=== PATIENT | female | born 1935 | race Caucasian/White ===

== ENCOUNTER → 2016-06-18 | Day surgery (SDC) | payer MEDICARE, BC ==
[~2016-06-18] MED LIST: BUPIVACAINE/EPINEPHRINE 0.25% 50 ML VIAL ONE; CALTTAB5 PO; D32000CA PO; ISOSPOW PO; LACTATED RINGER'S 1000 ML INJ 1,000 ML ONE; LEVO.025 PO; LISI10TA PO; MAGN500T4 PO; METO50TA PO; MULTTAB24 PO; PROPOFOL 200 MG/20 ML AMP IV ONE; ceFAZolin 2 GM PREMIX 50 ML ONE
--- NOTE | 2016-06-18 12:33 | TN ---
cc: LOUIS GIBSON M.D. DATE OF SURGERY: 06/18/2016 PREOPERATIVE DIAGNOSIS Recurrent right breast cancer, right chest wall. POSTOPERATIVE DIAGNOSIS Recurrent right breast cancer, right chest wall. PROCEDURE PERFORMED Wide local excision recurrent right breast cancer, right chest wall 2 x 4 cm. SURGEON Louis Gibson MD REMOTE PILOT OPERATOR Adelina Maria, MS III ANESTHESIA TIVA with local. COMPLICATIONS None. INDICATION FOR PROCEDURE Ms. Sam is a very pleasant 80-year-old female who noted a nodule on her right chest. Her history is significant for having bilateral breast cancers in the past. Nodule was examined in the office and was felt to be concerning. This was biopsied in the office and found to be a recurrent right breast cancer. She is advised to undergo wide local excision of this area. Risks and benefits of wide local excision was discussed with her and she was agreeable. DETAILS OF PROCEDURE The patient was identified, brought to the operating room and placed supine on the operating table. After adequate IV sedation was achieved, right chest was prepped and draped in standard surgical fashion. 0.25% Marcaine was injected into the skin and subcutaneous tissue, around the previous biopsy site. A 2 x 4 cm elliptical incision was used to excise the overlying skin and subcutaneous fat, all the way down to the pectoralis major muscle. Dissection was accomplished using electrocautery Bovie. Fat was dissected up off the pectoralis fascia to include the fascia with the specimen. Specimen was sent to pathology for analysis. Short stitch was placed superior, long stitch placed lateral. The wound was irrigated with normal saline solution. The wound was then closed in two layers using a 3-0 and 4-0 Vicryl. Sterile dressings were applied and the patient was awakened, brought to recovery in stable condition. MD JAMIE Siddiqui/SANDRA /12:14 PM /12:27 PM
== END | disposition home or self-care (01) ==
LOC: ESDC 10:17
PROVIDERS: ATTEND Surgery Trauma Surgery
DX: C50.911 Malignant neoplasm of unspecified site of right female breast (principal)
CPT/HCPCS: 00400; 19120; 88305; J0690; J3010; J7120

== ENCOUNTER → 2017-01-31 | Outpatient (CLI) | payer MEDICARE, BC ==
[~2017-01-31] MED LIST changes: -BUPIVACAINE/EPINEPHRINE 0.25% 50 ML VIAL ONE; -LACTATED RINGER'S 1000 ML INJ 1,000 ML ONE; -PROPOFOL 200 MG/20 ML AMP IV ONE; -ceFAZolin 2 GM PREMIX 50 ML ONE
[2017-01-31 13:46] LABS: BICARBONATE 27.4 MEQ/L (21.0-32.0); CALCIUM 9.1 MG/DL (8.5-10.1); CREATININE 1.01 MG/DL (0.50-1.00)
== END ==
LOC: PLAB 08:27
PROVIDERS: ATTEND Family Medicine
DX: I12.9 Hypertensive chronic kidney disease with stage 1 through stage 4 chronic kidney disease, or unspecified chronic kidney disease (principal); N18.3 Chronic kidney disease, stage 3 (moderate); E03.9 Hypothyroidism, unspecified
CPT/HCPCS: 36415; 80048; 83970; 84443

== ENCOUNTER → 2017-02-20 | Outpatient (CLI) | payer MEDICARE, BC ==
[2017-02-20 14:27] LABS: MAGNESIUM 2.3 MG/DL (1.5-2.5)
== END ==
LOC: PLAB 10:38
PROVIDERS: ATTEND Family Medicine
DX: E61.1 Iron deficiency (principal); I12.9 Hypertensive chronic kidney disease with stage 1 through stage 4 chronic kidney disease, or unspecified chronic kidney disease; N18.3 Chronic kidney disease, stage 3 (moderate)
CPT/HCPCS: 36415; 82728; 83735

== ENCOUNTER → 2017-05-02 | Outpatient (CLI) | payer MEDICARE, BC | LOC: PLAB 07:45 | PROVIDERS: ATTEND Orthopaedic Surgery Sports Medicine | DX: M81.0 Age-related osteoporosis without current pathological fracture (principal) ==

== ENCOUNTER → 2017-05-07 | Outpatient (CLI) | payer MEDICARE, BC ==
[2017-05-07 14:04] LABS: CALCIUM 9.7 MG/DL (8.5-10.1)
[2017-05-07 14:09] LABS: PHOSPHORUS 2.6 MG/DL (2.5-4.9)
== END ==
LOC: PLAB 10:58
PROVIDERS: ATTEND Orthopaedic Surgery Sports Medicine
DX: M81.0 Age-related osteoporosis without current pathological fracture (principal)
CPT/HCPCS: 36415; 82306; 82310; 84100

== ENCOUNTER 2017-07-07 09:33 | Inpatient (IN) | payer MEDICARE, BC ==
[~2017-07-07] VITALS: Ht 162.6 cm; Wt 65.8 kg
[2017-07-07 09:45] VITALS: BP 161/71; PULSE 100; RESP 18; TEMP 98.5; O2SAT 96
[2017-07-07] MEDS ORDERED: LISI2.5T3 PO (10:02)
[2017-07-07] MEDS ORDERED: METO25TA3 PO (10:02)
[2017-07-07] MEDS ORDERED: LEVO25TA4 PO (10:02)
--- NOTE | 2017-07-07 10:11 | PD ---
HPI Chief Complaint: Musculoskeletal Complaint Time Seen by Provider: 09:51 Travel History International Travel<30 days: No Contact w/Intl Traveler<30days: No Traveled to known affect area: No History of Present Illness HPI 81-year-old female presents to the emergency room for evaluation of her right calf pain and swelling for the past week. Patient states pain is constant and severe, worse when she stands on it for long period of time. She has been taking [id number] Tylenol without significant relief in symptoms. Patient also reports feeling sick with a sinus infection for the past 2 weeks. She has associated nausea at onset but denies any fever, chills, or vomiting. Her son gave her Tylenol with sinus medication which temporarily reduced her symptoms. She denies any significant chest pain or shortness of breath. She reports history of breast cancer with double mastectomy and had a recent bone scan just 4 days ago. Denies history of blood clots. She is not on blood thinners. PFSH Past Medical History Cancer: Yes (BREAST) Cardiovascular Problems: Yes (HTN) Hypertension: Yes Thyroid Disease: Yes ?: Not Past Surgical History Mastectomy: Yes (LEFT) Tonsillectomy: Yes Other Surgery: Yes Social History Alcohol Use: Yes Tobacco Use: No Substance Use: No Allergies-Medications (Allergen,Severity, Reaction): Coded Allergies: No Known Allergies (Unverified Adverse Reaction, Unknown, 07/07/17) Reported Meds & Prescriptions Reported Meds & Active Scripts Active Reported Levothyroxine (Levothyroxine Sodium) 25 Mcg Tab Unknown Dose PO DAILY Metoprolol Tartrate 25 Mg Tab Unknown Dose PO BID Lisinopril 2.5 Mg Tab Unknown Dose PO DAILY Review of Systems Except as stated in HPI: all other systems reviewed are Neg Physical Exam Narrative GENERAL: Well-nourished, well-developed female no acute distress. Afebrile. Ambulatory. SKIN: Focused skin assessment warm/dry. No erythema or ecchymosis. HEAD: Normocephalic. EYES: No scleral icterus. No injection or drainage. NECK: Supple, trachea midline. No JVD or lymphadenopathy. CARDIOVASCULAR: Regular rate and rhythm without murmurs, gallops, or rubs. RESPIRATORY: Breath sounds equal bilaterally. No accessory muscle use. MUSCULOSKELETAL: No cyanosis. Moderate edema of the right lower extremity. There is tenderness to palpation over the calf. 2+ dorsalis pedis pulse. Positive Homans sign. Data Data Last Documented VS Vital Signs Date Time Temp Pulse Resp B/P (MAP) Pulse Ox O2 Delivery O2 Flow Rate FiO2 07/07/17 11:53 108 22 160/81 (107) 94 07/07/17 09:45 98.5 Orders Orders Complete Blood Count With Diff (07/07/17 10:06) Comprehensive Metabolic Panel (07/07/17 10:06) Act Partial Throm Time (Ptt) (07/07/17 10:06) Prothrombin Time / Inr (Pt) (07/07/17 10:06) Blood Culture (07/07/17 10:06) Iv Access Insert/Monitor (07/07/17 10:06) Electrocardiogram (07/07/17 10:06) Ecg Monitoring (07/07/17 10:06) Oximetry (07/07/17 10:06) Oxygen Administration (07/07/17 10:06) Ct Pulmonary Angiogram (07/07/17 10:06) Us Leg Venous Doppler (07/07/17 10:06) Iohexol 350 Inj (Omnipaque 350 Inj) (07/07/17 11:49) Heparin Inj (Heparin Inj) (07/07/17 12:00) Heparin-D5w 25,000 U/250 Ml (Heparin-D5w (07/07/17 12:00) Cbc No Diff, Includes Plts (07/10/17 06:00) Act Partial Throm Time (Ptt) (07/07/17 18:51) Occult Blood (Hemoccult) Stool (07/07/17 11:51) Admit Order (Ed Use Only) (07/07/17 12:49) Admit To Inpatient (07/07/17 ) Vital Signs (Adult) Q4H (07/07/17 12:47) Engineering Mgr / Telemetry .CONTINUOUS (07/07/17 12:47) Intake + Output CONRAD.QSHIFT (07/07/17 12:47) Diet Heart Healthy (07/07/17 Lunch) Sodium Chloride 0.9% Flush (Ns Flush) (07/07/17 13:00) Sodium Chloride 0.9% Flush (Ns Flush) (07/07/17 21:00) Ondansetron Inj (Zofran Inj) (07/07/17 13:00) Scd Bilateral/Knee High CONRAD.BID (07/07/17 12:47) Naloxone Inj (Narcan Inj) (07/07/17 13:00) Docusate Sodium-Senna (Denise-Colace) (07/07/17 21:00) Magnesium Hydroxide Liq (Milk Of Magnesi (07/07/17 13:00) Sennosides (Senokot) (07/07/17 13:00) Bisacodyl Supp (Dulcolax Supp) (07/07/17 13:00) Lactulose Liq (Lactulose Liq) (07/07/17 13:00) Labs Laboratory Tests Test 07/07/17 10:20 07/07/17 11:00 Prothrombin Time 12.7 SEC Prothromb Time International Ratio 1.3 RATIO Activated Partial Thromboplast Time 26.1 SEC Blood Urea Nitrogen 16 MG/DL Creatinine 1.00 MG/DL Random Glucose 98 MG/DL Total Protein 7.0 GM/DL Albumin 2.9 GM/DL Calcium Level 9.1 MG/DL Alkaline Phosphatase 806 U/L Aspartate Amino Transf (AST/SGOT) 176 U/L Alanine Aminotransferase (ALT/SGPT) 86 U/L Total Bilirubin 1.9 MG/DL Sodium Level 136 MEQ/L Potassium Level 4.1 MEQ/L Chloride Level 101 MEQ/L Carbon Dioxide Level 25.4 MEQ/L Anion Gap 10 MEQ/L Estimat Glomerular Filtration Rate 53 ML/MIN White Blood Count 9.6 TH/MM3 Red Blood Count 3.97 MIL/MM3 Hemoglobin 12.1 GM/DL Hematocrit 35.9 % Mean Corpuscular Volume 90.5 FL Mean Corpuscular Hemoglobin 30.6 PG Mean Corpuscular Hemoglobin Concent 33.8 % Red Cell Distribution Width 14.7 % Platelet Count 218 TH/MM3 Mean Platelet Volume 7.7 FL Neutrophils (%) (Auto) 75.0 % Lymphocytes (%) (Auto) 10.3 % Monocytes (%) (Auto) 9.8 % Eosinophils (%) (Auto) 1.5 % Basophils (%) (Auto) 3.4 % Neutrophils # (Auto) 7.3 TH/MM3 Lymphocytes # (Auto) 1.0 TH/MM3 Monocytes # (Auto) 0.9 TH/MM3 Eosinophils # (Auto) 0.1 TH/MM3 Basophils # (Auto) 0.3 TH/MM3 CBC Comment DIFF FINAL Differential Comment MDM Medical Decision Making Medical Screen Exam Complete: Yes Emergency Medical Condition: Yes Medical Record Reviewed: Yes Differential Diagnosis PE, DVT, muscle strain, spasm Narrative Course 81-year-old female presents to the emergency room for evaluation of right calf pain and swelling for the past week. Patient denies trauma or injury. She has history of breast cancer. She is not on blood thinners and denies history of blood clots. IV access established basic labs obtained. Physical exam reveals mild to moderate edema of the right lower extremity with 2+ dorsalis pedis pulse. Ultrasound is positive for DVT. Patient was tachycardic on arrival and given suspicion for DVT, CT was ordered as well. CT shows bilateral pulmonary embolisms. Patient denies any significant shortness of breath or chest pain. She was started on a heparin bolus and drip. She will be admitted to the hospital for further evaluation. She understands and agrees to plan. I spoke to Dr. Davies who agrees to accept this patient to her service. H[facility] Point of Care Internal Pos. & Neg. Controls: Passed Fecal Specimen Occult Blood: Negative Diagnosis Primary Impression: Bilateral pulmonary embolism Additional Impression: Right leg DVT Qualified Codes: I82.431 - Acute embolism and thrombosis of right popliteal vein Admitting Information Admitting Physician Requests: Admit Condition: Stable [place] Rob Jul 07, 2017 10:11
[2017-07-07] MEDS ORDERED: SODIUM CHLORIDE 0.9% FLUSH 10 ML FLUSH IVF PRN (10:15)
[2017-07-07 10:42] VITALS: O2SAT 96
[2017-07-07 10:56] LABS: CHLORIDE 101 MEQ/L (98-107); SODIUM (NA) 136 MEQ/L (136-145)
[2017-07-07 10:59] LABS: ALBUMIN 2.9 GM/DL (3.4-5.0); BICARBONATE 25.4 MEQ/L (21.0-32.0); CALCIUM 9.1 MG/DL (8.5-10.1); GLUCOSE,RANDOM 98 MG/DL (74-106)
[2017-07-07 11:00] LABS: BLOOD UREA NITROGEN 16 MG/DL (7-18)
[2017-07-07 11:01] LABS: INTERNATIONAL NORMALIZED RATIO 1.3 RATIO; PROTHROMBIN TIME - PATIENT 12.7 SEC (9.8-11.6)
[2017-07-07 11:03] LABS: ALT (GPT) 86 U/L (10-53); AST (GOT) 176 U/L (15-37); GLOMERULAR FILTRATION RATE 53 ML/MIN (>89)
[2017-07-07 11:04] LABS: TOTAL BILIRUBIN ADULT 1.9 MG/DL (0.2-1.0)
[2017-07-07 11:06] LABS: ALKALINE PHOSPHATASE 806 U/L (45-117)
[2017-07-07 11:08] LABS: AUTOMATED NEUTROPHIL # 7.3 TH/MM3 (1.8-7.7); BASOPHIL # 0.3 TH/MM3 (0-0.2); BASOPHIL % 3.4 % (0.0-2.0); EOSINOPHIL # 0.1 TH/MM3 (0-0.4); EOSINOPHIL % 1.5 % (0.0-4.0); HEMATOCRIT 35.9 % (35.0-46.0); HEMOGLOBIN 12.1 GM/DL (11.6-15.3); LYMPH % 10.3 % (9.0-44.0); MEAN CELL VOLUME 90.5 FL (80.0-100.0); MEAN CORPUSCULAR HEMOGLOBIN 30.6 PG (27.0-34.0); MEAN CORPUSCULAR HGB CONC 33.8 % (32.0-36.0); MEAN PLATELET VOLUME 7.7 FL (7.0-11.0); MONO % 9.8 % (0.0-8.0); MONOCYTE # 0.9 TH/MM3 (0-0.9); PLATELET COUNT 218 TH/MM3 (150-450); RED BLOOD COUNT 3.97 MIL/MM3 (4.00-5.30); RED CELL DISTRIBUTION WIDTH 14.7 % (11.6-17.2); WHITE BLOOD COUNT 9.6 TH/MM3 (4.0-11.0)
--- NOTE | 2017-07-07 11:43 | RADRPT ---
EXAM DATE/TIME: 07/07/2017 11:13 [facility] COMPARISON: No previous studies available for comparison. INDICATIONS : Right leg swelling and pain. MEDICAL HISTORY : Hypertension. Carcinoma, breast. Thyroid disease. SURGICAL HISTORY : Mastectomy, left. Tonsillectomy. Knee surgery. ENCOUNTER: Initial ACUITY: 1 week PAIN SCORE: 6/10 LOCATION: Right leg. TECHNIQUE: Venous ultrasound of the leg was performed from the inguinal ligament to the proximal calf. Real-time, color Doppler and spectral tracing, compression and augmentation techniques were us ed. FINDINGS: There is normal compressibility of the deep venous system from the inguinal region to the distal saph enous vein. There is occlusion of the mid popliteal vein, peroneal vein and posterior tibial veins. CONCLUSION: Occlusive thrombus identified within the popliteal vein, peroneal vein and posterior tibial vein. Kathie Wyatt MD on July 07, 2017 at 11:36 Board Certified Radiologist. This report was verified electronically.
[2017-07-07] MEDS ORDERED: IOHEXOL 350 MG/ML 10 ML VIAL (for RAD DIAG) IVCONTRAST ONE (11:49)
[2017-07-07 11:53] VITALS: BP 160/81; PULSE 108; RESP 22; O2SAT 94
[2017-07-07] MEDS ORDERED: HEPARIN SODIUM - IV 10,000 UNITS/10 ML VIAL IV ONE (12:00)
--- NOTE | 2017-07-07 12:12 | RADRPT ---
EXAM DATE/TIME: 07/07/2017 11:36 [facility] COMPARISON: CT SIMULATION, July 03, 2016, 9:14. INDICATIONS : Right leg pain. Evaluate for pulmonary embolism. IV CONTRAST: 65 cc Omnipaque 350 (iohexol) IV RADIATION DOSE: 8.81 CTDIvol (mGy) MEDICAL HISTORY : Hypertension. Carcinoma, breast. SURGICAL HISTORY : Mastectomy, bilateral. ENCOUNTER: Initial ACUITY: 1 week PAIN SCALE: 0/10 LOCATION: chest TECHNIQUE: Volumetric scanning of the chest was performed using a pulmonary embolism protocol MIP images were re constructed. Using automated exposure control and adjustment of the mA and/or kV according to patien t size, radiation dose was kept as low as reasonably achievable to obtain optimal diagnostic quality images. DICOM format image data is available electronically for review and comparison. Follow-up recommendations for detected pulmonary nodules are based at a minimum on nodule size and pa tient risk factors according to Fleischner Society Guidelines. FINDINGS: PULMONARY ARTERIES: There are filling defects identified within the pulmonary arteries of the right lower lobe and left l ower lobe. LUNGS: There is air space consolidation identified within the right upper lobe an irregular area of parenchy mal opacity abutting the peripheral aspect of the right upper lobe on image 48 of series 3 and image 45 of series 602. No evidence of pulmonary infarction within the lower lobes. These findings are new from the prior CT of July 03, 2016. PLEURAE: Focal pleural thickening identified in the anterior aspect of the right upper lobe adjacent to the ar ea of parenchymal architectural distortion. The remainder of the pleura is normal. MEDIASTINUM: There is good visualization of the great vessels of the middle mediastinum. No evidence of mediastin al or hilar adenopathy/mass. MUSCULOSKELETAL: Within normal limits for patient age. MISCELLANEOUS: The visualized upper abdominal organs demonstrate no acute abnormality. CONCLUSION: There is moderate embolic burden identified within the right and left lower lobes. No evidence of pul monary infarct within the lower lobes. There are areas of airspace consolidation involving the right upper lobe without evidence of adjacent PE. This may represent infection versus infarct and less like ly neoplasm. Recommend followup imaging in 4-6 weeks.. Kathie Wyatt MD on July 07, 2017 at 12:02 Board Certified Radiologist. This report was verified electronically.
[2017-07-07] MEDS ORDERED: BISACODYL 10 MG SUPP RECTAL PRN (13:00)
[2017-07-07] MEDS ORDERED: SODIUM CHLORIDE 0.9% FLUSH 10 ML FLUSH IV FLUSH PRN (13:00)
[2017-07-07] MEDS ORDERED: MAGNESIUM HYDROXIDE SUSP 30 ML CUP PO PRN (13:00)
[2017-07-07] MEDS ORDERED: SENNOSIDES 8.6 MG TAB PO PRN (13:00)
[2017-07-07] MEDS ORDERED: LACTULOSE SYRUP 20 GM/30 ML CUP PO PRN (13:00)
[2017-07-07] MEDS ORDERED: NALOXONE HCL 0.4 MG/ML AMP IV PUSH PRN (13:00)
[2017-07-07] MEDS ORDERED: ONDANSETRON HCL 4 MG/2 ML VIAL IVP PRN (13:00)
[2017-07-07] MEDS: HEPARIN-D5W 25,000 U/250 ML 250 ML IV PRN (13:16)
[2017-07-07 14:41] VITALS: BP 172/83; PULSE 97; RESP 18; TEMP 96.8; O2SAT 97
[2017-07-07 16:00] VITALS: BP 146/67; PULSE 106; RESP 16; TEMP 99.4; O2SAT 92
[2017-07-07] MEDS: CETIRIZINE HCL 10 MG TAB PO SCH (16:00)
--- NOTE | 2017-07-07 16:56 | HHI.HP ---
[facility] Service [facility] Primary Care Physician Nick Vogel MD Admission Diagnosis Pulmonary embolism, DVT Diagnoses: (1) Bilateral pulmonary embolism (2) Right leg DVT Chief Complaint: Shortness of breath and right calf pain/swelling Travel History International Travel<30 Days: No Contact w/Intl Traveler <30 Da: No Traveled to Known Affected Are: No History of Present Illness Written by Trish Barnes, acting as scribe for Dr. Davies on 07/07/17 at 16:41. 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 Patient presented to the ED with right calf pain and swelling as well as worsening cough and dyspnea. Patient states since Saturday she has had constant and severe pain in her right lower extremity that worsens when she stands or walks. Patient states she has been attempting to take Tylenol for pain without relief. She denies any erythema of the right lower extremity prior to presenting to the ED but does admit to warmth and increased swelling. On assessment today her right lower extremity is with erythema extending to mid calf. Patient states that on Saturday she did drive 1.5 hours to [place] in her car. Denies any recent airplane trips or any history of DVT. She denies any recent fever, chills, headache, chest pain, abdominal pain, nausea, vomiting , diarrhea or dysuria. Patient follows with Dr. Liu for her breast cancer. PCP is Dr. Francois. CBC on presentation unremarkable. Liver enzymes elevated upon presentation. Right lower extremity ultrasound showing occlusive thrombus within the popliteal vein, peroneal vein and posterior tibial vein. CT angiography reviewed showing moderate embolic burden identified within the right and left lower lobes. Review of Systems Constitutional: DENIES: Fever, Chills Eyes: DENIES: Diplopia Respiratory: COMPLAINS OF: Cough, Shortness of breath Cardiovascular: COMPLAINS OF: Lower Extremity Edema, DENIES: Chest pain, Palpitations Gastrointestinal: COMPLAINS OF: Nausea, DENIES: Abdominal pain, Black stools, Bloody stools, Constipation, Diarrhea, Vomiting Musculoskeletal: DENIES: Joint pain Psychiatric: COMPLAINS OF: Anxiety Except as stated in HPI: all other systems reviewed are Neg Past Family Social History Past Medical History History of breast cancer. Hypertension Thyroid disease Past Surgical History Left vasectomy Tonsillectomy Reported Medications Active Reported Levothyroxine (Levothyroxine Sodium) 25 Mcg Tab Unknown Dose PO DAILY Metoprolol Tartrate 25 Mg Tab Unknown Dose PO BID Lisinopril 2.5 Mg Tab Unknown Dose PO DAILY Allergies: Coded Allergies: No Known Allergies (Unverified Adverse Reaction, Unknown, 07/07/17) Active Ordered Medications Current Medications Medications (Trade) Dose Ordered Sig/Braydon Route Start Time Stop Time Status Last Admin Heparin Sodium/ Dextrose 250 ml @ 11 mls/hr TITRATE PRN IV 07/07/17 12:00 07/07/17 13:16 (NS Flush) 2 ml UNSCH PRN IV FLUSH 07/07/17 13:00 (NS Flush) 2 ml BID IV FLUSH 07/07/17 21:00 (Zofran Inj) 4 mg Q6H PRN IVP 07/07/17 13:00 (Narcan Inj) 0.4 mg UNSCH PRN IV PUSH 07/07/17 13:00 (Denise-Colace) 1 tab BID PO 07/07/17 21:00 (Milk Of Magnesia Liq) 30 ml Q12H PRN PO 07/07/17 13:00 (Senokot) 17.2 mg Q12H PRN PO 07/07/17 13:00 (Dulcolax Supp) 10 mg DAILY PRN RECTAL 07/07/17 13:00 (Lactulose Liq) 30 ml DAILY PRN PO 07/07/17 13:00 (ZyrTEC) 10 mg DAILY PO 07/07/17 16:00 Ceftriaxone Sodium 1000 mg/ Sodium Chloride 100 ml @ 200 mls/hr Q24H IV 07/07/17 16:00 Azithromycin 500 mg/Sodium Chloride 250 ml @ 250 mls/hr Q24H IV 07/07/17 17:00 Family History Denies any significant family medical history. Social History Denies any tobacco, alcohol or illicit drug use. Physical Exam Vital Signs Vital Signs Date Time Temp Pulse Resp B/P (MAP) Pulse Ox O2 Delivery O2 Flow Rate FiO2 07/07/17 14:41 96.8 97 18 172/83 (112) 97 07/07/17 13:41 07/07/17 11:53 108 22 160/81 (107) 94 07/07/17 10:42 96 07/07/17 09:45 98.5 100 18 161/71 (101) 96 Physical Exam GENERAL: Well-developed, well-nourished patient in NAD. Coughing. SKIN: Warm and dry. No rash. HEAD: Normocephalic. Atraumatic. EYES: Pupils equal and round. No scleral icterus. No injection or drainage. ENT: No nasal bleeding or discharge. Mucous membranes pink and moist. NECK: Supple. Trachea midline. CARDIOVASCULAR: Regular rate and rhythm. S1, S2 noted. No murmur appreciated. RESPIRATORY: No accessory muscle use. Clear to auscultation. Breath sounds equal bilaterally. GASTROINTESTINAL: Abdomen soft, non-tender, nondistended. Normoactive bowel sounds x4. MUSCULOSKELETAL: No obvious deformities. Extremities without clubbing, cyanosis. Right lower extremity erythema extending to mid calf, positive Homans sign, trace edema. Left lower extremity with trace edema. NEUROLOGICAL: Awake and alert. No obvious cranial nerve deficits. Motor grossly within normal limits. 5/5 muscle strength in bilateral upper and lower extremities. Normal speech. PSYCHIATRIC: Appropriate mood and affect; insight and judgment normal. Laboratory Laboratory Tests Test 07/07/17 10:20 07/07/17 11:00 Prothrombin Time 12.7 Prothromb Time International Ratio 1.3 Activated Partial Thromboplast Time 26.1 Blood Urea Nitrogen 16 Creatinine 1.00 Random Glucose 98 Total Protein 7.0 Albumin 2.9 Calcium Level 9.1 Alkaline Phosphatase 806 Aspartate Amino Transf (AST/SGOT) 176 Alanine Aminotransferase (ALT/SGPT) 86 Total Bilirubin 1.9 Sodium Level 136 Potassium Level 4.1 Chloride Level 101 Carbon Dioxide Level 25.4 Anion Gap 10 Estimat Glomerular Filtration Rate 53 White Blood Count 9.6 Red Blood Count 3.97 Hemoglobin 12.1 Hematocrit 35.9 Mean Corpuscular Volume 90.5 Mean Corpuscular Hemoglobin 30.6 Mean Corpuscular Hemoglobin Concent 33.8 Red Cell Distribution Width 14.7 Platelet Count 218 Mean Platelet Volume 7.7 Neutrophils (%) (Auto) 75.0 Lymphocytes (%) (Auto) 10.3 Monocytes (%) (Auto) 9.8 Eosinophils (%) (Auto) 1.5 Basophils (%) (Auto) 3.4 Neutrophils # (Auto) 7.3 Lymphocytes # (Auto) 1.0 Monocytes # (Auto) 0.9 Eosinophils # (Auto) 0.1 Basophils # (Auto) 0.3 CBC Comment DIFF FINAL Differential Comment Date/Time Source Procedure Growth Status 07/07/17 10:25 Blood Line Aerobic Blood Culture Pending Received 07/07/17 10:25 Blood Line Anaerobic Blood Culture Pending Received Result Diagram: 07/07/17 1100 07/07/17 1020 Imaging Last Impressions Lower Extremity Ultrasound 07/07/17 1006 Signed Impressions: Service Date/Time: Friday, July 07, 2017 11:13 - CONCLUSION: Occlusive thrombus identified within the popliteal vein, peroneal vein and posterior tibial vein. Kathie Wyatt MD CT Angiography 07/07/17 1006 Signed Impressions: Service Date/Time: Friday, July 07, 2017 11:36 - CONCLUSION: There is moderate embolic burden identified within the right and left lower lobes. No evidence of pulmonary infarct within the lower lobes. There are areas of airspace consolidation involving the right upper lobe without evidence of adjacent PE. This may represent infection versus infarct and less likely neoplasm. Recommend followup imaging in 4-6 weeks.. Kathie Wyatt MD Septic Shock Reassessment Septic shock perfusion: reassessment completed Caprini VTE Risk Assessment Caprini VTE Risk Assessment: Mod/High Risk (score >= 2) Caprini Risk Assessment Model Point Value = 1 Point Value = 2 Point Value = 3 Point Value = 5 Age 41-60 Minor surgery BMI > 25 kg/m2 Swollen legs Varicose veins or History of unexplained or recurrent spontaneous Oral contraceptives or hormone replacement Sepsis (< 1 month) Serious lung disease, including pneumonia (< 1 month) Abnormal pulmonary function Acute myocardial infarction Congestive heart failure (< 1 month) History of inflammatory bowel disease Medical patient at bed rest Age 61-74 Arthroscopic surgery Major open surgery (> 45 min) Laparoscopic surgery (> 45 min) Malignancy Confined to bed (> 72 hours) Immobilizing plaster cast Central venous access Age >= 75 History of VTE Family history of VTE Factor V Leiden Prothrombin [id number] Lupus anticoagulant Anticardiolipin antibodies Elevated serum homocysteine Heparin-induced thrombocytopenia Other congenital or acquired thrombophilia Stroke (< 1 month) Elective arthroplasty Hip, pelvis, or leg fracture Acute spinal cord injury (< 1 month) Prophylaxis Regimen Total Risk Factor Score Risk Level Prophylaxis Regimen 0-1 Low Early ambulation 2 Moderate Order ONE of the following: *Sequential Compression Device (SCD) *Heparin 5000 units SQ BID 3-4 Higher Order ONE of the following medications: *Heparin 5000 units SQ TID *Enoxaparin/Lovenox 40 mg SQ daily (WT < 150 kg, CrCl > 30 mL/min) *Enoxaparin/Lovenox 30 mg SQ daily (WT < 150 kg, CrCl > 10-29 mL/min) *Enoxaparin/Lovenox 30 mg SQ BID (WT < 150 kg, CrCl > 30 mL/min) AND/OR *Sequential Compression Device (SCD) 5 or more Highest Order ONE of the following medications: *Heparin 5000 units SQ TID (Preferred with Epidurals) *Enoxaparin/Lovenox 40 mg SQ daily (WT < 150 kg, CrCl > 30 mL/min) *Enoxaparin/Lovenox 30 mg SQ daily (WT < 150 kg, CrCl > 10-29 mL/min) *Enoxaparin/Lovenox 30 mg SQ BID (WT < 150 kg, CrCl > 30 mL/min) AND *Sequential Compression Device (SCD) Assessment and Plan Problem List: (1) Bilateral pulmonary embolism ICD Code: I26.99 - Other pulmonary embolism without acute cor pulmonale Status: Acute (2) Right leg DVT ICD Code: I82.401 - Acute embolism and thrombosis of unspecified deep veins of right lower extremity Status: Acute Assessment and Plan This is an 81-year-old female patient with a known medical history of HER-2 breast cancer with left mastectomy, thyroid disease and hypertension who presented to the ED with right calf pain and swelling as well as worsening cough and dyspnea. Bilateral pulmonary embolism presence of dyspnea and cough Right lower extremity DVT with presence of erythema, swelling and positive Homans sign - History of breast cancer and previous chemotherapy/radiation 2015. Patient follows with Dr. Liu, will consult for further input and recommendations. There are reports that patient just underwent a bone scan and awaiting results. - Right lower extremity ultrasound showing occlusive thrombus identified within the popliteal vein, peroneal vein and posterior tibial vein. - CT angiography reviewed showing moderate embolic burden identified within the right and left lower lobes. No pulmonary infarct. Some airspace consolidation in the right upper lobe. - Will be placed on heparin drip per protocol. - Continue cardiac telemetry, monitor for any arrhythmias. - Supplemental O2 as needed, keep saturations above 92%. - Supportive care. Possible community-acquired pneumonia with recent cough 2 weeks - Some airspace consolidation in the right upper lobe identified on CT angiography. - Started on ceftriaxone and azithromycin IV. Continue to monitor for fever. Has been afebrile since presentation. No leukocytosis. Continue to follow CBC. - Placed on Zyrtec as well as Robitussin for cough. - Supplemental O2. History of thyroid disease: Continue home Synthroid. DVT prophylaxis: Heparin. Problem Qualifiers (1) Right leg DVT: Qualified Codes: I82.431 - Acute embolism and thrombosis of right popliteal vein Trish Barnes [facility] Jul 07, 2017 16:56
--- NOTE | 2017-07-07 17:09 | EKG ---
Date Performed: 07/07/2017 Time Performed: 10:30:25 PTAGE: 81 years EKG: SINUS TACHYCARDIA LOW QRS VOLTAGE IN PRECORDIAL LEADS RIGHT BUNDLE BRANCH BLOCK Since the p revious tracing, no significant change noted ABNORMAL ECG PREVIOUS TRACING : 10/28/2011 17.12 DOCTOR: Socrates Benjamin Interpretating Date/Time 07/07/2017 17:08:17
[2017-07-07] MEDS ORDERED: cloNIDine HCL 0.1 MG TAB PO PRN (17:15)
[2017-07-07] MEDS: cefTRIAXone INJ 1,000 MG in SODIUM CHLORIDE 0.9% INJ 100 ML IV SCH (17:18)
[2017-07-07] MEDS: AZITHROMYCIN INJ 500 MG in SODIUM CHLOR 0.9% 250 ML INJ 250 ML IV SCH (18:11)
[2017-07-07] MEDS: guaiFENesin/CODEINE SYRUP 200 MG/20 MG/10 ML CUP PO PRN (19:55)
[2017-07-07] MEDS: SODIUM CHLORIDE 0.9% FLUSH 10 ML FLUSH IV FLUSH SCH (19:57)
[2017-07-07] MEDS: DOCUSATE SODIUM 50 MG/SENNA 8.6 MG TAB PO SCH (19:57)
[2017-07-07 20:00] VITALS: BP 159/81; PULSE 101; PULSE 105; RESP 20; TEMP 99.4; O2SAT 96
[2017-07-07] MEDS ORDERED: LISI10TA PO ×2 (21:56)
[2017-07-07] MEDS: METOPROLOL TARTRATE 25 MG TAB PO SCH (22:00)
[2017-07-08] VITALS (7 sets, daily range): BP systolic 118–186; BP diastolic 65–86; PULSE 77–100; RESP 16–18; TEMP 96–100.4; O2SAT 92–95
[2017-07-08] MEDS: LEVOTHYROXINE SODIUM 25 MCG TAB PO SCH (06:19)
[2017-07-08 07:01] LABS: AUTOMATED NEUTROPHIL # 6.1 TH/MM3 (1.8-7.7); BASOPHIL % 0.3 % (0.0-2.0); EOSINOPHIL # 0.1 TH/MM3 (0-0.4); EOSINOPHIL % 1.5 % (0.0-4.0); HEMATOCRIT 34.5 % (35.0-46.0); HEMOGLOBIN 11.4 GM/DL (11.6-15.3); LYMPH % 15.4 % (9.0-44.0); LYMPHOCYTE # 1.3 TH/MM3 (1.0-4.8); MEAN CELL VOLUME 91.9 FL (80.0-100.0); MEAN CORPUSCULAR HEMOGLOBIN 30.3 PG (27.0-34.0); MEAN CORPUSCULAR HGB CONC 32.9 % (32.0-36.0); MEAN PLATELET VOLUME 8.5 FL (7.0-11.0); MONO % 9.8 % (0.0-8.0); MONOCYTE # 0.8 TH/MM3 (0-0.9); PLATELET COUNT 205 TH/MM3 (150-450); RED BLOOD COUNT 3.76 MIL/MM3 (4.00-5.30); RED CELL DISTRIBUTION WIDTH 14.9 % (11.6-17.2); WHITE BLOOD COUNT 8.3 TH/MM3 (4.0-11.0)
[2017-07-08 07:11] LABS: CHLORIDE 105 MEQ/L (98-107); SODIUM (NA) 138 MEQ/L (136-145)
[2017-07-08 07:22] LABS: ALBUMIN 2.3 GM/DL (3.4-5.0); ALKALINE PHOSPHATASE 707 U/L (45-117); ALT (GPT) 74 U/L (10-53); AST (GOT) 150 U/L (15-37); BICARBONATE 24.9 MEQ/L (21.0-32.0); BLOOD UREA NITROGEN 14 MG/DL (7-18); CALCIUM 8.1 MG/DL (8.5-10.1); CREATININE 0.85 MG/DL (0.50-1.00); GLOMERULAR FILTRATION RATE 64 ML/MIN (>89); GLUCOSE,RANDOM 85 MG/DL (74-106); TOTAL BILIRUBIN ADULT 1.7 MG/DL (0.2-1.0); TOTAL PROTEIN 5.9 GM/DL (6.4-8.2)
[2017-07-08] MEDS: CETIRIZINE HCL 10 MG TAB PO SCH (09:00)
[2017-07-08] MEDS: METOPROLOL TARTRATE 25 MG TAB PO SCH (09:37)
[2017-07-08] MEDS: DOCUSATE SODIUM 50 MG/SENNA 8.6 MG TAB PO SCH ×2 (09:37→21:17)
[2017-07-08] MEDS: SODIUM CHLORIDE 0.9% FLUSH 10 ML FLUSH IV FLUSH SCH ×2 (09:38→21:17)
[2017-07-08] MEDS: HEPARIN-D5W 25,000 U/250 ML 250 ML IV PRN (14:30)
--- NOTE | 2017-07-08 14:32 | HHI.PR ---
Subjective Remarks Pt feeling much better. Did the walk test and doesn't require O2. No nausea or vomiting, no CP. Would rather not be on coumadin. hopeful to be discharged today Objective Vitals Vital Signs Date Time Temp Pulse Resp B/P (MAP) Pulse Ox O2 Delivery O2 Flow Rate FiO2 07/08/17 12:00 96.0 77 16 127/65 (85) 92 07/08/17 08:00 98.7 88 16 127/69 (88) 92 07/08/17 04:00 99.1 88 18 139/72 (94) 95 07/08/17 00:00 100.4 100 18 156/86 (109) 95 07/07/17 20:00 99.4 101 20 159/81 (107) 96 07/07/17 20:00 105 07/07/17 16:00 99.4 106 16 146/67 (93) 92 07/07/17 14:41 96.8 97 18 172/83 (112) 97 I/O 07/07/17 07/07/17 07/07/17 07/08/17 07/08/17 07/08/17 07:00 15:00 23:00 07:00 15:00 23:00 Intake Total 710 ml 640 ml 240 ml Balance 710 ml 640 ml 240 ml Intake Oral 360 ml 640 ml 240 ml IV Total 350 ml # Voids 8 2 Result Diagram: 07/08/17 0535 07/08/17 0535 Imaging Last Impressions Lower Extremity Ultrasound 07/07/17 1006 Signed Impressions: Service Date/Time: Friday, July 07, 2017 11:13 - CONCLUSION: Occlusive thrombus identified within the popliteal vein, peroneal vein and posterior tibial vein. Kathie Wyatt MD CT Angiography 07/07/17 1006 Signed Impressions: Service Date/Time: Friday, July 07, 2017 11:36 - CONCLUSION: There is moderate embolic burden identified within the right and left lower lobes. No evidence of pulmonary infarct within the lower lobes. There are areas of airspace consolidation involving the right upper lobe without evidence of adjacent PE. This may represent infection versus infarct and less likely neoplasm. Recommend followup imaging in 4-6 weeks.. Kathie Wyatt MD Objective Remarks GENERAL: Well-developed, well-nourished patient in NAD. no cough today CARDIOVASCULAR: Regular rate and rhythm. No murmur appreciated. RESPIRATORY: No accessory muscle use. Clear to auscultation. Breath sounds equal bilaterally. GASTROINTESTINAL: Abdomen soft, non-tender, nondistended. Normoactive bowel sounds x4. MUSCULOSKELETAL: No obvious deformities. Right lower extremity mild erythema extending to mid calf, positive Homans sign, trace edema. Left lower extremity with trace edema. NEUROLOGICAL: Awake and alert. Normal speech. 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 Bilateral pulmonary embolism presence of dyspnea and cough Right lower extremity DVT with presence of erythema, swelling and positive Homans sign - History of breast cancer and previous chemotherapy/radiation 2015. Patient follows with Dr. Liu, oncologist, and a consult has been placed for further input and recommendations. There are reports that patient just underwent a bone scan and awaiting results. Pt would rather note be on coumadin. - Right lower extremity ultrasound showing occlusive thrombus identified within the popliteal vein, peroneal vein and posterior tibial vein. - CT angiography reviewed showing moderate embolic burden identified within the right and left lower lobes. No pulmonary infarct. Some airspace consolidation in the right upper lobe. - On heparin drip per protocol. - Continue cardiac telemetry, monitor for any arrhythmias. - Pt passed the walk test. No need for home oxygen - ECHO ordered. Possible community-acquired pneumonia with recent cough 2 weeks - Some airspace consolidation in the right upper lobe identified on CT angiography. - On ceftriaxone and azithromycin IV. Continue to monitor for fever. Tmax 100.4 overnight. No leukocytosis. Continue to follow CBC. - Placed on Zyrtec as well as Robitussin for cough. - Supplemental O2. History of thyroid disease: Continue home Synthroid. Discharge Planning f/u on ECHO to r/o any cardiac strain. Heme/onc consult pending. Anticipate d/c later today or tomorrow pending recs from onc and ECHO result. Problem Qualifiers (1) Right leg DVT: Qualified Codes: I82.431 - Acute embolism and thrombosis of right popliteal vein Carina Davies MD Jul 08, 2017 14:32
[2017-07-08] MEDS: cefTRIAXone INJ 1,000 MG in SODIUM CHLORIDE 0.9% INJ 100 ML IV SCH (15:50)
[2017-07-08] MEDS ORDERED: ACETAMINOPHEN/HYDROcodone 325 MG/5 MG TAB PO PRN (16:15)
[2017-07-08] MEDS ORDERED: METO25TA3 PO (16:30)
[2017-07-08] MEDS ORDERED: LEVO25TA4 PO (16:30)
[2017-07-08] MEDS ORDERED: LISI10TA3 PO (16:30)
[2017-07-08] MEDS: ACETAMINOPHEN 325 MG TAB PO PRN (16:35)
[2017-07-08] MEDS: guaiFENesin/CODEINE SYRUP 200 MG/20 MG/10 ML CUP PO PRN (16:48)
--- NOTE | 2017-07-08 16:54 | ECHRPT ---
Indication: PULMONARY EMBOLI CONCLUSIONS Normal left ventricular size and function. Wall thickness is normal. The left atrial size is upper normal.. The right atrial size is mildly dilated. The interatrial septum not well visualized. The aortic root and proximal ascending aorta are not well visualized. Aortic valve sclerosis is present. Mild aortic valve regurgitation. There is moderate tricuspid valve regurgitation. The estimated pulmonary arterial pressure is 61.3 mmHg. There is estimated [id number] pulmonary hypertension present (range 60-70 mmHg). BP: 127 / 65 HR: 77 Rhythm: Sinus MEASUREMENTS (Male / Female) Normal Values Technical Quality:Fair 2D ECHO LV Diastolic Diameter PLAX 4.2 cm 4.2 - 5.9 / 3.9 - 5.3 cm LV Systolic Diameter PLAX 3.0 cm IVS Diastolic Thickness 0.9 cm 0.6 - 1.0 / 0.6 - 0.9 cm LVPW Diastolic Thickness 0.8 cm 0.6 - 1.0 / 0.6 - 0.9 cm LV Relative Wall Thickness 0.4 RV Internal Dim ED PLAX 3.3 cm LVOT Diameter 2.0 cm Aortic Root Diameter 3.1 cm LA Systolic Diameter LX 3.6 cm 3.0 - 4.0 / 2.7 - 3.8 cm M-MODE AV Cusp Separation MM 2.0 cm DOPPLER AV Peak Velocity 116.0 cm/s AV Peak Gradient 5.4 mmHg AV Mean Gradient 3.0 mmHg AV Velocity Time Integral 24.4 cm AI Peak Velocity 456.0 cm/s AI Peak Gradient 83.2 mmHg AI Pressure Half Time 346.0 ms LVOT Peak Velocity 68.4 cm/s LVOT Peak Gradient 1.9 mmHg LVOT Velocity Time Integral 14.1 cm AV Area Cont Eq vti 1.8 cm AV Area Cont Eq pk 1.9 cm Mitral E Point Velocity 68.6 cm/s Mitral A Point Velocity 86.4 cm/s Mitral E to A Ratio 0.8 LV E' Lateral Velocity 6.1 cm/s Mitral E to LV E' Lateral Ratio 11.2 LV E' Septal Velocity 4.1 cm/s Mitral E to LV E' Septal Ratio 16.8 TR Peak Velocity 358.0 cm/s TR Peak Gradient 51.3 mmHg Right Atrial Pressure 10.0 mmHg Pulmonary Artery Systolic Pressu 61.3 mmHg Right Ventricular Systolic Press 61.3 mmHg PV Peak Velocity 40.6 cm/s PV Peak Gradient 0.7 mmHg FINDINGS LEFT VENTRICLE Normal left ventricular size. Wall thickness is normal. The left ventricular systolic function is normal with an estimated ejection fraction in the range of 60-65%. RIGHT VENTRICLE Normal right ventricular size and systolic function. LEFT ATRIUM The left atrial size is upper normal.. RIGHT ATRIUM The right atrial size is mildly dilated. ATRIAL SEPTUM The interatrial septum not well visualized. AORTA The aortic root and proximal ascending aorta are not well visualized. MITRAL VALVE Structurally normal mitral valve. No mitral valve stenosis or regurgitation. AORTIC VALVE Trileaflet aortic valve. Aortic valve sclerosis is present. Mild aortic valve regurgitation. TRICUSPID VALVE There is moderate tricuspid valve regurgitation. The estimated pulmonary arterial pressure is 61.3 mmHg. There is estimated [id number]-[id number]-[id number] pulmonary hypertension present (range 60-70 mmHg). PULMONARY VALVE No pulmonary valve regurgitation or stenosis. VESSELS The inferior vena cava is normal in size. PERICARDIUM No pericardial effusion. Foster Pringle MD (Electronically Signed) Final Date:08 July 2017 16:53
[2017-07-08] MEDS: AZITHROMYCIN INJ 500 MG in SODIUM CHLOR 0.9% 250 ML INJ 250 ML IV SCH (17:16)
--- NOTE | 2017-07-08 20:34 | MB ---
cc: Jacob Liu MD DATE: 07/08/2017 REASON FOR CONSULTATION: 1. The patient with bilateral pulmonary emboli associated with a large right lower extremity deep venous thrombosis. 2. The patient with previous history of breast carcinoma. CHIEF COMPLAINT: Ms. Sam reports a 2-week history of cough associated with band-like chest pain across the center of her chest. She reports also having developed pain involving her right leg, mostly below the knee and posteriorly starting about a week and a half ago. HISTORY OF PRESENT ILLNESS: Ms. Sam is a very pleasant 81-year-old female who is well known to me from my outpatient practice. Ms. Sam has a history of breast carcinoma, dating back more than 20 years. She was initially diagnosed with an invasive ductal carcinoma of the left breast in 1998. In the late , she underwent mastectomy with left axillary lymphadenectomy. She was treated with adjuvant chemotherapy with CMF and then adjuvant radiation as well. 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 She underwent surgical resection with a right mastectomy in 03/2015. She declined adjuvant systemic therapy despite having HER2 amplified disease. Her disease was T1cN0; stage IA. She did have a local recurrence, which presented in 05/2016. This was resected surgically and she did receive adjuvant radiation to the chest wall on the right side. She had been on observation ever since. The patient was last seen by me in my clinic in late May. She reported symptoms of sudden onset severe pain involving the ribs on the right side and in her underarm. She reports taking Tylenol. She localized the pain to her ribs and was recommended a bone scan to rule out metastatic disease. The bone scan was performed last week and revealed no evidence of metastatic disease involving the bones. The patient reports that her symptoms relieved partially and subsequently recurred after Easter. She came into the [facility] in [place] [facility] yesterday with the above noted complaints. Imaging studies of the thorax; CT angiogram revealed bilateral pulmonary emboli associated with parenchymal opacity involving the right lung concerning for either inflammatory or possible infarction. She has been admitted to the hospital for further workup and management. She was found to have an occlusive thrombosis involving the right popliteal and peroneal veins. She is currently on therapeutic anticoagulation with heparin and her PTTs are within target range. The patient subjectively feels her symptoms of difficulty breathing and chest pain have improved. PAST MEDICAL HISTORY: 1. Invasive ductal carcinoma of the left breast, initially diagnosed in the . 2. 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 3. Local recurrence in the soft tissues of the right chest wall, diagnosed in 05/2016, treated with surgical resection. 4. History of multiple nonmelanomatous skin cancers. 5. Hypothyroidism. 6. Hypertension. PAST SURGICAL HISTORY: 1. Bilateral cataracts. 2. Knee surgery on the left side. 3. Removal of multiple skin carcinomas. 4. Left breast mastectomy in the . 5. Right breast mastectomy in 03/2015. 6. Excisional biopsy of cutaneous recurrence on the right medial chest wall in 05/2016. 7. Colonoscopy, 2012. 8. Hernia repair, 2002. 9. Tonsillectomy in 1953. ALLERGIES: SULFA DRUGS. FAMILY HISTORY: Mother at the age of 97 of advanced age, father at 65 of complications of alcohol abuse. Sister had breast cancer in 2014, she is living. SOCIAL HISTORY: The patient is . She lives at home alone. She reports being a lifelong nonsmoker. She denies alcohol abuse. She previously worked in [email or web address]. GYNECOLOGIC HISTORY: 6, para 5. CURRENT INPATIENT MEDICATIONS: 1. Heparin infusion per protocol. 2. Azithromycin 500 mg IV q. 24 hours. 3. Ceftriaxone 1 gram IV q. 24 hours postop. 4. Hydrocodone/acetaminophen 5/325mg 1 tablet every 4 hours as needed for pain. 5. Dulcolax 10 mg per rectal as needed for severe constipation. 6. Zyrtec 10 mg p.o. daily. 7. Clonidine 0.1 mg p.o. q. 6 hours. 8. Guaifenesin/codeine 10 mL p.o. q. 6 hours as needed for cough. 9. Hydrochlorothiazide 12.5 mg p.o. daily. 10. Levothyroxine 25 mcg p.o. daily. 11. Lisinopril 10 mg p.o. daily. 12. Metoprolol 12.5 mg p.o. at bedtime. REVIEW OF SYSTEMS: A 13-point review of systems was obtained. The following are the pertinent positives and negatives: CONSTITUTIONAL: The patient reports fatigue. She denies fevers, chills, night sweats. HEENT: Denies headache, blurry vision, difficulty swallowing, soreness of throat. RESPIRATORY: Reports difficulty breathing with exertion, dry cough. She reports pleuritic chest pain. CARDIOVASCULAR: Denies angina or chest pain, PND or orthopnea. GASTROINTESTINAL: Denies nausea, vomiting, diarrhea, hematochezia or melena. GENITOURINARY: Denies dysuria, hematuria or incontinence. CENTRAL NERVOUS SYSTEM: No focal sensory or motor deficit. LOWER EXTREMITIES: Right calf pain and tenderness. PHYSICAL EXAMINATION: VITAL SIGNS: Temperature 98.2 degrees Fahrenheit, heart rate 78 beats per minute, blood pressure 118/66, O2 saturations are 92 percent on room air. GENERAL PHYSICAL APPEARANCE: Ms. Sam is an elderly lady. She is lying in bed. She appears to be in no acute distress and has a pleasant disposition. HEENT: Head is atraumatic, normocephalic. Conjunctivae are not pale. Sclerae anicteric, EOMI. PERRLA. Oral exam, no pharyngeal erythema. NECK: No palpable cervical or supraclavicular lymphadenopathy. RESPIRATORY: Clear movement bilaterally. No added breath sounds. CARDIOVASCULAR: Regular rate and rhythm, S1, S2. No obvious murmurs, rubs or gallops. ABDOMEN: A thin belly, soft, tender over the right upper quadrant to deep inspiration. No palpable organ enlargement. LOWER EXTREMITIES: Tenderness of the right calf, some erythema of the right gray, slight edema of the right leg and increased diameter/girth as compared to the left. Left leg is unremarkable. CENTRAL NERVOUS SYSTEM: No focal sensory or motor deficits. LABORATORY DATA: Blood work dated 07/08/2017: WBC count 8.3, hemoglobin 11.4 g/dL, hematocrit 34.5%, MCV 92, platelet count 205, absolute neutrophil count is 6.1. Chemistries: Sodium 138, potassium 4, chloride 105, bicarbonate 25, BUN 14, creatinine 0.85, EGFR 64, random glucose 85, calcium 8.1, total bilirubin 1.7, AST 150, ALT 74, alkaline phosphatase 707, albumin 2.3. RADIOGRAPH STUDIES: CT angiography dated 07/07/2017: There is moderate embolic burden identified within the right and the left lower lobes. No evidence of pulmonary infarction in the lower lobes. There is an area of airspace consolidation involving the right upper lobe without evidence of adjacent pulmonary embolus. This may represent infection versus infarct and less likely neoplasm. Recommend followup studies in 4-6 weeks. Lower extremity ultrasound Doppler studies on the right side indicate evidence of occlusive thrombus identified within the popliteal vein, peroneal vein and posterior tibial veins. ASSESSMENT: Ms. Sam is an 81-year-old female with a history of breast carcinoma, initially diagnosed with left-sided breast cancer in the , which was treated with surgical resection, adjuvant chemotherapy and then adjuvant radiation therapy. In 2014, she was diagnosed with right-sided breast carcinoma, which was stage I. Her disease on the right side was weakly ER and MN positive and HER2 amplified. She underwent surgical resection. She declined adjuvant chemotherapy and approximately about a year and a half later was diagnosed with local recurrence in the soft tissues of the right chest wall. This was surgically resected and treated with radiation. She has not been on systemic therapy since her second episode of breast carcinoma (papillary carcinoma) in 2014. She is without evidence of metastatic disease at this point. The patient presented to this facility yesterday with complaints of pain in her right calf as well as difficulty breathing and chest pain. She was found to have bilateral pulmonary emboli and a right lower extremity deep venous thrombosis. She has been initiated on anticoagulation with heparin. Her symptoms are slightly improved. Echocardiogram revealed pulmonary hypertension with PA peak pressure of slightly over 60 mmHg. RECOMMENDATIONS: 1. Bilateral pulmonary emboli: Continue anticoagulation. I would advise transition to Xarelto 15 mg p.o. b.i.d. as a loading dose for 21 days and then transition to Xarelto 20 mg p.o. once daily and with her evening meals at the time of discharge. 2. It is not yet clear what the cause of her pulmonary embolus was/what the provoking factor was. I will obtain a prothrombotic workup at this time; circulating lupus anticoagulant and APL studies ordered. 3. Infiltrate involving the right lung: Cause not known. Followup CT scan will be performed in the upcoming 6-8 weeks. 4. The patient may be discharged home upon transition from heparin to oral Xarelto. 5. A followup visit with me will be scheduled in the upcoming 1 week. MD BISHNU Gross/ARIK , 07:44 PM , 08:32 PM DANIELA
[2017-07-08] MEDS ORDERED: METOPROLOL TARTRATE 25 MG TAB PO SCH (21:00)
[2017-07-09] VITALS: BP 118/68; PULSE 82; RESP 18; TEMP 97.9; O2SAT 93
[2017-07-09 04:00] VITALS: BP 143/77; PULSE 92; RESP 17; TEMP 97.8; O2SAT 90
[2017-07-09] MEDS: ACETAMINOPHEN 325 MG TAB PO PRN ×2 (04:08→10:31)
[2017-07-09] MEDS: guaiFENesin/CODEINE SYRUP 200 MG/20 MG/10 ML CUP PO PRN ×2 (04:08→10:31)
[2017-07-09] MEDS: LEVOTHYROXINE SODIUM 25 MCG TAB PO SCH (06:37)
[2017-07-09 08:00] VITALS: BP 140/67; PULSE 83; RESP 14; TEMP 96.7; O2SAT 96
[2017-07-09] MEDS: CETIRIZINE HCL 10 MG TAB PO SCH (09:00)
[2017-07-09] MEDS ORDERED: HYDROCHLOROTHIAZIDE 12.5 MG CAP PO SCH (09:00)
[2017-07-09] MEDS ORDERED: LISINOPRIL 10 MG TAB PO SCH ×2 (09:00)
[2017-07-09] MEDS: SODIUM CHLORIDE 0.9% FLUSH 10 ML FLUSH IV FLUSH SCH (09:00)
[2017-07-09] MEDS: DOCUSATE SODIUM 50 MG/SENNA 8.6 MG TAB PO SCH (09:39)
[2017-07-09] MEDS ORDERED: RIVAROXABAN 15 MG TAB PO SCH (09:45)
[2017-07-09] MEDS ORDERED: XARE15TA PO (09:48)
[2017-07-09] MEDS ORDERED: guaiFEN-COD 200-20 MG/10ML LIQ PO (09:48)
[2017-07-09] MEDS ORDERED: ZITH500T PO (09:48)
--- NOTE | 2017-07-09 09:48 | HHI.DCPOC ---
Discharge Care Plan Diagnosis: (1) Bilateral pulmonary embolism (2) Right leg DVT Goals to Promote Your Health * To prevent worsening of your condition and complications * To maintain your health at the optimal level Directions to Meet Your Goals Take your medications as prescribed Follow your dietary instruction Follow activity as directed Keep your appointments as scheduled Take your immunizations and boosters as scheduled If your symptoms worsen call your PCP, if no PCP go to Urgent Care Center or Emergency Room Smoking is Dangerous to Your Health. Avoid second hand smoke Call the 24-hour hour crisis hotline for domestic abuse at Lucio Helm Jul 09, 2017 09:48
--- NOTE | 2017-07-09 12:01 | HHI.DS ---
Discharge Summary Admission Date Jul 07, 2017 at 12:51 Discharge Date: Jul 09, 2017 Admitting Diagnosis Pulmonary embolism, DVT (1) Bilateral pulmonary embolism ICD Code: I26.99 - Other pulmonary embolism without acute cor pulmonale Status: Acute (2) Right leg DVT ICD Code: I82.401 - Acute embolism and thrombosis of unspecified deep veins of right lower extremity Status: Acute Procedures ECHOCARDIOGRAM CONCLUSIONS Normal left ventricular size and function. Wall thickness is normal. The left atrial size is upper normal.. The right atrial size is mildly dilated. The interatrial septum not well visualized. The aortic root and proximal ascending aorta are not well visualized. Aortic valve sclerosis is present. Mild aortic valve regurgitation. There is moderate tricuspid valve regurgitation. The estimated pulmonary arterial pressure is 61.3 mmHg. There is estimated [id number] pulmonary hypertension present (range 60- 70 mmHg). Brief History - From Admission Written by Trish Barnes, acting as scribe for Dr. Davies on 07/07/17 at 16:41. 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 Patient presented to the ED with right calf pain and swelling as well as worsening cough and dyspnea. Patient states since Saturday she has had constant and severe pain in her right lower extremity that worsens when she stands or walks. Patient states she has been attempting to take Tylenol for pain without relief. She denies any erythema of the right lower extremity prior to presenting to the ED but does admit to warmth and increased swelling. On assessment today her right lower extremity is with erythema extending to mid calf. Patient states that on Saturday she did drive 1.5 hours to [place] in her car. Denies any recent airplane trips or any history of DVT. She denies any recent fever, chills, headache, chest pain, abdominal pain, nausea, vomiting , diarrhea or dysuria. Patient follows with Dr. Liu for her breast cancer. PCP is Dr. Francois. CBC on presentation unremarkable. Liver enzymes elevated upon presentation. Right lower extremity ultrasound showing occlusive thrombus within the popliteal vein, peroneal vein and posterior tibial vein. CT angiography reviewed showing moderate embolic burden identified within the right and left lower lobes. CBC/BMP: 07/08/17 0535 07/08/17 0535 Significant Findings Laboratory Tests Test 07/07/17 10:20 07/07/17 11:00 07/07/17 18:50 07/07/17 22:25 Prothrombin Time 12.7 SEC (9.8-11.6) Albumin 2.9 GM/DL (3.4-5.0) Alkaline Phosphatase 806 U/L (45-117) Aspartate Amino Transf (AST/SGOT) 176 U/L (15-37) Alanine Aminotransferase (ALT/SGPT) 86 U/L (10-53) Total Bilirubin 1.9 MG/DL (0.2-1.0) Estimat Glomerular Filtration Rate 53 ML/MIN (>89) Red Blood Count 3.97 MIL/MM3 (4.00-5.30) Neutrophils (%) (Auto) 75.0 % (16.0-70.0) Monocytes (%) (Auto) 9.8 % (0.0-8.0) Basophils (%) (Auto) 3.4 % (0.0-2.0) Basophils # (Auto) 0.3 TH/MM3 (0-0.2) Activated Partial Thromboplast Time 99.1 SEC (24.3-30.1) 69.0 SEC (24.3-30.1) Test 07/08/17 05:35 07/08/17 11:05 07/08/17 22:30 07/09/17 05:20 Red Blood Count 3.76 MIL/MM3 (4.00-5.30) Hemoglobin 11.4 GM/DL (11.6-15.3) Hematocrit 34.5 % (35.0-46.0) Neutrophils (%) (Auto) 73.0 % (16.0-70.0) Monocytes (%) (Auto) 9.8 % (0.0-8.0) Activated Partial Thromboplast Time 75.5 SEC (24.3-30.1) 73.7 SEC (24.3-30.1) 68.6 SEC (24.3-30.1) Total Protein 5.9 GM/DL (6.4-8.2) Albumin 2.3 GM/DL (3.4-5.0) Calcium Level 8.1 MG/DL (8.5-10.1) Alkaline Phosphatase 707 U/L (45-117) Aspartate Amino Transf (AST/SGOT) 150 U/L (15-37) Alanine Aminotransferase (ALT/SGPT) 74 U/L (10-53) Total Bilirubin 1.7 MG/DL (0.2-1.0) Estimat Glomerular Filtration Rate 64 ML/MIN (>89) Imaging Last Impressions Lower Extremity Ultrasound 07/07/17 1006 Signed Impressions: Service Date/Time: Friday, July 07, 2017 11:13 - CONCLUSION: Occlusive thrombus identified within the popliteal vein, peroneal vein and posterior tibial vein. Kathie Wyatt MD CT Angiography 07/07/17 1006 Signed Impressions: Service Date/Time: Friday, July 07, 2017 11:36 - CONCLUSION: There is moderate embolic burden identified within the right and left lower lobes. No evidence of pulmonary infarct within the lower lobes. There are areas of airspace consolidation involving the right upper lobe without evidence of adjacent PE. This may represent infection versus infarct and less likely neoplasm. Recommend followup imaging in 4-6 weeks.. Kathie Wyatt MD PE at Discharge GENERAL: Well-developed, well-nourished patient in NAD. no cough today CARDIOVASCULAR: Regular rate and rhythm. No murmur appreciated. RESPIRATORY: No accessory muscle use. Clear to auscultation. Breath sounds equal bilaterally. GASTROINTESTINAL: Abdomen soft, non-tender, nondistended. Normoactive bowel sounds x4. MUSCULOSKELETAL: No obvious deformities. Right lower extremity mild erythema extending to mid calf, positive Homans sign, trace edema. Left lower extremity with trace edema. NEUROLOGICAL: Awake and alert. Normal speech. Hospital Course 81-year-old male with known history of invasive papillary carcinoma of the breast with local relapse who presented to the hospital because of right calf pain, cough and difficulty breathing. Patient had workup done emergency department and found to have right lower extremity DVT as well as pulmonary emboli. Patient was admitted to the hospital on heparin IV. Hematology was consulted for evaluation and recommending further workup with laboratory studies to evaluate the etiology of the emboli. Hematology is also recommend the use of Xarelto for anticoagulation. Patient has been converted to Xarelto from heparin at this time. Patient did not have any signs of hypoxia or any significant tachycardia. Patient did have a cough which was controlled with cough medication. Patient clinically stable this time. Educational Administrator recommended outpatient follow-up in 1 week. We will plan discharge accordingly. Pt Condition on Discharge: Stable Discharge Disposition: Discharge Home Discharge Time: > 30 minutes Discharge Instructions DIET: Follow Instructions for: Heart Healthy Diet Activities you can perform: Regular-No Restrictions Follow up Referrals: Oncology/Hematology - 1 Week with Jacob Liu MD PCP Follow-up - 1 Week New Medications: Azithromycin (Zithromax) 500 Mg Tab 500 MG PO DAILY for Infection for 7 Days, #7 TAB 0 Refills Rivaroxaban (Xarelto) 15 Mg Tab 15 MG PO BID for Pulmonary emboli for 21 Days, #42 TAB [guaiFEN-COD 200-20 MG/10ML LIQ] () 10 ML SYRP 10 ML PO Q6H PRN for cough, #1 BOTTLE Continued Medications: Levothyroxine (Levothyroxine) 25 Mcg Tab 75 MCG PO DAILY for Thyroid Lisinopril/Hctz 10 mg/12.5 mg (Lisinopril/Hctz 10 mg/12.5 mg) 10 mg/12.5 mg Tab 1 TAB PO DAILY, TAB Metoprolol Tartrate (Metoprolol Tartrate) 25 Mg Tab 25 MG PO DAILY, #30 TAB 0 Refills Lucio Helm Jul 09, 2017 12:01
[2017-07-11 03:50] LABS: BETA2 GLYCOPROTEIN I AB IGA LESS THAN 9.0 SAU (< OR = 20); BETA2 GLYCOPROTEIN I AB IGG LESS THAN 9.0 SGU (< OR = 20); BETA2 GLYCOPROTEIN I AB IGM LESS THAN 9.0 SMU (< OR = 20)
[2017-07-11 11:54] LABS: DRVVT 1:1 MIX ND (CORRECTED); DRVVT CONFIRM ND (NEGATIVE); HEXAGONAL PHASE CONFIRM NEGATIVE (NEGATIVE)
[2017-07-11 17:54] LABS: CARDIOLIPIN AB IGA LESS THAN 11.0 APL (0-11); PHOS SERINE AB IGA LESS THAN 20 U/mL (<20)
== END 2017-07-09 11:55 | disposition home or self-care (01) | DRG 175 ==
LOC: PHEFT 09:33 → PHEDA 12:51 → PH3A 13:34
PROVIDERS: ADMIT Hospitalist; ATTEND Hospitalist
DX: I26.99 Other pulmonary embolism without acute cor pulmonale (principal); J18.9 Pneumonia, unspecified organism; I27.20 Pulmonary hypertension, unspecified; I82.431 Acute embolism and thrombosis of right popliteal vein; I10 Essential (primary) hypertension; E03.9 Hypothyroidism, unspecified; Z85.3 Personal history of malignant neoplasm of breast; Z90.12 Acquired absence of left breast and nipple; Z92.21 Personal history of antineoplastic chemotherapy; Z92.3 Personal history of irradiation; Z80.3 Family history of malignant neoplasm of breast; Z19.1 Hormone sensitive malignancy status
CPT/HCPCS: 71275; 80053; 85025; 85598; 85610; 85613; 85730; 86146; 86147; 86148; 87040; 93005; 93306; 93971; 94618; 96374; J0456; J0696; J1644; J7050; Q9967

== ENCOUNTER 2017-07-28 09:25 | Inpatient (IN) | payer MEDICARE, BC ==
[~2017-07-28] VITALS: Ht 165.1 cm; Wt 65.0 kg
[~2017-07-28 09:25] MED LIST changes: -CALTTAB5 PO; -D32000CA PO; -ISOSPOW PO; -LEVO.025 PO; +LEVO25TA4 PO; -MAGN500T4 PO; +METO25TA3 PO; -METO50TA PO; -MULTTAB24 PO; +XARE15TA PO; +ZITH500T PO; +guaiFEN-COD 200-20 MG/10ML LIQ PO
[2017-07-28 09:37] VITALS: BP 113/57; PULSE 98; RESP 18; TEMP 97.9; O2SAT 99
[2017-07-28] MEDS ORDERED: SODIUM CHLOR 0.9% 1000 ML INJ 1,000 ML IV ONE (10:10)
[2017-07-28] MEDS ORDERED: SODIUM CHLORIDE 0.9% FLUSH 10 ML FLUSH IVF PRN (10:15)
[2017-07-28] MEDS ORDERED: ONDANSETRON HCL 4 MG/2 ML VIAL IV PUSH ONE (10:15)
--- NOTE | 2017-07-28 10:24 | PD ---
HPI . Nausea and poor appetite Chief Complaint: GI Complaint Time Seen by Provider: 10:07 Travel History International Travel<30 days: No Contact w/Intl Traveler<30days: No Traveled to known affect area: No History of Present Illness HPI Status post mastectomy in the remote past with a recent recurrence of the cancer in her chest wall which has been treated with radiation therapy. However , her most recent medical problem has been a pulmonary embolus which occurred on about 07/07. She states that she has had increasing weakness and fatigue over the course of the last month. She has been nauseous and has had a very poor appetite. She has been undergoing outpatient testing and they have determined that the issue is her gallbladder. She is scheduled to see Dr. Romano tomorrow for consideration of cholecystectomy. In the meantime, she is currently on Levaquin and Flagyl for cholecystitis. She has been taking this as directed but states that her symptoms are not improving. In fact, they are getting worse. There are no modifying factors. Symptoms are moderate. She has not been running a fever. She states she had recent elevated liver function studies on outpatient labs but that her white blood count was normal. PFSH Past Medical History Hx Anticoagulant Therapy: Yes (XARELTO) Cancer: Yes (BREAST x3) Cardiovascular Problems: Yes (HTN) Chemotherapy: Yes (1989) Diminished Hearing: No Endocrine: Yes Gastrointestinal Disorders: Yes (Right Inguinal Hernia) Genitourinary: No Hypertension: Yes Immune Disorder: No Musculoskeletal: Yes Neurologic: No Reproductive: No Respiratory: No Radiation Therapy: Yes (33 treatment in 2015) Thyroid Disease: Yes (Hypothyroid) Tetanus Vaccination: < 5 Years Influenza Vaccination: No : 5 Para: 5 Miscarriage: 0 : 0 Past Surgical History Abdominal Surgery: Yes (HERNIA REPAIR ) Cardiac Surgery: No Mastectomy: Yes (BILAT LEFT 1989 RIGHT 2015) Thoracic Surgery: No Tonsillectomy: Yes Other Surgery: Yes Social History Alcohol Use: Yes (very rare) Tobacco Use: No Substance Use: No Allergies-Medications (Allergen,Severity, Reaction): Coded Allergies: Sulfa (Sulfonamide Antibiotics) (Verified Allergy, Intermediate, Rash, ) Reported Meds & Prescriptions Reported Meds & Active Scripts Active Xarelto (Rivaroxaban) 15 Mg Tab 15 Mg PO BID 21 Days Reported Zofran Odt (Ondansetron Odt) 4 Mg Tab 4 Mg SL Q6HR PRN Levofloxacin 500 Mg Tablet 500 Mg PO DAILY Metronidazole 500 Mg Tab 500 Mg PO TID Lisinopril-Hctz 10-12.5 Mg Tab 1 Tab PO DAILY Metoprolol Tartrate 25 Mg Tab 25 Mg PO DAILY Levothyroxine (Levothyroxine Sodium) 25 Mcg Tab 75 Mcg PO DAILY Review of Systems Except as stated in HPI: all other systems reviewed are Neg General / Constitutional: Positive: Other (Fatigue), No: Fever, Chills Gastrointestinal: Positive: Nausea, Loss of Appetite, No: Vomiting, Diarrhea, Abdominal Pain Physical Exam Narrative GENERAL: This is a spry appearing 81-year-old woman who looks like she does not feel well. SKIN: warm/dry. HEAD: Normocephalic. Atraumatic. EYES: Pupils equal and round. No scleral icterus. No injection or drainage. ENT: No nasal bleeding or discharge. Mucous membranes are slightly dry. NECK: Trachea midline. Full range of motion without pain.. CARDIOVASCULAR: Regular rate and rhythm. RESPIRATORY: No accessory muscle use. Clear to auscultation. Breath sounds equal bilaterally. GASTROINTESTINAL: Abdomen soft. Nontender. Bowel sounds present. Nondistended. MUSCULOSKELETAL: No obvious deformities. NEUROLOGICAL: Awake and alert. No obvious cranial nerve deficits. Motor grossly within normal limits. Normal speech. PSYCHIATRIC: Appropriate mood and affect; insight and judgment normal. Data Data Last Documented VS Vital Signs Date Time Temp Pulse Resp B/P (MAP) Pulse Ox O2 Delivery O2 Flow Rate FiO2 07/28/17 09:37 97.9 98 18 113/57 (75) 99 Orders Orders Complete Blood Count With Diff (07/28/17 10:10) Comprehensive Metabolic Panel (07/28/17 10:10) Urinalysis - C+S If Indicated (07/28/17 10:10) Lipase (07/28/17 10:10) Iv Access Insert/Monitor (07/28/17 10:10) Ondansetron Inj (Zofran Inj) (07/28/17 10:15) Sodium Chlor 0.9% 1000 Ml Inj (Ns 1000 M (07/28/17 10:10) Sodium Chloride 0.9% Flush (Ns Flush) (07/28/17 10:15) Consult General Surgery (07/28/17 ) C-Reactive Protein (Crp) (07/28/17 11:43) Labs Laboratory Tests Test 07/28/17 10:30 White Blood Count 6.4 TH/MM3 Red Blood Count 4.07 MIL/MM3 Hemoglobin 13.1 GM/DL Hematocrit 38.2 % Mean Corpuscular Volume 93.8 FL Mean Corpuscular Hemoglobin 32.1 PG Mean Corpuscular Hemoglobin Concent 34.2 % Red Cell Distribution Width 18.2 % Platelet Count 161 TH/MM3 Mean Platelet Volume 8.6 FL Neutrophils (%) (Auto) 77.2 % Lymphocytes (%) (Auto) 10.4 % Monocytes (%) (Auto) 11.6 % Eosinophils (%) (Auto) 0.2 % Basophils (%) (Auto) 0.6 % Neutrophils # (Auto) 4.9 TH/MM3 Lymphocytes # (Auto) 0.7 TH/MM3 Monocytes # (Auto) 0.7 TH/MM3 Eosinophils # (Auto) 0.0 TH/MM3 Basophils # (Auto) 0.0 TH/MM3 CBC Comment DIFF FINAL Differential Comment Blood Urea Nitrogen 20 MG/DL Creatinine 1.23 MG/DL Random Glucose 92 MG/DL Total Protein 6.0 GM/DL Albumin 2.4 GM/DL Calcium Level 9.2 MG/DL Alkaline Phosphatase 932 U/L Aspartate Amino Transf (AST/SGOT) 150 U/L Alanine Aminotransferase (ALT/SGPT) 56 U/L Total Bilirubin 4.2 MG/DL Sodium Level 136 MEQ/L Potassium Level 4.4 MEQ/L Chloride Level 99 MEQ/L Carbon Dioxide Level 25.4 MEQ/L Anion Gap 12 MEQ/L Estimat Glomerular Filtration Rate 42 ML/MIN Lipase 127 U/L [facility] Medical Decision Making Medical Screen Exam Complete: Yes Emergency Medical Condition: Yes Medical Record Reviewed: Yes (please see HPI for pertinent record review) Differential Diagnosis Differential diagnosis includes but is not limited to viral gastroenteritis, food poisoning, bowel obstruction, UTI Narrative Course This patient presents with the chief complaint of nausea and poor appetite over the course of last month. She states that she was recently diagnosed with cholecystitis. She is scheduled to see a surgeon for this tomorrow. Her nausea and poor appetite have been getting progressively worse to the point where she feels like she cannot wait any longer. She subsequently presents to us today. I will treat her acutely with IV fluids and IV Zofran. Routine abdominal pain labs are in process. I anticipate that she will be admitted with a surgical consultation. Ultrasound was done 07/25/17. The findings were abnormal thickening of the gallbladder wall with pericholecystic fluid without definitive gallstones. It was concerning for acute cholecystitis. CT scan was done on 07/24/17. It also showed thickening of the gallbladder wall and pericholecystic fluid but no stones, concerning for acute cholecystitis. CBC & BMP Diagram 07/28/17 10:30 Total Protein 6.0 #L, Albumin 2.4 L, Calcium Level 9.2, Alkaline Phosphatase 932 H, Aspartate Amino Transf (AST/SGOT) 150 H, Alanine Aminotransferase (ALT/ SGPT) 56 H, Total Bilirubin 4.2 H Her liver function studies are getting progressively worse. Physician Communication Physician Communication Dr. Parada Diagnosis Primary Impression: Nausea Additional Impressions: Transaminitis Hyperbilirubinemia Admitting Information Admitting Physician Requests: Admit Condition: Stable Carey Clark MD Jul 28, 2017 10:24
[2017-07-28] MEDS ORDERED: METR1TAB76 PO (10:35)
[2017-07-28] MEDS ORDERED: LISI10TA PO (10:35)
[2017-07-28] MEDS ORDERED: LEVO500T8 PO (10:35)
[2017-07-28] MEDS ORDERED: ZOFR4TAB3 SL (10:35)
[2017-07-28 10:49] LABS: AUTOMATED NEUTROPHIL # 4.9 TH/MM3 (1.8-7.7); BASOPHIL % 0.6 % (0.0-2.0); EOSINOPHIL % 0.2 % (0.0-4.0); HEMATOCRIT 38.2 % (35.0-46.0); HEMOGLOBIN 13.1 GM/DL (11.6-15.3); LYMPH % 10.4 % (9.0-44.0); LYMPHOCYTE # 0.7 TH/MM3 (1.0-4.8); MEAN CELL VOLUME 93.8 FL (80.0-100.0); MEAN CORPUSCULAR HEMOGLOBIN 32.1 PG (27.0-34.0); MEAN CORPUSCULAR HGB CONC 34.2 % (32.0-36.0); MEAN PLATELET VOLUME 8.6 FL (7.0-11.0); MONO % 11.6 % (0.0-8.0); MONOCYTE # 0.7 TH/MM3 (0-0.9); NEUT % 77.2 % (16.0-70.0); PLATELET COUNT 161 TH/MM3 (150-450); RED BLOOD COUNT 4.07 MIL/MM3 (4.00-5.30); RED CELL DISTRIBUTION WIDTH 18.2 % (11.6-17.2); WHITE BLOOD COUNT 6.4 TH/MM3 (4.0-11.0)
[2017-07-28 11:06] LABS: ALKALINE PHOSPHATASE 932 U/L (45-117); TOTAL BILIRUBIN ADULT 4.2 MG/DL (0.2-1.0)
[2017-07-28 11:15] LABS: ALBUMIN 2.4 GM/DL (3.4-5.0); ALT (GPT) 56 U/L (10-53); BICARBONATE 25.4 MEQ/L (21.0-32.0); BLOOD UREA NITROGEN 20 MG/DL (7-18); CALCIUM 9.2 MG/DL (8.5-10.1); CHLORIDE 99 MEQ/L (98-107); CREATININE 1.23 MG/DL (0.50-1.00); GLOMERULAR FILTRATION RATE 42 ML/MIN (>89); GLUCOSE,RANDOM 92 MG/DL (74-106); SODIUM (NA) 136 MEQ/L (136-145)
[2017-07-28 11:16] LABS: AST (GOT) 150 U/L (15-37)
--- NOTE | 2017-07-28 11:40 | HHI.HP ---
[facility] Service Family Medicine Primary Care Physician Nick Vogel MD Admission Diagnosis Diagnoses: International Travel<30 Days: No Contact w/Intl Traveler<30days: No Known Affected Area: No History of Present Illness Patient is an 81 y/o F w/hx of breast cancer and bilateral PE presenting w/ severe nausea. Patient has been experiencing nausea and poor appetite for the past month. Has worsened to the point where she couldn't sleep last night and "feels miserable. " Nothing has made it better. Has not vomited but feels like she could. Has had poor appetite, not sure of weight loss but says it is likely (Weight has been stable since 07/07 per hospital records). While following up with Dr. Liu ( oncology) on , imaging for gallbladder was ordered. Showed cholecystitis , so she was placed on Levaquin and Flagyl by oncology on Saturday. Has taken 2 days of antibiotics except for today. She states she had recent elevated liver function studies on outpatient labs but that her white blood count was normal. Was due to see Dr. Romano to discuss elective cholecystectomy tomorrow. No vomiting, only constant nausea. No abdominal pain but pain in the back between the shoulder blades that comes and goes. No fevers, diarrhea, chest pain , SOB. + lethargic. Yesterday, at cereal in the morning and crackers and cheese in the afternoon. Able to have tea. No problems with gall bladder in the past. Nausea has improved since being in the ED and being give Zofran IV x1. 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 However, her most recent medical problem has been a bilateral pulmonary embolus which occurred on about 07/07. Has been on Xarelto since then. Echo done during that time: the left ventricular systolic function was normal with an estimated ejection fraction in the range of 60-65%. Dr. Fischer is PCP. Sees Dr. Liu for oncology. Per [facility] imaging for her gallbladder: - Ultrasound was done 07/25/17. The findings were abnormal thickening of the gallbladder wall with pericholecystic fluid without definitive gallstones. It was concerning for acute cholecystitis. - CT scan was done on 07/24/17. It also showed thickening of the gallbladder wall and pericholecystic fluid but no stones, concerning for acute cholecystitis. (Fartun Parada MD R1) Review of Systems Constitutional: COMPLAINS OF: Fatigue, Weight loss, DENIES: Night Sweats Endocrine: DENIES: Polydipsia, Polyuria Eyes: DENIES: Eye pain, Vision loss Respiratory: COMPLAINS OF: Cough (coughing white phlegm for the past month) Cardiovascular: DENIES: Chest pain, Lower Extremity Edema Gastrointestinal: DENIES: Black stools, Constipation, Diarrhea Genitourinary: DENIES: Urinary frequency, Urinary incontinence Musculoskeletal: DENIES: Joint pain, Muscle aches Integumentary: DENIES: Abnormal pigmentation Hematologic/lymphatic: DENIES: Bruising Immunologic/allergic: DENIES: Eczema Neurologic: DENIES: Headache, Paresthesias, Poor Balance (Fartun Parada MD R1) Past Family Social History Past Medical History Left Breast Cancer diagnosed in 1989. Chemo and mastectomy done. Right breast in 2015. Mastectomy done. 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 Hypothyroidism HTN Hx of PE and r. leg DVT on 07/07 Past Surgical History R. knee arthroscopic surgery Tonsil removal Hernia repair (Fartun Parada MD R1) Allergies: Coded Allergies: Sulfa (Sulfonamide Antibiotics) (Verified Allergy, Intermediate, Rash, ) Family History Mom: Atrial Fib and Thyroid disease Dad: not known Social History Lives w/son at a house No smoking, drinking, or drug use (Fartun Parada MD R1) Physical Exam Vital Signs Vital Signs Date Time Temp Pulse Resp B/P (MAP) Pulse Ox O2 Delivery O2 Flow Rate FiO2 07/28/17 09:37 97.9 98 18 113/57 (75) 99 Physical Exam GENERAL: This is a thin, elderly lady laying quietly in bed. SKIN: No rashes, ecchymoses or lesions. Cool and dry. HEAD: Atraumatic. Normocephalic. No temporal or scalp tenderness. EYES: Pupils equal round and reactive. Extraocular motions intact. No scleral icterus. No injection or drainage. ENT: Nose without bleeding, purulent drainage or septal hematoma. Throat without erythema, tonsillar hypertrophy or exudate. Uvula midline. Airway patent. NECK: Trachea midline. No JVD or lymphadenopathy. Supple. CARDIOVASCULAR: Regular rate and rhythm without murmurs, gallops, or rubs. RESPIRATORY: Clear to auscultation. Breath sounds equal bilaterally. No wheezes , rales, or rhonchi. GASTROINTESTINAL: Abdomen soft, non-distended. Mild tenderness in the RUQ w/ some guarding. MUSCULOSKELETAL: Extremities without clubbing, cyanosis, or edema. No joint tenderness, effusion, or edema noted. Negative catherine's sign, possible calf tenderness on right. When asked about back pain, patient points to back of neck and to the right shoulder. Pain worsens with assessment for arm motor strength. NEUROLOGICAL: Awake and alert. Cranial nerves II through XII intact. Motor and sensory grossly within normal limits. Five out of 5 muscle strength in all muscle groups. Normal speech. Laboratory Laboratory Tests Test 07/28/17 10:30 White Blood Count 6.4 Red Blood Count 4.07 Hemoglobin 13.1 Hematocrit 38.2 Mean Corpuscular Volume 93.8 Mean Corpuscular Hemoglobin 32.1 Mean Corpuscular Hemoglobin Concent 34.2 Red Cell Distribution Width 18.2 Platelet Count 161 Mean Platelet Volume 8.6 Neutrophils (%) (Auto) 77.2 Lymphocytes (%) (Auto) 10.4 Monocytes (%) (Auto) 11.6 Eosinophils (%) (Auto) 0.2 Basophils (%) (Auto) 0.6 Neutrophils # (Auto) 4.9 Lymphocytes # (Auto) 0.7 Monocytes # (Auto) 0.7 Eosinophils # (Auto) 0.0 Basophils # (Auto) 0.0 CBC Comment DIFF FINAL Differential Comment Blood Urea Nitrogen 20 Creatinine 1.23 Random Glucose 92 Total Protein 6.0 Albumin 2.4 Calcium Level 9.2 Alkaline Phosphatase 932 Aspartate Amino Transf (AST/SGOT) 150 Alanine Aminotransferase (ALT/SGPT) 56 Total Bilirubin 4.2 Sodium Level 136 Potassium Level 4.4 Chloride Level 99 Carbon Dioxide Level 25.4 Anion Gap 12 Estimat Glomerular Filtration Rate 42 Lipase 127 (AbidFartun MD R1) Result Diagram: 07/28/17 1030 07/28/17 1030 Caprini VTE Risk Assessment Caprini VTE Risk Assessment: Mod/High Risk (score >= 2) Caprini Risk Assessment Model Point Value = 1 Point Value = 2 Point Value = 3 Point Value = 5 Age 41-60 Minor surgery BMI > 25 kg/m2 Swollen legs Varicose veins or History of unexplained or recurrent spontaneous Oral contraceptives or hormone replacement Sepsis (< 1 month) Serious lung disease, including pneumonia (< 1 month) Abnormal pulmonary function Acute myocardial infarction Congestive heart failure (< 1 month) History of inflammatory bowel disease Medical patient at bed rest Age 61-74 Arthroscopic surgery Major open surgery (> 45 min) Laparoscopic surgery (> 45 min) Malignancy Confined to bed (> 72 hours) Immobilizing plaster cast Central venous access Age >= 75 History of VTE Family history of VTE Factor V Leiden Prothrombin [id number] Lupus anticoagulant Anticardiolipin antibodies Elevated serum homocysteine Heparin-induced thrombocytopenia Other congenital or acquired thrombophilia Stroke (< 1 month) Elective arthroplasty Hip, pelvis, or leg fracture Acute spinal cord injury (< 1 month) Prophylaxis Regimen Total Risk Factor Score Risk Level Prophylaxis Regimen 0-1 Low Early ambulation 2 Moderate Order ONE of the following: *Sequential Compression Device (SCD) *Heparin 5000 units SQ BID 3-4 Higher Order ONE of the following medications: *Heparin 5000 units SQ TID *Enoxaparin/Lovenox 40 mg SQ daily (WT < 150 kg, CrCl > 30 mL/min) *Enoxaparin/Lovenox 30 mg SQ daily (WT < 150 kg, CrCl > 10-29 mL/min) *Enoxaparin/Lovenox 30 mg SQ BID (WT < 150 kg, CrCl > 30 mL/min) AND/OR *Sequential Compression Device (SCD) 5 or more Highest Order ONE of the following medications: *Heparin 5000 units SQ TID (Preferred with Epidurals) *Enoxaparin/Lovenox 40 mg SQ daily (WT < 150 kg, CrCl > 30 mL/min) *Enoxaparin/Lovenox 30 mg SQ daily (WT < 150 kg, CrCl > 10-29 mL/min) *Enoxaparin/Lovenox 30 mg SQ BID (WT < 150 kg, CrCl > 30 mL/min) AND *Sequential Compression Device (SCD) (Fartun Parada MD R1) Assessment and Plan Assessment and Plan Patient is an 81 y/o F w/hx of breast cancer admitted for severe nausea, poor PO intake, acute cholecystitis, and transaminitis. Will hold PO meds due to nausea. Supportive care, IV Abx, and NPO for now. General Surgery and GI consulted. Plan for MRCP. Code Status FULL Discussed Condition With Dr. Chapa (Fartun Parada MD R1) Attending Attestation THIS PATIENT WAS SEEN AND EXAMINED AND THE CASE WAS DISCUSSED WITH DR. PARADA. I HAVE REVIEWED THE RECORD AND AGREE WITH THE ABOVE NOTE AND PLAN OF CARE WAS DISCUSSED. I HAVE AUTHORIZED THE ORDER FOR ADMISSION TO AN IN-PATIENT STATUS. (Andrea Chapa MD) Problem List: (1) Acute cholecystitis ICD Codes: K81.0 - Acute cholecystitis Status: Acute Plan: Seen on recent ultrasound and CT No white count, vitals stable Concern for elevated bilirubin, transaminitis, and alkaline phosphatase; may indicate developing cholangitis CRP elevated 5.5 General surgery consulted, spoke with Dr. Prakash who recommends MRCP GI consulted Start IV Levaquin and Flagyl IV fluids @100 mls/hr. Watch for fluid overload NPO Pain control with Tylenol for now Order abdominal ultrasound to assess for acute changes since last US Heparin drip for recent history of DVT and PE (2) Nausea ICD Codes: R11.0 - Nausea Status: Acute Plan: Without vomiting May be secondary to worsening acute cholecystitis IV Zofran NPO IV fluids (3) Pulmonary embolism ICD Codes: I26.99 - Other pulmonary embolism without acute cor pulmonale Status: Chronic Plan: Diagnosed via CTA on 07/07 On Xarelto 15 mg PO BID since then We will resume Xarelto after procedure. Heparin drip for now in anticipation for procedures/surgery (4) History of DVT of lower extremity ICD Codes: Z86.718 - Personal history of other venous thrombosis and embolism Status: Chronic Plan: Hx of breast cancer bilaterally w/ recent recurrence Takes Xarelto 50 mg twice daily Hold this anticoagulation for now, on hep drip SCDs only (5) Hypothyroidism ICD Codes: E03.9 - Hypothyroidism, unspecified Status: Chronic Plan: home levothyroxine 75 mcg daily Hold for now due to nausea (6) HTN (hypertension) ICD Codes: I10 - Essential (primary) hypertension Status: Chronic Plan: Takes lisinopril-HCTZ 10-12.5 mg daily, metoprolol 25 mg daily at home Holding home meds due to nausea (7) Neck pain ICD Codes: M54.2 - Cervicalgia Status: Chronic Plan: Likely MSK related (suspect degenerative changes), incited by upper extremity exertion No tenderness to palpation Tylenol for pain PRN. Avoid NSAIDs due to transaminitis, opioids due to advanced age Will monitor, may require further outpatient follow up (8) FEN Plan: Fluids: 100 MLS per hour Electrolytes: Replace as needed Nutrition: N.p.o. DVT prophylaxis: Heparin drip, SCDs. Resume Xarelto after procedure (s) (Fartun Parada MD R1) Physician Certification 2 Midnight Certification Type: Admission for Inpatient Services Order for Inpatient Services The services are ordered in accordance with Medicare regulations or non- Medicare payer requirements, as applicable. In the case of services not specified as inpatient-only, they are appropriately provided as inpatient services in accordance with the 2-midnight benchmark. Estimated LOS (days): 2 2 days is the estimated time the patient will need to remain in the hospital, assuming treatment plan goals are met and no additional complications. Post-Hospital Plan: Not yet determined (Fartun Parada MD R1) Problem Qualifiers (1) Pulmonary embolism: Qualified Codes: I27.82 - Chronic pulmonary embolism (2) Hypothyroidism: Qualified Codes: E03.9 - Hypothyroidism, unspecified Fartun Parada MD R1 Jul 28, 2017 11:40 Andrea Chapa MD Jul 29, 2017 13:00
[2017-07-28 12:09] LABS: BILIRUBIN, URINE NEG (NEG); BLOOD, URINE NEG (NEG); GLUCOSE,URINE NEG (NEG); HYALINE CAST, URINE 30 /lpf (RARE); KETONE, URINE NEG (NEG); MUCUS URINE FEW /lpf (OCC); NITRITE,URINE NEG (NEG); PH, URINE 5.5 (5.0-8.5); URINE COLOR YELLOW (YELLW/STRAW); URINE LEUKOCYTE ESTERASE TRACE (NEG)
[2017-07-28] MEDS ORDERED: NON-FORMULARY DRUG (Lisinopril-Hctz 1 TAB) PO SCH (12:45)
[2017-07-28] MEDS ORDERED: LISINOPRIL 10 MG TAB PO SCH (13:00)
[2017-07-28] MEDS: LEVOTHYROXINE SODIUM 25 MCG TAB PO SCH (13:00)
[2017-07-28] MEDS ORDERED: HYDROCHLOROTHIAZIDE 12.5 MG CAP PO SCH (13:00)
[2017-07-28 13:26] VITALS: BP 114/55; PULSE 83; RESP 17; TEMP 98; O2SAT 94
[2017-07-28] MEDS ORDERED: HEPARIN SODIUM - IV 10,000 UNITS/10 ML VIAL IV ONE (13:30)
[2017-07-28] MEDS: ACETAMINOPHEN 325 MG TAB PO PRN ×2 (13:50→21:56)
[2017-07-28] MEDS ORDERED: LEVOFLOXACIN 750 MG PREMIX INJ 150 ML IV SCH (15:00)
[2017-07-28] MEDS: metroNIDAZOLE 500 MG INJ 100 ML IV SCH ×2 (15:17→19:48)
[2017-07-28] MEDS: SODIUM CHLOR 0.9% 1000 ML INJ 1,000 ML IV SCH (15:20)
[2017-07-28 16:00] VITALS: BP 112/52; PULSE 80; RESP 17; TEMP 97.8; O2SAT 94
--- NOTE | 2017-07-28 16:24 | MB ---
cc: Bernardo Prakash MD DATE: 07/28/2017 REQUESTING PHYSICIAN: Andrea Chapa MD REASON FOR CONSULTATION: Acute cholecystitis. HISTORY OF PRESENT ILLNESS: The patient is an 81-year-old female who presented to [facility] with nausea, loss of appetite, some right shoulder pain and "feeling miserable." The patient was found to have some discomfort, right upper quadrant. Underwent workup including laboratory values, which did show significantly elevated LFTs. Of note, the patient is being followed by Dr. Liu for history of breast cancer and did undergo workup of her symptoms earlier this week and diagnosis of cholecystitis was given to the patient. She is on home medications of antibiotics for this at this time. Currently, the patient states she has no new symptoms and her symptoms have improved since admission. She has no chest pain, shortness of breath or any other complaints. REVIEW OF SYSTEMS: A 12-point review of systems the patient is negative except the pertinent positives mentioned above in history of present illness. PAST MEDICAL HISTORY: Breast cancer as above, status post chemotherapy and mastectomy by Dr. Romano, which was done in 2015, hypothyroidism, hypertension, history of pulmonary embolism on 07/07, on anticoagulation. PAST SURGICAL HISTORY: Mastectomy, knee arthroscopy, tonsillectomy, hernia repair. ALLERGIES: SULFA. MEDICATIONS: Levofloxacin, metronidazole, heparin, Zofran. SOCIAL HISTORY: The patient lives independently, currently does not use tobacco products. No alcohol use. FAMILY HISTORY: Noncontributory. PHYSICAL EXAMINATION: VITAL SIGNS: Temperature 97.9 degrees, pulse 98, respiratory rate 18, blood pressure 113/57, O2 saturation 99%. The patient is a thin, female in no acute distress. HEENT: Head is normocephalic, atraumatic. Pupils are round, reactive and accommodate to light. Sclerae are anicteric. Oral cavity is clear. GENERAL: The patient is in no acute distress. She does not appear acute or chronically ill. LUNGS: Breath sounds present bilaterally. Nonlabored breathing pattern. HEART: Regular rate and rhythm. ABDOMEN: Soft. Some subjective discomfort in the right upper quadrant without Guaman sign, without peritonitis. No organomegaly. No ascites. Normal bowel sounds. BACK: No CVA tenderness. EXTREMITIES: No clubbing, cyanosis or edema. NEUROLOGIC: The patient is alert and oriented x 3. Mood, judgment and insight are intact. Cranial nerves 2-12 are grossly intact. Nonfocal peripheral exam. LABORATORY VALUES: White blood cell count 6.4. Total bilirubin is 4.2. AST 150, ALT 56, alkaline phosphatase was 932. Lipase is 127,000. ASSESSMENT AND PLAN: The patient is an 81-year-old female with elevated liver function tests, obstructive-type pattern, with a previous diagnosis of recent pulmonary embolism and now with likely obstructive jaundice from choledocholithiasis. Will recommend a GI consultation. Will follow along with the patient. Thank you very much for this consultation. MD MAKEDA Skinner/ARIK , 03:12 PM , 04:23 PM
--- NOTE | 2017-07-28 16:56 | RADRPT ---
EXAM DATE/TIME: 07/28/2017 14:08 [facility] COMPARISON: No previous studies available for comparison. INDICATIONS : Nausea. Pain between shoulder blades. MEDICAL HISTORY : Carcinoma, breast. Hypertension. Hypothyroidism. SURGICAL HISTORY : Mastectomy, bilateral. Inguinal hernia repair. Tonsillectomy. ENCOUNTER: Initial ACUITY: 1 day PAIN SCORE: 3/10 LOCATION: Right upper quadrant TECHNIQUE: Multiplanar, multisequence magnetic resonance imaging of the abdomen was performed. High-resolution 3D dataset was utilized to reconstruct maximum-intensity projection (MIP) images. FINDINGS: INTRAHEPATIC BILE DUCTS: Within normal limits. No significant anatomical variant is present. EXTRAHEPATIC BILE DUCTS: The common bile duct measures 8 mm. This is upper limits of normal for the patient's age. No stone or filling defect is identified. GALLBLADDER: The gallbladder is distended. There does appear to be edema around the gallbladder. No gallstones are seen. LIVER: Normal size and signal intensity. No concerning liver lesion is identified on this non-contrast exam. There is increased signal seen around the portal triads likely related to periportal edema. PANCREAS: The main pancreatic duct is normal in size. There is no significant anatomical variant. Signal inte nsity is within normal limits. No mass is visualized on this non-contrast exam. OTHER: The remaining visualized structures demonstrate no acute abnormality on this non-contrast exam. There is a 2.3 cm right renal cyst in the inferior right kidney. There is minimal distention of the centra l left collecting system versus parapelvic cysts. CONCLUSION: 1. Distended gallbladder with surrounding edema but no gallstones. This can be seen with hepatic dise ase. Acalculus cholecystitis cannot be excluded. 2. Periportal edema. 3. Biliary dilatation is not clearly seen. Tyrone Briggs MD on July 28, 2017 at 16:42 Board Certified Radiologist. This report was verified electronically.
[2017-07-28 17:04] LABS: HEMATOCRIT 35.7 % (35.0-46.0); HEMOGLOBIN 12.2 GM/DL (11.6-15.3); MEAN CELL VOLUME 94.7 FL (80.0-100.0); MEAN CORPUSCULAR HEMOGLOBIN 32.5 PG (27.0-34.0); MEAN CORPUSCULAR HGB CONC 34.3 % (32.0-36.0); MEAN PLATELET VOLUME 9.4 FL (7.0-11.0); PLATELET COUNT 147 TH/MM3 (150-450); RED BLOOD COUNT 3.77 MIL/MM3 (4.00-5.30); RED CELL DISTRIBUTION WIDTH 18.2 % (11.6-17.2)
--- NOTE | 2017-07-28 17:06 | RADRPT ---
EXAM DATE/TIME: 07/28/2017 15:12 [facility] COMPARISON: No previous studies available for comparison. EXTERNAL COMPARISON : [facility], US ABDOMEN GALLBLADDER, July 25, 2017 INDICATIONS : Cholecystitis. MEDICAL HISTORY : Hypothyroidism. Hypertension. Breast cancer. Chemotherapy. Radiation therapy. SURGICAL HISTORY : Tonsillectomy. Hernia repair. Bilateral mastectomy. Right knee surgery. ENCOUNTER: Initial ACUITY: 1 day PAIN SCORE: 3/10 LOCATION: Right upper quadrant MEASUREMENTS: LIVER: 21.1 cm length COMMON DUCT: 4 mm RIGHT KIDNEY: 9.2 x 5.2 x 4.4 cm FINDINGS: LIVER: Normal echotexture without focal lesion or ductal dilatation. COMMON DUCT: No intraluminal mass or stone visualized. GALLBLADDER: The gallbladder is distended. No gallstones are seen. The gallbladder wall is thickened at 4 mm. PANCREAS: The visualized portions are within normal limits. RIGHT KIDNEY: No evidence of hydronephrosis, stone, or solid mass. There is a 2.2 cm cyst at the inferior right kid elva. CONCLUSION: 1. Distended gallbladder without stones. Gallbladder wall is mildly thickened at 4 mm. This is nonspe cific. This could be from generalized hepatic disease versus other causes of edema. Acalculus cholecy stitis cannot absolutely be excluded. 2. Right renal cyst. Tyrone Briggs MD on July 28, 2017 at 17:01 Board Certified Radiologist. This report was verified electronically.
[2017-07-28 17:16] LABS: INTERNATIONAL NORMALIZED RATIO 1.4 RATIO; PROTHROMBIN TIME - PATIENT 14.5 SEC (9.8-11.6)
[2017-07-28] MEDS: HEPARIN-D5W 25,000 U/250 ML 250 ML IV PRN (17:55)
[2017-07-28] MEDS: SODIUM CHLORIDE 0.9% FLUSH 10 ML FLUSH IV FLUSH SCH (19:48)
[2017-07-28] MEDS: ONDANSETRON HCL 4 MG/2 ML VIAL IV PUSH PRN (19:48)
[2017-07-28 20:00] VITALS: BP 111/53; PULSE 95; RESP 16; TEMP 97.9; O2SAT 94
[2017-07-29] VITALS: BP 120/59; PULSE 98; RESP 16; TEMP 98; O2SAT 97
[2017-07-29] MEDS: SODIUM CHLOR 0.9% 1000 ML INJ 1,000 ML IV SCH ×3 (04:38→22:43)
[2017-07-29] MEDS: metroNIDAZOLE 500 MG INJ 100 ML IV SCH ×3 (04:39→22:43)
[2017-07-29 05:31] LABS: AUTOMATED NEUTROPHIL # 5.7 TH/MM3 (1.8-7.7); BASOPHIL # 0.1 TH/MM3 (0-0.2); BASOPHIL % 0.8 % (0.0-2.0); EOSINOPHIL % 0.3 % (0.0-4.0); HEMOGLOBIN 12.9 GM/DL (11.6-15.3); LYMPH % 18.6 % (9.0-44.0); LYMPHOCYTE # 1.5 TH/MM3 (1.0-4.8); MEAN CELL VOLUME 95.8 FL (80.0-100.0); MEAN CORPUSCULAR HEMOGLOBIN 32.6 PG (27.0-34.0); MEAN CORPUSCULAR HGB CONC 34.1 % (32.0-36.0); MEAN PLATELET VOLUME 8.9 FL (7.0-11.0); MONO % 10.9 % (0.0-8.0); MONOCYTE # 0.9 TH/MM3 (0-0.9); NEUT % 69.4 % (16.0-70.0); PLATELET COUNT 179 TH/MM3 (150-450); RED BLOOD COUNT 3.97 MIL/MM3 (4.00-5.30); RED CELL DISTRIBUTION WIDTH 18.7 % (11.6-17.2); WHITE BLOOD COUNT 8.2 TH/MM3 (4.0-11.0)
[2017-07-29 05:51] LABS: ALT (GPT) 55 U/L (10-53)
[2017-07-29 05:54] LABS: ALKALINE PHOSPHATASE 994 U/L (45-117); TOTAL BILIRUBIN ADULT 4.7 MG/DL (0.2-1.0); TOTAL PROTEIN 6.1 GM/DL (6.4-8.2)
[2017-07-29 06:01] LABS: ALBUMIN 2.4 GM/DL (3.4-5.0); AST (GOT) 157 U/L (15-37); BICARBONATE 23.1 MEQ/L (21.0-32.0); CALCIUM 8.9 MG/DL (8.5-10.1); CHLORIDE 105 MEQ/L (98-107); CREATININE 1.11 MG/DL (0.50-1.00); GLOMERULAR FILTRATION RATE 47 ML/MIN (>89); GLUCOSE,RANDOM 88 MG/DL (74-106); SODIUM (NA) 138 MEQ/L (136-145)
[2017-07-29 06:02] LABS: BLOOD UREA NITROGEN 17 MG/DL (7-18)
[2017-07-29 08:00] VITALS: BP 134/62; PULSE 98; RESP 20; TEMP 98.4; O2SAT 91
[2017-07-29] MEDS ORDERED: SCOPOLAMINE 1.5 MG PATCH T-DERMAL SCH (09:00)
[2017-07-29] MEDS: SODIUM CHLORIDE 0.9% FLUSH 10 ML FLUSH IV FLUSH SCH ×2 (09:00→21:00)
[2017-07-29] MEDS ORDERED: HYDROmorphone HCL PF 0.5 MG/0.5 ML SYRINGE IV PUSH PRN (10:00)
--- NOTE | 2017-07-29 10:11 | MB ---
cc: Jose Miller MD,Nick Romano,Keagan Rangel MD DATE: 07/29/2017 REFERRING PHYSICIAN: Dr. Chapa. REASON FOR CONSULTATION: Elevated LFTs in the setting of acute cholecystitis. HISTORY: This is a pleasant 81-year-old female known to the [facility] who was admitted stating that she has not felt well since around Easter time. She was diagnosed 07/07/2017 with a right popliteal DVT and a pulmonary embolus by CTA. She was started on Xarelto. She states ever since then she has had problems with nausea and poor appetite. She is somewhat of a poor historian. She states she has had no abdominal pain, but her right shoulder pain seems to coincide with her nausea. Symptoms are not clearly related to eating. Her abdominal ultrasound and MRCP show a thickened gallbladder without stones. The common bile duct is 4 mm on ultrasound and 8 mm on MRCP, but there are no filling defects or sludge identified. She last took her Xarelto Saturday evening, 2 days ago. She is currently on a heparin drip. Her medical history is significant for breast cancer originally diagnosed in 1989 and then she had reoccurrence in the other breast in early 2017. She underwent surgery and then radiation therapy. She states she did not have any chemotherapy. She denies being on any new medications. She also has a history of hypertension and hypothyroidism. PAST SURGICAL HISTORY: In addition to her breast cancer surgery, she has had right knee arthroscopic surgery, hernia repair, and tonsillectomy. ALLERGIES: SHE IS ALLERGIC TO SULFA. FAMILY HISTORY: She had a sister that recently from what sounds like mesenteric ischemia related to atrial fibrillation. Her son may have had premalignant colon polyps. SOCIAL HISTORY: The patient is . She lives with her son. No smoking or alcohol use. No illicit drug use. No recent travel history or blood transfusions. CURRENT MEDICATIONS: Her current medications include: Flagyl and Levaquin IV. She is on a scopolamine patch. She is on a heparin drip. She is getting Zofran p.r.n. for her nausea. REVIEW OF SYSTEMS: Remarkable for approximately 1 month of nausea and right shoulder pain. No chest pain or shortness of breath. No difficulty swallowing. No bowel complaints. No fever or chills. Remainder of 12-point review of systems is negative. PHYSICAL EXAMINATION: GENERAL: This is a well-developed female in no acute distress. VITAL SIGNS: Her blood pressure is 134/62, pulse 98, respirations are 20 and nonlabored, temperature is 98.4, and she has remained afebrile. HEENT: Sclera is mildly icteric. NECK: Without obvious masses. LUNGS: Clear to auscultation. HEART: Sounds reveal a borderline tachycardia without murmur, gallop or rub. ABDOMEN: Soft and nondistended with mild right upper quadrant tenderness. The liver edge is slightly palpable about a centimeter under the right costal margin and is slightly tender. No detectable ascites. EXTREMITIES: No peripheral edema. No significant calf tenderness or swelling. SKIN: Warm and dry. NEUROLOGIC: She was alert and oriented. LABORATORY DATA: Reveals a white count of 8.2, hemoglobin 12.9. Her total bilirubin yesterday was 4.2 and has gone up to 4.7. AST was 150 and has increased to 157, ALT is about the same at 55. Alkaline phosphatase is 994, albumin 2.4. Lipase is normal at 127. Gallbladder ultrasound shows a distended gallbladder without stones and the gallbladder wall is mildly thickened. MRCP shows the same gallbladder findings with an 8 mm common bile duct, but no obvious filling defects. No intrahepatic ductal dilatation. IMPRESSION: Nausea for about 1 month in a patient with some gallbladder disease and elevated LFTs, but no obvious bile duct obstruction. MRCP can miss things in the bile duct, so some degree of biliary obstruction has not been completely excluded. There is also a question that she may have some type of acute hepatocellular process, although there are no risk factors for any new exposure to viruses or medications, etc. PLAN: I discussed with Miriam and her granddaughter at the bedside the situation and the option of endoscopic ultrasound with possible ERCP to clear the bile duct. Would prefer she be off Xarelto for at least 2 days, so any procedures could be done tomorrow after temporarily stopping her heparin. We will also consider evaluation for an acute hepatocellular process, although this is probably unlikely. I will discuss the case with Dr. Romano, her surgeon. If cholecystectomy is performed, intraoperative cholangiogram is another option. I will follow closely with you. Thank you for this consult. MD MIGNON Aguayo/AMEE , 09:47 AM , 10:10 AM [email or web address]
--- NOTE | 2017-07-29 10:39 | HHI.FPPN ---
Subjective Remarks Vitals are stable overnight No acute events, no vomiting Patient denies any pain this morning, however neck feels sore. Continues to endorse severe nausea. I/O's 2.1/0.8 No other complaints (Fartun Parada MD R1) Objective Vitals Vital Signs Date Time Temp Pulse Resp B/P (MAP) Pulse Ox O2 Delivery O2 Flow Rate FiO2 07/29/17 08:00 98.4 98 20 134/62 (86) 91 07/29/17 00:00 98.0 98 16 120/59 (79) 97 07/28/17 20:00 97.9 95 16 111/53 (72) 94 07/28/17 16:00 97.8 80 17 112/52 (72) 94 07/28/17 13:26 98.0 83 17 114/55 (74) 94 I/O 07/28/17 07/28/17 07/28/17 07/29/17 07/29/17 07/29/17 07:00 15:00 23:00 07:00 15:00 23:00 Intake Total 1000 ml 1100 ml Output Total 820 ml Balance 1000 ml 280 ml Intake IV Total 1000 ml 1100 ml Output Urine Total 820 ml # Voids 2 1 # Bowel Movements 1 0 (Fartun Parada MD R1) Result Diagram: 07/29/17 0515 07/29/17 0515 Objective Remarks O. CONSTITUTIONAL/GEN: This is a thinm, elderly, lady resting quietly in bed. Appears uncomfortable. EYES: conjunctiva normal, PERRLA, EOMI. ENT: Mouth and pharynx normal. LUNGS: clear A-P, respiratory effort is normal. CARDIOVASCULAR: RR without murmur or gallop. No significant edema. GI/ABD: soft without masses, without organomegaly. Moderate tenderness to palpation the right upper quadrant. NEURO: No focal deficits. SKIN: color normal, no rashes noted. HEME/LYMPH: no new bruising, petechia MUSC: Extremities are normal in appearance. PSYCH/MENTAL STATUS: Alert and oriented. (Fartun Parada MD R1) A/P Assessment and Plan Patient is an 81 y/o F w/hx of breast cancer admitted for severe nausea, poor PO intake, acute cholecystitis, and transaminitis. Will hold PO meds due to nausea. Supportive care, IV Abx, and NPO for now. General Surgery and GI consulted. Discharge Planning Pending clinical improvement and GI/GS workup (Fartun Parada MD R1) Attending Attestation Patient seen and examined. Case reviewed and discussed with Dr. Parada. Agree with plan of care as discussed with me and documented in the resident note. (Andrea Chapa MD) Problem List: (1) Acute cholecystitis ICD Codes: K81.0 - Acute cholecystitis Status: Acute Plan: Nausea for 1 month with acute cholecystitis seen on recent ultrasound and CT, elevated LFTs Concern for bile duct obstruction v acute hepatocellular process Underwent MRCP on 07/28, which indicated periportal edema, distended gallbladder with edema, and possible hepatic disease General surgery consulted, appreciate recommendations GI consulted: Appreciate recommendations. Possible ERCP versus cholecystectomy with intraoperative cholangiogram tomorrow Patient is currently on heparin drip, has been off Xarelto for at least 2 days On day 2 of IV Levaquin and Flagyl N.p.o., IV fluids @100 mls/hr Pain control with Tylenol for now (2) Transaminitis ICD Codes: R74.0 - Nonspecific elevation of levels of transaminase and lactic acid dehydrogenase [LDH] Status: Acute Plan: LFTs of worsened slightly today since yesterday Concern for acute hepatocellular process, such as drug-induced versus autoimmune versus biliary duct obstructions. However, patient has not started any new hepatotoxic drugs, no alcohol, and autoimmunity at this stage is unlikely. We will continue to trend LFTs Avoid NSAIDs, statins, tetracyclines/sulfa medications, and all other hepatotoxic medications See above plan, will follow up GI and/General Surgery recommendations and procedure findings (3) Nausea ICD Codes: R11.0 - Nausea Status: Acute Plan: Without vomiting May be secondary to worsening acute cholecystitis IV Zofran NPO IV fluids (4) Pulmonary embolism ICD Codes: I26.99 - Other pulmonary embolism without acute cor pulmonale Status: Chronic Plan: Diagnosed via CTA on 07/07 On Xarelto 15 mg PO BID since then We will resume Xarelto after procedure. 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 ICD Codes: Z86.718 - Personal history of other venous thrombosis and embolism Status: Chronic Plan: Hx of breast cancer bilaterally w/ recent recurrence Takes Xarelto 50 mg twice daily Hold this anticoagulation for now, on hep drip SCDs only (6) Hypothyroidism ICD Codes: E03.9 - Hypothyroidism, unspecified Status: Chronic Plan: home levothyroxine 75 mcg daily Hold for now due to nausea (7) HTN (hypertension) ICD Codes: I10 - Essential (primary) hypertension Status: Chronic Plan: Takes lisinopril-HCTZ 10-12.5 mg daily, metoprolol 25 mg daily at home Blood pressures have been stable without home meds since admission Holding home meds (8) Neck pain ICD Codes: M54.2 - Cervicalgia Status: Chronic Plan: Likely MSK related (suspect degenerative changes), incited by upper extremity exertion May also be due to referred pain from gallbladder No tenderness to palpation Tylenol for pain PRN. Avoid NSAIDs due to transaminitis, opioids due to advanced age Will monitor, may require further outpatient follow up (9) FEN Plan: Fluids: 100 MLS per hour Electrolytes: Replace as needed Nutrition: N.p.o. DVT prophylaxis: Heparin drip, SCDs. Resume Xarelto after procedure (s) (Fartun Parada MD R1) Problem Qualifiers (1) Pulmonary embolism: Qualified Codes: I27.82 - Chronic pulmonary embolism (2) Hypothyroidism: Qualified Codes: E03.9 - Hypothyroidism, unspecified Fartun Parada MD R1 Jul 29, 2017 10:39 Andrea Chapa MD Jul 29, 2017 13:05
[2017-07-29 11:51] LABS: INTERNATIONAL NORMALIZED RATIO 1.3 RATIO; PROTHROMBIN TIME - PATIENT 13.3 SEC (9.8-11.6)
[2017-07-29 12:00] VITALS: BP 117/55; PULSE 99; RESP 20; TEMP 98; O2SAT 91
--- NOTE | 2017-07-29 12:08 | HHI.PR ---
cc: Lousi Gibson MD Subjective Subjective Notes Resting in bed Complains of just mild RUQ tenderness Complains of neck soreness from bed Objective Vitals/I&O Vital Signs Date Time Temp Pulse Resp B/P (MAP) Pulse Ox O2 Delivery O2 Flow Rate FiO2 07/29/17 08:00 98.4 98 20 134/62 (86) 91 Labs Laboratory Tests Test 07/28/17 15:53 07/29/17 00:04 07/29/17 03:15 07/29/17 05:15 White Blood Count 7.0 8.2 Red Blood Count 3.77 3.97 Hemoglobin 12.2 12.9 Hematocrit 35.7 38.0 Mean Corpuscular Volume 94.7 95.8 Mean Corpuscular Hemoglobin 32.5 32.6 Mean Corpuscular Hemoglobin Concent 34.3 34.1 Red Cell Distribution Width 18.2 18.7 Platelet Count 147 179 Mean Platelet Volume 9.4 8.9 Prothrombin Time 14.5 Prothromb Time International Ratio 1.4 Activated Partial Thromboplast Time 50.6 GREATER THAN 277.5 103.8 54.1 Neutrophils (%) (Auto) 69.4 Lymphocytes (%) (Auto) 18.6 Monocytes (%) (Auto) 10.9 Eosinophils (%) (Auto) 0.3 Basophils (%) (Auto) 0.8 Neutrophils # (Auto) 5.7 Lymphocytes # (Auto) 1.5 Monocytes # (Auto) 0.9 Eosinophils # (Auto) 0.0 Basophils # (Auto) 0.1 CBC Comment DIFF FINAL Differential Comment Blood Urea Nitrogen 17 Creatinine 1.11 Random Glucose 88 Total Protein 6.1 Albumin 2.4 Calcium Level 8.9 Alkaline Phosphatase 994 Aspartate Amino Transf (AST/SGOT) 157 Alanine Aminotransferase (ALT/SGPT) 55 Total Bilirubin 4.7 Sodium Level 138 Potassium Level 4.4 Chloride Level 105 Carbon Dioxide Level 23.1 Anion Gap 10 Estimat Glomerular Filtration Rate 47 Test 07/29/17 11:12 Prothrombin Time 13.3 Prothromb Time International Ratio 1.3 Activated Partial Thromboplast Time 91.0 Cardiovascular: Regular Lungs: Clear Abdomen: Other (Mild RUQ tenderness ) Extremities: No edema A/P Assessment and Plan 81 year old female with recent diagnosis of PE on anti-coagulation; elevated liver enzymes; RUQ tenderness -Elevated LFTs but no imaging shows obstruction -Heparin gtt -Normal WBC -Continue antibiotics -Scopolamine patch -GI also consulted PT SEEN AND EXAMINED, CHART REVIEWED. CHIEF FINANCIAL OFFICER DOCUMENTED OUR VISIT. ROBERT WILLIS THIS AM. UNCLEAR PICTURE OF PT SYMPTOMS AND IMAGING/LAB FINDINGS. ROBERT GRAY, HE RECOMMENDS HIDA TO EVALUATE FOR CBD OR CYSTIC DUCT OBSTRUCTION. PT HAS NO ABDOMINAL PAIN ON MY EXAM WHICH WOULD BE UNUSUAL IN CHOLECYSTITIS. DR WILLIS CONSIDERING EUS/ERCP. FU LFTS IN AM. HIDA ORDERED. WILL FOLLOW UP. LOUIS GIBSON MD FACS Adia Pendleton. CHIEF FINANCIAL OFFICER/Automation Engineering Manager CHIEF FINANCIAL OFFICER Jul 29, 2017 12:08 Louis Gibson MD Jul 29, 2017 16:26
[2017-07-29 16:00] VITALS: BP 115/55; PULSE 90; RESP 22; TEMP 98.3; O2SAT 91
[2017-07-29 20:00] VITALS: BP 131/63; PULSE 94; RESP 18; TEMP 98.4; O2SAT 93
[2017-07-29] MEDS: ACETAMINOPHEN 325 MG TAB PO PRN (22:51)
[2017-07-30] VITALS: BP 137/63; PULSE 101; RESP 19; TEMP 98; O2SAT 94
[2017-07-30 04:34] LABS: ALBUMIN 1.9 GM/DL (3.4-5.0); ALKALINE PHOSPHATASE 766 U/L (45-117); ALT (GPT) 44 U/L (10-53); AST (GOT) 146 U/L (15-37); BICARBONATE 21.8 MEQ/L (21.0-32.0); BLOOD UREA NITROGEN 15 MG/DL (7-18); CALCIUM 8.1 MG/DL (8.5-10.1); CHLORIDE 111 MEQ/L (98-107); DIRECT BILIRUBIN ADULT 2.9 MG/DL (0.0-0.2); GLOMERULAR FILTRATION RATE 60 ML/MIN (>89); GLUCOSE,RANDOM 90 MG/DL (74-106); SODIUM (NA) 142 MEQ/L (136-145); TOTAL BILIRUBIN ADULT 3.6 MG/DL (0.2-1.0); TOTAL PROTEIN 4.9 GM/DL (6.4-8.2)
[2017-07-30] MEDS: metroNIDAZOLE 500 MG INJ 100 ML IV SCH ×3 (05:56→22:04)
[2017-07-30] MEDS: ACETAMINOPHEN 325 MG TAB PO PRN ×2 (07:53→17:11)
[2017-07-30] MEDS: SODIUM CHLORIDE 0.9% FLUSH 10 ML FLUSH IV FLUSH SCH ×2 (07:53→21:00)
[2017-07-30 08:00] VITALS: BP 144/80; PULSE 90; RESP 19; TEMP 97.8; O2SAT 94
--- NOTE | 2017-07-30 09:15 | HHI.FPPN ---
Subjective Remarks Patient states she continues to be nauseous, has not changed since yesterday. Used dilaudid 1x this morning for shoulder/scapula pain. States it radiates from her neck to shoulder. No episodes of vomiting, no constipation. Adequate output of 0.3 L. No other problems, blood pressure wnl. (Fartun Parada MD R1) Objective Vitals Vital Signs Date Time Temp Pulse Resp B/P (MAP) Pulse Ox O2 Delivery O2 Flow Rate FiO2 07/30/17 08:00 97.8 90 19 144/80 (101) 94 07/30/17 00:00 98.0 101 19 137/63 (87) 94 07/29/17 20:00 98.4 94 18 131/63 (85) 93 07/29/17 16:00 98.3 90 22 115/55 (75) 91 07/29/17 12:00 98.0 99 20 117/55 (75) 91 I/O 07/29/17 07/29/17 07/29/17 07/30/17 07/30/17 07/30/17 06:59 14:59 22:59 06:59 14:59 22:59 Intake Total 1100 ml 1800 ml 340 ml Output Total 820 ml 300 ml Balance 280 ml 1500 ml 340 ml Intake Oral 800 ml 240 ml IV Total 1100 ml 1000 ml 100 ml Output Urine Total 820 ml 300 ml # Voids 3 # Bowel Movements 0 0 (Fartun Parada MD R1) Result Diagram: 07/29/17 0515 07/30/17 0338 Objective Remarks O. CONSTITUTIONAL/GEN: This is a thin, elderly, lady resting quietly in bed. Appears uncomfortable. EYES: conjunctiva normal, PERRLA, EOMI. ENT: Mouth and pharynx normal. LUNGS: clear A-P, respiratory effort is normal. CARDIOVASCULAR: RR without murmur or gallop. No significant edema. GI/ABD: soft without masses, without organomegaly. No tenderness to palpation the right upper quadrant. NEURO: No focal deficits. SKIN: color normal, no rashes noted. HEME/LYMPH: no new bruising, petechia MUSC: Extremities are normal in appearance. PSYCH/MENTAL STATUS: Alert and oriented. (Fartun Parada MD R1) A/P Assessment and Plan Patient is an 81 y/o F w/hx of breast cancer admitted for severe nausea, poor PO intake, acute cholecystitis, and transaminitis. Will hold PO meds due to nausea. Supportive care, IV Abx. General Surgery and GI consulted. Discharge Planning Pending clinical improvement and GI/GS workup (Fartun Parada MD R1) Attending Attestation Patient examined during morning rounds by myself and case discussed with resident physician I have read the above note and agree with the assessment/plan as discussed with me I was involved in all medical decision making for this patient Appreciate GI evaluation and recommendations Appreciate surgery evaluation and recommendations -HIDA scan pending results today -Continue IV antibiotics with Levaquin and metronidazole Doug Rodas MD (Doug Rodas MD) Problem List: (1) Acute cholecystitis ICD Codes: K81.0 - Acute cholecystitis Status: Acute Plan: Concern for bile duct obstruction v acute hepatocellular process Underwent MRCP on 07/28, which indicated periportal edema, distended gallbladder with edema, and possible hepatic disease General surgery consulted, appreciate recommendations GI consulted: Appreciate recommendations. Possible ERCP versus cholecystectomy with intraoperative cholangiogram today On day 3 of IV Flagyl. Had 1 dose of Levaquin so far. Wait for 48 hrs per creatinine clearance IV fluids @100 mls/hr Pain control with Tylenol for now Dilaudid PRN for pain CLD HIDA Scan today (2) Transaminitis ICD Codes: R74.0 - Nonspecific elevation of levels of transaminase and lactic acid dehydrogenase [LDH] Status: Acute Plan: Concern for acute hepatocellular process, such as drug-induced versus autoimmune versus biliary duct obstructions. However, patient has not started any new hepatotoxic drugs, no alcohol, and autoimmunity at this stage is unlikely. LFTs have improved today We will continue to trend LFTs Avoid NSAIDs, statins, tetracyclines/sulfa medications, and all other hepatotoxic medications See above plan, will follow up GI and/General Surgery recommendations and procedure findings (3) Nausea ICD Codes: R11.0 - Nausea Status: Acute Plan: Without vomiting IV Zofran IV fluids CLD (4) Pulmonary embolism ICD Codes: I26.99 - Other pulmonary embolism without acute cor pulmonale Status: Chronic Plan: Diagnosed via CTA on 07/07 On Xarelto 15 mg PO BID since then We will resume Xarelto after procedure. 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 ICD Codes: Z86.718 - Personal history of other venous thrombosis and embolism Status: Chronic Plan: Hx of breast cancer bilaterally w/ recent recurrence Takes Xarelto 50 mg twice daily Hold this anticoagulation for now, on hep drip SCDs only (6) Hypothyroidism ICD Codes: E03.9 - Hypothyroidism, unspecified Status: Chronic Plan: home levothyroxine 75 mcg daily (7) HTN (hypertension) ICD Codes: I10 - Essential (primary) hypertension Status: Chronic Plan: Takes lisinopril-HCTZ 10-12.5 mg daily, metoprolol 25 mg daily at home Blood pressures have been stable without home meds since admission Holding home meds (8) Neck pain ICD Codes: M54.2 - Cervicalgia Status: Chronic Plan: Likely MSK related (suspect degenerative changes), incited by upper extremity exertion May also be due to referred pain from gallbladder No tenderness to palpation Tylenol for pain PRN. Avoid NSAIDs due to transaminitis, opioids due to advanced age Will monitor, may require further outpatient follow up (9) FEN Plan: Fluids: 100 MLS per hour Electrolytes: Replace as needed Nutrition: CLD DVT prophylaxis: Heparin drip, SCDs. Resume Xarelto after procedure (s) (Fartun Parada MD R1) Problem Qualifiers (1) Pulmonary embolism: Qualified Codes: I27.82 - Chronic pulmonary embolism (2) Hypothyroidism: Qualified Codes: E03.9 - Hypothyroidism, unspecified Fartun Parada MD R1 July 30, 2017 09:15 Doug Rodas MD July 30, 2017 11:11
[2017-07-30] MEDS ORDERED: SINCALIDE 5 MCG/5 ML VIAL IV ONE (11:15)
--- NOTE | 2017-07-30 11:57 | HHI.PR ---
cc: Louis Gibson MD Subjective Subjective Notes Just back from HIDA scan Nausea was better but now worse again Objective Vitals/I&O Vital Signs Date Time Temp Pulse Resp B/P (MAP) Pulse Ox O2 Delivery O2 Flow Rate FiO2 07/30/17 08:00 97.8 90 19 144/80 (101) 94 Labs Laboratory Tests Test 07/29/17 14:45 07/29/17 23:20 07/30/17 03:38 Activated Partial Thromboplast Time 64.4 50.7 59.5 Blood Urea Nitrogen 15 Creatinine 0.90 Random Glucose 90 Total Protein 4.9 Albumin 1.9 Calcium Level 8.1 Alkaline Phosphatase 766 Aspartate Amino Transf (AST/SGOT) 146 Alanine Aminotransferase (ALT/SGPT) 44 Total Bilirubin 3.6 Direct Bilirubin 2.9 Sodium Level 142 Potassium Level 4.2 Chloride Level 111 Carbon Dioxide Level 21.8 Anion Gap 9 Estimat Glomerular Filtration Rate 60 C-Reactive Protein 6.00 Date/Time Source Procedure Growth Status 07/29/17 15:00 Stool Stool Stool Occult Blood (ISA) - Final HEMOCCULT POSITIVE Complete Cardiovascular: Regular Lungs: Clear Abdomen: Other (only slight RUQ tenderness with palpation ) Extremities: No edema A/P Assessment and Plan 81 year old female with recent diagnosis of PE on anti-coagulation; elevated liver enzymes; RUQ tenderness -Await results of HIDA scan -Elevated LFTs but no imaging shows obstruction -Heparin gtt -Normal WBC -Continue antibiotics -Scopolamine patch -GI also following -Clear liquids I CERTIFY AND ATTEST THAT I PERSONALLY EXAMINED THE PATIENT. SENIOR PRINCIPAL ARCHITECT DOCUMENTED OUR VISIT. HIDA D/W DR GRAY. COMPLETELY NORMAL - NO DEFECTS, GOOD EF. ALSO D/W DR WILLIS AND PATIENTS SON AT BEDSIDE. I DO NOT HAVE AN EXPLANATION FOR HER CHRONIC NAUSEA AND ELEVATED LFTS. WOULD CONSIDER DIAGNOSTIC LAPAROSCOPY AND LIVER BIOPSY, POSSIBLE CHOLECYSTECTOMY BUT I'M NOT SURE GALLBLADDER IS THE SOURCE. LOUIS GIBSON MD FACS Adia Pendleton SENIOR PRINCIPAL ARCHITECT/[employer]ble Furnace Tender SENIOR PRINCIPAL ARCHITECT July 30, 2017 11:57 Louis Gibson MD July 31, 2017 09:47
[2017-07-30 12:00] VITALS: BP 166/70; PULSE 86; RESP 18; TEMP 98.1; O2SAT 92
--- NOTE | 2017-07-30 12:05 | RADRPT ---
EXAM DATE/TIME: 07/30/2017 09:56 [facility] COMPARISON: CT PULMONARY ANGIOGRAM, July 07, 2017, 11:36. US ABDOMEN - GALLBLADDER, July 28, 2017, 15:12. MRC P W/O CONTRAST, July 28, 2017, 14:08. INDICATIONS : right upper quadrant pain and nausea. DOSE: 4.1 mCi Tc99m Mebrofenin IV MEDICATION: 1.3 mcg Cholecystokinin IV; No symptomatic response. Cholecystokinin was administered by slow infusion over 8 minutes beginning at 60 minutes. MEDICAL HISTORY : Carcinoma, breast. Hypertension. Hypothyroidism. SURGICAL HISTORY : Mastectomy, bilateral. ENCOUNTER: Initial ACUITY: 1 day PAIN SCALE: 2/10 LOCATION: Right upper quadrant TECHNIQUE: Following the intravenous administration of radiotracer, dynamic sequential image were performed with continuous acquisition. Time-activity curves were generated. FINDINGS: HEPATIC KINETICS: There is prompt uptake of radiotracer in the liver. No focal defects are seen. There is normal rate of washout from the hepatic parenchyma. BILIARY CLEARANCE: Activity is first seen in the extrahepatic biliary system at 15 minutes. There is normal excretion i nto the small bowel. GALLBLADDER: Activity is first seen in the gallbladder at 20 minutes. POST CHOLECYSTOKININ: After Cholecystokinin administration, there is prompt emptying of the gallbladder with a greater than 60 % ejection fraction. Common bile duct kinetics are normal and there is no evidence of biliary ob struction. BILIARY ENTERIC REFLUX: None observed. CLINICAL: The patient was asymptomatic after Cholecystokinin administration. CONCLUSION: 1. Normal biliary examination. 2. There is normal filling of the gallbladder which excludes cystic duct obstruction and there is nor mal uptake of the radiopharmaceutical by the liver suggesting against hepatocellular dysfunction. 3. Additionally, there is normal gallbladder response to CCK administration. Tyrone Solo MD on July 30, 2017 at 11:58 Board Certified Radiologist. This report was verified electronically.
[2017-07-30] MEDS: SCOPOLAMINE 1.5 MG PATCH T-DERMAL SCH (13:53)
[2017-07-30] MEDS: SODIUM CHLOR 0.9% 1000 ML INJ 1,000 ML IV SCH (13:55)
[2017-07-30] MEDS: LEVOFLOXACIN 750 MG PREMIX INJ 150 ML IV SCH (13:55)
[2017-07-30] MEDS: HEPARIN-D5W 25,000 U/250 ML 250 ML IV PRN (14:06)
[2017-07-30 16:00] VITALS: BP 140/74; PULSE 94; RESP 18; TEMP 97.9; O2SAT 94
--- NOTE | 2017-07-30 16:47 | HHI.GIFU ---
GI Follow-up Note Consult Follow-up Subjective: Patient laying in bed comfortably, no new complaints and still c/o nausea and right shoulder pain. Objective: PHYSICAL EXAMINATION: Vitals signs stable No fever CHEST: non-labored breathing ABDOMEN: Soft, nondistended, mild RUQ tenderness SKIN: warm and dry [place] T[employer] AUDITOR: alert and oriented times three. Available Data (labs, X- Rays, Procedues) : Laboratory Tests Test 07/28/17 10:30 07/28/17 11:35 07/28/17 15:53 07/29/17 00:04 Red Cell Distribution Width 18.2 % (11.6-17.2) 18.2 % (11.6-17.2) Neutrophils (%) (Auto) 77.2 % (16.0-70.0) Monocytes (%) (Auto) 11.6 % (0.0-8.0) Lymphocytes # (Auto) 0.7 TH/MM3 (1.0-4.8) Blood Urea Nitrogen 20 MG/DL (7-18) Creatinine 1.23 MG/DL (0.50-1.00) Total Protein 6.0 GM/DL (6.4-8.2) Albumin 2.4 GM/DL (3.4-5.0) Alkaline Phosphatase 932 U/L (45-117) Aspartate Amino Transf (AST/SGOT) 150 U/L (15-37) Alanine Aminotransferase (ALT/SGPT) 56 U/L (10-53) Total Bilirubin 4.2 MG/DL (0.2-1.0) Estimat Glomerular Filtration Rate 42 ML/MIN (>89) C-Reactive Protein 5.50 MG/DL (0.00-0.30) Urine Leukocyte Esterase TRACE (NEG) Urine Mucus FEW /lpf (OCC) Red Blood Count 3.77 MIL/MM3 (4.00-5.30) Platelet Count 147 TH/MM3 (150-450) Prothrombin Time 14.5 SEC (9.8-11.6) Activated Partial Thromboplast Time 50.6 SEC (24.3-30.1) GREATER THAN 277.5 SEC Test 07/29/17 03:15 07/29/17 05:15 07/29/17 11:12 07/29/17 14:45 Activated Partial Thromboplast Time 103.8 SEC (24.3-30.1) 54.1 SEC (24.3-30.1) 91.0 SEC (24.3-30.1) 64.4 SEC (24.3-30.1) Red Blood Count 3.97 MIL/MM3 (4.00-5.30) Red Cell Distribution Width 18.7 % (11.6-17.2) Monocytes (%) (Auto) 10.9 % (0.0-8.0) Creatinine 1.11 MG/DL (0.50-1.00) Total Protein 6.1 GM/DL (6.4-8.2) Albumin 2.4 GM/DL (3.4-5.0) Alkaline Phosphatase 994 U/L (45-117) Aspartate Amino Transf (AST/SGOT) 157 U/L (15-37) Alanine Aminotransferase (ALT/SGPT) 55 U/L (10-53) Total Bilirubin 4.7 MG/DL (0.2-1.0) Estimat Glomerular Filtration Rate 47 ML/MIN (>89) Prothrombin Time 13.3 SEC (9.8-11.6) Test 07/29/17 23:20 07/30/17 03:38 Activated Partial Thromboplast Time 50.7 SEC (24.3-30.1) 59.5 SEC (24.3-30.1) Total Protein 4.9 GM/DL (6.4-8.2) Albumin 1.9 GM/DL (3.4-5.0) Calcium Level 8.1 MG/DL (8.5-10.1) Alkaline Phosphatase 766 U/L (45-117) Aspartate Amino Transf (AST/SGOT) 146 U/L (15-37) Total Bilirubin 3.6 MG/DL (0.2-1.0) Direct Bilirubin 2.9 MG/DL (0.0-0.2) Chloride Level 111 MEQ/L (98-107) Estimat Glomerular Filtration Rate 60 ML/MIN (>89) C-Reactive Protein 6.00 MG/DL (0.00-0.30) ASSESSMENT/PLAN: 1. Abnormal LFTs-pattern obstructive but MRCP and HIDA show no signs of biliary obstruction. HIDA normal- no sign hepatocellular disease either. Case discussed with Dr Romano. Agree cholecystectomy not indicated at this time. I discussed liver bx with pt but LFTs seem to be improving. Will check AMA (r/o PBC) and check for viral hepatitis(doubt). 2.Heme pos stool-H&H stable. Last colonoscopy done by me in 2011(diverticulosis ) and last EGD 07/2014. She is going to need this heme pos stool evaluated. Dr Keita takes over hospital service tomorrow and will discuss with him option of EUS w/ liver bx. Will need to hold heparin for GI procedures and pt understands the risk regarding her blood clots. The recent DVT/PE raises the possibility of a paraneoplastic syndrome. It was a pleasure seeing Miriam Sam. Thank you for this consult. Entered by: Jose Mosquera MD July 30, 2017 16:47
[2017-07-30 20:00] VITALS: BP 129/64; PULSE 91; RESP 17; TEMP 97.9; O2SAT 91
[2017-07-30] MEDS: ONDANSETRON HCL 4 MG/2 ML VIAL IV PUSH PRN (22:03)
[2017-07-31] VITALS: BP 132/75; PULSE 96; RESP 17; TEMP 98.1; O2SAT 94
[2017-07-31] MEDS: SODIUM CHLOR 0.9% 1000 ML INJ 1,000 ML IV SCH ×2 (00:59→09:51)
[2017-07-31 04:00] VITALS: BP 148/67; PULSE 100; RESP 17; TEMP 98.2; O2SAT 92
[2017-07-31] MEDS: LEVOTHYROXINE SODIUM 25 MCG TAB PO SCH (05:47)
[2017-07-31] MEDS: metroNIDAZOLE 500 MG INJ 100 ML IV SCH ×3 (05:50→22:05)
[2017-07-31 08:00] VITALS: BP 131/79; PULSE 95; RESP 18; TEMP 98.2; O2SAT 93
--- NOTE | 2017-07-31 08:06 | HHI.GIFU ---
GI Follow-up Note Consult Follow-up Subjective: Patient laying in bed comfortably, c/o mild nausea, non toxic, no abdo pain, no fever or chills. Objective: PHYSICAL EXAMINATION: Vitals signs stable No fever HEENT: Pupils round and reactive to light; normocephalic; atraumatic; no jaundice. Throat is clear. NECK: Neck is supple, no JVD, no lymphadenopathy. CHEST: Chest is clear to auscultation and percussion. CARDIAC: Regular rate and rhythm with no murmur gallop or rubs. ABDOMEN: Soft, nondistended, nontender; no hepatosplenomegaly; bowel sounds are present in all four quadrants. EXTREMITIES: No clubbing, cyanosis, or edema. SKIN: Normal; no rash; no jaundice. COLOR WORKER: No focal deficits; alert and oriented times three. Available Data (labs, X- Rays, Procedures) : reviewed Laboratory Tests Test 07/29/17 11:12 07/29/17 14:45 07/29/17 23:20 07/30/17 03:38 Prothrombin Time 13.3 SEC Prothromb Time International Ratio 1.3 RATIO Activated Partial Thromboplast Time 91.0 SEC 64.4 SEC 50.7 SEC 59.5 SEC Blood Urea Nitrogen 15 MG/DL Creatinine 0.90 MG/DL Random Glucose 90 MG/DL Total Protein 4.9 GM/DL Albumin 1.9 GM/DL Calcium Level 8.1 MG/DL Alkaline Phosphatase 766 U/L Aspartate Amino Transf (AST/SGOT) 146 U/L Alanine Aminotransferase (ALT/SGPT) 44 U/L Total Bilirubin 3.6 MG/DL Direct Bilirubin 2.9 MG/DL Sodium Level 142 MEQ/L Potassium Level 4.2 MEQ/L Chloride Level 111 MEQ/L Carbon Dioxide Level 21.8 MEQ/L Anion Gap 9 MEQ/L Estimat Glomerular Filtration Rate 60 ML/MIN C-Reactive Protein 6.00 MG/DL Test 07/30/17 17:52 Hepatitis A IgM Antibody NONREACTIVE Hepatitis B Surface Antigen NONREACTIVE Hepatitis B Core IgM Antibody NONREACTIVE Hepatitis C IgG Antibody NONREACTIVE ASSESSMENT/PLAN: IMP: 1. Elevated LFts down trending 2. Persistent nausea 3. Symptomatic hemorrhoids 4. Acute B/L PE with DVT 5. Heparin drip PLAN: 1. Advance diet as tolerated 2. Would recommend hold on invasive tests such as liver bx.. labs down trending 3. EGD could be helpful to rule out PUD/erosive esophagitis/gastritis. - But would pose significant pulmonary risk therefor will hold off. 4. PPI daily. 5. Start Anusol HC suppisitory one BID x 2 wks. It was a pleasure seeing Miriam Sam. Thank you for this consult. Entered by: Jose Angel Schaefer MD July 31, 2017 08:06
[2017-07-31 08:50] LABS: HEMATOCRIT 36.1 % (35.0-46.0); HEMOGLOBIN 12.5 GM/DL (11.6-15.3); MEAN CORPUSCULAR HGB CONC 34.7 % (32.0-36.0); MEAN PLATELET VOLUME 8.5 FL (7.0-11.0); PLATELET COUNT 153 TH/MM3 (150-450); WHITE BLOOD COUNT 8.9 TH/MM3 (4.0-11.0)
[2017-07-31] MEDS: ONDANSETRON HCL 4 MG/2 ML VIAL IV PUSH SCH ×3 (09:50→16:48)
[2017-07-31] MEDS: PANTOPRAZOLE SODIUM 40 MG VIAL IV PUSH SCH ×2 (09:50→22:08)
[2017-07-31] MEDS: SODIUM CHLORIDE 0.9% FLUSH 10 ML FLUSH IV FLUSH SCH ×2 (09:50→22:08)
[2017-07-31] MEDS: HYDROCORTISONE ACETATE 25 MG SUPP RECTAL SCH ×2 (09:50→21:00)
--- NOTE | 2017-07-31 10:46 | HHI.PR ---
cc: Louis Gibson MD Subjective Subjective Notes Resting in bed Still feeling "miserable" Objective Vitals/I&O Vital Signs Date Time Temp Pulse Resp B/P (MAP) Pulse Ox O2 Delivery O2 Flow Rate FiO2 07/31/17 08:00 98.2 95 18 131/79 (96) 93 Labs Laboratory Tests Test 07/30/17 17:52 07/31/17 07:55 Hepatitis A IgM Antibody NONREACTIVE Hepatitis B Surface Antigen NONREACTIVE Hepatitis B Core IgM Antibody NONREACTIVE Hepatitis C IgG Antibody NONREACTIVE White Blood Count 8.9 Red Blood Count 3.80 Hemoglobin 12.5 Hematocrit 36.1 Mean Corpuscular Volume 95.0 Mean Corpuscular Hemoglobin 33.0 Mean Corpuscular Hemoglobin Concent 34.7 Red Cell Distribution Width 20.0 Platelet Count 153 Mean Platelet Volume 8.5 Activated Partial Thromboplast Time 46.5 Date/Time Source Procedure Growth Status 07/29/17 15:00 Stool Stool Stool Occult Blood (ISA) - Final HEMOCCULT POSITIVE Complete Cardiovascular: Regular Lungs: Clear Abdomen: Other (mild RUQ tenderness ) Extremities: No edema A/P Assessment and Plan 81 year old female with recent diagnosis of PE on anti-coagulation; elevated liver enzymes; RUQ tenderness -HIDA with normal Ejection fraction -Elevated LFTs but no imaging shows obstruction -Heparin gtt -Normal WBC -Continue antibiotics -Scopolamine patch -GI also following ---possible procedure tomorrow? -Full liquids I CERTIFY AND ATTEST THAT I PERSONALLY EXAMINED THE PATIENT. FORENSIC PSYCHOLOGIST DOCUMENTED OUR VISIT. FORENSIC PSYCHOLOGIST ENTERED ORDERS UNDER MY SUPERVISION. LOUIS GIBSON MD FACS Adia Pendleton FORENSIC PSYCHOLOGIST/[employer] Director FORENSIC PSYCHOLOGIST July 31, 2017 10:46 Louis Gibson MD August 05, 2017 10:23
--- NOTE | 2017-07-31 10:54 | HHI.FPPN ---
Subjective Remarks Patient still endorses nausea. No vomiting. Patient has been eating lunch and dinner on a full liquid diet. Vitals within normal limits and stable overnight. Fluid balance is positive, last I/O 2.1/0.3. (Fartun Parada MD R1) Objective Vitals Vital Signs Date Time Temp Pulse Resp B/P (MAP) Pulse Ox O2 Delivery O2 Flow Rate FiO2 07/31/17 08:00 98.2 95 18 131/79 (96) 93 07/31/17 04:00 98.2 100 17 148/67 (94) 92 07/31/17 00:00 98.1 96 17 132/75 (94) 94 07/30/17 20:00 97.9 91 17 129/64 (85) 91 07/30/17 16:00 97.9 94 18 140/74 (96) 94 07/30/17 12:00 98.1 86 18 166/70 (102) 92 I/O 07/30/17 07/30/17 07/30/17 07/31/17 07/31/17 07/31/17 07:00 15:00 23:00 07:00 15:00 23:00 Intake Total 340 ml 1341.6 ml 465 ml Balance 340 ml 1341.6 ml 465 ml Intake Oral 240 ml 420 ml IV Total 100 ml 921.6 ml 465 ml # Voids 3 4 # Bowel Movements 1 (Fartun Parada MD R1) Result Diagram: 07/31/17 0755 07/30/17 0338 Objective Remarks O. CONSTITUTIONAL/GEN: This is a thin, elderly, lady resting quietly in bed. Complexion has improved since initial physical exam (candice). EYES: conjunctiva normal, PERRLA, EOMI. ENT: Mouth and pharynx normal. LUNGS: respiratory effort is normal. Slight crackles heard in the lower lobes. CARDIOVASCULAR: RR without murmur or gallop. No significant edema. GI/ABD: soft without masses, without organomegaly. No tenderness. NEURO: No focal deficits. SKIN: color normal, no rashes noted. MUSC: Extremities are normal in appearance. PSYCH/MENTAL STATUS: Alert and oriented. (Fartun Parada MD R1) A/P Assessment and Plan Patient is an 81 y/o F w/hx of breast cancer admitted for severe nausea, poor PO intake, acute cholecystitis, and transaminitis. Supportive care, IV Abx, and Heparin drip was initiated in case of possible surgery/procedure. MRCP showed distended gallbladder with surrounding edema but no gallstones.. Portal edema was seen as well. General Surgery and GI consulted. HIDA scan was ordered and showed normal biliary examination with normal filling of the gallbladder. Spoke with gastroenterology today. The consensus is to avoid surgery and/or EGD due to patient being at significant pulmonary risk. Transaminitis and gallbladder studies are downtrending. It is possible that the patient may have had a transient gallstone partially occluding the common bile duct that has now passed. Due to patient's breast cancer history, there may be some malignant process going on as well. Because patient is improving, will proceed with advancing diet, initiating physical therapy, and continuing supportive care. Patient may be further managed outpatient, plans to follow-up with general surgery and GI. Discharge Planning Pending clinical improvement, possible tomorrow (Fartun Parada MD R1) Attending Attestation Patient examined independently and case discussed with resident physician I have read the above note and agree with the assessment/plan as discussed with me I was involved in all medical decision making for this patient Family endorses recent neurologic changes including change in smell and taste -This is associated with a rapid physical decline -Given her history of breast cancer 3 with recent recurrence, DVT with multiple PEs, we will obtain an MRI of the brain to rule out metastasis and neurologic findings Doug Rodas MD (Doug Rodas MD) Problem List: (1) Acute cholecystitis ICD Codes: K81.0 - Acute cholecystitis Status: Acute Plan: Underwent MRCP on 07/28, which indicated periportal edema, distended gallbladder with edema, and possible hepatic disease HIDA scan 07/30: Normal biliary examination, normal filling of the bladder and normal uptake of the radiopharmaceutical by the liver suggesting against hepatocellular dysfunction. Normal gallbladder response to CCK administration. Improving General surgery and GI consulted, appreciate recommendations On day 4 of IV Flagyl. Has had 2 doses of Levaquin so far. Appreciate pharmacology assistance in adjusting for creatinine clearance Discontinue IV fluids Pain control with Tylenol for now Advance soft diet (2) Nausea ICD Codes: R11.0 - Nausea Status: Acute Plan: Without vomiting Scheduled IV Zofran 20 minutes before every meal Discontinue IV fluids Advanced soft diet Start Protonix 40 mg twice daily IV We will assess tomorrow for improvement (3) Transaminitis ICD Codes: R74.0 - Nonspecific elevation of levels of transaminase and lactic acid dehydrogenase [LDH] Status: Acute Plan: HIDA scan results suggest against hepatocellular process LFTs have been improving We will continue to trend LFTs Avoid NSAIDs, statins, tetracyclines/sulfa medications, and all other hepatotoxic medications See above plan (4) Lung crackles ICD Codes: R09.89 - Other specified symptoms and signs involving the circulatory and respiratory systems Plan: O2 91-94% overnight crackles on lung exam today Possible 2/2 to atelectasis from confinement to bed IS Duonebs TID scheduled (5) Blood in stool ICD Codes: K92.1 - Melena Plan: Hemoccult-positive from 07/29/17 Patient has complained of hemorrhoids, which is likely the source No history of GERD Hemoglobin has been stable at around 12-13 since admission No plans for EGD at this time due to patient being at high pulmonary risk Protonix 40 mg IV twice daily, appreciate GI recommendations Patient will follow up with GI outpatient (6) Pulmonary embolism ICD Codes: I26.99 - Other pulmonary embolism without acute cor pulmonale Status: Chronic Plan: Diagnosed via CTA on 07/07 On Xarelto 15 mg PO BID since then Heparin drip stopped Resume Xarelto Appreciate Pharmacology's assistance in managing to avoid treatment gap (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 ICD Codes: Z86.718 - Personal history of other venous thrombosis and embolism Status: Chronic Plan: Hx of breast cancer bilaterally w/ recent recurrence Takes Xarelto 50 mg twice daily Resume Xarelto SCDs (8) Hypothyroidism ICD Codes: E03.9 - Hypothyroidism, unspecified Status: Chronic Plan: home levothyroxine 75 mcg daily (9) HTN (hypertension) ICD Codes: I10 - Essential (primary) hypertension Status: Chronic Plan: Takes lisinopril-HCTZ 10-12.5 mg daily, metoprolol 25 mg daily at home Blood pressures have been stable without home meds since admission Patient has had a positive fluid balance in the last 2 days We will resume HCTZ portion of home blood pressure medication ( hydrochlorothiazide 12.5 mg daily) (10) Neck pain ICD Codes: M54.2 - Cervicalgia Status: Chronic Plan: Likely MSK related (suspect degenerative changes) but cannot rule out multifactorial cause (gallbladder inflammation), incited by upper extremity exertion May also be due to referred pain from gallbladder No tenderness to palpation Continue Tylenol for pain PRN (11) FEN Plan: Fluids: PO Electrolytes: Replace as needed Nutrition: Soft diet DVT prophylaxis: Xarelto, SCDs (Fartun Parada MD R1) Problem Qualifiers (1) Pulmonary embolism: Qualified Codes: I27.82 - Chronic pulmonary embolism (2) Hypothyroidism: Qualified Codes: E03.9 - Hypothyroidism, unspecified Fartun Parada MD R1 July 31, 2017 10:54 Doug Rodas MD July 31, 2017 16:55
[2017-07-31] MEDS: RIVAROXABAN 15 MG TAB PO SCH ×2 (11:20→22:05)
[2017-07-31 11:34] LABS: ALBUMIN 1.8 GM/DL (3.4-5.0); AST (GOT) 146 U/L (15-37); BICARBONATE 20.7 MEQ/L (21.0-32.0); BLOOD UREA NITROGEN 14 MG/DL (7-18); CHLORIDE 113 MEQ/L (98-107); SODIUM (NA) 142 MEQ/L (136-145)
[2017-07-31 11:43] LABS: ALKALINE PHOSPHATASE 779 U/L (45-117); ALT (GPT) 46 U/L (10-53); CREATININE 0.91 MG/DL (0.50-1.00); GLOMERULAR FILTRATION RATE 59 ML/MIN (>89); GLUCOSE,RANDOM 113 MG/DL (74-106); TOTAL BILIRUBIN ADULT 3.6 MG/DL (0.2-1.0); TOTAL PROTEIN 4.9 GM/DL (6.4-8.2)
[2017-07-31 12:00] VITALS: BP 130/58; PULSE 90; RESP 17; TEMP 97.2; O2SAT 91
[2017-07-31] MEDS: HYDROCHLOROTHIAZIDE 12.5 MG CAP PO SCH (12:20)
[2017-07-31 16:00] VITALS: BP 121/58; PULSE 86; RESP 17; TEMP 98.7; O2SAT 98
[2017-07-31] MEDS: RESP: ALBUTEROL 2.5 MG/IPRATROPIUM 0.5 MG NEB (SCH) NEB (17:17)
--- NOTE | 2017-07-31 19:24 | RADRPT ---
EXAM DATE/TIME: 07/31/2017 17:39 [facility] COMPARISON: No previous studies available for comparison. INDICATIONS : Mass. CONTRAST: 12 cc Omniscan (gadodiamide) IV MEDICAL HISTORY : PE, DVT, Breast Ca, HTN SURGICAL HISTORY : R Breast Mastectomy, Tonsils, Hernia, R Knee Arthroscopic ENCOUNTER: Subsequent ACUITY: 2 day PAIN SCORE: 0/10 LOCATION: Brain TECHNIQUE: Multiplanar, multisequence MRI of the brain was performed both prior to and following the administrat ion of paramagnetic contrast. FINDINGS: CEREBRUM: The ventricles are normal for age. No evidence of midline shift, mass lesion, hemorrhage or acute in farction. No extraaxial fluid collections are seen. The pituitary gland and suprasellar cistern are normal in configuration. WHITE MATTER: Scattered foci of bright T2 signal abnormalities are seen in the white matter. POSTERIOR FOSSA: Scattered foci of bright T2 signal abnormalities are seen within the cerebellar hemispheres, some of which enhance with contrast. The brainstem is. The 4th ventricle is midline. The cerebellopontine an gle is unremarkable. The cerebellar tonsils are normal in position. DIFFUSION IMAGING: Scattered focal areas of punctate restricted diffusion are seen in bilateral cerebral hemispheres gre ater in the left EXTRACRANIAL: The visualized portions of the orbits and paranasal sinuses are unremarkable. POST-CONTRAST: Minimal enhancing foci in the cerebellar hemispheres, the largest on the left measuring 4 mm.. CONCLUSION: 1. A few scattered foci of bright T2 signal abnormality/restricted diffusion in both cerebral hemisph eres greater in the left parietal lobe which can be seen with showering emboli/infarcts. 2. A few enhancing lesions in the cerebellar hemispheres, nonspecific but could represent metastatic disease. Rc Engel MD on July 31, 2017 at 19:14 Board Certified Radiologist. This report was verified electronically.
[2017-07-31] MEDS ORDERED: GADODIAMIDE PF 287 MG/ML 5 ML VIAL (for RAD MRI) IVCONTRAST ONE (19:55)
[2017-07-31 20:00] VITALS: BP 147/78; PULSE 88; RESP 18; TEMP 97.9; O2SAT 99
[2017-08-01] VITALS: BP 137/80; PULSE 84; RESP 18; TEMP 97.5; O2SAT 95
[2017-08-01] MEDS: RESP: ALBUTEROL 2.5 MG/IPRATROPIUM 0.5 MG NEB (SCH) NEB ×4 (00:08→20:36)
[2017-08-01] MEDS: LEVOTHYROXINE SODIUM 25 MCG TAB PO SCH (05:59)
[2017-08-01] MEDS: metroNIDAZOLE 500 MG INJ 100 ML IV SCH ×3 (06:01→20:33)
[2017-08-01 06:11] LABS: ALBUMIN 2.1 GM/DL (3.4-5.0); AST (GOT) 167 U/L (15-37); BICARBONATE 22.5 MEQ/L (21.0-32.0); BLOOD UREA NITROGEN 15 MG/DL (7-18); CALCIUM 8.2 MG/DL (8.5-10.1); CHLORIDE 107 MEQ/L (98-107); CREATININE 0.99 MG/DL (0.50-1.00); GLOMERULAR FILTRATION RATE 54 ML/MIN (>89); GLUCOSE,RANDOM 93 MG/DL (74-106); SODIUM (NA) 139 MEQ/L (136-145)
[2017-08-01 06:12] LABS: ALT (GPT) 51 U/L (10-53)
[2017-08-01 06:14] LABS: ALKALINE PHOSPHATASE 893 U/L (45-117); TOTAL BILIRUBIN ADULT 3.6 MG/DL (0.2-1.0); TOTAL PROTEIN 5.6 GM/DL (6.4-8.2)
[2017-08-01 08:00] VITALS: BP 140/65; PULSE 104; RESP 17; TEMP 97.5; O2SAT 96
[2017-08-01] MEDS: ONDANSETRON HCL 4 MG/2 ML VIAL IV PUSH SCH ×3 (08:48→17:00)
[2017-08-01] MEDS: SODIUM CHLORIDE 0.9% FLUSH 10 ML FLUSH IV FLUSH SCH ×2 (08:49→20:34)
[2017-08-01] MEDS: HYDROCHLOROTHIAZIDE 12.5 MG CAP PO SCH (08:50)
[2017-08-01] MEDS: PANTOPRAZOLE SODIUM 40 MG VIAL IV PUSH SCH ×2 (08:50→20:34)
[2017-08-01] MEDS: HYDROCORTISONE ACETATE 25 MG SUPP RECTAL SCH ×2 (08:51→21:00)
[2017-08-01] MEDS ORDERED: HEPARIN-D5W 25,000 U/250 ML 250 ML IV PRN (09:00)
--- NOTE | 2017-08-01 09:38 | HHI.FPPN ---
Subjective Remarks Patient states that she has continued to feel nausea, has been feeling weak Endorses improvement in her shoulder pain Vitals within normal limits States that she has a worsening cough today. Has been having a cough for a while but is coughing more frequently now. Cough is productive of small amounts of clear sputum No diarrhea or vomiting, no fevers (Fartun Parada MD R1) Objective Vitals Vital Signs Date Time Temp Pulse Resp B/P (MAP) Pulse Ox O2 Delivery O2 Flow Rate FiO2 08/01/17 00:00 97.5 84 18 137/80 (99) 95 07/31/17 20:00 97.9 88 18 147/78 (101) 99 07/31/17 16:00 98.7 86 17 121/58 (79) 98 07/31/17 12:00 97.2 90 17 130/58 (82) 91 I/O 07/31/17 07/31/17 07/31/17 08/01/17 08/01/17 08/01/17 06:59 14:59 22:59 06:59 14:59 22:59 Intake Total 465 ml 360 ml 240 ml Balance 465 ml 360 ml 240 ml Intake Oral 360 ml 240 ml IV Total 465 ml # Voids 3 5 # Bowel Movements 2 (Fartun Parada MD R1) Result Diagram: 07/31/17 0755 08/01/17 0447 Objective Remarks O. CONSTITUTIONAL/GEN: This is a thin, elderly, lady resting quietly in bed. EYES: conjunctiva normal, PERRLA, EOMI. ENT: Mouth and pharynx normal. LUNGS: respiratory effort is normal. Crackles heard in the lower lobes, R>L CARDIOVASCULAR: RR without murmur or gallop. No significant edema. GI/ABD: soft without masses, without organomegaly. No tenderness. NEURO: No focal deficits. SKIN: color normal, no rashes noted. MUSC: Extremities are normal in appearance. PSYCH/MENTAL STATUS: Alert and oriented. (Fartun Parada MD R1) A/P Assessment and Plan Patient is an 81 y/o F w/hx of breast cancer admitted for severe nausea, poor PO intake, acute cholecystitis, and transaminitis. Supportive care, IV Abx, and Heparin drip was initiated in case of possible surgery/procedure. MRCP showed distended gallbladder with surrounding edema but no gallstones.. Portal edema was seen as well. General Surgery and GI consulted. HIDA scan was ordered and showed normal biliary examination with normal filling of the gallbladder. Spoke with gastroenterology today. The consensus is to avoid surgery and/or EGD due to patient being at significant pulmonary risk. Transaminitis and gallbladder studies are downtrending. It is possible that the patient may have had a transient gallstone partially occluding the common bile duct that has now passed v malignant process versus drug induced liver toxicity from Xarelto. Will discuss further with GI. MRI has shown a few enhancing lesions in the cerebellar hemispheres as well as scattered foci in the left parietal lobe; these could represent metastatic disease versus showering emboli/infarcts. CT of the chest/abdomen/pelvis were ordered to examine for possible source. Discharge Planning Pending clinical improvement or further assessment (Fartun Parada MD R1) Attending Attestation Patient examined independently and case discussed with resident physician I have read the above note and agree with the assessment/plan as discussed with me I was involved in all medical decision making for this patient Doug Rodas MD (Doug Rodas MD) Problem List: (1) Abnormal brain MRI ICD Codes: R90.89 - Other abnormal findings on diagnostic imaging of central nervous system Plan: History of breast cancer with one recent recurrence in 2017 MRI brain 08/01/17 shows a few scattered foci of bright T2 signal abnormality/ restricted diffusion in both cerebral hemispheres, greater in the left parietal lobe which can be seen with showering emboli/infarcts. A few enhancing lesions in the cerebral hemispheres appear nonspecific but could represent metastatic disease Plan for full-body CT to assess for possible malignant source We will consult oncology after results (2) Transaminitis ICD Codes: R74.0 - Nonspecific elevation of levels of transaminase and lactic acid dehydrogenase [LDH] Status: Acute Plan: LFTs have been worsening since Xarelto resumed (07/31) Significant alk phos elevation Patient has been on Xarelto since 07/07. Since then, she has been symptomatic and transaminitis has been observed outpatient It is possible she has a drug induced reaction versus cancer Xarelto discontinued. Heparin drip resumed Hematology consulted for anticoagulation recommendations We will continue to trend LFTs Avoid NSAIDs, statins, tetracyclines/sulfa medications, and all other hepatotoxic medications Appreciate GI recommendations. Will order alk phos isoenzymes to differentiate from liver source v other (3) Nausea ICD Codes: R11.0 - Nausea Status: Acute Plan: Without vomiting Possible due to malignancy/infiltrative Scheduled IV Zofran 20 minutes before every meal Advanced soft diet Protonix 40 mg twice daily IV (4) Acute cholecystitis ICD Codes: K81.0 - Acute cholecystitis Status: Acute Plan: Underwent MRCP on 07/28, which indicated periportal edema, distended gallbladder with edema, and possible hepatic disease HIDA scan 07/30: Normal biliary examination, normal filling of the bladder and normal uptake of the radiopharmaceutical by the liver suggesting against hepatocellular dysfunction. Normal gallbladder response to CCK administration. General surgery and GI consulted, appreciate recommendations On day 5 of IV Flagyl (total dose of 7-10 days). Has had 3 doses of Levaquin so far. Appreciate pharmacology assistance in adjusting for creatinine clearance Pain control with Tylenol for now Advanced soft diet (5) Lung crackles ICD Codes: R09.89 - Other specified symptoms and signs involving the circulatory and respiratory systems Plan: Oxygenation improved overnight Obvious crackles on lung exam today, patient endorses worsening cough Possible 2/2 to atelectasis from confinement to bed IS Duonebs scheduled every 6 while awake We will continue to monitor vitals and follow-up imaging results for today (6) Blood in stool ICD Codes: K92.1 - Melena Plan: Hemoccult-positive from 07/29/17 Patient has complained of hemorrhoids, which is likely the source No history of GERD Hemoglobin has been stable at around 12-13 since admission No plans for EGD at this time due to patient being at high pulmonary risk Protonix 40 mg IV twice daily, appreciate GI recommendations Patient will follow up with GI outpatient (7) Pulmonary embolism ICD Codes: I26.99 - Other pulmonary embolism without acute cor pulmonale Status: Chronic Plan: Diagnosed via CTA on 07/07 On Xarelto 15 mg PO BID since then, has been experiencing worsening nausea Heparin drip reinitiated, see above (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 ICD Codes: Z86.718 - Personal history of other venous thrombosis and embolism Status: Chronic Plan: Hx of breast cancer bilaterally w/ recent recurrence Takes Xarelto 50 mg twice daily See above (9) Hypothyroidism ICD Codes: E03.9 - Hypothyroidism, unspecified Status: Chronic Plan: home levothyroxine 75 mcg daily (10) HTN (hypertension) ICD Codes: I10 - Essential (primary) hypertension Status: Chronic Plan: Takes lisinopril-HCTZ 10-12.5 mg daily, metoprolol 25 mg daily at home Blood pressures have been stable without home meds since admission Hydrochlorothiazide 12.5 mg daily due to being fluid positive on 07/29-07/30 (11) Neck pain ICD Codes: M54.2 - Cervicalgia Status: Chronic Plan: Likely MSK related (suspect degenerative changes) but cannot rule out multifactorial cause (gallbladder inflammation), incited by upper extremity exertion May also be due to referred pain from gallbladder No tenderness to palpation Improving Continue Tylenol for pain PRN (12) FEN Plan: Fluids: PO Electrolytes: Replace as needed Nutrition: Soft diet DVT prophylaxis: Heparin drip, SCDs (Fartun Parada MD R1) Problem Qualifiers (1) Pulmonary embolism: Qualified Codes: I27.82 - Chronic pulmonary embolism (2) Hypothyroidism: Qualified Codes: E03.9 - Hypothyroidism, unspecified Fartun Parada MD R1 August 01, 2017 09:38 Doug Rodas MD August 01, 2017 15:01
[2017-08-01] MEDS ORDERED: HEPARIN SODIUM - IV 10,000 UNITS/10 ML VIAL IV PUSH PRN ×2 (10:45)
[2017-08-01 11:15] LABS: INTERNATIONAL NORMALIZED RATIO 1.5 RATIO; PROTHROMBIN TIME - PATIENT 15.3 SEC (9.8-11.6)
[2017-08-01 12:00] VITALS: BP 169/75; PULSE 109; RESP 18; TEMP 97.7; O2SAT 94
[2017-08-01] MEDS ORDERED: IOHEXOL 350 MG/ML 10 ML VIAL (for RAD DIAG) IVCONTRAST ONE (12:11)
[2017-08-01] MEDS: HEPARIN 25,000 UNITS-D5W 250 ML - PREMIX IV PRN (12:25)
--- NOTE | 2017-08-01 12:41 | RADRPT ---
EXAM DATE/TIME: 08/01/2017 11:39 [facility] COMPARISON: CT PULMONARY ANGIOGRAM, July 07, 2017, 11:36. INDICATIONS : Recurrent breast cancer; evalaute for metastases. IV CONTRAST: 95 cc Omnipaque 350 (iohexol) IV ; Cumulative dose for multiple exams. ORAL CONTRAST: No oral contrast ingested. RADIATION DOSE: 5.44 CTDIvol (mGy) ; Combined studies - Thorax/Abdomen/Pelvis MEDICAL HISTORY : Hernia, inguinal. Carcinoma, breast. Hypertension. SURGICAL HISTORY : Inguinal hernia repair. Mastectomy, bilateral. ENCOUNTER: Initial ACUITY: 4 - 6 days PAIN SCALE: 0/10 LOCATION: Bilateral abdomen. TECHNIQUE: Volumetric scanning of the abdomen and pelvis was performed. Using automated exposure control and ad justment of the mA and/or kV according to patient size, radiation dose was kept as low as reasonably achievable to obtain optimal diagnostic quality images. DICOM format image data is available electro nically for review and comparison. FINDINGS: LOWER LUNGS: There are small bilateral pleural effusions right greater than left. There is scarring in the left rainer ng base. LIVER: The liver is mildly diffusely inhomogeneous and slightly lobular in contour characteristic of cirrhos is. There is surrounding ascitic fluid. There is a small low density lesion in the dome of the right lobe on image #10. There is no ductal dilatation. The gallbladder is abnormal in appearance with wall thickening and or surrounding fluid. There are no calcified gallstones. SPLEEN: Normal size without lesion. PANCREAS: Within normal limits. KIDNEYS: Normal in size and shape. There is no solid mass, stone or hydronephrosis. There is a cyst in the lo wer pole the right kidney. ADRENAL GLANDS: Within normal limits. VASCULAR: There is no aortic aneurysm. BOWEL/MESENTERY: Ascites is noted in the abdomen and pelvis. The stomach, small bowel, and colon demonstrate no acute abnormality. There is no free intraperitoneal air or fluid. ABDOMINAL WALL: Within normal limits. RETROPERITONEUM: There is no lymphadenopathy. BLADDER: No wall thickening or mass. REPRODUCTIVE: Within normal limits. INGUINAL: There is no lymphadenopathy or hernia. MUSCULOSKELETAL: Within normal limits for patient age. CONCLUSION: 1. Cirrhotic appearing liver with small benign appearing low density lesion in the dome of the right lobe. 2. Moderate amount of ascitic fluid in the abdomen and pelvis. 3. Abnormal gallbladder wall thickening versus pericholecystic fluid. No calcified gallstones. 4. Small bilateral pleural effusions. Kofi Alvarez MD on August 01, 2017 at 12:36 Board Certified Radiologist. This report was verified electronically.
--- NOTE | 2017-08-01 12:58 | RADRPT ---
EXAM DATE/TIME: 08/01/2017 11:39 [facility] COMPARISON: CT PULMONARY ANGIOGRAM, July 07, 2017, 11:36. INDICATIONS : Recurrent breast cancer; evaluate for metastases. IV CONTRAST: 95 cc Omnipaque 350 (iohexol) IV ; Cumulative dose for multiple exams. RADIATION DOSE: 5.44 CTDIvol (mGy) ; Combined studies - Thorax/Abdomen/Pelvis MEDICAL HISTORY : Carcinoma, breast. Hypertension. SURGICAL HISTORY : Mastectomy, bilateral. ENCOUNTER: Initial ACUITY: 4 - 6 days PAIN SCALE: 0/10 LOCATION: Bilateral chest TECHNIQUE: Volumetric scanning of the chest was performed. Using automated exposure control and adjustment of t he mA and/or kV according to patient size, radiation dose was kept as low as reasonably achievable to obtain optimal diagnostic quality images. DICOM format image data is available electronically for review and comparison. Follow-up recommendations for detected pulmonary nodules are based at a minimum on nodule size and pa tient risk factors according to Fleischner Society Guidelines. FINDINGS: Imaging through the lung apices demonstrates an area of consolidation in the right lung apex. There i s a small associated nodular area measuring 1.0 x 0.7 cm. Compared to the patient's previous examinat ion of 07/07/17 there has been mild interval improvement with a reduction in size and density of the ar ea of consolidation. Again noted are atelectatic changes within the right middle lobe these appear mi ldly worse than seen on previous examination. There are small bilateral pleural effusions. These are new when compared to the previous examination. There mild atelectatic changes within both lung bases. The heart is mildly enlarged. There is atherosclerotic plaquing of the coronary arteries. The examina tion also demonstrates some scattered nodes in the middle mediastinum. The largest measures 1.9 x 1.2 cm in maximum dimension. This has decreased in size compared to previous. This measured 1.8 x 1.9 cm on the previous. The limited portion of upper abdomen visualized and showed a small amount of ascites. The visualized osseous structures are intact.. CONCLUSION: 1. Today's examination again demonstrates areas of consolidation involving the right upper and right middle lobes. There is a small associated nodule in the right upper lobe measuring 0.7 x 1.0 cm. The overall appearance of these would suggest they are probably inflammatory however, continued followup to exclude malignancy will be needed. 2. Interval decrease in size of the patient's middle mediastinal lymph node. 3. Cardiomegaly. 4. Small bilateral effusions new when compared to the prior exam. Charly Garcia MD on August 01, 2017 at 12:48 Board Certified Radiologist. This report was verified electronically.
[2017-08-01] MEDS: LEVOFLOXACIN 750 MG PREMIX INJ 150 ML IV SCH (14:10)
[2017-08-01] MEDS ORDERED: hydrALAZINE HCL 20 MG/ML VIAL IV PUSH PRN (14:45)
[2017-08-01] MEDS ORDERED: HEPARIN SODIUM - IV 10,000 UNITS/10 ML VIAL IV PRN ×2 (15:00)
[2017-08-01 16:00] VITALS: BP 128/60; PULSE 117; RESP 19; TEMP 97.8; O2SAT 95
[2017-08-01] MEDS ORDERED: RESP: ALBUTEROL 2.5 MG/IPRATROPIUM 0.5 MG NEB (SCH) NEB (16:00)
--- NOTE | 2017-08-01 17:32 | PD.CONS ---
History of Present Illness Service Hematology/oncology. Consult Requested By Family medicine inpatient service. Reason for Consult Patient with recent diagnosis of pulmonary emboli. Currently on therapeutic anticoagulation with a heparin infusion. 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 Abnormal liver enzymes of yet unknown etiology. Primary Care Physician Nick Vogel MD Diagnoses: History of Present Illness Chief Complaint: Patient denies complaints at this time other than occasional epigastric pain which she thinks may be related to "gas". History of presenting illness: Ms. Sam is an 81-year-old female who is well-known to me from my outpatient practice. I see her primarily for her history of breast carcinoma, more recently she was diagnosed with pulmonary emboli and has been on therapeutic anticoagulation. The patient's history of breast carcinoma dates back to 1988 when she was diagnosed with a locally advanced left-sided breast carcinoma which was treated with a modified radical mastectomy and left axillary lymph node dissection. She subsequently received adjuvant systemic chemotherapy with methotrexate, 5- FU and Cytoxan. 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 The tumor was weakly positive for estrogen receptor expression, weakly positive for progesterone receptor expression and was HER-2 amplified. She underwent a modified radical mastectomy on the right side with sentinel lymph node biopsy. She is found to have T1cN0 M0 disease (stage Ia), she was offered adjuvant systemic therapy with anti-HER-2 therapy but she declined. In May 2016 she presented with a subcutaneous nodule involving her right chest wall, this was biopsied and found to be consistent with a local recurrence of a poorly differentiated invasive papillary carcinoma, this was surgically resected and the patient subsequently received postop radiation to the right chest wall. She had that time was recommended systemic chemotherapeutic intervention along with anti-HER-2 therapy which she again declined. The patient did well up until June 2017. She developed sudden onset difficulty breathing and chest pain, she presented to the [facility] was diagnosed with pulmonary emboli. She was initiated on her pubic anticoagulation and was discharged home. At the time of presentation to the hospital she was noted to have elevated liver enzymes, liver enzymes were initially thought to be related to her pulmonary embolus. I trended her LFTs in the outpatient setting, these remain persistently elevated therefore a CT scan of the abdomen was recommended. Outpatient CT scan pointed towards gallbladder inflammation. She was referred to Dr. Keagan Romano her general surgeon for evaluation for cholecystitis. Unfortunately, over the weekend Her condition worsened, she developed worsening abdominal pain which she tells me it was difficult for her to bear. She also had nausea and loss of appetite. She came into the emergency department here at [facility] in [facility] and has been hospitalized ever since. I was not aware of her hospitalization, I had been trying to actively manage her in the outpatient setting earlier today I was asked to come see her to manage her anticoagulation. Since hospitalization she has had multiple imaging studies done including a HIDA scan, ultrasound of the gallbladder and liver, CT scan of the abdomen and pelvis as well as an MRI of the brain. She has been seen by a poultry farmer meat, general surgery and is being followed by the family medicine inpatient team. Her liver enzymes remain abnormal with elevated bilirubin levels, elevated alkaline phosphatase levels as well as elevation in AST and ALT. CT scan done earlier today of the abdomen with IV contrast was read by the interpreting radiologist as a "cirrhotic appearing liver without definite masses ". Review of Systems Constitutional: COMPLAINS OF: Fatigue, Weight loss, Change in appetite ( Decreased appetite), DENIES: Diaphoretic episodes, Fever, Weight gain, Chills, Dizziness, Night Sweats Endocrine: DENIES: Abnorml menstrual pattern, Heat/cold intolerance, Polydipsia , Polyuria, Polyphagia Eyes: DENIES: Blurred vision, Diplopia, Eye inflammation, Eye pain, Vision loss , Photosensitivity, Double Vision Ears, nose, mouth, throat: COMPLAINS OF: Hoarseness, Epistaxis (Dried blood from nose), DENIES: Tinnitus, Hearing loss, Vertigo, Nasal discharge, Oral lesions, Throat pain, Ear Pain, Running Nose, Sinus Pain, Toothache, Odynophagia Respiratory: COMPLAINS OF: Cough, Sputum production, Shortness of breath, DENIES: Apneas, Snoring, Wheezing, Hemoptysis Cardiovascular: COMPLAINS OF: Dyspnea on Exertion, Lower Extremity Edema, DENIES: Chest pain, Palpitations, Syncope, PND, Orthopnea, Claudication Gastrointestinal: COMPLAINS OF: Abdominal pain, Nausea, Anorexia, DENIES: Black stools, Bloody stools, Constipation, Diarrhea, Vomiting, Difficulty Swallowing Genitourinary: DENIES: Abnormal vaginal bleeding, Dysmenorrhea, Dyspareunia, Sexual dysfunction, Urinary frequency, Urinary incontinence, Urgency, Hematuria , Dysuria, Nocturia, Vaginal discharge Musculoskeletal: DENIES: Joint pain, Muscle aches, Stiffness, Joint Swelling, Back pain, Neck pain Integumentary: DENIES: Abnormal pigmentation, Pruritus, Rash, Nail changes, Breast masses, Breast skin changes, Nipple discharge Hematologic/lymphatic: DENIES: Bruising, Lymphadenopathy Immunologic/allergic: DENIES: Eczema, Urticaria Neurologic: DENIES: Abnormal gait, Headache, Localized weakness, Paresthesias, Seizures, Speech Problems, Tremor, Poor Balance Psychiatric: COMPLAINS OF: Anxiety, DENIES: Confusion, Mood changes, Depression , Hallucinations, Agitation, Suicidal Ideation, Homicidal Ideation, Delusions Except as stated in HPI: all other systems reviewed are Neg Past Family Social History Allergies: Coded Allergies: Sulfa (Sulfonamide Antibiotics) (Verified Allergy, Intermediate, Rash, ) Past Medical History Left-sided breast carcinoma: 1988 Right-sided invasive lobular carcinoma of the breast: 2014 Cutaneous recurrence of breast carcinoma involving the right chest wall: 2016 Bilateral pulmonary emboli June 2017 Right lower extremity deep venous thrombosis: June 2017 Hemorrhoids Multiple nonmelanoma skin cancers Past Surgical History Tonsillectomy Colonoscopy Left knee surgery Hernia repair surgery Left breast modified radical mastectomy Right breast modified radical mastectomy Resection of cutaneous recurrence of breast carcinoma (right chest wall) Resection of multiple nonmelanoma skin cancers Image guided breast biopsies (multiple) Active Ordered Medications Heparin infusion per protocol. Levofloxacin 750 mg IV every 48 hours. Metronidazole 500 mg IV every 8 hours Duo nebs 1 amp every 6 hours needed while awake Hydrochlorothiazide 12.5 mg p.o. daily Levothyroxine 75 mcg p.o. daily Zofran 4 mg IV 3 times daily scopolamine patch1.5 mg every 72 hours Family History Family history: Mother at the age of 97. Father at the age of 65 of complications of liver failure Sister diagnosed with breast cancer in 2014. Social History Patient lives at home alone, she is . She is independent in her daily livings. She is a lifelong non-smoker. She previously worked in sales. Physical Exam Vital Signs Vital Signs Date Time Temp Pulse Resp B/P (MAP) Pulse Ox O2 Delivery O2 Flow Rate FiO2 08/01/17 12:00 97.7 109 18 169/75 (106) 94 08/01/17 08:00 97.5 104 17 140/65 (90) 96 08/01/17 00:00 97.5 84 18 137/80 (99) 95 07/31/17 20:00 97.9 88 18 147/78 (101) 99 Physical Exam GENERAL: Elderly lady, sitting up on a bedside chair, appears to be no acute distress, has a pleasant disposition. Coughs multiple times during this interview. Her son and son-in-law are at bedside. SKIN: No rashes, ecchymoses or lesions. Cool and dry. HEAD: Atraumatic. Normocephalic. No temporal or scalp tenderness. EYES: Pupils equal round and reactive. Extraocular motions intact. No scleral icterus. No injection or drainage. ENT: Nose without bleeding, purulent drainage or septal hematoma. Throat without erythema, tonsillar hypertrophy or exudate. Uvula midline. Airway patent. NECK: Trachea midline. No JVD or lymphadenopathy. Supple, nontender, no meningeal signs. CARDIOVASCULAR: Irregular rhythm, S1-S2 no obvious murmurs rubs gallops. RESPIRATORY: Good air movement bilaterally no wheezes, no rhonchi. GASTROINTESTINAL: Abdomen soft, non-tender, nondistended. No hepato-splenomegaly , or palpable masses. No guarding. MUSCULOSKELETAL: Extremities without clubbing, cyanosis, or edema. No joint tenderness, effusion, or edema noted. No calf tenderness. Negative Homans sign bilaterally. NEUROLOGICAL: Awake and alert. Cranial nerves II through XII intact. Motor and sensory grossly within normal limits. Five out of 5 muscle strength in all muscle groups. Normal speech. Skin: No obvious masses noted. Breast examination: Status post bilateral mastectomy. No masses or nodules noted on the chest wall. No axial lymphadenopathy. Laboratory Laboratory Tests Test 08/01/17 04:47 08/01/17 10:55 08/01/17 14:05 Blood Urea Nitrogen 15 Creatinine 0.99 Random Glucose 93 Total Protein 5.6 Albumin 2.1 Calcium Level 8.2 Alkaline Phosphatase 893 Aspartate Amino Transf (AST/SGOT) 167 Alanine Aminotransferase (ALT/SGPT) 51 Total Bilirubin 3.6 Sodium Level 139 Potassium Level 3.8 Chloride Level 107 Carbon Dioxide Level 22.5 Anion Gap 10 Estimat Glomerular Filtration Rate 54 C-Reactive Protein 7.00 Prothrombin Time 15.3 Prothromb Time International Ratio 1.5 Activated Partial Thromboplast Time 47.3 Date/Time Source Procedure Growth Status 07/29/17 15:00 Stool Stool Stool Occult Blood (ISA) - Final HEMOCCULT POSITIVE Complete Result Diagram: 07/31/17 0755 08/01/[address] scan of the abdomen pelvis with IV contrast dated 08/01/2017: 1. Cirrhotic appearing liver with small benign-appearing low-density lesion in the dome of the right lobe. 2. Moderate amount of ascitic fluid in the abdomen pelvis. 3. Abnormal gallbladder wall thickening versus pericholecystic fluid. No calcified gallstones. 4. Small bilateral pleural effusions. CT scan of the chest dated 08/01/2017: Consolidation involving the right upper lobe and right middle lobe. Small associated nodule in the right upper lobe measuring 0.7 x 1 cm. Overall appearance would suggest an phlegm maturity changes, continued follow-up is warranted. 2. Interval decrease in size of patient's middle mediastinal lymph node. Cardiomegaly. Small bilateral pleural effusions new when compared to prior exam. MRI of the brain dated with IV contrast: Conclusion: 1. Few scattered foci of bright T2 signal abnormality/restricted diffusion in both cerebellar hemispheres greater in the left parietal lobe which can be seen with showering emboli/infarcts. 2. A few enhancing lesions in the cerebellar hemisphere nonspecific but could represent metastatic disease. Assessment and Plan Assessment and Plan Ms. Sam is a very pleasant 81-year-old female with a history of bilateral breast carcinoma; initial diagnosis established in 1988 when she presented with a locally advanced left breast carcinoma. Treated with surgical resection followed by adjuvant chemotherapy as outlined above. In 2014 she presented with a stage I HER-2 amplified right breast carcinoma which was surgically resected with a modified radical mastectomy. She elected for observation alone , in the spring 2016 she presented with a local recurrence on the right chest wall which was surgically resected. Following surgical resection she underwent postop radiation for local control. She again declined systemic interventions with anti-HER-2 therapy. In June 2017 she developed bilateral pulmonary emboli associate with the right lower extreme deep venous thrombosis. No obvious provoking factor was identified. She at the time of presentation with the pulmonary emboli had abnormal liver function testing (before any anticoagulation was initiated). Over the course of the past 3 weeks her liver enzymes have remained elevated, in fact they have worsened and she now has hyperbilirubinemia in addition to elevated AST, ALT and alkaline phosphatase levels. She has been evaluated for possible gallbladder dysfunction or extrahepatic obstruction of the biliary tree. Upon review of her most recent CT scans I am concerned of a diffuse infiltrating pattern of metastatic disease to the liver; primarily the inferior portions of the right hepatic lobe where on independent review there appears to be an abnormal signal. Recommendations: 1. Abnormal liver function testing in a patient with a high risk poorly differentiated breast carcinoma: MRI of the abdomen with IV contrast has been ordered to assess for possible metastatic disease. She may eventually require biopsy of the liver if no definite radiographic abnormalities are identified. 2. Pulmonary emboli: Associated with lower extremity deep venous thrombosis: Continue therapeutic anticoagulation with heparin infusion. The aim would be to maintain an APTT level of close to twice the upper limit of normal. 3. History of breast carcinoma: I will obtain serum tumor markers including CEA and CA 15-3 levels, this may help us stratify the risk of possible occult metastases. 4. Abnormal findings on MRI of the brain: Subcentimeter enhancing lesions identified in the cerebellum, metastatic disease is not ruled out. Close interval/short interval MRI of the brain will be required. Discussed Condition With Patient Her son and son-in-law. General surgery team. Jacob Liu MD August 01, 2017 17:32
[2017-08-01] MEDS ORDERED: GADODIAMIDE PF 287 MG/ML 5 ML VIAL (for RAD MRI) IVCONTRAST ONE (19:56)
[2017-08-01 20:00] VITALS: BP 123/79; PULSE 106; RESP 22; TEMP 98.3; O2SAT 96
[2017-08-01 20:36] VITALS: O2SAT 96
--- NOTE | 2017-08-01 22:06 | RADRPT ---
EXAM DATE/TIME: 08/01/2017 19:22 This report includes an Addendum and supersedes previous reports for this exam. [facility] COMPARISON: No previous studies available for comparison. INDICATIONS : Liver mass. CONTRAST: 13 cc Omniscan (gadodiamide) IV MEDICAL HISTORY : Hypertension. Deep venous thrombosis. Carcinoma, breast. SURGICAL HISTORY : Mastectomy, right. Tonsillectomy. Right knee sx, Hernia sx ENCOUNTER: Initial ACUITY: 1 day PAIN SCORE: 3/10 LOCATION: Bilateral upper quadrant TECHNIQUE: Multiplanar, multisequence magnetic resonance imaging of the abdomen was performed without and with i ntravenous contrast. FINDINGS: The liver has a heterogeneous enhancement pattern with a slight lobular appearance which can be seen with cirrhosis. Low-attenuation lesion seen on CT probably represents a tiny cyst. There is mild ascites. There is edematous thickening of the gallbladder wall which is often seen with ascites. No definite evidence for metastatic disease. Spleen, adrenals, kidneys and pancreas demonst rate no acute findings. Exophytic right renal cyst and small left parapelvic cysts. There is also mil d to moderate anasarca. CONCLUSION: 1. 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 No definite evidence for metastatic disease. Mild ascite s. Moderate anasarca. Edematous gallbladder wall. Noah Gates MD on August 01, 2017 at 22:00 Board Certified Radiologist. This report was verified electronically. ADDENDUM: The study was reevaluated on request of Dr. Liu. There is diffusely heterogeneous decreased enhance ment throughout the posterior right lobes of the liver, predominantly segments 6 and 7. No definitive decreased T1 signal abnormality although there is subtle restricted diffusion. Although somewhat aty pical, the findings are concerning for infiltrative mass. Patient would benefit from you just MRI or PET/CT examination given history of breast CA. Matthias Arnett MD on August 05, 2017 at 15:19 Board Certified Radiologist. This report was verified electronically.
[2017-08-02] VITALS (10 sets, daily range): BP systolic 122–138; BP diastolic 58–78; PULSE 67–122; RESP 18–22; TEMP 97.8–98.5; O2SAT 92–97
[2017-08-02] MEDS: LEVOTHYROXINE SODIUM 25 MCG TAB PO SCH (06:05)
[2017-08-02] MEDS: metroNIDAZOLE 500 MG INJ 100 ML IV SCH ×3 (06:05→21:17)
[2017-08-02] MEDS: ONDANSETRON HCL 4 MG/2 ML VIAL IV PUSH SCH ×3 (07:54→15:35)
[2017-08-02] MEDS: PANTOPRAZOLE SODIUM 40 MG VIAL IV PUSH SCH ×2 (07:55→21:17)
[2017-08-02] MEDS: SODIUM CHLORIDE 0.9% FLUSH 10 ML FLUSH IV FLUSH SCH ×2 (07:55→23:17)
[2017-08-02] MEDS: HYDROCORTISONE ACETATE 25 MG SUPP RECTAL SCH ×2 (07:55→23:17)
[2017-08-02] MEDS: HYDROCHLOROTHIAZIDE 12.5 MG CAP PO SCH (07:58)
[2017-08-02] MEDS: RESP: ALBUTEROL 2.5 MG/IPRATROPIUM 0.5 MG NEB (SCH) NEB ×3 (08:02→20:37)
[2017-08-02 08:18] LABS: HEMOGLOBIN 12.2 GM/DL (11.6-15.3); MEAN CELL VOLUME 96.1 FL (80.0-100.0); MEAN CORPUSCULAR HEMOGLOBIN 32.4 PG (27.0-34.0); MEAN CORPUSCULAR HGB CONC 33.8 % (32.0-36.0); MEAN PLATELET VOLUME 8.8 FL (7.0-11.0); PLATELET COUNT 120 TH/MM3 (150-450); RED BLOOD COUNT 3.75 MIL/MM3 (4.00-5.30); RED CELL DISTRIBUTION WIDTH 20.2 % (11.6-17.2); WHITE BLOOD COUNT 7.7 TH/MM3 (4.0-11.0)
[2017-08-02 08:34] LABS: BICARBONATE 22.4 MEQ/L (21.0-32.0); CALCIUM 8.5 MG/DL (8.5-10.1); CREATININE 0.97 MG/DL (0.50-1.00)
--- NOTE | 2017-08-02 09:27 | HHI.FPPN ---
Subjective Remarks No acute events overnight. Patient's nausea has improved and she was tolerating breakfast this morning. She states she has not had a bowel movement since admission. Otherwise denies chest pain, shortness of breath. (Ran Anton MD R1) Objective Vitals Vital Signs Date Time Temp Pulse Resp B/P (MAP) Pulse Ox O2 Delivery O2 Flow Rate FiO2 08/02/17 08:05 93 Nasal Cannula 2.00 08/02/17 08:00 98.2 114 18 122/59 (80) 94 08/02/17 00:00 97.9 96 22 125/58 (80) 95 08/01/17 20:36 96 Nasal Cannula 2.00 08/01/17 20:00 98.3 106 22 123/79 (94) 96 08/01/17 16:00 97.8 117 19 128/60 (82) 95 08/01/17 12:00 97.7 109 18 169/75 (106) 94 I/O 08/01/17 08/01/17 08/01/17 08/02/17 08/02/17 08/02/17 07:00 15:00 23:00 07:00 15:00 23:00 Intake Total 240 ml 1025 ml 360 ml Output Total 4 ml 300 ml Balance 240 ml 1021 ml 60 ml Intake Oral 240 ml 775 ml 360 ml IV Total 250 ml Output Urine Total 4 ml 300 ml # Voids 5 5 # Bowel Movements 2 0 (Ran Anton MD R1) Result Diagram: 08/02/17 0642 08/02/17 0642 Imaging Last [address] 08/01/17 0000 Signed Impressions: Service Date/Time: July 11:39 - CONCLUSION: 1. Today's examination again demonstrates areas of consolidation involving the right upper and right middle lobes. There is a small associated nodule in the right upper lobe measuring 0.7 x 1.0 cm. The overall appearance of these would suggest they are probably inflammatory however, continued followup to exclude malignancy will be needed. 2. Interval decrease in size of the patient's middle mediastinal lymph node. 3. Cardiomegaly. 4. Small bilateral effusions new when compared to the prior exam. Charly Garcia MD Abdomen/Pelvis CT 08/01/17 0000 Signed Impressions: Service Date/Time: July 11:39 - CONCLUSION: 1. Cirrhotic appearing liver with small benign appearing low density lesion in the dome of the right lobe. 2. Moderate amount of ascitic fluid in the abdomen and pelvis. 3. Abnormal gallbladder wall thickening versus pericholecystic fluid. No calcified gallstones. 4. Small bilateral pleural effusions. Kofi Alvarez MD Abdomen MRI 08/01/17 0000 Signed Impressions: Service Date/Time: July 19:22 - CONCLUSION: 1. 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 No definite evidence for metastatic disease. Mild ascites. Moderate anasarca. Edematous gallbladder wall. Noah Gates MD Objective Remarks CONSTITUTIONAL/GEN: This is a thin, elderly, lady resting comfortably in bed EYES: conjunctiva normal, EOMI. LUNGS: respiratory effort is normal. CTAB with no wheezes appreciated CARDIOVASCULAR: RR without murmur or gallop. No significant edema. GI/ABD: soft without masses, without organomegaly. No tenderness. NEURO: No focal deficits. SKIN: color normal, no rashes noted. MUSC: Extremities are normal in appearance. PSYCH/MENTAL STATUS: Alert and oriented. (Ran Anton MD R1) A/P Assessment and Plan Patient is an 81 y/o F w/hx of breast cancer admitted for severe nausea, poor PO intake, acute cholecystitis, and transaminitis. Supportive care, IV Abx, and Heparin drip was initiated in case of possible surgery/procedure. MRCP showed distended gallbladder with surrounding edema but no gallstones.. Portal edema was seen as well. General Surgery and GI consulted. HIDA scan was ordered and showed normal biliary examination with normal filling of the gallbladder. Spoke with gastroenterology today. The consensus is to avoid surgery and/or EGD due to patient being at significant pulmonary risk. Transaminitis and gallbladder studies are downtrending. It is possible that the patient may have had a transient gallstone partially occluding the common bile duct that has now passed v malignant process versus drug induced liver toxicity from Xarelto. Will discuss further with GI. MRI has shown a few enhancing lesions in the cerebellar hemispheres as well as scattered foci in the left parietal lobe; these could represent metastatic disease versus showering emboli/infarcts. CT of the chest/abdomen/pelvis were ordered to examine for possible source. CT chest with small nodule in the right upper lobe that has more inflammatory appearance and malignancy, CT abdomen/pelvis showed a cirrhotic appearing liver with small benign-appearing lesion in the dome of the right lobe, moderate ascitic fluid. Hematology was consulted and Dr. Lui, who a history with this patient for her breast carcinoma and anticoagulation, ordered an MRI of the abdomen to evaluate further. MRI showed probable liver cirrhosis with tiny cyst and no evidence of metastatic disease. Dr. Liu stated the goal PTT is twice the level of normal for this patient. Discharge Planning Pending clinical improvement or further assessment (Ran Anton MD R1) Attending Attestation Pt. seen, examined and discussed with the medicine team, Drs. Anton and Ruyb Donaldson. She reports some improvement in her nausea today, states she is "better , but not good". Would like to try to eat breakfast today. Exam findings as documented; I agree. I agree with the plan; appreciate Dr. Liu's assistance. (Deborah Donaldson MD) Problem List: (1) Abnormal brain MRI ICD Codes: R90.89 - Other abnormal findings on diagnostic imaging of central nervous system Plan: History of breast cancer with one recent recurrence in 2017 MRI brain 08/01/17 shows a few scattered foci of bright T2 signal abnormality/ restricted diffusion in both cerebral hemispheres, greater in the left parietal lobe which can be seen with showering emboli/infarcts. A few enhancing lesions in the cerebral hemispheres appear nonspecific but could represent metastatic disease CT scan of the chest, abdomen and pelvis as well as MRI of the abdomen does not show any definite source of metastatic disease. Hematology consulted on 08/01. Appreciate recommendations (2) Transaminitis ICD Codes: R74.0 - Nonspecific elevation of levels of transaminase and lactic acid dehydrogenase [LDH] Status: Acute Plan: LFTs have been worsening since Xarelto resumed (07/31) Significant alk phos elevation Patient has been on Xarelto since 07/07. Since then, she has been symptomatic and transaminitis has been observed outpatient It is possible she has a drug induced reaction versus cancer Xarelto discontinued. Heparin drip resumed Hematology consulted for anticoagulation recommendations We will continue to trend LFTs Avoid NSAIDs, statins, tetracyclines/sulfa medications, and all other hepatotoxic medications Appreciate GI recommendations. Will order alk phos isoenzymes to differentiate from liver source v other (3) Nausea ICD Codes: R11.0 - Nausea Status: Acute Plan: Improving Possible due to malignancy/infiltrative Scheduled IV Zofran 20 minutes before every meal Advanced soft diet Protonix 40 mg twice daily IV (4) Acute cholecystitis ICD Codes: K81.0 - Acute cholecystitis Status: Acute Plan: Underwent MRCP on 07/28, which indicated periportal edema, distended gallbladder with edema, and possible hepatic disease HIDA scan 07/30: Normal biliary examination, normal filling of the bladder and normal uptake of the radiopharmaceutical by the liver suggesting against hepatocellular dysfunction. Normal gallbladder response to CCK administration. General surgery and GI consulted, appreciate recommendations On day 6 of IV Flagyl (total dose of 7-10 days). Has had 3 doses of Levaquin so far (q48hr dosing). Appreciate pharmacology assistance in adjusting for creatinine clearance Pain control with Tylenol for now Advanced to regular diet (5) Lung crackles ICD Codes: R09.89 - Other specified symptoms and signs involving the circulatory and respiratory systems Plan: Currently on 2 L nasal cannula Possible 2/2 to atelectasis from confinement to bed CT chest on 08/02 showed small bilateral pleural effusions IS Duonebs scheduled every 6 while awake We will continue to monitor vitals (6) Blood in stool ICD Codes: K92.1 - Melena Plan: Hemoccult-positive from 07/29/17 Patient has complained of hemorrhoids No history of GERD Hemoglobin has been stable at around 12-13 since admission No plans for EGD at this time due to patient being at high pulmonary risk Protonix 40 mg IV twice daily, appreciate GI recommendations Patient will follow up with GI outpatient (7) Pulmonary embolism ICD Codes: I26.99 - Other pulmonary embolism without acute cor pulmonale Status: Chronic Plan: Diagnosed via CTA on 07/07 On Xarelto 15 mg PO BID since then, has been experiencing worsening nausea Heparin drip reinitiated, Dr. Liu with hematology assisting. 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 ICD Codes: Z86.718 - Personal history of other venous thrombosis and embolism Status: Chronic Plan: Hx of breast cancer bilaterally w/ recent recurrence Takes Xarelto 50 mg twice daily See above (9) Hypothyroidism ICD Codes: E03.9 - Hypothyroidism, unspecified Status: Chronic Plan: home levothyroxine 75 mcg daily (10) HTN (hypertension) ICD Codes: I10 - Essential (primary) hypertension Status: Chronic Plan: Takes lisinopril-HCTZ 10-12.5 mg daily, metoprolol 25 mg daily at home Blood pressures have been stable without home meds since admission Hydrochlorothiazide 12.5 mg daily due to being fluid positive (11) Neck pain ICD Codes: M54.2 - Cervicalgia Status: Chronic Plan: Likely MSK related (suspect degenerative changes) but cannot rule out multifactorial cause (gallbladder inflammation), incited by upper extremity exertion May also be due to referred pain from gallbladder No tenderness to palpation Improving (12) FEN Plan: Fluids: PO Electrolytes: Replace as needed Nutrition: Regular diet DVT prophylaxis: Heparin drip, SCDs (Ran Anton MD R1) Problem Qualifiers (1) Pulmonary embolism: Qualified Codes: I27.82 - Chronic pulmonary embolism (2) Hypothyroidism: Qualified Codes: E03.9 - Hypothyroidism, unspecified Ran Anton MD R1 August 02, 2017 09:27 Deborah Donaldson MD August 02, 2017 14:37
[2017-08-02] MEDS: DOCUSATE SODIUM 50 MG/SENNA 8.6 MG TAB PO SCH ×2 (10:16→21:16)
--- NOTE | 2017-08-02 10:38 | HHI.PR ---
cc: Louis Romano MD Subjective Subjective Notes Reports nausea if better today Tolerating regular diet Drinks the Ensure Objective Vitals/I&O Vital Signs Date Time Temp Pulse Resp B/P (MAP) Pulse Ox O2 Delivery O2 Flow Rate FiO2 08/02/17 10:19 92 08/02/17 10:19 Room Air 08/02/17 08:05 2.00 08/02/17 08:00 98.2 114 18 122/59 (80) Labs Laboratory Tests Test 08/01/17 10:55 08/01/17 14:05 08/01/17 22:41 08/02/17 06:42 Prothrombin Time 15.3 Prothromb Time International Ratio 1.5 Activated Partial Thromboplast Time 47.3 85.7 White Blood Count 7.7 Red Blood Count 3.75 Hemoglobin 12.2 Hematocrit 36.0 Mean Corpuscular Volume 96.1 Mean Corpuscular Hemoglobin 32.4 Mean Corpuscular Hemoglobin Concent 33.8 Red Cell Distribution Width 20.2 Platelet Count 120 Mean Platelet Volume 8.8 Blood Urea Nitrogen 13 Creatinine 0.97 Random Glucose 112 Calcium Level 8.5 Sodium Level 138 Potassium Level 4.0 Chloride Level 104 Carbon Dioxide Level 22.4 Anion Gap 12 Estimat Glomerular Filtration Rate 55 Test 08/02/17 10:04 Date/Time Source Procedure Growth Status 07/29/17 15:00 Stool Stool Stool Occult Blood (ISA) - Final HEMOCCULT POSITIVE Complete Cardiovascular: Regular Lungs: Clear Abdomen: Non-distended, Non-tender Extremities: No edema A/P Assessment and Plan 81 year old female with recent diagnosis of PE on anti-coagulation; elevated liver enzymes; RUQ tenderness -Dr. Liu following patient--- working up for liver metastasis -HIDA with normal Ejection fraction -Elevated LFTs but no imaging shows obstruction -Heparin gtt -Normal WBC -Continue antibiotics -Scopolamine patch -Regular diet + Ensure I CERTIFY AND ATTEST THAT I PERSONALLY EXAMINED THE PATIENT IN THEIR ROOM. THE EQUIPMENT MECHANIC SPECIALIST DOCUMENTED OUR VISIT AND ENTERED ORDERS UNDER MY SUPERVISION. I DO NOT THINK THIS IS CHOLECYSTITIS. ?METASTATIC DISEASE? LOUIS Adia Holliday MD, FACS EQUIPMENT MECHANIC SPECIALIST/Vending Service Technician EQUIPMENT MECHANIC SPECIALIST August 02, 2017 10:38 Louis Romano MD August 05, 2017 10:31
[2017-08-02 10:58] LABS: CARCINOEMBRYONIC ANTIGEN 781.9 NG/ML (0.2-5.0)
[2017-08-02 12:45] LABS: CA 15-3 639.5 U/ML (0.0-32.4)
[2017-08-02] MEDS: SCOPOLAMINE 1.5 MG PATCH T-DERMAL SCH (13:50)
[2017-08-02] MEDS: REMOVE OLD SCOPOLAMINE PATCH T-DERMAL SCH (13:50)
[2017-08-02] MEDS ORDERED: SIMETHICONE 80 MG CHEWABLE TAB CHEW ONE (14:00)
--- NOTE | 2017-08-02 16:22 | HHI.GIFU ---
GI Follow-up Note Consult Follow-up Subjective: Patient laying in bed comfortably, hasn't had bm. chart reviewed. Onc consult noted. Objective: PHYSICAL EXAMINATION: Vitals signs stable No fever HEENT: Pupils round and reactive to light; normocephalic; atraumatic; no jaundice. Throat is clear. NECK: Neck is supple, no JVD, no lymphadenopathy. CHEST: Chest is clear to auscultation and percussion. CARDIAC: Regular rate and rhythm with no murmur gallop or rubs. ABDOMEN: Soft, nondistended, nontender; no hepatosplenomegaly; bowel sounds are present in all four quadrants. EXTREMITIES: No clubbing, cyanosis, or edema. SKIN: Normal; no rash; no jaundice. WORKERS' COMPENSATION MAGISTRATE: No focal deficits; alert and oriented times three. Available Data (labs, X- Rays, Procedures) : reviewed. ASSESSMENT/PLAN: 1. Elevated lfts may be due to infiltrative disease 2. Nausea improving 3. workup for metastatic disease in progress. PLAN 1. Dulcolax sup 2. diet as tolerated. 3. no gi procedures planned. It was a pleasure seeing Miriam Sam. Thank you for this consult. Entered by: Jose Angel Schaefer MD August 02, 2017 16:22
[2017-08-02] MEDS ORDERED: BISACODYL 10 MG SUPP RECTAL ONE (16:30)
[2017-08-02] MEDS ORDERED: traMADol HCL 50 MG TAB PO ONE (18:00)
--- NOTE | 2017-08-02 18:26 | HHI.PR ---
Addendum to Inpatient Note Addendum Reason: Additional Documentation Additional Information Resident team paged at [phone] by nurse. Patient states that she is having acute abdominal pain. I went to go evaluate patient. Patient states that her pain is aching, left-sided. She earlier this afternoon associated her abdominal pain to bloating and gas. She received simethicone chew 80 mg without relief. GI had evaluated her earlier today as well and a bisacodyl suppository 10mg was administered. She has not yet had a bowel movement from the suppository. Per chart review, patient has 2 recorded bowel movements today. She states that the bowel movements have been very small and soft. She does not remember the last time she had a regular bowel movement. She states that she has a history of hemorrhoids. She denies fevers, chest pain, shortness of breath, and nausea and vomiting. General: Lying in bed, comfortable, family at bedside Cardio: Regular rate and rhythm, no murmurs rubs or gallops Pulmonary: Clear to auscultation bilaterally no wheezes or crackles Abdomen: Soft, moderate tenderness to palpation in the left lower quadrant, nondistended, positive bowel sounds, no masses appreciated Extremities: no cyanosis or edema Psych: Alert and oriented Assessment and plan: 81-year-old female with a history of breast cancer, recent bilateral PEs and DVTs(07/07) admitted for severe nausea, poor p.o. intake, acute cholecystitis, and transaminitis. -Acute Abdominal pain -DDx: constipation vs GI bleed vs diverticulitis vs mesenteric ischemia vs MO -STAT CBC with differential -STAT EKG and Troponin I -Tramadol 25 mg PO once -s/p bisacodyl suppository -Patient recently had abdominal MRI 07/02: Demonstrated probable liver cirrhosis with tiny cysts. Mild ascites. No definite evidence of metastasis disease. Moderate anasarca. Edematous gallbladder wall. -We will reevaluate patient and consider abdominal x-ray if symptoms persists dw Hayley Huang MD R1 August 02, 2017 18:25
[2017-08-02] MEDS: HEPARIN 25,000 UNITS-D5W 250 ML - PREMIX IV PRN (18:40)
--- NOTE | 2017-08-02 18:40 | PD.ONC.PN ---
Subjective Subjective Remarks Patient seen and examined, vital signs, labs, medications and MRI of the liver reviewed. Scan reviewed also with radiology over the phone. Subjectively; patient reports left-sided abdominal pain. She reports feeling weak and tired, legs remain swollen. She reports her breathing stable. Earlier today her PTT levels were noted to be 230 seconds and 275 seconds. Heparin was held, most recent PTT drawn about an hour ago was 48.5 seconds. Heparin will be resumed with a 30% rate reduction. Objective Data Date Time Temp Pulse Resp B/P (MAP) Pulse Ox O2 Delivery O2 Flow Rate FiO2 08/02/17 16:00 98.5 122 18 135/64 (87) 95 08/02/17 15:47 Nasal Cannula 2.00 08/02/17 15:46 88 Room Air 08/02/17 12:00 97.8 67 19 131/78 (95) 92 08/02/17 10:19 92 08/02/17 10:19 94 Room Air 08/02/17 08:05 93 Nasal Cannula 2.00 08/02/17 08:00 98.2 114 18 122/59 (80) 94 08/02/17 00:00 97.9 96 22 125/58 (80) 95 08/01/17 20:36 96 Nasal Cannula 2.00 08/01/17 20:00 98.3 106 22 123/79 (94) 96 08/02/17 08/02/17 08/02/17 07:00 15:00 23:00 Intake Total 360 ml 200 ml 820 ml Output Total 300 ml 550 ml Balance 60 ml -350 ml 820 ml Result Diagram: 08/02/17 0642 08/02/17 0642 Laboratory Results Laboratory Tests Test 08/01/17 22:41 08/02/17 06:42 08/02/17 09:20 08/02/17 10:04 Activated Partial Thromboplast Time 85.7 SEC 230.6 SEC White Blood Count 7.7 TH/MM3 Red Blood Count 3.75 MIL/MM3 Hemoglobin 12.2 GM/DL Hematocrit 36.0 % Mean Corpuscular Volume 96.1 FL Mean Corpuscular Hemoglobin 32.4 PG Mean Corpuscular Hemoglobin Concent 33.8 % Red Cell Distribution Width 20.2 % Platelet Count 120 TH/MM3 Mean Platelet Volume 8.8 FL Blood Urea Nitrogen 13 MG/DL Creatinine 0.97 MG/DL Random Glucose 112 MG/DL Calcium Level 8.5 MG/DL Sodium Level 138 MEQ/L Potassium Level 4.0 MEQ/L Chloride Level 104 MEQ/L Carbon Dioxide Level 22.4 MEQ/L Anion Gap 12 MEQ/L Estimat Glomerular Filtration Rate 55 ML/MIN Carcinoembryonic Antigen 781.9 NG/ML CA 15-3 Antigen 639.5 U/ML Test 08/02/17 12:44 08/02/17 16:24 Activated Partial Thromboplast Time 175.3 SEC 48.4 SEC Administered Medications Medications (Trade) Dose Ordered Sig/Braydon Route PRN Reason Start Time Stop Time Status Last Admin Dose Admin Levothyroxine Sodium (Synthroid) 75 mcg DAILY@0600 PO 07/28/17 13:00 Future hold 08/02/17 06:05 Sodium Chloride (NS Flush) 2 ml BID IV FLUSH 07/28/17 21:00 08/02/17 07:55 Metronidazole 100 ml @ 100 mls/hr Q8HR IV 07/28/17 14:00 08/02/17 13:49 Levofloxacin/ Dextrose 150 ml @ 100 mls/hr Q48H IV 07/30/17 15:00 08/01/17 14:10 Scopolamine (Transderm-Scop 1.5 Mg Patch.72 Hr) 1 patch Q3D T-DERMAL 07/30/17 15:00 08/02/17 13:50 Hydrocortisone Acetate (Hemorrhoidal Hc Supp) 25 mg BID RECTAL 07/31/17 09:00 08/01/17 08:51 Ondansetron HCl (Zofran Inj) 4 mg TIDAC IV PUSH 07/31/17 09:15 08/01/17 08:48 Pantoprazole Sodium (Protonix Inj) 40 mg Q12HR IV PUSH 07/31/17 09:15 08/02/17 07:55 Hydrochlorothiazide (Microzide) 12.5 mg DAILY PO 07/31/17 11:45 08/02/17 07:58 Heparin Sodium/ Dextrose 250 ml @ 7 mls/hr TITRATE PRN IV Coagulation Management 08/01/17 10:30 Future hold 08/01/17 12:25 Albuterol/ Ipratropium (Duoneb Neb) 1 ampule Q6HR WHILE AWAKE NEB NEB 08/01/17 14:00 08/02/17 13:50 Senna/Docusate Sodium (Denise-Colace) 2 tab BID PO 08/02/17 09:30 08/02/17 10:16 Objective Remarks GENERAL: Elderly lady, sitting up on a bedside chair, appears to be no acute distress, has a pleasant disposition. Coughs multiple times during this interview. Her son and son-in-law are at bedside. SKIN: No rashes, ecchymoses or lesions. Cool and dry. HEAD: Atraumatic. Normocephalic. No temporal or scalp tenderness. EYES: Pupils equal round and reactive. Extraocular motions intact. No scleral icterus. No injection or drainage. ENT: Nose without bleeding, purulent drainage or septal hematoma. Throat without erythema, tonsillar hypertrophy or exudate. Uvula midline. Airway patent. NECK: Trachea midline. No JVD or lymphadenopathy. Supple, nontender, no meningeal signs. CARDIOVASCULAR: Irregular rhythm, S1-S2 no obvious murmurs rubs gallops. RESPIRATORY: Good air movement bilaterally no wheezes, no rhonchi. GASTROINTESTINAL: Abdomen soft, non-tender, nondistended. No hepato-splenomegaly , or palpable masses. No guarding. MUSCULOSKELETAL: Extremities without clubbing, cyanosis, or edema. No joint tenderness, effusion, or edema noted. No calf tenderness. Negative Homans sign bilaterally. NEUROLOGICAL: Awake and alert. Cranial nerves II through XII intact. Motor and sensory grossly within normal limits. Five out of 5 muscle strength in all muscle groups. Normal speech. Skin: No obvious masses noted. Breast examination: Status post bilateral mastectomy. No masses or nodules noted on the chest wall. No axial lymphadenopathy. Assessment/Plan Assessment Ms. Sam is a very pleasant 81-year-old female with a history of bilateral breast carcinoma; initial diagnosis established in 1988 when she presented with a locally advanced left breast carcinoma. Treated with surgical resection followed by adjuvant chemotherapy as outlined above. In 2014 she presented with a stage I HER-2 amplified right breast carcinoma which was surgically resected with a modified radical mastectomy. She elected for observation alone , in the spring 2016 she presented with a local recurrence on the right chest wall which was surgically resected. Following surgical resection she underwent postop radiation for local control. She again declined systemic interventions with anti-HER-2 therapy. In June 2017 she developed bilateral pulmonary emboli associate with the right lower extreme deep venous thrombosis. No obvious provoking factor was identified. She at the time of presentation with the pulmonary emboli had abnormal liver function testing (before any anticoagulation was initiated). Over the course of the past 3 weeks her liver enzymes have remained elevated, in fact they have worsened and she now has hyperbilirubinemia in addition to elevated AST, ALT and alkaline phosphatase levels. She has been evaluated for possible gallbladder dysfunction or extrahepatic obstruction of the biliary tree. Upon review of her most recent CT scans I am concerned of a diffuse infiltrating pattern of metastatic disease to the liver; primarily the inferior portions of the right hepatic lobe where on independent review there appears to be an abnormal signal. Plan 1. 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 Now with unexplained elevation in liver functions, abnormal appearance of liver on MRI of the liver suggesting diffuse infiltrating process, elevated serum tumor marker CEA and CA 15-3. Constellation of findings most consistent with breast cancer with metastatic disease to the liver with resultant impending visceral crisis. Unfortunately, because of the diffuse pattern of infiltration there is no discrete mass to target or biopsy under CT guidance. Radiology is suggested patient undergo a PET CT scan followed by targeted biopsy. I cannot have this PET CT scan done as an inpatient. Therefore a biopsy will not be possible in the near future. Because Ms. Sam is in an impending visceral crisis which is associate with a high rate of mortality initiation of disease directed therapy is imperative. The early initiation of disease directed therapy can be lifesaving. I therefore will recommend she proceed with systemic chemotherapy without obtaining a biopsy at this point. I will start her on Taxol with a dose modification and Herceptin if possible. I will request her to be transferred to the oncology unit. Taxol be dosed at 90 mg per metered squared. Herceptin will be dosed at 6 mg/kg 1. Most recent echocardiogram was done on 07/08/2017, she had a normal left ventricular ejection fraction and wall motion (LVEF of 60-65%) these. 2. Pulmonary emboli lower extremity deep venous thrombosis: Resume heparin infusion at a lower rate. She does have quite a bit of sensitivity to heparin and her PTT was noted to be over 200 seconds today which is dangerously high. She has now been resumed at 700 U/h with repeat PTT level in 6 hours. I discussed this case with the patient, her sons, daughters and [id number]. Patient's nurse was also informed. Case discussed with radiology will add an addendum to the MRI of the liver. Case discussed with the on-call oncologist as well. Jacob Liu MD August 02, 2017 18:40
[2017-08-03] VITALS (12 sets, daily range): BP systolic 116–154; BP diastolic 65–76; PULSE 74–97; RESP 16–18; TEMP 97.8–98.7; O2SAT 92–98
[2017-08-03 01:00] LABS: AUTOMATED NEUTROPHIL # 6.1 TH/MM3 (1.8-7.7); BASOPHIL % 0.4 % (0.0-2.0); EOSINOPHIL % 0.5 % (0.0-4.0); HEMATOCRIT 33.6 % (35.0-46.0); HEMOGLOBIN 11.4 GM/DL (11.6-15.3); LYMPH % 12.5 % (9.0-44.0); MEAN CELL VOLUME 95.3 FL (80.0-100.0); MEAN CORPUSCULAR HEMOGLOBIN 32.2 PG (27.0-34.0); MEAN CORPUSCULAR HGB CONC 33.8 % (32.0-36.0); MEAN PLATELET VOLUME 8.7 FL (7.0-11.0); MONO % 11.6 % (0.0-8.0); MONOCYTE # 0.9 TH/MM3 (0-0.9); PLATELET COUNT 122 TH/MM3 (150-450); RED BLOOD COUNT 3.53 MIL/MM3 (4.00-5.30); RED CELL DISTRIBUTION WIDTH 19.7 % (11.6-17.2); WHITE BLOOD COUNT 8.2 TH/MM3 (4.0-11.0)
[2017-08-03] MEDS ORDERED: METOPROLOL TARTRATE 25 MG TAB PO ONE (01:00)
[2017-08-03 06:01] LABS: HEMATOCRIT 34.3 % (35.0-46.0); HEMOGLOBIN 11.7 GM/DL (11.6-15.3); MEAN CELL VOLUME 95.3 FL (80.0-100.0); MEAN CORPUSCULAR HEMOGLOBIN 32.5 PG (27.0-34.0); MEAN CORPUSCULAR HGB CONC 34.1 % (32.0-36.0); MEAN PLATELET VOLUME 8.9 FL (7.0-11.0); PLATELET COUNT 133 TH/MM3 (150-450); RED BLOOD COUNT 3.59 MIL/MM3 (4.00-5.30); RED CELL DISTRIBUTION WIDTH 20.1 % (11.6-17.2); WHITE BLOOD COUNT 9.1 TH/MM3 (4.0-11.0)
[2017-08-03] MEDS ORDERED: traMADol HCL 50 MG TAB PO ONE (06:15)
[2017-08-03] MEDS: LEVOTHYROXINE SODIUM 25 MCG TAB PO SCH (06:23)
[2017-08-03] MEDS: metroNIDAZOLE 500 MG INJ 100 ML IV SCH (06:24)
[2017-08-03] MEDS: RESP: ALBUTEROL 2.5 MG/IPRATROPIUM 0.5 MG NEB (SCH) NEB ×3 (07:18→19:39)
[2017-08-03 08:40] LABS: ALBUMIN 1.7 GM/DL (3.4-5.0); AST (GOT) 158 U/L (15-37); BICARBONATE 25.5 MEQ/L (21.0-32.0); BLOOD UREA NITROGEN 13 MG/DL (7-18); CALCIUM 8.3 MG/DL (8.5-10.1); CHLORIDE 103 MEQ/L (98-107); CREATININE 0.82 MG/DL (0.50-1.00); GLOMERULAR FILTRATION RATE 67 ML/MIN (>89); GLUCOSE,RANDOM 91 MG/DL (74-106); SODIUM (NA) 138 MEQ/L (136-145)
[2017-08-03 08:44] LABS: ALKALINE PHOSPHATASE 729 U/L (45-117); ALT (GPT) 42 U/L (10-53); TOTAL BILIRUBIN ADULT 3.8 MG/DL (0.2-1.0); TOTAL PROTEIN 4.8 GM/DL (6.4-8.2)
[2017-08-03] MEDS: HYDROCORTISONE ACETATE 25 MG SUPP RECTAL SCH ×2 (09:00→20:49)
[2017-08-03] MEDS: PANTOPRAZOLE SODIUM 40 MG VIAL IV PUSH SCH ×2 (09:26→20:49)
[2017-08-03] MEDS: ONDANSETRON HCL 4 MG/2 ML VIAL IV PUSH SCH ×3 (09:26→17:45)
[2017-08-03] MEDS: HYDROCHLOROTHIAZIDE 12.5 MG CAP PO SCH (09:27)
[2017-08-03] MEDS: METOPROLOL TARTRATE 25 MG TAB PO SCH (09:27)
[2017-08-03] MEDS: SODIUM CHLORIDE 0.9% FLUSH 10 ML FLUSH IV FLUSH SCH ×2 (09:27→20:49)
[2017-08-03] MEDS: DOCUSATE SODIUM 50 MG/SENNA 8.6 MG TAB PO SCH ×2 (09:27→20:49)
--- NOTE | 2017-08-03 10:04 | PD.ONC.PN ---
Subjective Subjective Remarks Afebrile Patient reports her nausea is well controlled and she has no abdominal pain Feels ready to start chemo today Son at bedside Objective Data Date Time Temp Pulse Resp B/P (MAP) Pulse Ox O2 Delivery O2 Flow Rate FiO2 08/03/17 07:22 96 Nasal Cannula 3.00 08/03/17 04:36 98.6 91 17 118/71 (87) 96 08/03/17 04:00 86 08/02/17 23:00 110 08/02/17 22:45 97 Nasal Cannula 3.00 08/02/17 22:43 98.3 112 18 123/68 (86) 97 08/02/17 20:49 95 Nasal Cannula 3.00 08/02/17 20:00 95 Nasal Cannula 3.00 08/02/17 20:00 98.1 101 22 138/74 (95) 95 08/02/17 16:00 98.5 122 18 135/64 (87) 95 08/02/17 15:47 Nasal Cannula 2.00 08/02/17 15:46 88 Room Air 08/02/17 12:00 97.8 67 19 131/78 (95) 92 08/02/17 10:19 92 08/02/17 10:19 94 Room Air 08/03/17 08/03/17 08/03/17 07:00 15:00 23:00 Intake Total 340 ml Balance 340 ml Result Diagram: 08/03/17 0449 08/03/17 0702 Laboratory Results Laboratory Tests Test 08/02/17 10:04 08/02/17 12:44 08/02/17 16:24 08/03/17 00:10 Carcinoembryonic Antigen 781.9 NG/ML CA 15-3 Antigen 639.5 U/ML Activated Partial Thromboplast Time 175.3 SEC 48.4 SEC 103.5 SEC White Blood Count 8.2 TH/MM3 Red Blood Count 3.53 MIL/MM3 Hemoglobin 11.4 GM/DL Hematocrit 33.6 % Mean Corpuscular Volume 95.3 FL Mean Corpuscular Hemoglobin 32.2 PG Mean Corpuscular Hemoglobin Concent 33.8 % Red Cell Distribution Width 19.7 % Platelet Count 122 TH/MM3 Mean Platelet Volume 8.7 FL Neutrophils (%) (Auto) 75.0 % Lymphocytes (%) (Auto) 12.5 % Monocytes (%) (Auto) 11.6 % Eosinophils (%) (Auto) 0.5 % Basophils (%) (Auto) 0.4 % Neutrophils # (Auto) 6.1 TH/MM3 Lymphocytes # (Auto) 1.0 TH/MM3 Monocytes # (Auto) 0.9 TH/MM3 Eosinophils # (Auto) 0.0 TH/MM3 Basophils # (Auto) 0.0 TH/MM3 CBC Comment DIFF FINAL Differential Comment Troponin I 0.04 NG/ML Test 08/03/17 04:49 08/03/17 05:30 08/03/17 07:02 White Blood Count 9.1 TH/MM3 Red Blood Count 3.59 MIL/MM3 Hemoglobin 11.7 GM/DL Hematocrit 34.3 % Mean Corpuscular Volume 95.3 FL Mean Corpuscular Hemoglobin 32.5 PG Mean Corpuscular Hemoglobin Concent 34.1 % Red Cell Distribution Width 20.1 % Platelet Count 133 TH/MM3 Mean Platelet Volume 8.9 FL Activated Partial Thromboplast Time 64.7 SEC Blood Urea Nitrogen 13 MG/DL Creatinine 0.82 MG/DL Random Glucose 91 MG/DL Total Protein 4.8 GM/DL Albumin 1.7 GM/DL Calcium Level 8.3 MG/DL Alkaline Phosphatase 729 U/L Aspartate Amino Transf (AST/SGOT) 158 U/L Alanine Aminotransferase (ALT/SGPT) 42 U/L Total Bilirubin 3.8 MG/DL Sodium Level 138 MEQ/L Potassium Level 4.1 MEQ/L Chloride Level 103 MEQ/L Carbon Dioxide Level 25.5 MEQ/L Anion Gap 10 MEQ/L Estimat Glomerular Filtration Rate 67 ML/MIN Administered Medications Medications (Trade) Dose Ordered Sig/Braydon Route PRN Reason Start Time Stop Time Status Last Admin Dose Admin Levothyroxine Sodium (Synthroid) 75 mcg DAILY@0600 PO 07/28/17 13:00 Future hold 08/03/17 06:23 Metoprolol Tartrate (Lopressor) 25 mg DAILY PO 07/28/17 12:45 Future hold 08/03/17 09:27 Sodium Chloride (NS Flush) 2 ml BID IV FLUSH 07/28/17 21:00 08/03/17 09:27 Metronidazole 100 ml @ 100 mls/hr Q8HR IV 07/28/17 14:00 08/03/17 06:24 Levofloxacin/ Dextrose 150 ml @ 100 mls/hr Q48H IV 07/30/17 15:00 08/01/17 14:10 Scopolamine (Transderm-Scop 1.5 Mg Patch.72 Hr) 1 patch Q3D T-DERMAL 07/30/17 15:00 08/02/17 13:50 Hydrocortisone Acetate (Hemorrhoidal Hc Supp) 25 mg BID RECTAL 07/31/17 09:00 08/01/17 08:51 Ondansetron HCl (Zofran Inj) 4 mg TIDAC IV PUSH 07/31/17 09:15 08/03/17 09:26 Pantoprazole Sodium (Protonix Inj) 40 mg Q12HR IV PUSH 07/31/17 09:15 08/03/17 09:26 Hydrochlorothiazide (Microzide) 12.5 mg DAILY PO 07/31/17 11:45 08/03/17 09:27 Heparin Sodium/ Dextrose 250 ml @ 7 mls/hr TITRATE PRN IV Coagulation Management 08/01/17 10:30 Future hold 08/02/17 18:40 Albuterol/ Ipratropium (Duoneb Neb) 1 ampule Q6HR WHILE AWAKE NEB NEB 08/01/17 14:00 08/03/17 07:18 Senna/Docusate Sodium (Denise-Colace) 2 tab BID PO 08/02/17 09:30 08/03/17 09:27 Objective Remarks GENERAL: Elderly female resting in bed in no obvious distress SKIN: Warm and dry. HEAD: Normocephalic. EYES: No injection or drainage. NECK: Supple, trachea midline. CARDIOVASCULAR: Regular rate and rhythm without murmurs. RESPIRATORY: Clear anteriorly. Breathing unlabored at rest. GASTROINTESTINAL: Abdomen soft. Mildly protuberant but nontender. EXTREMITIES: Generalized edema MUSCULOSKELETAL: Adequate muscle tone. NEUROLOGICAL: No obvious focal deficit. Awake, alert, and oriented x3. 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 Once discharged she will continue on these chemotherapies likely every 3 weeks however we will initiate these inpatient as she will need a PET scan once discharged. We will continue to monitor her CBC and CMP. Depending on her course she will likely be able to be discharged early next week with close follow-up in the clinic. Attending Statement The exam, history, and the medical decision-making described in the above note were completed with the assistance of the mid-level provider. I reviewed and agree with the findings presented. I attest that I had a [id number] encounter with the patient on the same day, and personally performed and documented my assessment and findings in the medical record. Have reviewed chart and the elevated marker which were normal in May are virtually diagnostic of recurrent disease. 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 Liu that we have enough information to treat which will be done. I have stopped levaquin and flagyl as there is no evidence of infection. Will also switch to Lovenox as it will be easier too manage then iv heparin. discussed with patient and brother and she is to receive Taxol and Herceptin today. Tamra Vieira August 03, 2017 10:04 Socrates Bustillos MD August 03, 2017 12:46
[2017-08-03] MEDS ORDERED: SODIUM CHLOR 0.9% 250 ML INJ 250 ML IV ONE (11:00)
--- NOTE | 2017-08-03 11:16 | HHI.FPPN ---
Subjective Remarks Patient seen and examined this morning. Patient with some abdominal pain overnight, likely due to gas distention, per patient. Denies any new complaints this morning. Continuing occasional abdominal achiness. Denies any fever/chills, chest pain, as of breath, leg pain. Objective Vitals Vital Signs Date Time Temp Pulse Resp B/P (MAP) Pulse Ox O2 Delivery O2 Flow Rate FiO2 08/03/17 08:00 98.7 97 18 116/65 (82) 94 08/03/17 08:00 94 Nasal Cannula Humidified 08/03/17 07:22 96 Nasal Cannula 3.00 08/03/17 04:36 98.6 91 17 118/71 (87) 96 08/03/17 04:00 86 08/02/17 23:00 110 08/02/17 22:45 97 Nasal Cannula 3.00 08/02/17 22:43 98.3 112 18 123/68 (86) 97 08/02/17 20:49 95 Nasal Cannula 3.00 08/02/17 20:00 95 Nasal Cannula 3.00 08/02/17 20:00 98.1 101 22 138/74 (95) 95 08/02/17 16:00 98.5 122 18 135/64 (87) 95 08/02/17 15:47 Nasal Cannula 2.00 08/02/17 15:46 88 Room Air 08/02/17 12:00 97.8 67 19 131/78 (95) 92 I/O 08/02/17 08/02/17 08/02/17 08/03/17 08/03/17 08/03/17 06:59 14:59 22:59 06:59 14:59 22:59 Intake Total 360 ml 200 ml 820 ml 240 ml 100 ml Output Total 300 ml 550 ml 200 ml Balance 60 ml -350 ml 620 ml 240 ml 100 ml Intake Oral 360 ml 820 ml 240 ml IV Total 200 ml 100 ml Output Urine Total 300 ml 550 ml 200 ml # Voids 5 4 1 # Bowel Movements 0 1 Result Diagram: 08/03/17 0449 08/03/17 0702 Objective Remarks CONSTITUTIONAL/GEN: This is a thin, elderly, lady resting comfortably in bed LUNGS: respiratory effort is normal. CTAB with no wheezes appreciated CARDIOVASCULAR: RR without murmur or gallop. No significant edema. GI/ABD: soft without masses, without organomegaly. Mild tenderness to palpation in LLQ SKIN: color normal, no rashes noted. MUSC: 1+ edema bilaterally PSYCH/MENTAL STATUS: Alert and oriented. A/P Assessment and Plan Patient is an 81 y/o F w/hx of breast cancer admitted for severe nausea, poor PO intake, acute cholecystitis, and transaminitis. Supportive care, IV Abx, and Heparin drip was initiated in case of possible surgery/procedure. MRCP showed distended gallbladder with surrounding edema but no gallstones.. Portal edema was seen as well. General Surgery and GI consulted. HIDA scan was ordered and showed normal biliary examination with normal filling of the gallbladder. Spoke with gastroenterology today. The consensus is to avoid surgery and/or EGD due to patient being at significant pulmonary risk. Transaminitis and gallbladder studies are downtrending. It is possible that the patient may have had a transient gallstone partially occluding the common bile duct that has now passed v malignant process versus drug induced liver toxicity from Xarelto. Will discuss further with GI. MRI has shown a few enhancing lesions in the cerebellar hemispheres as well as scattered foci in the left parietal lobe; these could represent metastatic disease versus showering emboli/infarcts. CT of the chest/abdomen/pelvis were ordered to examine for possible source. CT chest with small nodule in the right upper lobe that has more inflammatory appearance and malignancy, CT abdomen/pelvis showed a cirrhotic appearing liver with small benign-appearing lesion in the dome of the right lobe, moderate ascitic fluid. Hematology was consulted and Dr. Liu, who a history with this patient for her breast carcinoma and anticoagulation, ordered an MRI of the abdomen to evaluate further. MRI showed probable liver cirrhosis with tiny cyst and no evidence of metastatic disease. Dr. Liu stated the goal PTT is twice the level of normal for this patient. Discharge Planning Pending clinical improvement D/c with home health Problem List: (1) Breast cancer ICD Codes: C50.919 - Malignant neoplasm of unspecified site of unspecified female breast Status: Chronic Plan: History of breast cancer with one recent recurrence in 2017 MRI brain 08/01/17 shows a few scattered foci of bright T2 signal abnormality/ restricted diffusion in both cerebral hemispheres, greater in the left parietal lobe which can be seen with showering emboli/infarcts. A few enhancing lesions in the cerebral hemispheres appear nonspecific but could represent metastatic disease CT scan of the chest, abdomen and pelvis as well as MRI of the abdomen does not show any definite source of metastatic disease. Elevated CEA and CA 15-3 Likely breast cancer with metastatic disease Hematology consulted on 08/01 -Will start Herceptin and Taxol today and continue as outpatient -PET CT as outpatient (2) Transaminitis ICD Codes: R74.0 - Nonspecific elevation of levels of transaminase and lactic acid dehydrogenase [LDH] Status: Acute Plan: LFTs have been worsening since Xarelto resumed (07/31) Significant alk phos elevation Patient has been on Xarelto since 07/07. Since then, she has been symptomatic and transaminitis has been observed outpatient It is possible she has a drug induced reaction versus cancer Xarelto discontinued. Heparin drip Hematology consulted for anticoagulation recommendations We will continue to trend LFTs Avoid NSAIDs, statins, tetracyclines/sulfa medications, and all other hepatotoxic medications Appreciate GI recommendations. (3) Acute cholecystitis ICD Codes: K81.0 - Acute cholecystitis Status: Acute Plan: Underwent MRCP on 07/28, which indicated periportal edema, distended gallbladder with edema, and possible hepatic disease HIDA scan 07/30: Normal biliary examination, normal filling of the bladder and normal uptake of the radiopharmaceutical by the liver suggesting against hepatocellular dysfunction. Normal gallbladder response to CCK administration. General surgery and GI consulted, appreciate recommendations On day 7 of IV Flagyl (total dose of 7-10 days). Levaquin started 07/30. Appreciate pharmacology assistance in adjusting for creatinine clearance Pain control with Tylenol for now Advanced to regular diet (4) Nausea ICD Codes: R11.0 - Nausea Status: Acute Plan: Improving Possible due to malignancy/infiltrative Scheduled IV Zofran 20 minutes before every meal Advanced soft diet Protonix 40 mg twice daily IV (5) Lung crackles ICD Codes: R09.89 - Other specified symptoms and signs involving the circulatory and respiratory systems Plan: Currently on 2 L nasal cannula Possible 2/2 to atelectasis from confinement to bed CT chest on 08/02 showed small bilateral pleural effusions IS Duonebs scheduled every 6 while awake We will continue to monitor vitals (6) Blood in stool ICD Codes: K92.1 - Melena Plan: Hemoccult-positive from 07/29/17 Patient has complained of hemorrhoids No history of GERD Hemoglobin has been stable at around 11-12 since admission No plans for EGD at this time due to patient being at high pulmonary risk Protonix 40 mg IV twice daily, appreciate GI recommendations Patient will follow up with GI outpatient (7) Pulmonary embolism ICD Codes: I26.99 - Other pulmonary embolism without acute cor pulmonale Status: Chronic Plan: Diagnosed via CTA on 07/07 On Xarelto 15 mg PO BID since then, has been experiencing worsening nausea Heparin drip reinitiated, Dr. Liu with hematology assisting. 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 ICD Codes: Z86.718 - Personal history of other venous thrombosis and embolism Status: Chronic Plan: Hx of breast cancer bilaterally w/ recent recurrence Takes Xarelto 50 mg twice daily On Heparin gtt (9) Hypothyroidism ICD Codes: E03.9 - Hypothyroidism, unspecified Status: Chronic Plan: home levothyroxine 75 mcg daily (10) HTN (hypertension) ICD Codes: I10 - Essential (primary) hypertension Status: Chronic Plan: Takes lisinopril-HCTZ 10-12.5 mg daily, metoprolol 25 mg daily at home Continue HCTZ 12.5mg BID, metoprolol 25mg daily (11) FEN Plan: Fluids: PO Electrolytes: Replace as needed Nutrition: Regular diet DVT prophylaxis: Heparin drip, SCDs Problem Qualifiers (1) Pulmonary embolism: Qualified Codes: I27.82 - Chronic pulmonary embolism (2) Hypothyroidism: Qualified Codes: E03.9 - Hypothyroidism, unspecified Jong Dominique MD R2 August 03, 2017 11:16
[2017-08-03] MEDS ORDERED: diphenhydrAMINE HCL 50 MG CAP PO ONE (13:30)
[2017-08-03] MEDS ORDERED: ACETAMINOPHEN 325 MG TAB PO ONE (13:30)
--- NOTE | 2017-08-03 13:48 | EKG ---
Date Performed: 08/02/2017 Time Performed: 19:17:01 PTAGE: 81 years EKG: SINUS TACHYCARDIA WITH OCCASIONAL SUPRAVENTRICULAR PREMATURE COMPLEXES RIGHT BUNDLE BRANCH BLOCK ABNORMAL ECG PREVIOUS TRACING : 07/07/2017 10.30 Since the previous tracing, no significant change noted DOCTOR: Valerio Vences Interpretating Date/Time 08/03/2017 13:48:31
[2017-08-03] MEDS ORDERED: TRASTUZUMAB IV ONE (14:00)
[2017-08-03] MEDS ORDERED: SODIUM CHLOR 0.9% IV ONE ×2 (14:00→17:00)
[2017-08-03] MEDS: ENOXAPARIN SODIUM 60 MG/0.6 ML SYRINGE SQ SCH (14:11)
[2017-08-03] MEDS ORDERED: diphenhydrAMINE HCL 25 MG CAP PO ONE (16:00)
[2017-08-03] MEDS ORDERED: DEXAMETHASONE IV ONE (16:00)
[2017-08-03] MEDS ORDERED: FAMOTIDINE 20 MG TAB PO ONE (16:00)
[2017-08-03] MEDS ORDERED: SODIUM CHLORIDE 0.9% IV ONE (16:00)
[2017-08-03] MEDS ORDERED: PACLITAXEL IV ONE (17:00)
[2017-08-04] VITALS (13 sets, daily range): BP systolic 110–124; BP diastolic 63–71; PULSE 72–105; RESP 12–18; TEMP 97.2–98.7; O2SAT 95–99
[2017-08-04] MEDS: ENOXAPARIN SODIUM 60 MG/0.6 ML SYRINGE SQ SCH ×2 (01:22→14:51)
[2017-08-04] MEDS: LEVOTHYROXINE SODIUM 25 MCG TAB PO SCH (05:31)
[2017-08-04 06:23] LABS: AUTOMATED NEUTROPHIL # 10.8 TH/MM3 (1.8-7.7); BASOPHIL % 0.1 % (0.0-2.0); HEMATOCRIT 33.9 % (35.0-46.0); HEMOGLOBIN 11.5 GM/DL (11.6-15.3); LYMPH % 3.7 % (9.0-44.0); LYMPHOCYTE # 0.4 TH/MM3 (1.0-4.8); MEAN CELL VOLUME 96.6 FL (80.0-100.0); MEAN CORPUSCULAR HEMOGLOBIN 32.7 PG (27.0-34.0); MEAN CORPUSCULAR HGB CONC 33.8 % (32.0-36.0); MONO % 2.1 % (0.0-8.0); MONOCYTE # 0.2 TH/MM3 (0-0.9); NEUT % 94.1 % (16.0-70.0); PLATELET COUNT 108 TH/MM3 (150-450); RED BLOOD COUNT 3.51 MIL/MM3 (4.00-5.30); WHITE BLOOD COUNT 11.5 TH/MM3 (4.0-11.0)
[2017-08-04 06:43] LABS: ALBUMIN 1.7 GM/DL (3.4-5.0); ALT (GPT) 41 U/L (10-53); AST (GOT) 174 U/L (15-37); BICARBONATE 22.8 MEQ/L (21.0-32.0); BLOOD UREA NITROGEN 20 MG/DL (7-18); CALCIUM 8.2 MG/DL (8.5-10.1); CHLORIDE 101 MEQ/L (98-107); CREATININE 0.92 MG/DL (0.50-1.00); GLOMERULAR FILTRATION RATE 58 ML/MIN (>89); GLUCOSE,RANDOM 122 MG/DL (74-106); SODIUM (NA) 135 MEQ/L (136-145)
[2017-08-04 06:46] LABS: ALKALINE PHOSPHATASE 715 U/L (45-117); TOTAL BILIRUBIN ADULT 4.6 MG/DL (0.2-1.0)
[2017-08-04] MEDS: RESP: ALBUTEROL 2.5 MG/IPRATROPIUM 0.5 MG NEB (SCH) NEB ×3 (07:08→19:41)
[2017-08-04] MEDS: HYDROCORTISONE ACETATE 25 MG SUPP RECTAL SCH ×2 (09:00→21:00)
--- NOTE | 2017-08-04 09:58 | PD.ONC.PN ---
Subjective Subjective Remarks Afebrile Patient tolerating chemotherapy well yesterday Complaining of some gas type pains States the pain in her abdomen tends to move around different locations Nausea well controlled Feels weak Objective Data Date Time Temp Pulse Resp B/P (MAP) Pulse Ox O2 Delivery O2 Flow Rate FiO2 08/04/17 07:08 95 Nasal Cannula 3.00 08/04/17 05:05 97.3 82 12 122/67 (85) 96 08/04/17 04:05 75 08/04/17 00:33 98.7 18 114/67 (83) 95 08/04/17 00:01 84 08/03/17 20:52 98.0 93 16 121/70 (87) 92 08/03/17 20:49 92 Nasal Cannula 3.00 Humidified 08/03/17 20:04 90 08/03/17 19:40 92 Nasal Cannula 2.00 08/03/17 16:40 97.8 78 16 154/76 (102) 98 08/03/17 16:20 87 08/03/17 12:20 74 08/03/17 12:00 98.0 84 18 122/68 (86) 96 08/04/17 08/04/17 08/04/17 07:00 15:00 23:00 Intake Total 240 ml Output Total 550 ml Balance -310 ml Result Diagram: 08/04/17 0540 08/04/17 0540 Laboratory Results Laboratory Tests Test 08/03/17 11:59 08/04/17 05:40 Activated Partial Thromboplast Time 69.6 SEC White Blood Count 11.5 TH/MM3 Red Blood Count 3.51 MIL/MM3 Hemoglobin 11.5 GM/DL Hematocrit 33.9 % Mean Corpuscular Volume 96.6 FL Mean Corpuscular Hemoglobin 32.7 PG Mean Corpuscular Hemoglobin Concent 33.8 % Red Cell Distribution Width 21.0 % Platelet Count 108 TH/MM3 Mean Platelet Volume 10.0 FL Neutrophils (%) (Auto) 94.1 % Lymphocytes (%) (Auto) 3.7 % Monocytes (%) (Auto) 2.1 % Eosinophils (%) (Auto) 0.0 % Basophils (%) (Auto) 0.1 % Neutrophils # (Auto) 10.8 TH/MM3 Lymphocytes # (Auto) 0.4 TH/MM3 Monocytes # (Auto) 0.2 TH/MM3 Eosinophils # (Auto) 0.0 TH/MM3 Basophils # (Auto) 0.0 TH/MM3 CBC Comment DIFF FINAL Differential Comment Blood Urea Nitrogen 20 MG/DL Creatinine 0.92 MG/DL Random Glucose 122 MG/DL Total Protein 5.0 GM/DL Albumin 1.7 GM/DL Calcium Level 8.2 MG/DL Alkaline Phosphatase 715 U/L Aspartate Amino Transf (AST/SGOT) 174 U/L Alanine Aminotransferase (ALT/SGPT) 41 U/L Total Bilirubin 4.6 MG/DL Sodium Level 135 MEQ/L Potassium Level 4.3 MEQ/L Chloride Level 101 MEQ/L Carbon Dioxide Level 22.8 MEQ/L Anion Gap 11 MEQ/L Estimat Glomerular Filtration Rate 58 ML/MIN Administered Medications Medications (Trade) Dose Ordered Sig/Braydon Route PRN Reason Start Time Stop Time Status Last Admin Dose Admin Levothyroxine Sodium (Synthroid) 75 mcg DAILY@0600 PO 07/28/17 13:00 Future hold 08/04/17 05:31 Metoprolol Tartrate (Lopressor) 25 mg DAILY PO 07/28/17 12:45 Future hold 08/03/17 09:27 Sodium Chloride (NS Flush) 2 ml BID IV FLUSH 07/28/17 21:00 08/03/17 20:49 Scopolamine (Transderm-Scop 1.5 Mg Patch.72 Hr) 1 patch Q3D T-DERMAL 07/30/17 15:00 08/02/17 13:50 Hydrocortisone Acetate (Hemorrhoidal Hc Supp) 25 mg BID RECTAL 07/31/17 09:00 08/03/17 20:49 Ondansetron HCl (Zofran Inj) 4 mg TIDAC IV PUSH 07/31/17 09:15 08/03/17 17:45 Pantoprazole Sodium (Protonix Inj) 40 mg Q12HR IV PUSH 07/31/17 09:15 08/03/17 20:49 Hydrochlorothiazide (Microzide) 12.5 mg DAILY PO 07/31/17 11:45 08/03/17 09:27 Albuterol/ Ipratropium (Duoneb Neb) 1 ampule Q6HR WHILE AWAKE NEB NEB 08/01/17 14:00 08/04/17 07:08 Senna/Docusate Sodium (Denise-Colace) 2 tab BID PO 08/02/17 09:30 08/03/17 20:49 Enoxaparin Sodium (Lovenox Inj) 60 mg Q12H SQ 08/03/17 13:00 08/04/17 01:22 Objective Remarks GENERAL: Elderly female resting in bed in no obvious distress SKIN: Warm and dry. HEAD: Normocephalic. EYES: No injection or drainage. NECK: Supple, trachea midline. CARDIOVASCULAR: Regular rate and rhythm without murmurs. RESPIRATORY: Breathing unlabored at rest. Few scattered rales in the bases GASTROINTESTINAL: Abdomen soft. Protuberant. Mildly tender to palpation EXTREMITIES: Generalized edema MUSCULOSKELETAL: Adequate muscle tone. NEUROLOGICAL: No obvious focal deficit. Awake, alert, and oriented x3. Assessment/Plan Assessment 81-year-old female with history of HER-2 positive breast cancer that has not been treated with chemotherapy admitted with abdominal pain, nausea, elevated liver enzymes and found to have an elevated CA 15-3 suspicious for metastatic disease Plan The patient did well with chemotherapy yesterday. We will consult physical therapy today to eval and treat as she is quite weak from her acute illness. We will plan to check labs in the morning. From an oncology standpoint she will not need chemotherapy for another week so she will be cleared from our standpoint once she is stronger. She should continue on the Lovenox injections for now. Attending Statement The exam, history, and the medical decision-making described in the above note were completed with the assistance of the mid-level provider. I reviewed and agree with the findings presented. I attest that I had a [id number] encounter with the patient on the same day, and personally performed and documented my assessment and findings in the medical record. tolerated therapy well and no change in exam. bilirubin increased. little else to do except continue tx and will ask physical therapy to see. Tamra Vieira August 04, 2017 09:58 Socrates Bustillos MD August 04, 2017 17:12
[2017-08-04] MEDS ORDERED: SIMETHICONE 80 MG CHEWABLE TAB CHEW PRN (10:00)
--- NOTE | 2017-08-04 10:38 | HHI.FPPN ---
Subjective Remarks No acute events overnight. Patient's nausea continues to be improved and she was tolerating breakfast this morning. She underwent chemotherapy yesterday and tolerated it well. Denies chest pain, shortness of breath, abdominal pain. She states she was able to walk around the room with assistance yesterday Objective Vitals Vital Signs Date Time Temp Pulse Resp B/P (MAP) Pulse Ox O2 Delivery O2 Flow Rate FiO2 08/04/17 07:08 95 Nasal Cannula 3.00 08/04/17 05:05 97.3 82 12 122/67 (85) 96 08/04/17 04:05 75 08/04/17 00:33 98.7 18 114/67 (83) 95 08/04/17 00:01 84 08/03/17 20:52 98.0 93 16 121/70 (87) 92 08/03/17 20:49 92 Nasal Cannula 3.00 Humidified 08/03/17 20:04 90 08/03/17 19:40 92 Nasal Cannula 2.00 08/03/17 16:40 97.8 78 16 154/76 (102) 98 08/03/17 16:20 87 08/03/17 12:20 74 08/03/17 12:00 98.0 84 18 122/68 (86) 96 I/O 08/03/17 08/03/17 08/03/17 08/04/17 08/04/17 08/04/17 07:00 15:00 23:00 07:00 15:00 23:00 Intake Total 340 ml 1452.3 ml 240 ml Output Total 350 ml 550 ml Balance 340 ml 1102.3 ml -310 ml Intake Oral 240 ml 850 ml 240 ml IV Total 100 ml 602.3 ml Output Urine Total 350 ml 550 ml # Voids 1 2 Result Diagram: 08/04/17 0540 08/04/17 0540 Objective Remarks CONSTITUTIONAL/GEN: This is a thin, elderly, lady resting comfortably in bed LUNGS: respiratory effort is normal. CTAB with no wheezes appreciated CARDIOVASCULAR: RR without murmur or gallop. No significant edema. GI/ABD: soft without masses, without organomegaly. No tenderness to palpation SKIN: color normal, no rashes noted. MUSC: 1+ edema bilaterally unchanged from prior exams PSYCH/MENTAL STATUS: Alert and oriented. A/P Assessment and Plan Patient is an 81 y/o F w/hx of breast cancer admitted for severe nausea, poor PO intake, acute cholecystitis, and transaminitis. Supportive care, IV Abx, and Heparin drip was initiated in case of possible surgery/procedure. MRCP showed distended gallbladder with surrounding edema but no gallstones.. Portal edema was seen as well. General Surgery and GI consulted. HIDA scan was ordered and showed normal biliary examination with normal filling of the gallbladder. Spoke with gastroenterology today. The consensus is to avoid surgery and/or EGD due to patient being at significant pulmonary risk. Transaminitis and gallbladder studies are downtrending. It is possible that the patient may have had a transient gallstone partially occluding the common bile duct that has now passed v malignant process versus drug induced liver toxicity from Xarelto. Will discuss further with GI. MRI has shown a few enhancing lesions in the cerebellar hemispheres as well as scattered foci in the left parietal lobe; these could represent metastatic disease versus showering emboli/infarcts. CT of the chest/abdomen/pelvis were ordered to examine for possible source. CT chest with small nodule in the right upper lobe that has more inflammatory appearance and malignancy, CT abdomen/pelvis showed a cirrhotic appearing liver with small benign-appearing lesion in the dome of the right lobe, moderate ascitic fluid. Hematology was consulted and Dr. Liu, who a history with this patient for her breast carcinoma and anticoagulation, ordered an MRI of the abdomen to evaluate further. MRI showed probable liver cirrhosis with tiny cyst and no evidence of metastatic disease. Patient resumed chemotherapy with Taxol and Herceptin on 08/03. Tolerated well and will receive another treatment in 3 weeks. Patient has been cleared from oncology standpoint, but is currently weak and may require rehab. PT consulted Discharge Planning Pending clinical improvement D/c with home health Problem List: (1) Breast cancer ICD Codes: C50.919 - Malignant neoplasm of unspecified site of unspecified female breast Status: Chronic Plan: History of breast cancer with one recent recurrence in 2017 MRI brain 08/01/17 shows a few scattered foci of bright T2 signal abnormality/ restricted diffusion in both cerebral hemispheres, greater in the left parietal lobe which can be seen with showering emboli/infarcts. A few enhancing lesions in the cerebral hemispheres appear nonspecific but could represent metastatic disease CT scan of the chest, abdomen and pelvis as well as MRI of the abdomen does not show any definite source of metastatic disease. Elevated CEA and CA 15-3 Likely breast cancer with metastatic disease Hematology consulted on 08/01 -Started Herceptin and Taxol on 08/03, will not need chemotherapy again for another 3 weeks -PET CT as outpatient (2) Transaminitis ICD Codes: R74.0 - Nonspecific elevation of levels of transaminase and lactic acid dehydrogenase [LDH] Status: Acute Plan: LFTs have been worsening since Xarelto resumed (07/31) Significant alk phos elevation Patient has been on Xarelto since 07/07. Since then, she has been symptomatic and transaminitis has been observed outpatient It is possible she has a drug induced reaction versus cancer Xarelto discontinued. Currently on Lovenox Hematology consulted for anticoagulation recommendations We will continue to trend LFTs Avoid NSAIDs, statins, tetracyclines/sulfa medications, and all other hepatotoxic medications Appreciate GI recommendations. (3) Acute cholecystitis ICD Codes: K81.0 - Acute cholecystitis Status: Acute Plan: Underwent MRCP on 07/28, which indicated periportal edema, distended gallbladder with edema, and possible hepatic disease HIDA scan 07/30: Normal biliary examination, normal filling of the bladder and normal uptake of the radiopharmaceutical by the liver suggesting against hepatocellular dysfunction. Normal gallbladder response to CCK administration. General surgery and GI consulted, appreciate recommendations On day 8 of IV Flagyl (total dose of 7-10 days). Levaquin started 07/30. Appreciate pharmacology assistance in adjusting for creatinine clearance Advanced to regular diet (4) Nausea ICD Codes: R11.0 - Nausea Status: Acute Plan: Resolved Possible due to malignancy/infiltrative Scheduled IV Zofran 20 minutes before every meal Regular diet Protonix 40 mg twice daily IV (5) Lung crackles ICD Codes: R09.89 - Other specified symptoms and signs involving the circulatory and respiratory systems Plan: Currently on 2 L nasal cannula Possible 2/2 to atelectasis from confinement to bed CT chest on 08/02 showed small bilateral pleural effusions IS Duonebs scheduled every 6 while awake Lungs clear to auscultation on 08/04 (6) Blood in stool ICD Codes: K92.1 - Melena Plan: Hemoccult-positive from 07/29/17 Patient has complained of hemorrhoids No history of GERD Hemoglobin has been stable at around 11-12 since admission No plans for EGD at this time due to patient being at high pulmonary risk Protonix 40 mg IV twice daily, appreciate GI recommendations Patient will follow up with GI outpatient (7) Pulmonary embolism ICD Codes: I26.99 - Other pulmonary embolism without acute cor pulmonale Status: Chronic Plan: Diagnosed via CTA on 07/07 On Xarelto 15 mg PO BID since then, has been experiencing worsening nausea Heparin drip reinitiated, Dr. Liu with hematology assisting. 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 ICD Codes: Z86.718 - Personal history of other venous thrombosis and embolism Status: Chronic Plan: Hx of breast cancer bilaterally w/ recent recurrence Takes Xarelto 50 mg twice daily On Heparin gtt (9) Hypothyroidism ICD Codes: E03.9 - Hypothyroidism, unspecified Status: Chronic Plan: home levothyroxine 75 mcg daily (10) HTN (hypertension) ICD Codes: I10 - Essential (primary) hypertension Status: Chronic Plan: Takes lisinopril-HCTZ 10-12.5 mg daily, metoprolol 25 mg daily at home Continue HCTZ 12.5mg BID, metoprolol 25mg daily (11) FEN Plan: Fluids: PO Electrolytes: Replace as needed Nutrition: Regular diet DVT prophylaxis: Lovenox, Problem Qualifiers (1) Pulmonary embolism: Qualified Codes: I27.82 - Chronic pulmonary embolism (2) Hypothyroidism: Qualified Codes: E03.9 - Hypothyroidism, unspecified Ran Anton MD R1 August 04, 2017 10:38
[2017-08-04] MEDS: SODIUM CHLORIDE 0.9% FLUSH 10 ML FLUSH IV FLUSH SCH ×2 (10:43→21:09)
[2017-08-04] MEDS: METOPROLOL TARTRATE 25 MG TAB PO SCH (10:44)
[2017-08-04] MEDS: PANTOPRAZOLE SODIUM 40 MG VIAL IV PUSH SCH ×2 (10:44→21:09)
[2017-08-04] MEDS: HYDROCHLOROTHIAZIDE 12.5 MG CAP PO SCH (10:44)
[2017-08-04] MEDS: ONDANSETRON HCL 4 MG/2 ML VIAL IV PUSH SCH ×3 (10:44→17:29)
[2017-08-04] MEDS: DOCUSATE SODIUM 50 MG/SENNA 8.6 MG TAB PO SCH ×2 (10:45→21:09)
[2017-08-04] MEDS: SODIUM CHLORIDE 0.9% FLUSH 10 ML FLUSH IV FLUSH PRN (21:09)
[2017-08-05] VITALS (10 sets, daily range): BP systolic 104–125; BP diastolic 54–68; PULSE 81–113; RESP 16–18; TEMP 97.7–98.6; O2SAT 96–99
[2017-08-05] MEDS: ENOXAPARIN SODIUM 60 MG/0.6 ML SYRINGE SQ SCH ×2 (00:28→13:06)
[2017-08-05] MEDS: LEVOTHYROXINE SODIUM 25 MCG TAB PO SCH (06:13)
[2017-08-05 07:43] LABS: AUTOMATED NEUTROPHIL # 9.5 TH/MM3 (1.8-7.7); BASOPHIL % 0.1 % (0.0-2.0); HEMATOCRIT 32.5 % (35.0-46.0); HEMOGLOBIN 11.1 GM/DL (11.6-15.3); LYMPH % 3.5 % (9.0-44.0); LYMPHOCYTE # 0.4 TH/MM3 (1.0-4.8); MEAN CORPUSCULAR HEMOGLOBIN 32.7 PG (27.0-34.0); MEAN CORPUSCULAR HGB CONC 34.1 % (32.0-36.0); MEAN PLATELET VOLUME 10.6 FL (7.0-11.0); MONO % 2.6 % (0.0-8.0); MONOCYTE # 0.3 TH/MM3 (0-0.9); NEUT % 93.8 % (16.0-70.0); PLATELET COUNT 103 TH/MM3 (150-450); RED BLOOD COUNT 3.38 MIL/MM3 (4.00-5.30); RED CELL DISTRIBUTION WIDTH 20.4 % (11.6-17.2); WHITE BLOOD COUNT 10.1 TH/MM3 (4.0-11.0)
[2017-08-05] MEDS: RESP: ALBUTEROL 2.5 MG/IPRATROPIUM 0.5 MG NEB (SCH) NEB ×2 (07:55→13:03)
[2017-08-05 08:04] LABS: ALBUMIN 1.7 GM/DL (3.4-5.0); AST (GOT) 190 U/L (15-37); BLOOD UREA NITROGEN 27 MG/DL (7-18); CALCIUM 8.5 MG/DL (8.5-10.1); CHLORIDE 101 MEQ/L (98-107); CREATININE 0.83 MG/DL (0.50-1.00); GLOMERULAR FILTRATION RATE 66 ML/MIN (>89); GLUCOSE,RANDOM 103 MG/DL (74-106); SODIUM (NA) 135 MEQ/L (136-145)
[2017-08-05 08:08] LABS: ALKALINE PHOSPHATASE 627 U/L (45-117); ALT (GPT) 42 U/L (10-53); TOTAL BILIRUBIN ADULT 4.5 MG/DL (0.2-1.0); TOTAL PROTEIN 4.7 GM/DL (6.4-8.2)
--- NOTE | 2017-08-05 08:45 | PD.ONC.PN ---
Subjective Subjective Remarks Patient seen and examined, vital signs, labs and medications reviewed. Chemotherapy administration records also reviewed. Patient did receive paclitaxel and Herceptin over the weekend. She denies feeling any significant difference. She tells me she feels weak on her feet and unsteady. Her legs are swollen and she is generally fatigued. She has some improvement in her appetite. She continues to have pain along the left side of her flank. No fevers were noted over the weekend. Objective Data Date Time Temp Pulse Resp B/P (MAP) Pulse Ox O2 Delivery O2 Flow Rate FiO2 08/05/17 04:03 87 08/05/17 03:56 98.4 89 18 114/62 (79) 96 08/05/17 00:13 113 08/05/17 00:09 97.7 105 16 121/65 (83) 98 08/04/17 20:46 Nasal Cannula 2.00 Humidified 08/04/17 20:42 97.8 77 16 124/71 (88) 99 08/04/17 20:03 105 08/04/17 18:13 98.0 72 18 110/66 (81) 98 08/04/17 16:39 97 08/04/17 12:20 91 08/04/17 12:00 97.2 94 18 118/63 (81) 97 08/05/17 08/05/17 08/05/17 07:00 15:00 23:00 Intake Total 120 ml Output Total 450 ml Balance -330 ml Result Diagram: 08/05/17 0706 08/05/17 0706 Laboratory Results Laboratory Tests Test 08/05/17 07:06 White Blood Count 10.1 TH/MM3 Red Blood Count 3.38 MIL/MM3 Hemoglobin 11.1 GM/DL Hematocrit 32.5 % Mean Corpuscular Volume 96.0 FL Mean Corpuscular Hemoglobin 32.7 PG Mean Corpuscular Hemoglobin Concent 34.1 % Red Cell Distribution Width 20.4 % Platelet Count 103 TH/MM3 Mean Platelet Volume 10.6 FL Neutrophils (%) (Auto) 93.8 % Lymphocytes (%) (Auto) 3.5 % Monocytes (%) (Auto) 2.6 % Eosinophils (%) (Auto) 0.0 % Basophils (%) (Auto) 0.1 % Neutrophils # (Auto) 9.5 TH/MM3 Lymphocytes # (Auto) 0.4 TH/MM3 Monocytes # (Auto) 0.3 TH/MM3 Eosinophils # (Auto) 0.0 TH/MM3 Basophils # (Auto) 0.0 TH/MM3 CBC Comment DIFF FINAL Differential Comment Blood Urea Nitrogen 27 MG/DL Creatinine 0.83 MG/DL Random Glucose 103 MG/DL Total Protein 4.7 GM/DL Albumin 1.7 GM/DL Calcium Level 8.5 MG/DL Alkaline Phosphatase 627 U/L Aspartate Amino Transf (AST/SGOT) 190 U/L Alanine Aminotransferase (ALT/SGPT) 42 U/L Total Bilirubin 4.5 MG/DL Sodium Level 135 MEQ/L Potassium Level 4.0 MEQ/L Chloride Level 101 MEQ/L Carbon Dioxide Level 26.0 MEQ/L Anion Gap 8 MEQ/L Estimat Glomerular Filtration Rate 66 ML/MIN Administered Medications Medications (Trade) Dose Ordered Sig/Braydon Route PRN Reason Start Time Stop Time Status Last Admin Dose Admin Levothyroxine Sodium (Synthroid) 75 mcg DAILY@0600 PO 07/28/17 13:00 Future hold 08/05/17 06:13 Metoprolol Tartrate (Lopressor) 25 mg DAILY PO 07/28/17 12:45 Future hold 08/04/17 10:44 Sodium Chloride (NS Flush) 2 ml UNSCH PRN IV FLUSH FLUSH AFTER USING IV ACCESS 07/28/17 13:00 08/04/17 21:09 Sodium Chloride (NS Flush) 2 ml BID IV FLUSH 07/28/17 21:00 08/04/17 21:09 Scopolamine (Transderm-Scop 1.5 Mg Patch.72 Hr) 1 patch Q3D T-DERMAL 07/30/17 15:00 08/02/17 13:50 Hydrocortisone Acetate (Hemorrhoidal Hc Supp) 25 mg BID RECTAL 07/31/17 09:00 08/03/17 20:49 Ondansetron HCl (Zofran Inj) 4 mg TIDAC IV PUSH 07/31/17 09:15 08/04/17 17:29 Pantoprazole Sodium (Protonix Inj) 40 mg Q12HR IV PUSH 07/31/17 09:15 08/04/17 21:09 Hydrochlorothiazide (Microzide) 12.5 mg DAILY PO 07/31/17 11:45 08/04/17 10:44 Albuterol/ Ipratropium (Duoneb Neb) 1 ampule Q6HR WHILE AWAKE NEB NEB 08/01/17 14:00 08/04/17 19:41 Senna/Docusate Sodium (Denise-Colace) 2 tab BID PO 08/02/17 09:30 08/04/17 21:09 Enoxaparin Sodium (Lovenox Inj) 60 mg Q12H SQ 08/03/17 13:00 08/05/17 00:28 Objective Remarks GENERAL: Elderly lady, sitting up on a bedside chair, appears to be no acute distress, has a pleasant disposition. Coughs multiple times during this interview. Her son and son-in-law are at bedside. SKIN: No rashes, ecchymoses or lesions. Cool and dry. HEAD: Atraumatic. Normocephalic. No temporal or scalp tenderness. EYES: Pupils equal round and reactive. Extraocular motions intact. No scleral icterus. No injection or drainage. ENT: Nose without bleeding, purulent drainage or septal hematoma. Throat without erythema, tonsillar hypertrophy or exudate. Uvula midline. Airway patent. NECK: Trachea midline. No JVD or lymphadenopathy. Supple, nontender, no meningeal signs. CARDIOVASCULAR: Irregular rhythm, S1-S2 no obvious murmurs rubs gallops. RESPIRATORY: Good air movement bilaterally no wheezes, no rhonchi. GASTROINTESTINAL: Abdomen soft, non-tender, nondistended. No hepato-splenomegaly , or palpable masses. No guarding. MUSCULOSKELETAL: Extremities without clubbing, cyanosis, or edema. No joint tenderness, effusion, or edema noted. No calf tenderness. Negative Homans sign bilaterally. NEUROLOGICAL: Awake and alert. Cranial nerves II through XII intact. Motor and sensory grossly within normal limits. Five out of 5 muscle strength in all muscle groups. Normal speech. Skin: No obvious masses noted. Breast examination: Status post bilateral mastectomy. No masses or nodules noted on the chest wall. No axial lymphadenopathy. Extremities: Pitting edema over the lower extremities. Assessment/Plan Assessment Ms. Sam is a very pleasant 81-year-old female with a history of bilateral breast carcinoma; initial diagnosis established in 1988 when she presented with a locally advanced left breast carcinoma. Treated with surgical resection followed by adjuvant chemotherapy as outlined above. In 2014 she presented with a stage I HER-2 amplified right breast carcinoma which was surgically resected with a modified radical mastectomy. She elected for observation alone , in the spring 2016 she presented with a local recurrence on the right chest wall which was surgically resected. Following surgical resection she underwent postop radiation for local control. She again declined systemic interventions with anti-HER-2 therapy. In June 2017 she developed bilateral pulmonary emboli associate with the right lower extreme deep venous thrombosis. No obvious provoking factor was identified. She at the time of presentation with the pulmonary emboli had abnormal liver function testing (before any anticoagulation was initiated). Over the course of the past 3 weeks her liver enzymes have remained elevated, in fact they have worsened and she now has hyperbilirubinemia in addition to elevated AST, ALT and alkaline phosphatase levels. She has been evaluated for possible gallbladder dysfunction or extrahepatic obstruction of the biliary tree. Upon review of her most recent CT scans I am concerned of a diffuse infiltrating pattern of metastatic disease to the liver; primarily the inferior portions of the right hepatic lobe where on independent review there appears to be an abnormal signal. Plan 1. Metastatic breast carcinoma: Status post first dose of palliative paclitaxel and Herceptin on 08/03/2017. She tolerated this well. LFTs remained arranged. 2. Pulmonary emboli: On therapeutic anticoagulation with Lovenox 60 mg subcu every 12 hours. Dose modification for Lovenox is not required in the setting of hepatic dysfunction. Oral factor X inhibitors are typically not recommended with hepatic dysfunction to the degree to which this patient has. Because of this reason I would recommend she remain on therapeutic dose Lovenox until her hepatic function normalizes/improves. 3. Peripheral edema: I would advise as needed dosing of Lasix, she has pitting edema over the lower extremities as well as some evidence of fine crackles on inspiration indicating possible early pulmonary edema. 4. Continue monitoring and supportive care including physical therapy, improved oral nutritional intake. Jacob Liu MD August 05, 2017 08:45
[2017-08-05] MEDS: PANTOPRAZOLE SODIUM 40 MG VIAL IV PUSH SCH ×2 (09:00→22:31)
[2017-08-05] MEDS: HYDROCORTISONE ACETATE 25 MG SUPP RECTAL SCH ×2 (09:00→22:31)
[2017-08-05] MEDS: HYDROCHLOROTHIAZIDE 12.5 MG CAP PO SCH (10:02)
[2017-08-05] MEDS: METOPROLOL TARTRATE 25 MG TAB PO SCH (10:02)
[2017-08-05] MEDS: DOCUSATE SODIUM 50 MG/SENNA 8.6 MG TAB PO SCH ×2 (10:02→22:30)
[2017-08-05] MEDS: FUROSEMIDE 20 MG TAB PO SCH ×2 (10:02→18:34)
[2017-08-05] MEDS: POTASSIUM CHLORIDE 10 MEQ CONTROLLED RELEASE TAB PO SCH ×2 (10:02→22:30)
[2017-08-05] MEDS: ONDANSETRON HCL 4 MG/2 ML VIAL IV PUSH SCH ×3 (10:03→17:00)
[2017-08-05] MEDS: SODIUM CHLORIDE 0.9% FLUSH 10 ML FLUSH IV FLUSH SCH ×2 (10:03→22:31)
--- NOTE | 2017-08-05 10:39 | HHI.FPPN ---
Subjective Remarks Patient seen and examined this morning. No acute events overnight. Patient denies any new complaints or concerns. Occasional abdominal pain in the same spot. Denies any fever/chills, chest pain, shortness of breath, leg pain. (Jong Dominique MD R2) Objective Vitals Vital Signs Date Time Temp Pulse Resp B/P (MAP) Pulse Ox O2 Delivery O2 Flow Rate FiO2 08/05/17 04:03 87 08/05/17 03:56 98.4 89 18 114/62 (79) 96 08/05/17 00:13 113 08/05/17 00:09 97.7 105 16 121/65 (83) 98 08/04/17 20:46 Nasal Cannula 2.00 Humidified 08/04/17 20:42 97.8 77 16 124/71 (88) 99 08/04/17 20:03 105 08/04/17 18:13 98.0 72 18 110/66 (81) 98 08/04/17 16:39 97 08/04/17 12:20 91 08/04/17 12:00 97.2 94 18 118/63 (81) 97 I/O 08/04/17 08/04/17 08/04/17 08/05/17 08/05/17 08/05/17 07:00 15:00 23:00 07:00 15:00 23:00 Intake Total 240 ml 1320 ml 120 ml Output Total 550 ml 1100 ml 450 ml Balance -310 ml 220 ml -330 ml Intake Oral 240 ml 1320 ml 120 ml Output Urine Total 550 ml 1100 ml 450 ml # Voids 1 # Bowel Movements 1 (Jong Dominique MD R2) Result Diagram: 08/05/17 0706 08/05/17 0706 Objective Remarks CONSTITUTIONAL/GEN: This is a elderly, lady resting comfortably in bed LUNGS: respiratory effort is normal. Some crackles in the lower lung tello. CARDIOVASCULAR: RR without murmur or gallop. GI/ABD: soft without masses, without organomegaly. No tenderness to palpation SKIN: color normal, no rashes noted. MUSC: 1+ edema bilaterally unchanged from prior exams PSYCH/MENTAL STATUS: Alert and oriented. (Jong Dominique MD R2) A/P Assessment and Plan Patient is an 81 y/o F w/hx of breast cancer admitted for severe nausea, poor PO intake, acute cholecystitis, and transaminitis. Supportive care, IV Abx, and Heparin drip was initiated in case of possible surgery/procedure. MRCP showed distended gallbladder with surrounding edema but no gallstones.. Portal edema was seen as well. General Surgery and GI consulted. HIDA scan was ordered and showed normal biliary examination with normal filling of the gallbladder. Spoke with gastroenterology today. The consensus is to avoid surgery and/or EGD due to patient being at significant pulmonary risk. Transaminitis and gallbladder studies are downtrending. It is possible that the patient may have had a transient gallstone partially occluding the common bile duct that has now passed v malignant process versus drug induced liver toxicity from Xarelto. Will discuss further with GI. MRI has shown a few enhancing lesions in the cerebellar hemispheres as well as scattered foci in the left parietal lobe; these could represent metastatic disease versus showering emboli/infarcts. CT of the chest/abdomen/pelvis were ordered to examine for possible source. CT chest with small nodule in the right upper lobe that has more inflammatory appearance and malignancy, CT abdomen/pelvis showed a cirrhotic appearing liver with small benign-appearing lesion in the dome of the right lobe, moderate ascitic fluid. Hematology was consulted and Dr. Liu, who a history with this patient for her breast carcinoma and anticoagulation, ordered an MRI of the abdomen to evaluate further. MRI showed probable liver cirrhosis with tiny cyst and no evidence of metastatic disease. Patient resumed chemotherapy with Taxol and Herceptin on 08/03. Tolerated well and will receive another treatment in 3 weeks. Patient has been cleared from oncology standpoint, but is currently weak and may require rehab. PT consulted Discharge Planning Pending clinical improvement Discussed at length with the patient risks and benefits of SNF versus home health. She declines SNF placement at this time although recommendation would be to go there. We will proceed with home health when discharged (Jong Dominique MD R2) Problem List: (1) Breast cancer ICD Codes: C50.919 - Malignant neoplasm of unspecified site of unspecified female breast Status: Chronic Plan: History of breast cancer with one recent recurrence in 2017 MRI brain 08/01/17 shows a few scattered foci of bright T2 signal abnormality/ restricted diffusion in both cerebral hemispheres, greater in the left parietal lobe which can be seen with showering emboli/infarcts. A few enhancing lesions in the cerebral hemispheres appear nonspecific but could represent metastatic disease CT scan of the chest, abdomen and pelvis as well as MRI of the abdomen does not show any definite source of metastatic disease. Elevated CEA and CA 15-3 Likely breast cancer with metastatic disease Hematology consulted on 08/01 -Started Herceptin and Taxol on 08/03, will not need chemotherapy again for another 3 weeks -PET CT as outpatient (2) Transaminitis ICD Codes: R74.0 - Nonspecific elevation of levels of transaminase and lactic acid dehydrogenase [LDH] Status: Acute Plan: LFTs have been worsening since Xarelto resumed (07/31) Significant alk phos elevation Patient has been on Xarelto since 07/07. Since then, she has been symptomatic and transaminitis has been observed outpatient It is possible she has a drug induced reaction versus cancer Xarelto discontinued. Currently on Lovenox Hematology consulted for anticoagulation recommendations We will continue to trend LFTs Avoid NSAIDs, statins, tetracyclines/sulfa medications, and all other hepatotoxic medications Appreciate GI recommendations. (3) Acute cholecystitis ICD Codes: K81.0 - Acute cholecystitis Status: Resolved Plan: Underwent MRCP on 07/28, which indicated periportal edema, distended gallbladder with edema, and possible hepatic disease HIDA scan 07/30: Normal biliary examination, normal filling of the bladder and normal uptake of the radiopharmaceutical by the liver suggesting against hepatocellular dysfunction. Normal gallbladder response to CCK administration. General surgery and GI consulted, appreciate recommendations On day 9 of IV Flagyl (total dose of 7-10 days). Levaquin started 07/30. Will complete course tomorrow Advanced to regular diet (4) Nausea ICD Codes: R11.0 - Nausea Status: Acute Plan: Resolved Possible due to malignancy/infiltrative Scheduled IV Zofran 20 minutes before every meal Regular diet Protonix 40 mg twice daily IV (5) Lung crackles ICD Codes: R09.89 - Other specified symptoms and signs involving the circulatory and respiratory systems Plan: Currently on 2 L nasal cannula Possible 2/2 to atelectasis from confinement to bed CT chest on 08/02 showed small bilateral pleural effusions IS Duonebs scheduled every 6 while awake Started on Lasix 20mg BID (6) Blood in stool ICD Codes: K92.1 - Melena Plan: Hemoccult-positive from 07/29/17 Patient has complained of hemorrhoids No history of GERD Hemoglobin has been stable at around 11-12 since admission No plans for EGD at this time due to patient being at high pulmonary risk Protonix 40 mg IV twice daily, appreciate GI recommendations Patient will follow up with GI outpatient (7) Pulmonary embolism ICD Codes: I26.99 - Other pulmonary embolism without acute cor pulmonale Status: Chronic Plan: Diagnosed via CTA on 07/07 Holding Xarelto Therapeutic lovenox BID (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 ICD Codes: Z86.718 - Personal history of other venous thrombosis and embolism Status: Chronic Plan: Hx of breast cancer bilaterally w/ recent recurrence Takes Xarelto 50 mg twice daily On therapeutic Lovenox (9) Hypothyroidism ICD Codes: E03.9 - Hypothyroidism, unspecified Status: Chronic Plan: home levothyroxine 75 mcg daily (10) HTN (hypertension) ICD Codes: I10 - Essential (primary) hypertension Status: Chronic Plan: Takes lisinopril-HCTZ 10-12.5 mg daily, metoprolol 25 mg daily at home Continue HCTZ 12.5mg BID, metoprolol 25mg daily (11) FEN Plan: Fluids: PO Electrolytes: Replace as needed Nutrition: Regular diet DVT prophylaxis: Lovenox, (Jong Dominique MD R2) Problem List: (1) Breast cancer ICD Codes: C50.919 - Malignant neoplasm of unspecified site of unspecified female breast Status: Chronic Plan: History of breast cancer with one recent recurrence in 2017 MRI brain 08/01/17 shows a few scattered foci of bright T2 signal abnormality/ restricted diffusion in both cerebral hemispheres, greater in the left parietal lobe which can be seen with showering emboli/infarcts. A few enhancing lesions in the cerebral hemispheres appear nonspecific but could represent metastatic disease CT scan of the chest, abdomen and pelvis as well as MRI of the abdomen does not show any definite source of metastatic disease. Elevated CEA and CA 15-3 Likely breast cancer with metastatic disease Hematology consulted on 08/01 -Started Herceptin and Taxol on 08/03, will not need chemotherapy again for another 3 weeks -PET CT as outpatient (2) Transaminitis ICD Codes: R74.0 - Nonspecific elevation of levels of transaminase and lactic acid dehydrogenase [LDH] Status: Acute Plan: LFTs have been worsening since Xarelto resumed (07/31) Significant alk phos elevation Patient has been on Xarelto since 4/8. Since then, she has been symptomatic and transaminitis has been observed outpatient It is possible she has a drug induced reaction versus cancer Xarelto discontinued. Currently on Lovenox Hematology consulted for anticoagulation recommendations We will continue to trend LFTs Avoid NSAIDs, statins, tetracyclines/sulfa medications, and all other hepatotoxic medications Appreciate GI recommendations. (3) Acute cholecystitis ICD Codes: K81.0 - Acute cholecystitis Status: Resolved Plan: Underwent MRCP on 07/28, which indicated periportal edema, distended gallbladder with edema, and possible hepatic disease HIDA scan 07/30: Normal biliary examination, normal filling of the bladder and normal uptake of the radiopharmaceutical by the liver suggesting against hepatocellular dysfunction. Normal gallbladder response to CCK administration. General surgery and GI consulted, appreciate recommendations On day 9 of IV Flagyl (total dose of 7-10 days). Levaquin started 07/30. Will complete course tomorrow Advanced to regular diet (4) Nausea ICD Codes: R11.0 - Nausea Status: Acute Plan: Resolved Possible due to malignancy/infiltrative Scheduled IV Zofran 20 minutes before every meal Regular diet Protonix 40 mg twice daily IV (5) Lung crackles ICD Codes: R09.89 - Other specified symptoms and signs involving the circulatory and respiratory systems Plan: Currently on 2 L nasal cannula Possible 2/2 to atelectasis from confinement to bed CT chest on 08/02 showed small bilateral pleural effusions IS Duonebs scheduled every 6 while awake Started on Lasix 20mg BID (6) Blood in stool ICD Codes: K92.1 - Melena Plan: Hemoccult-positive from 07/29/17 Patient has complained of hemorrhoids No history of GERD Hemoglobin has been stable at around 11-12 since admission No plans for EGD at this time due to patient being at high pulmonary risk Protonix 40 mg IV twice daily, appreciate GI recommendations Patient will follow up with GI outpatient (7) Pulmonary embolism ICD Codes: I26.99 - Other pulmonary embolism without acute cor pulmonale Status: Chronic Plan: Diagnosed via CTA on 07/07 Holding Xarelto Therapeutic lovenox BID (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 ICD Codes: Z86.718 - Personal history of other venous thrombosis and embolism Status: Chronic Plan: Hx of breast cancer bilaterally w/ recent recurrence Takes Xarelto 50 mg twice daily On therapeutic Lovenox (9) Hypothyroidism ICD Codes: E03.9 - Hypothyroidism, unspecified Status: Chronic Plan: home levothyroxine 75 mcg daily (10) HTN (hypertension) ICD Codes: I10 - Essential (primary) hypertension Status: Chronic Plan: Takes lisinopril-HCTZ 10-12.5 mg daily, metoprolol 25 mg daily at home Continue HCTZ 12.5mg BID, metoprolol 25mg daily (11) FEN Plan: Fluids: PO Electrolytes: Replace as needed Nutrition: Regular diet DVT prophylaxis: Lovenox, See the residents documentation for details. I saw and evaluated the patient regarding the eagle portions of this evaluation and agree with the residents findings and plans as written. Parts of this note were created using [employer] voice recognition software program. While efforts were made to correct any mistakes made by this software, some mistakes, errors, and omissions may remain in the final note that were not caught when the note was originally created. Plan of care was discussed and agreed upon with the patient as specifically documented in the above note. An opportunity to ask questions with explanation was provided. Patient voiced understanding on all information reviewed and discussed. (Randall Castillo MD) Problem Qualifiers (1) Pulmonary embolism: Qualified Codes: I27.82 - Chronic pulmonary embolism (2) Hypothyroidism: Qualified Codes: E03.9 - Hypothyroidism, unspecified Jong Dominique MD R2 August 05, 2017 10:39 Randall Castillo MD August 07, 2017 11:03
[2017-08-05 11:23] LABS: INTERNATIONAL NORMALIZED RATIO 1.3 RATIO; PROTHROMBIN TIME - PATIENT 12.7 SEC (9.8-11.6)
[2017-08-05] MEDS: REMOVE OLD SCOPOLAMINE PATCH T-DERMAL SCH (15:00)
[2017-08-05] MEDS: SCOPOLAMINE 1.5 MG PATCH T-DERMAL SCH (15:36)
[2017-08-05] MEDS ORDERED: ACETAMINOPHEN/HYDROcodone 325 MG/7.5 MG TAB PO PRN (17:15)
[2017-08-05] MEDS ORDERED: NALOXONE HCL 0.4 MG/ML AMP IV PUSH PRN (17:15)
[2017-08-05] MEDS ORDERED: MORPHINE SULFATE 2 MG/ML SYRINGE IV PUSH PRN (17:15)
[2017-08-05] MEDS ORDERED: ACETAMINOPHEN 325 MG TAB PO PRN (17:15)
[2017-08-05] MEDS: ACETAMINOPHEN/HYDROcodone 325 MG/5 MG TAB PO PRN (18:36)
[2017-08-05] MEDS: SODIUM CHLORIDE 0.9% FLUSH 10 ML FLUSH IV FLUSH PRN (22:31)
[2017-08-06] VITALS (9 sets, daily range): BP systolic 111–127; BP diastolic 60–79; PULSE 81–108; RESP 16–18; TEMP 97.5–98.6; O2SAT 95–100
[2017-08-06] MEDS: ENOXAPARIN SODIUM 60 MG/0.6 ML SYRINGE SQ SCH ×2 (01:31→13:16)
[2017-08-06] MEDS: ACETAMINOPHEN/HYDROcodone 325 MG/5 MG TAB PO PRN ×2 (01:33→09:27)
[2017-08-06] MEDS: LEVOTHYROXINE SODIUM 25 MCG TAB PO SCH (06:37)
[2017-08-06] MEDS ORDERED: ONDANSETRON HCL 4 MG/2 ML VIAL IV PUSH PRN (08:15)
--- NOTE | 2017-08-06 08:43 | PD.ONC.PN ---
Subjective Subjective Remarks Pt seen and examined, labs, VS, medications reviewed. Pt reports soreness in the mouth and difficulty swallowing due to pain. Denies fevers or chills, has poor appetite due to above. She did get up out of bed and sat on the chair, she has been getting up out of bed to use the rest room. Objective Data Date Time Temp Pulse Resp B/P (MAP) Pulse Ox O2 Delivery O2 Flow Rate FiO2 08/06/17 04:49 98.4 93 18 116/60 (78) 98 08/06/17 04:15 103 08/06/17 00:50 97.5 86 16 118/62 (80) 99 08/06/17 00:10 91 08/05/17 20:20 Nasal Cannula 2.00 Humidified 08/05/17 20:12 98.5 88 16 104/54 (71) 98 08/05/17 20:05 88 08/05/17 16:00 98.3 90 18 121/66 (84) 99 08/05/17 13:05 97 Nasal Cannula 3.50 08/05/17 13:00 98.6 81 16 107/60 (76) 98 08/05/17 09:51 Nasal Cannula 3.00 08/05/17 09:51 98.4 104 16 125/68 (87) 97 08/06/17 08/06/17 08/06/17 07:00 15:00 23:00 Intake Total 360 ml Output Total 1300 ml Balance -940 ml Result Diagram: 08/05/17 0706 08/05/17 0706 Laboratory Results Laboratory Tests Test 08/05/17 10:42 Prothrombin Time 12.7 SEC Prothromb Time International Ratio 1.3 RATIO Activated Partial Thromboplast Time 42.8 SEC Administered Medications Medications (Trade) Dose Ordered Sig/Braydon Route PRN Reason Start Time Stop Time Status Last Admin Dose Admin Levothyroxine Sodium (Synthroid) 75 mcg DAILY@0600 PO 07/28/17 13:00 Future hold 08/06/17 06:37 Metoprolol Tartrate (Lopressor) 25 mg DAILY PO 07/28/17 12:45 Future hold 08/05/17 10:02 Sodium Chloride (NS Flush) 2 ml UNSCH PRN IV FLUSH FLUSH AFTER USING IV ACCESS 07/28/17 13:00 08/05/17 22:31 Sodium Chloride (NS Flush) 2 ml BID IV FLUSH 07/28/17 21:00 08/05/17 22:31 Hydrocortisone Acetate (Hemorrhoidal Hc Supp) 25 mg BID RECTAL 07/31/17 09:00 08/05/17 22:31 Pantoprazole Sodium (Protonix Inj) 40 mg Q12HR IV PUSH 07/31/17 09:15 08/05/17 22:31 Hydrochlorothiazide (Microzide) 12.5 mg DAILY PO 07/31/17 11:45 08/05/17 10:02 Senna/Docusate Sodium (Denise-Colace) 2 tab BID PO 08/02/17 09:30 08/05/17 22:30 Enoxaparin Sodium (Lovenox Inj) 60 mg Q12H SQ 08/03/17 13:00 08/06/17 01:31 Furosemide (Lasix) 20 mg BID@ PO 08/05/17 09:00 08/05/17 18:34 Potassium Chloride (KCl) 10 meq Q12HR PO 08/05/17 09:00 08/05/17 22:30 Acetaminophen/ Hydrocodone Bitart ([place] 5-325 Mg) 1 tab Q4H PRN PO PAIN SCALE 3 TO 5 08/05/17 17:15 08/06/17 01:33 Objective Remarks GENERAL: Elderly lady, sitting up on a bedside chair, appears to be no acute distress, has a pleasant disposition. Coughs multiple times during this interview. Her son and son-in-law are at bedside. SKIN: No rashes, ecchymoses or lesions. Cool and dry. HEAD: Atraumatic. Normocephalic. No temporal or scalp tenderness. EYES: Pupils equal round and reactive. Extraocular motions intact. No scleral icterus. No injection or drainage. ENT: Nose without bleeding, purulent drainage or septal hematoma. Throat: thrush noted. NECK: Trachea midline. No JVD or lymphadenopathy. Supple, nontender, no meningeal signs. CARDIOVASCULAR: Irregular rhythm, S1-S2 no obvious murmurs rubs gallops. RESPIRATORY: Good air movement bilaterally no wheezes, no rhonchi. GASTROINTESTINAL: Abdomen soft, non-tender, nondistended. No hepato-splenomegaly , or palpable masses. No guarding. MUSCULOSKELETAL: Extremities without clubbing, cyanosis, or edema. No joint tenderness, effusion, or edema noted. No calf tenderness. Negative Homans sign bilaterally. NEUROLOGICAL: Awake and alert. Cranial nerves II through XII intact. Motor and sensory grossly within normal limits. Five out of 5 muscle strength in all muscle groups. Normal speech. Skin: No obvious masses noted. Breast examination: Status post bilateral mastectomy. No masses or nodules noted on the chest wall. No axial lymphadenopathy. Extremities: Pitting edema over the lower extremities. Assessment/Plan Assessment Ms. Sam is a very pleasant 81-year-old female with a history of bilateral breast carcinoma; initial diagnosis established in 1988 when she presented with a locally advanced left breast carcinoma. Treated with surgical resection followed by adjuvant chemotherapy as outlined above. In 2014 she presented with a stage I HER-2 amplified right breast carcinoma which was surgically resected with a modified radical mastectomy. She elected for observation alone , in the spring 2016 she presented with a local recurrence on the right chest wall which was surgically resected. Following surgical resection she underwent postop radiation for local control. She again declined systemic interventions with anti-HER-2 therapy. In June 2017 she developed bilateral pulmonary emboli associate with the right lower extreme deep venous thrombosis. No obvious provoking factor was identified. She at the time of presentation with the pulmonary emboli had abnormal liver function testing (before any anticoagulation was initiated). Over the course of the past 3 weeks her liver enzymes have remained elevated, in fact they have worsened and she now has hyperbilirubinemia in addition to elevated AST, ALT and alkaline phosphatase levels. She has been evaluated for possible gallbladder dysfunction or extrahepatic obstruction of the biliary tree. Upon review of her most recent CT scans I am concerned of a diffuse infiltrating pattern of metastatic disease to the liver; primarily the inferior portions of the right hepatic lobe where on independent review there appears to be an abnormal signal. Plan 1. Metastatic breast carcinoma: Status post first dose of palliative paclitaxel and Herceptin on 08/03/2017. She tolerated this well. LFTs pending this AM. 2. Pulmonary emboli: On therapeutic anticoagulation with Lovenox 60 mg subcu every 12 hours. Dose modification for Lovenox is not required in the setting of hepatic dysfunction. Oral factor X inhibitors are typically not recommended with hepatic dysfunction to the degree to which this patient has. Because of this reason I would recommend she remain on therapeutic dose Lovenox until her hepatic function normalizes/improves. 3. Peripheral edema: I would advise as needed dosing of Lasix, she has pitting edema over the lower extremities as well as some evidence of fine crackles on inspiration indicating possible early pulmonary edema. 4. Continue monitoring and supportive care including physical therapy, improved oral nutritional intake. 5. Encourage PO intake. 6. Oropharyngeal candidiasis: Started pt on nystatin swish and swallow QID. Continue supportive care. Jacob Liu MD August 06, 2017 08:43
--- NOTE | 2017-08-06 08:50 | HHI.PR ---
Subjective Subjective Notes Feels weak and tired. Has a sore throat. Objective Vitals/I&O Vital Signs Date Time Temp Pulse Resp B/P (MAP) Pulse Ox O2 Delivery O2 Flow Rate FiO2 08/06/17 04:49 98.4 93 18 116/60 (78) 98 08/05/17 20:20 Nasal Cannula 2.00 Humidified Labs Laboratory Tests Test 08/05/17 10:42 Prothrombin Time 12.7 Prothromb Time International Ratio 1.3 Activated Partial Thromboplast Time 42.8 Date/Time Source Procedure Growth Status 07/29/17 15:00 Stool Stool Stool Occult Blood (ISA) - Final HEMOCCULT POSITIVE Complete Abdomen: Non-distended, Non-tender, BS normal A/P Assessment and Plan 81 year old female with recent diagnosis of PE on anti-coagulation; elevated liver enzymes; RUQ tenderness -Dr. Liu following patient--- working up for liver metastasis - MRI concerning for widespread disease. This would explain LFTs - Lozanges for sore throat. - Recommend Palliative Care/Hospice eval. D/W family and they agree -Regular diet + Ensure prn - Chemo per Dr. Liu. - I will see prn, please call with any surgical concerns. Will FU in office after discharge. I CERTIFY AND ATTEST THAT I PERSONALLY EXAMINED THE PATIENT IN THEIR ROOM. THE BI TESTER DOCUMENTED OUR VISIT AND ENTERED ORDERS UNDER MY SUPERVISION. I DO NOT THINK THIS IS CHOLECYSTITIS. ?METASTATIC DISEASE? LOUIS ROMANO MD FACS Louis Romano MD August 06, 2017 08:50
[2017-08-06] MEDS: FUROSEMIDE 20 MG TAB PO SCH ×2 (08:54→18:00)
[2017-08-06] MEDS: HYDROCORTISONE ACETATE 25 MG SUPP RECTAL SCH ×2 (09:00→21:00)
[2017-08-06] MEDS ORDERED: PHENOL 1.4% SOLN 180 ML BTL OROPHARYNG PRN (09:00)
[2017-08-06] MEDS: PANTOPRAZOLE SODIUM 40 MG VIAL IV PUSH SCH ×2 (09:09→21:15)
[2017-08-06] MEDS: METOPROLOL TARTRATE 25 MG TAB PO SCH (09:09)
[2017-08-06] MEDS: DOCUSATE SODIUM 50 MG/SENNA 8.6 MG TAB PO SCH ×2 (09:09→21:18)
[2017-08-06] MEDS: HYDROCHLOROTHIAZIDE 12.5 MG CAP PO SCH (09:10)
[2017-08-06 09:12] LABS: HEMATOCRIT 31.1 % (35.0-46.0); HEMOGLOBIN 10.8 GM/DL (11.6-15.3); MEAN CORPUSCULAR HEMOGLOBIN 33.2 PG (27.0-34.0); MEAN CORPUSCULAR HGB CONC 34.6 % (32.0-36.0); PLATELET COUNT 87 TH/MM3 (150-450); RED BLOOD COUNT 3.24 MIL/MM3 (4.00-5.30); RED CELL DISTRIBUTION WIDTH 20.3 % (11.6-17.2); WHITE BLOOD COUNT 8.4 TH/MM3 (4.0-11.0)
[2017-08-06] MEDS: POTASSIUM CHLORIDE 10 MEQ CONTROLLED RELEASE TAB PO SCH ×2 (09:12→21:18)
[2017-08-06] MEDS: SODIUM CHLORIDE 0.9% FLUSH 10 ML FLUSH IV FLUSH SCH ×2 (09:12→21:15)
[2017-08-06] MEDS: NYSTATIN SUSP 500,000 U/5 ML CUP SWISH-SWAL SCH ×4 (09:22→21:17)
[2017-08-06 09:41] LABS: ALBUMIN 1.7 GM/DL (3.4-5.0); AST (GOT) 213 U/L (15-37); BLOOD UREA NITROGEN 28 MG/DL (7-18); CALCIUM 7.9 MG/DL (8.5-10.1); CHLORIDE 97 MEQ/L (98-107); CREATININE 0.91 MG/DL (0.50-1.00); GLOMERULAR FILTRATION RATE 59 ML/MIN (>89); GLUCOSE,RANDOM 88 MG/DL (74-106); SODIUM (NA) 134 MEQ/L (136-145)
[2017-08-06 09:44] LABS: ALKALINE PHOSPHATASE 624 U/L (45-117); ALT (GPT) 50 U/L (10-53); TOTAL BILIRUBIN ADULT 6.5 MG/DL (0.2-1.0); TOTAL PROTEIN 4.8 GM/DL (6.4-8.2)
[2017-08-06 10:26] LABS: BANDS 1 % (0-6); LYMPHOCYTES 2 % (9-44); NEUTROPHIL # MANUAL DIFF 8.2 TH/MM3 (1.8-7.7); POLYS (SEG NEUTROPHILS) 97 % (16-70)
--- NOTE | 2017-08-06 11:59 | RADRPT ---
EXAM DATE/TIME: 08/06/2017 11:16 [facility] COMPARISON: No previous studies available for comparison. EXTERNAL COMPARISON : [facility], CT Abdomen, July 24, 2017 INDICATIONS : Bruising in left lateral abdomen, hematoma. MEDICAL HISTORY : Hypertension. Deep venous thrombosis. Carcinoma, breast. SURGICAL HISTORY : Mastectomy, right. Tonsillectomy. Right knee sx, Hernia sx ENCOUNTER: [facility] ACUITY: 3 days PAIN SCORE: 0/10 LOCATION: Left lateral abdomen. AREA EVALUATED: Left lateral abdomen. FINDINGS: There is a possible hematoma in the area of bruising measuring up to 3.9 x 3.4 x 3.4 cm in the latera l left abdomen. Edematous changes in the surrounding soft tissues. CONCLUSION: 1. Probable hematoma in the lateral left abdomen with measurements above. Surrounding edema. Noah Gates MD on August 06, 2017 at 11:55 Board Certified Radiologist. This report was verified electronically.
[2017-08-06 13:56] LABS: BILIRUBIN, URINE SMALL (NEG); BLOOD, URINE NEG (NEG); GLUCOSE,URINE NEG (NEG); HYALINE CAST, URINE 8 /lpf (RARE); KETONE, URINE NEG (NEG); NITRITE,URINE NEG (NEG); PH, URINE 5.5 (5.0-8.5); SQUAMOUS EPITHELIAL CELL URINE <1 /hpf (0-5); URINE COLOR YELLOW (YELLW/STRAW); URINE LEUKOCYTE ESTERASE NEG (NEG)
--- NOTE | 2017-08-06 14:47 | HHI.FPPN ---
Subjective Remarks Patient was noticeably more fatigued this a.m. Patient continues to complain of pain on the left lateral aspect of her abdomen. She has had a Holbrook prior to the interview and had been more sleepy since then. Overall was also feeling weaker. Patient's family was present along with Ms. Sam are interested in a palliative care consult at this time. Patient denies chest pain, worsening shortness of breath, nausea or vomiting. (Ran Anton MD R1) Objective Vitals Vital Signs Date Time Temp Pulse Resp B/P (MAP) Pulse Ox O2 Delivery O2 Flow Rate FiO2 08/06/17 13:15 98.5 81 16 111/62 (78) 99 08/06/17 08:55 Nasal Cannula 2.50 Humidified 08/06/17 08:55 98.6 103 17 124/79 (94) 100 08/06/17 04:49 98.4 93 18 116/60 (78) 98 08/06/17 04:15 103 08/06/17 00:50 97.5 86 16 118/62 (80) 99 08/06/17 00:10 91 08/05/17 20:20 Nasal Cannula 2.00 Humidified 08/05/17 20:12 98.5 88 16 104/54 (71) 98 08/05/17 20:05 88 08/05/17 16:00 98.3 90 18 121/66 (84) 99 I/O 08/05/17 08/05/17 08/05/17 08/06/17 08/06/17 08/06/17 07:00 15:00 23:00 07:00 15:00 23:00 Intake Total 120 ml 240 ml 360 ml Output Total 450 ml 675 ml 1000 ml 1300 ml Balance -330 ml -675 ml -760 ml -940 ml Intake Oral 120 ml 240 ml 360 ml Output Urine Total 450 ml 675 ml 1000 ml 1300 ml # Voids 1 3 (Ran Anton MD R1) Result Diagram: 08/06/17 0839 08/06/17 0839 Imaging Last 24 hours Impressions Soft Tissue Ultrasound 08/06/17 1046 Signed Impressions: Service Date/Time: Sunday, August 06, 2017 11:16 - CONCLUSION: 1. Probable hematoma in the lateral left abdomen with measurements above. Surrounding edema. Noah Gates MD Objective Remarks CONSTITUTIONAL/GEN: This is a elderly, lady resting in bed. Arousable but noticeably more sleepy compared to prior exams. Answers questions appropriately. LUNGS: respiratory effort is normal. Some crackles in the lower lung tello CARDIOVASCULAR: RR without murmur or gallop. GI/ABD: soft without masses, without organomegaly. Lateral aspect of left lower abdomen with noticeable ecchymosis that is more pronounced compared to prior exams. SKIN: color normal, no rashes noted. MUSC: 1+ edema bilaterally unchanged from prior exams PSYCH/MENTAL STATUS: Alert and oriented. (Ran Anton MD R1) A/P Assessment and Plan Patient is an 81 y/o F w/hx of breast cancer admitted for severe nausea, poor PO intake, acute cholecystitis, and transaminitis. Supportive care, IV Abx, and Heparin drip was initiated in case of possible surgery/procedure. MRCP showed distended gallbladder with surrounding edema but no gallstones.. Portal edema was seen as well. General Surgery and GI consulted. HIDA scan was ordered and showed normal biliary examination with normal filling of the gallbladder. Spoke with gastroenterology today. The consensus is to avoid surgery and/or EGD due to patient being at significant pulmonary risk. Transaminitis and gallbladder studies are downtrending. It is possible that the patient may have had a transient gallstone partially occluding the common bile duct that has now passed v malignant process versus drug induced liver toxicity from Xarelto. Will discuss further with GI. MRI has shown a few enhancing lesions in the cerebellar hemispheres as well as scattered foci in the left parietal lobe; these could represent metastatic disease versus showering emboli/infarcts. CT of the chest/abdomen/pelvis were ordered to examine for possible source. CT chest with small nodule in the right upper lobe that has more inflammatory appearance and malignancy, CT abdomen/pelvis showed a cirrhotic appearing liver with small benign-appearing lesion in the dome of the right lobe, moderate ascitic fluid. Hematology was consulted and Dr. Liu, who a history with this patient for her breast carcinoma and anticoagulation, ordered an MRI of the abdomen to evaluate further. MRI showed probable liver cirrhosis with tiny cyst and no evidence of metastatic disease. Patient resumed chemotherapy with Taxol and Herceptin on 08/03. Tolerated well and will receive another treatment in 3 weeks. Patient has been cleared from oncology standpoint, but is currently weak and may require rehab. Patient noticeably weaker and less energetic on 08/06. After discussion with family and patient, palliative care was consulted. Patient noted to have ecchymosis on lateral aspect of the left abdomen. Ultrasound at that time showed a possible hematoma. Patient wishes to discuss with son prior to decision on whether or not to drain the hematoma or to watch. Discharge Planning Pending clinical improvement Discussed at length with the patient risks and benefits of SNF versus home health. She declines SNF placement at this time although recommendation would be to go there. Consulting palliative care on 08/06 (Ran Anton MD R1) Problem List: (1) Breast cancer ICD Codes: C50.919 - Malignant neoplasm of unspecified site of unspecified female breast Status: Chronic Plan: History of breast cancer with one recent recurrence in 2017 MRI brain 08/01/17 shows a few scattered foci of bright T2 signal abnormality/ restricted diffusion in both cerebral hemispheres, greater in the left parietal lobe which can be seen with showering emboli/infarcts. A few enhancing lesions in the cerebral hemispheres appear nonspecific but could represent metastatic disease CT scan of the chest, abdomen and pelvis as well as MRI of the abdomen does not show any definite source of metastatic disease. Elevated CEA and CA 15-3 Likely breast cancer with metastatic disease Hematology consulted on 08/01 -Started Herceptin and Taxol on 08/03, will not need chemotherapy again for another 3 weeks -PET CT as outpatient -After discussion with family and patient, palliative care being consulted on 08/06 (2) Hematoma ICD Codes: T14.8XXA - Other injury of unspecified body region, initial encounter Plan: Patient noted to have ecchymosis on the lateral aspect of the left lower abdomen. Patient has localized pain in this area for several days in the overlying erythema was noted to be increasing on 08/06 Ultrasound of the area showed probable hematoma measuring up to 3.9 x 3.4 x 3.4 cm with surrounding edema. Risks/benefits were discussed with the patient regarding her options including IR drainage or to watch it. Patient desires to wait on her son will arrive late tonight prior to making a decision regarding this We will continue to monitor for signs of continued bleeding or infection. H&H currently stable, no leukocytosis or fever Tylenol for pain, avoiding narcotics as patient was more fatigued this morning after receiving Holbrook (3) Fatigue ICD Codes: R53.83 - Other fatigue Plan: Patient noticeably more fatigued, weak on 08/06 Patient had received Holbrook an hour prior to encounter As this was a change from prior encounter, will order UA and chest x-ray. Differential including UTI, pneumonia, atelectasis, medication side effect (4) Transaminitis ICD Codes: R74.0 - Nonspecific elevation of levels of transaminase and lactic acid dehydrogenase [LDH] Status: Acute Plan: LFTs had been worsening after Xarelto resumed (07/31) Significant alk phos elevation Xarelto discontinued. Currently on therapeutic Lovenox. LFTs remain elevated Hematology consulted for anticoagulation recommendations Avoid NSAIDs, statins, tetracyclines/sulfa medications, and all other hepatotoxic medications (5) Acute cholecystitis ICD Codes: K81.0 - Acute cholecystitis Status: Resolved Plan: Underwent MRCP on 07/28, which indicated periportal edema, distended gallbladder with edema, and possible hepatic disease HIDA scan 07/30: Normal biliary examination, normal filling of the bladder and normal uptake of the radiopharmaceutical by the liver suggesting against hepatocellular dysfunction. Normal gallbladder response to CCK administration. Completed 7 days of IV Flagyl. Levaquin Advanced to regular diet (6) Nausea ICD Codes: R11.0 - Nausea Status: Acute Plan: Resolved Possible due to malignancy/infiltrative Scheduled IV Zofran 20 minutes before every meal Regular diet Protonix 40 mg twice daily IV (7) Lung crackles ICD Codes: R09.89 - Other specified symptoms and signs involving the circulatory and respiratory systems Plan: Currently on 2 L nasal cannula, will attempt to wean Possible 2/2 to atelectasis from confinement to bed CT chest on 08/02 showed small bilateral pleural effusions IS Duonebs scheduled every 6 while awake Started on Lasix 20mg BID Chest x-ray ordered (8) Blood in stool ICD Codes: K92.1 - Melena Plan: Hemoccult-positive from 07/29/17 Patient has complained of hemorrhoids Hemoglobin has been stable at around 11-12 since admission Protonix 40 mg IV twice daily, appreciate GI recommendations (9) Pulmonary embolism ICD Codes: I26.99 - Other pulmonary embolism without acute cor pulmonale Status: Chronic Plan: Diagnosed via CTA on 07/07 Holding Xarelto Therapeutic lovenox BID (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 ICD Codes: Z86.718 - Personal history of other venous thrombosis and embolism Status: Chronic Plan: Hx of breast cancer bilaterally w/ recent recurrence Takes Xarelto 50 mg twice daily On therapeutic Lovenox (11) Hypothyroidism ICD Codes: E03.9 - Hypothyroidism, unspecified Status: Chronic Plan: home levothyroxine 75 mcg daily (12) HTN (hypertension) ICD Codes: I10 - Essential (primary) hypertension Status: Chronic Plan: Takes lisinopril-HCTZ 10-12.5 mg daily, metoprolol 25 mg daily at home Continue HCTZ 12.5mg BID, metoprolol 25mg daily (13) FEN Plan: Fluids: PO Electrolytes: Replace as needed Nutrition: Regular diet DVT prophylaxis: Lovenox (Ran Anton MD R1) Problem List: (1) Breast cancer ICD Codes: C50.919 - Malignant neoplasm of unspecified site of unspecified female breast Status: Chronic Plan: History of breast cancer with one recent recurrence in 2017 MRI brain 08/01/17 shows a few scattered foci of bright T2 signal abnormality/ restricted diffusion in both cerebral hemispheres, greater in the left parietal lobe which can be seen with showering emboli/infarcts. A few enhancing lesions in the cerebral hemispheres appear nonspecific but could represent metastatic disease CT scan of the chest, abdomen and pelvis as well as MRI of the abdomen does not show any definite source of metastatic disease. Elevated CEA and CA 15-3 Likely breast cancer with metastatic disease Hematology consulted on 08/01 -Started Herceptin and Taxol on 08/03, will not need chemotherapy again for another 3 weeks -PET CT as outpatient -After discussion with family and patient, palliative care being consulted on 08/06 (2) Hematoma ICD Codes: T14.8XXA - Other injury of unspecified body region, initial encounter Plan: Patient noted to have ecchymosis on the lateral aspect of the left lower abdomen. Patient has localized pain in this area for several days in the overlying erythema was noted to be increasing on 08/06 Ultrasound of the area showed probable hematoma measuring up to 3.9 x 3.4 x 3.4 cm with surrounding edema. Risks/benefits were discussed with the patient regarding her options including IR drainage or to watch it. Patient desires to wait on her son will arrive late tonight prior to making a decision regarding this We will continue to monitor for signs of continued bleeding or infection. H&H currently stable, no leukocytosis or fever Tylenol for pain, avoiding narcotics as patient was more fatigued this morning after receiving Holbrook (3) Fatigue ICD Codes: R53.83 - Other fatigue Plan: Patient noticeably more fatigued, weak on 08/06 Patient had received Holbrook an hour prior to encounter As this was a change from prior encounter, will order UA and chest x-ray. Differential including UTI, pneumonia, atelectasis, medication side effect (4) Transaminitis ICD Codes: R74.0 - Nonspecific elevation of levels of transaminase and lactic acid dehydrogenase [LDH] Status: Acute Plan: LFTs had been worsening after Xarelto resumed (07/31) Significant alk phos elevation Xarelto discontinued. Currently on therapeutic Lovenox. LFTs remain elevated Hematology consulted for anticoagulation recommendations Avoid NSAIDs, statins, tetracyclines/sulfa medications, and all other hepatotoxic medications (5) Acute cholecystitis ICD Codes: K81.0 - Acute cholecystitis Status: Resolved Plan: Underwent MRCP on 07/28, which indicated periportal edema, distended gallbladder with edema, and possible hepatic disease HIDA scan 07/30: Normal biliary examination, normal filling of the bladder and normal uptake of the radiopharmaceutical by the liver suggesting against hepatocellular dysfunction. Normal gallbladder response to CCK administration. Completed 7 days of IV Flagyl. Levaquin Advanced to regular diet (6) Nausea ICD Codes: R11.0 - Nausea Status: Acute Plan: Resolved Possible due to malignancy/infiltrative Scheduled IV Zofran 20 minutes before every meal Regular diet Protonix 40 mg twice daily IV (7) Lung crackles ICD Codes: R09.89 - Other specified symptoms and signs involving the circulatory and respiratory systems Plan: Currently on 2 L nasal cannula, will attempt to wean Possible 2/2 to atelectasis from confinement to bed CT chest on 08/02 showed small bilateral pleural effusions IS Duonebs scheduled every 6 while awake Started on Lasix 20mg BID Chest x-ray ordered (8) Blood in stool ICD Codes: K92.1 - Melena Plan: Hemoccult-positive from 07/29/17 Patient has complained of hemorrhoids Hemoglobin has been stable at around 11-12 since admission Protonix 40 mg IV twice daily, appreciate GI recommendations (9) Pulmonary embolism ICD Codes: I26.99 - Other pulmonary embolism without acute cor pulmonale Status: Chronic Plan: Diagnosed via CTA on 07/07 Holding Xarelto Therapeutic lovenox BID (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 ICD Codes: Z86.718 - Personal history of other venous thrombosis and embolism Status: Chronic Plan: Hx of breast cancer bilaterally w/ recent recurrence Takes Xarelto 50 mg twice daily On therapeutic Lovenox (11) Hypothyroidism ICD Codes: E03.9 - Hypothyroidism, unspecified Status: Chronic Plan: home levothyroxine 75 mcg daily (12) HTN (hypertension) ICD Codes: I10 - Essential (primary) hypertension Status: Chronic Plan: Takes lisinopril-HCTZ 10-12.5 mg daily, metoprolol 25 mg daily at home Continue HCTZ 12.5mg BID, metoprolol 25mg daily (13) FEN Plan: Fluids: PO Electrolytes: Replace as needed Nutrition: Regular diet DVT prophylaxis: Lovenox See the residents documentation for details. I saw and evaluated the patient regarding the eagle portions of this evaluation and agree with the residents findings and plans as written. Parts of this note were created using [employer] voice recognition software program. While efforts were made to correct any mistakes made by this software, some mistakes, errors, and omissions may remain in the final note that were not caught when the note was originally created. Plan of care was discussed and agreed upon with the patient as specifically documented in the above note. An opportunity to ask questions with explanation was provided. Patient voiced understanding on all information reviewed and discussed. (Randall Castillo MD) Problem Qualifiers (1) Pulmonary embolism: Qualified Codes: I27.82 - Chronic pulmonary embolism (2) Hypothyroidism: Qualified Codes: E03.9 - Hypothyroidism, unspecified Ran Anton MD R1 August 06, 2017 14:47 Randall Castillo MD August 07, 2017 12:16
[2017-08-06] MEDS ORDERED: ACETAMINOPHEN 325 MG TAB PO PRN (15:45)
--- NOTE | 2017-08-06 15:51 | RADRPT ---
EXAM DATE/TIME: 08/06/2017 14:25 [facility] COMPARISON: No previous studies available for comparison. INDICATIONS : Pneumonia. MEDICAL HISTORY : Hypertension. Deep venous thrombosis. Carcinoma, breast. SURGICAL HISTORY : Mastectomy, right. Tonsillectomy. Right knee sx, Hernia sx ENCOUNTER: Subsequent ACUITY: 3 days PAIN SCORE: 0/10 LOCATION: chest FINDINGS: There is scattered subsegmental airspace disease in the lungs. No effusion. No pneumothorax. Heart si ze mildly enlarged. Tortuous aorta. CONCLUSION: 1. Subsegmental mostly basilar airspace disease the lungs. No effusion or pneumothorax. Noah Gates MD on August 06, 2017 at 15:47 Board Certified Radiologist. This report was verified electronically.
--- NOTE | 2017-08-06 18:04 | HHI.HCPN ---
Full palliative care consult pending. In meantime, patient was too drowsy/uncomfortable to discuss goals of medical treatment at time of my visit. Met with patient at bedside then met with granddaughter and daughter in consult room with son Aashish listening in by cell phone. The patient's health care surrogate (her son -- Aashish) expressed his concerns that the patient's decline over the past 24 -48 hours may be due to over medication with opiates and NOT due to chemotherapy effects or progression of disease. Family indicated she was very sensitive to medications. We discussed the low dose of opioids she was on and that her renal function was adequate enough to break down the opiates over time so it was unlikely the medications that were causing this. Nevertheless, Aashish wants to see if cutting the [place] dose in 1/2 would adequately address her pain without over-sedating her. Aashish plans to meet with other family members tomorrow to help the patient with decision making going forward. . Thor Fontaine MD August 06, 2017 18:04
[2017-08-06] MEDS ORDERED: PILL SPLITTER OTHER PRN (18:30)
--- NOTE | 2017-08-06 18:36 | PD.CONS ---
Consult Service Palliative Care . Consult Requested By Dr. Anton. . Primary Care Physician Nick Vogel MD . Reason for Consultation a. To assist with evaluation and management of symptoms including: pain; generalized weakness; fatigue; dyspnea b. To assist medical decision maker(s) with: better understanding of current medical conditions; weighing benefits/burdens of medical treatment options; making medical treatment decisions. . HPI History of Present Illness Ms. Sam is an 81 y/o female with a known history of breast cancer; recent pulmonary emboli; and non-melanoma skin cancers who presented to the [facility] ED on 07/28/17 due to , nausea, poor appetite, progressive weakness/ fatigue, and pain between the shoulder blades. She denied fever, chest pain, vomiting, diarrhea. The patient's history is well described by Dr. Liu, the patient's oncologist in his consultation note of 08/01/17... Ms. Sam is an 81-year-old female who is well-known to me from my outpatient practice. I see her primarily for her history of breast carcinoma, more recently she was diagnosed with pulmonary emboli and has been on therapeutic anticoagulation. The patient's history of breast carcinoma dates back to 1988 when she was diagnosed with a locally advanced left-sided breast carcinoma which was treated with a modified radical mastectomy and left axillary lymph node dissection. She subsequently received adjuvant systemic chemotherapy with methotrexate, 5- FU and Cytoxan. 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 The tumor was weakly positive for estrogen receptor expression, weakly positive for progesterone receptor expression and was HER-2 amplified. She underwent a modified radical mastectomy on the right side with sentinel lymph node biopsy. She is found to have T1cN0 M0 disease (stage Ia), she was offered adjuvant systemic therapy with anti-HER-2 therapy but she declined. In May 2016 she presented with a subcutaneous nodule involving her right chest wall, this was biopsied and found to be consistent with a local recurrence of a poorly differentiated invasive papillary carcinoma, this was surgically resected and the patient subsequently received postop radiation to the right chest wall. She had that time was recommended systemic chemotherapeutic intervention along with anti-HER-2 therapy which she again declined. The patient did well up until June 2017. She developed sudden onset difficulty breathing and chest pain, she presented to the [facility] was diagnosed with pulmonary emboli. She was initiated on her pubic anticoagulation and was discharged home. At the time of presentation to the hospital she was noted to have elevated liver enzymes, liver enzymes were initially thought to be related to her pulmonary embolus. I trended her LFTs in the outpatient setting, these remain persistently elevated therefore a CT scan of the abdomen was recommended. Outpatient CT scan pointed towards gallbladder inflammation. She was referred to Dr. Keagan Romano her general surgeon for evaluation for cholecystitis. Unfortunately, over the weekend Her condition worsened, she developed worsening abdominal pain which she tells me it was difficult for her to bear. She also had nausea and loss of appetite. She came into the emergency department here at [facility] in [facility] and has been hospitalized ever since. I was not aware of her hospitalization, I had been trying to actively manage her in the outpatient setting earlier today I was asked to come see her to manage her anticoagulation. Since hospitalization she has had multiple imaging studies done including a HIDA scan, ultrasound of the gallbladder and liver, CT scan of the abdomen and pelvis as well as an MRI of the brain. She has been seen by a lead handler, general surgery and is being followed by the family medicine inpatient team. Her liver enzymes remain abnormal with elevated bilirubin levels, elevated alkaline phosphatase levels as well as elevation in AST and ALT. CT scan done earlier today of the abdomen with IV contrast was read by the interpreting radiologist as a "cirrhotic appearing liver without definite masses ". Since admission: * MRI of the abdomen has suggested metastatic disease * CEA and C15-3 are both quite elevated suggesting metastatic disease. * MRI of the brain has shown "a few enhancing lesions in the cerebellar hemispheres, non-specific but could represent metastatic disease." It was therefore felt that the patient's problem was NOT secondary to cholecystitis but due to metastatic breast cancer. There was no specific area to biopsy. PET scanning might have confirmed the diagnosis but cannot be done on an inpatient basis here. With patient failing, should she desire aggressive cancer direted care, she would need to start palliative chemotherapy quickly. Options were discussed with the patient. In spite of her refusal to undertake chemotherapy when recommended in the recent past, the patient opted to begin palliative chemotherapy now. She underwent her first treatment on 08/03/17. Per family, the patient has declined since then becoming weaker and more painful. Most of her pain is on her left flank area where she has a large hematoma.. At time time of my visit, patient is verbal , but she answers questions very slowly and appears uncomfortable. I try to engage her in a conversation regarding goals of medical treatment. She keeps her eyes closed. She does not want to make any decisions but she does not want to yield decision making to others. She clearly appears uncomfortable. Most of her pain appears to be at the sight of her large hematoma. She normally tried to avoid analgesics but has been now asking for Atkinson. The Atkinson helps the pain, but some family members believe she is becoming too lethargic. It is hard for her quantify/qualify symptoms. . Function/Cognitive Trajectory Ms Sam did reasonably well from the time of her excision of her subcutaneous nodule up until her hospitalization for pulmonary emboli in June 2017. She has declined since then per the HPI above. . Review of Systems ROS Limitations: Clinical Condition (Patient was quite exhausted and time of visit. ROS taken primarily from available medical records. ) Constitutional: COMPLAINS OF: Fatigue, Weight loss, Change in appetite, Pain, Generalized weakness, DENIES: Diaphoretic episodes, Weight gain, Chills, Dizziness Endocrine: DENIES: Polydipsia, Polyuria, Polyphagia Eyes: DENIES: Blurred vision, Diplopia, Vision loss, Double Vision Ears, nose, mouth, throat: COMPLAINS OF: Hoarseness, DENIES: Tinnitus, Hearing loss, Oral lesions, Throat pain, Epistaxis Respiratory: COMPLAINS OF: Cough, Sputum production, Shortness of breath, DENIES: Apneas, Snoring, Wheezing Cardiovascular: COMPLAINS OF: Dyspnea on Exertion, Lower Extremity Edema, DENIES: Chest pain, Palpitations, Syncope, Orthopnea Gastrointestinal: COMPLAINS OF: Abdominal pain, Nausea, DENIES: Black stools, Bloody stools, Diarrhea, Vomiting Genitourinary: DENIES: Abnormal vaginal bleeding, Urinary frequency, Urinary incontinence, Urgency, Hematuria, Dysuria, Nocturia Musculoskeletal: COMPLAINS OF: Back pain, DENIES: Joint pain, Muscle aches, Stiffness, Neck pain Hematologic/Lymphatics: DENIES: Bruising, Lymphadenopathy Neurologic: DENIES: Headache, Localized weakness, Paresthesias, Seizures, Tremor, Poor Balance Psychiatric: COMPLAINS OF: Anxiety, Confusion, Depression, DENIES: Hallucinations, Agitation Past Family Social History Coded Allergies: Sulfa (Sulfonamide Antibiotics) (Verified Allergy, Intermediate, Rash, ) Past Medical History Left-sided breast carcinoma: 1988 Right-sided invasive lobular carcinoma of the breast: 2014 Cutaneous recurrence of breast carcinoma involving the right chest wall: 2016 Bilateral pulmonary emboli June 2017 Right lower extremity deep venous thrombosis: June 2017 Hemorrhoids Multiple nonmelanoma skin cancers Hypertension Hypothyroidism . Past Surgical History Tonsillectomy Colonoscopy Left knee surgery Hernia repair surgery Left breast modified radical mastectomy Right breast modified radical mastectomy Resection of cutaneous recurrence of breast carcinoma (right chest wall) Resection of multiple nonmelanoma skin cancers Image guided breast biopsies (multiple) . Reported Medications Pre-hospitalization medications included the following: Xarelto (Rivaroxaban) 15 Mg Tab 15 Mg PO BID 21 Days Zofran Odt (Ondansetron Odt) 4 Mg Tab 4 Mg SL Q6HR PRN Levofloxacin 500 Mg Tablet 500 Mg PO DAILY Metronidazole 500 Mg Tab 500 Mg PO TID Lisinopril-Hctz 10-12.5 Mg Tab 1 Tab PO DAILY Metoprolol Tartrate 25 Mg Tab 25 Mg PO DAILY Levothyroxine (Levothyroxine Sodium) 25 Mcg Tab 75 Mcg PO DAILY . Current Medications Medications (Trade) Dose Ordered Sig/Braydon Route Start Time Stop Time Status Last Admin (Synthroid) 75 mcg DAILY@0600 PO 07/28/17 13:00 Future hold 08/06/17 06:37 (Lopressor) 25 mg DAILY PO 07/28/17 12:45 Future hold 08/06/17 09:09 (Prinivil) 10 mg DAILY PO 07/28/17 13:00 Future Hold (Microzide) 12.5 mg DAILY PO 07/28/17 13:00 Future Hold (NS Flush) 2 ml UNSCH PRN IV FLUSH 07/28/17 13:00 08/05/17 22:31 (NS Flush) 2 ml BID IV FLUSH 07/28/17 21:00 08/06/17 09:12 (Hemorrhoidal Hc Supp) 25 mg BID RECTAL 07/31/17 09:00 08/05/17 22:31 (Protonix Inj) 40 mg Q12HR IV PUSH 07/31/17 09:15 08/06/17 09:09 (Microzide) 12.5 mg DAILY PO 07/31/17 11:45 08/06/17 09:10 (Apresoline Inj) 10 mg Q6H PRN IV PUSH 08/01/17 14:45 (Denise-Colace) 2 tab BID PO 08/02/17 09:30 08/06/17 09:09 (Lovenox Inj) 60 mg Q12H SQ 08/03/17 13:00 08/06/17 13:16 (Mylicon Chew) 80 mg PCHS PRN CHEW 08/04/17 10:00 (Lasix) 20 mg BID@ PO 08/05/17 09:00 08/05/17 18:34 (KCl) 10 meq Q12HR PO 08/05/17 09:00 08/06/17 09:12 (Zofran Inj) 4 mg Q6HR PRN IV PUSH 08/06/17 08:15 (Mycostatin Liq) 5 ml QID SWISH-SWAL 08/06/17 09:30 08/06/17 13:15 (Chloraseptic L[place]y) 2 spray Q2H PRN OROPHARYNG 08/06/17 09:00 08/06/17 13:16 (Tylenol) 650 mg Q6H PRN PO 08/06/17 15:45 . Family History The patient's mother at age 97. She had atrial fibrillation and thyroid disease. Patient's father at age 65 from complications of liver failure. The patient's sister was also diagnosed with breast cancer. . Substance Use Tobacco: Lifetime non-smoker. Alcohol: No known history of abuse. Prescription med abuse: No known abuse. Illicits: No known use of illicits. . 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 . The patient has been living with her son. The patient has 5 children . Spiritual/Cultural Factors [employer] . Living Will: Copy in medical record Health Care Surrogate: Copy in medical record Durable Power of Side Splitter: Never completed Date completed: Both the living will and designation of health care surrogate are dated 2017 . Health Care Surrogate(s): The patient has designated her son -=- Tyler Sam -- as the primary surrogate ; and her [id number] -- Berenice Sam -- as her alternate,. . Documented care wishes: The patient has completed a [place] living will. It indicates that if she should ever have an end-stage condition or be in a persistent vegetative state she would not want cardio pulmonary resuscitation, antibiotics, or artificial nutrition/hydration. She would want "maximum pain relief." . Today's verbally stated goals: The patient appeared unable to verbally state her own goals today. She appeared to exhausted and uncomfortable to do so. It appears she wants her son- -Tyler--to be present. . Family/friends goals: The patient's granddaughter -- Jeannie -- believes transitioning to comfort care and hospice at this point would be best for the patient and most in line with her goals/preferences. Her son and daughter feel the patient might be oversedated from pain medications. They want to hold back on these so the patient might be better able to make her own decisions on 08/07/17. . Ethical and Legal Issues If decline continues, patient may soon become unable to participate in her own decision making. . Physical Exam Vital Signs Date Time Temp Pulse Resp B/P (MAP) Pulse Ox O2 Delivery O2 Flow Rate FiO2 08/06/17 17:00 98.1 88 16 111/60 (77) 95 08/06/17 13:15 98.5 81 16 111/62 (78) 99 08/06/17 08:55 Nasal Cannula 2.50 Humidified 08/06/17 08:55 98.6 103 17 124/79 (94) 100 08/06/17 04:49 98.4 93 18 116/60 (78) 98 08/06/17 04:15 103 08/06/17 00:50 97.5 86 16 118/62 (80) 99 08/06/17 00:10 91 08/05/17 20:20 Nasal Cannula 2.00 Humidified 08/05/17 20:12 98.5 88 16 104/54 (71) 98 08/05/17 20:05 88 . Exam CONSTITUTIONAL/GENERAL: This is a thin, pale, frail appearing female in a medical oncology bed. She appears exhausted but not painful at time of my visit. Responses to Questions are slow and terse. TUBES/LINES/DRAINS: Peripehral IV; nasal cannula 02 SKIN: No jaundice, rashes. Large hematoma over left lateral abdomen/flank. Ecchymoses on upper extremities. No wounds seen anteriorly. Skin temperature appropriate. Not diaphoretic. HEAD: Atraumatic. Normocephalic. EYES: Pupils equal and round and reactive. Extraocular motions intact. No scleral icterus. No injection or drainage. Fundi not examined. ENT: Hearing grossly normal. Nose without bleeding or purulent drainage. Throat without visible erythema, exudates, masses, or lesions. NECK: Trachea midline. Supple, nontender. No palpable thyroid enlargement or nodularity. CARDIOVASCULAR: Regular rate and rhythm without murmurs, gallops, or rubs. No JVD. Peripheral pulses symmetric. RESPIRATORY/CHEST: Symmetric, unlabored respirations. Clear to auscultation. Breath sounds equal bilaterally. No wheezes, rales, or rhonchi. GASTROINTESTINAL: Abdomen soft, non-tender, nondistended. No hepato-splenomegaly , or palpable masses. No guarding. Bowel sounds present. GENITOURINARY: Without palpable bladder distension. Hodges catheter in place. MUSCULOSKELETAL: Extremities without clubbing, cyanosis. Trace lower extremity edema. No joint tenderness or effusion noted. No calf tenderness. No mottling. LYMPHATICS: No palpable cervical or supraclavicular adenopathy. NEUROLOGICAL: Exhausted appearing. Answers appropriately, but slowly. Follows simple commands. Moves all extremities. PSYCHIATRIC: Affect appears depressed. No apparent hallucinations or other psychotic thought process. . Diagnostic Tests Laboratory Laboratory Tests Test 08/04/17 05:40 08/05/17 07:06 08/05/17 10:42 08/06/17 08:39 White Blood Count 11.5 TH/MM3 (4.0-11.0) 10.1 TH/MM3 (4.0-11.0) 8.4 TH/MM3 (4.0-11.0) Red Blood Count 3.51 MIL/MM3 (4.00-5.30) 3.38 MIL/MM3 (4.00-5.30) 3.24 MIL/MM3 (4.00-5.30) Hemoglobin 11.5 GM/DL (11.6-15.3) 11.1 GM/DL (11.6-15.3) 10.8 GM/DL (11.6-15.3) Hematocrit 33.9 % (35.0-46.0) 32.5 % (35.0-46.0) 31.1 % (35.0-46.0) Mean Corpuscular Volume 96.6 FL (80.0-100.0) 96.0 FL (80.0-100.0) 96.0 FL (80.0-100.0) Mean Corpuscular Hemoglobin 32.7 PG (27.0-34.0) 32.7 PG (27.0-34.0) 33.2 PG (27.0-34.0) Mean Corpuscular Hemoglobin Concent 33.8 % (32.0-36.0) 34.1 % (32.0-36.0) 34.6 % (32.0-36.0) Red Cell Distribution Width 21.0 % (11.6-17.2) 20.4 % (11.6-17.2) 20.3 % (11.6-17.2) Platelet Count 108 TH/MM3 (150-450) 103 TH/MM3 (150-450) 87 TH/MM3 (150-450) Mean Platelet Volume 10.0 FL (7.0-11.0) 10.6 FL (7.0-11.0) 11.0 FL (7.0-11.0) Neutrophils (%) (Auto) 94.1 % (16.0-70.0) 93.8 % (16.0-70.0) Lymphocytes (%) (Auto) 3.7 % (9.0-44.0) 3.5 % (9.0-44.0) Monocytes (%) (Auto) 2.1 % (0.0-8.0) 2.6 % (0.0-8.0) Eosinophils (%) (Auto) 0.0 % (0.0-4.0) 0.0 % (0.0-4.0) Basophils (%) (Auto) 0.1 % (0.0-2.0) 0.1 % (0.0-2.0) Neutrophils # (Auto) 10.8 TH/MM3 (1.8-7.7) 9.5 TH/MM3 (1.8-7.7) Lymphocytes # (Auto) 0.4 TH/MM3 (1.0-4.8) 0.4 TH/MM3 (1.0-4.8) Monocytes # (Auto) 0.2 TH/MM3 (0-0.9) 0.3 TH/MM3 (0-0.9) Eosinophils # (Auto) 0.0 TH/MM3 (0-0.4) 0.0 TH/MM3 (0-0.4) Basophils # (Auto) 0.0 TH/MM3 (0-0.2) 0.0 TH/MM3 (0-0.2) CBC Comment DIFF FINAL DIFF FINAL Differential Comment FINAL DIFF MANUAL Blood Urea Nitrogen 20 MG/DL (7-18) 27 MG/DL (7-18) 28 MG/DL (7-18) Creatinine 0.92 MG/DL (0.50-1.00) 0.83 MG/DL (0.50-1.00) 0.91 MG/DL (0.50-1.00) Random Glucose 122 MG/DL (74-106) 103 MG/DL (74-106) 88 MG/DL (74-106) Total Protein 5.0 GM/DL (6.4-8.2) 4.7 GM/DL (6.4-8.2) 4.8 GM/DL (6.4-8.2) Albumin 1.7 GM/DL (3.4-5.0) 1.7 GM/DL (3.4-5.0) 1.7 GM/DL (3.4-5.0) Calcium Level 8.2 MG/DL (8.5-10.1) 8.5 MG/DL (8.5-10.1) 7.9 MG/DL (8.5-10.1) Alkaline Phosphatase 715 U/L (45-117) 627 U/L (45-117) 624 U/L (45-117) Aspartate Amino Transf (AST/SGOT) 174 U/L (15-37) 190 U/L (15-37) 213 U/L (15-37) Alanine Aminotransferase (ALT/SGPT) 41 U/L (10-53) 42 U/L (10-53) 50 U/L (10-53) Total Bilirubin 4.6 MG/DL (0.2-1.0) 4.5 MG/DL (0.2-1.0) 6.5 MG/DL (0.2-1.0) Sodium Level 135 MEQ/L (136-145) 135 MEQ/L (136-145) 134 MEQ/L (136-145) Potassium Level 4.3 MEQ/L (3.5-5.1) 4.0 MEQ/L (3.5-5.1) 4.1 MEQ/L (3.5-5.1) Chloride Level 101 MEQ/L (98-107) 101 MEQ/L (98-107) 97 MEQ/L (98-107) Carbon Dioxide Level 22.8 MEQ/L (21.0-32.0) 26.0 MEQ/L (21.0-32.0) 30.0 MEQ/L (21.0-32.0) Anion Gap 11 MEQ/L (5-15) 8 MEQ/L (5-15) 7 MEQ/L (5-15) Estimat Glomerular Filtration Rate 58 ML/MIN (>89) 66 ML/MIN (>89) 59 ML/MIN (>89) Prothrombin Time 12.7 SEC (9.8-11.6) Prothromb Time International Ratio 1.3 RATIO Activated Partial Thromboplast Time 42.8 SEC (24.3-30.1) Differential Total Cells Counted 100 Neutrophils % (Manual) 97 % (16-70) Band Neutrophils % 1 % (0-6) Lymphocytes % 2 % (9-44) Neutrophils # (Manual) 8.2 TH/MM3 (1.8-7.7) Platelet Estimate LOW (NORMAL) Platelet Morphology Comment NORMAL (NORMAL) Test 08/06/17 13:35 Urine Color YELLOW (YELLW/STRAW) Urine Turbidity CLEAR (CLEAR) Urine pH 5.5 (5.0-8.5) Urine Specific [place] 1.016 (1.002-1.035) Urine Protein NEG mg/dL (NEG-TRACE) Urine Glucose (UA) NEG mg/dL (NEG) Urine Ketones NEG mg/dL (NEG) Urine Occult Blood NEG (NEG) Urine Nitrite NEG (NEG) Urine Bilirubin SMALL (NEG) Urine Urobilinogen LESS THAN 2.0 MG/DL (LESS Urine Leukocyte Esterase NEG (NEG) Urine RBC LESS THAN 1 /hpf (0-3) Urine WBC 2 /hpf (0-5) Urine Squamous Epithelial Cells <1 /hpf (0-5) Urine Hyaline Casts 8 /lpf (RARE) Microscopic Urinalysis Comment CULT NOT INDICATED . Result Diagram: 08/06/1783808/06/17838 Microbiology Microbiology Date/Time Source Procedure Growth Status 07/29/17 15:00 Stool Stool Stool Occult Blood (ISA) - Final HEMOCCULT POSITIVE Complete . Imaging Last Impressions Soft Tissue Ultrasound 08/06/171045 Signed Impressions: Service Date/Time: Sunday, August 06, 2017 11:16 - CONCLUSION: 1. Probable hematoma in the lateral left abdomen with measurements above. Surrounding edema. Noah Gates MD Chest X-Ray 08/06/171045 Signed Impressions: Service Date/Time: Sunday, August 06, 2017 14:25 - CONCLUSION: 1. Subsegmental mostly basilar airspace disease the lungs. No effusion or pneumothorax. Noah Gates MD Chest CT 08/01/17 Signed Impressions: Service Date/Time: July 11:39 - CONCLUSION: 1. Today's examination again demonstrates areas of consolidation involving the right upper and right middle lobes. There is a small associated nodule in the right upper lobe measuring 0.7 x 1.0 cm. The overall appearance of these would suggest they are probably inflammatory however, continued followup to exclude malignancy will be needed. 2. Interval decrease in size of the patient's middle mediastinal lymph node. 3. Cardiomegaly. 4. Small bilateral effusions new when compared to the prior exam. Charly Garcia MD Abdomen/Pelvis CT 08/01/17 Signed Impressions: Service Date/Time: July 11:39 - CONCLUSION: 1. Cirrhotic appearing liver with small benign appearing low density lesion in the dome of the right lobe. 2. Moderate amount of ascitic fluid in the abdomen and pelvis. 3. Abnormal gallbladder wall thickening versus pericholecystic fluid. No calcified gallstones. 4. Small bilateral pleural effusions. Kofi Alvarez MD Abdomen MRI 08/01/17 0000 Signed Impressions: Service Date/Time: July 19:22 - CONCLUSION: 1. 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 No definite evidence for metastatic disease. Mild ascites. Moderate anasarca. Edematous gallbladder wall. Noah Gates MD ADDENDUM: The study was reevaluated on request of Dr. Liu. There is diffusely heterogeneous decreased enhancement throughout the posterior right lobes of the liver, predominantly segments 6 and 7. No definitive decreased T1 signal abnormality although there is subtle restricted diffusion. Although somewhat atypical, the findings are concerning for infiltrative mass. Patient would benefit from you just MRI or PET/CT examination given history of breast CA. Matthias Arnett MD Brain MRI 07/31/17 0000 Signed Impressions: Service Date/Time: Monday, July 31, 2017 17:39 - CONCLUSION: 1. A few scattered foci of bright T2 signal abnormality/restricted diffusion in both cerebral hemispheres greater in the left parietal lobe which can be seen with showering emboli/infarcts. 2. A few enhancing lesions in the cerebellar hemispheres, nonspecific but could represent metastatic disease. Rc Engel MD Hepatobiliary Scan Nuclear Medicine 07/30/17 0000 Signed Impressions: Service Date/Time: Sunday, July 30, 2017 09:56 - CONCLUSION: 1. Normal biliary examination. 2. There is normal filling of the gallbladder which excludes cystic duct obstruction and there is normal uptake of the radiopharmaceutical by the liver suggesting against hepatocellular dysfunction. 3. Additionally, there is normal gallbladder response to CCK administration. Tyrone Solo MD Gall Bladder Ultrasound 07/28/17 0000 Signed Impressions: Service Date/Time: Friday, July 28, 2017 15:12 - CONCLUSION: 1. Distended gallbladder without stones. Gallbladder wall is mildly thickened at 4 mm. This is nonspecific. This could be from generalized hepatic disease versus other causes of edema. Acalculus cholecystitis cannot absolutely be excluded. 2. Right renal cyst. Tyrone Briggs MD Cholangiopancreatography MRI 07/28/17 0000 Signed Impressions: Service Date/Time: Friday, July 28, 2017 14:08 - CONCLUSION: 1. Distended gallbladder with surrounding edema but no gallstones. This can be seen with hepatic disease. Acalculus cholecystitis cannot be excluded. 2. Periportal edema. 3. Biliary dilatation is not clearly seen. Tyrone Briggs MD . Patient/Family Conference Present at Family Conference: I attempted initially to speak with patient . she appeared to exhausted/ uncomfortable to engage in a meaningful conversation. Subsequent , I met with family in the consultation room -- Jeannie (granddaughter) ; Carey (daughter); Aashish (son) listened in via cell phone. . Family Conference Time (mins): 40 Family Conference Location: Bedside, Consult Room Issues Discussed: * We discussed patient's current status * We discussed benefits/burdens of aggressive treatment vs comfort oriented care. * We discussed hospice care * We discussed the difficulty of addressing pain without causing sedation. * We discussed how most of the studies looking at chemotherapy are not performed in patient's her age and as ill as she is. It is difficult to predict if she will respond and how long a response she might have. * We discussed my conversation with Dr. Liu. . . Assessment and Plan Disease Oriented Problem List: (1) Breast cancer Comment: Recurrent breast cancer now appears to involve liver and possibly brain. . (2) Pulmonary embolism Comment: Hospitalized in June for bilateral PEs. . (3) Blood in stool (4) Abnormal brain MRI (5) Hypothyroidism Symptom Scale: (1) Pain 0-10 Scale: Unable to quantify Comment: Most of her pain appears to be at the site of her left lateral abdominal hematoma. . (2) Dyspnea 0-10 Scale: Unable to quantify Comment: Helped by supplemental 02. . (3) Generalized weakness 0-10 Scale: Unable to quantify (4) Fatigue 0-10 Scale: Unable to quantify Pertinent Non-Medical Issues Psychosocial: Had been living alone. Multiple children and grandchildren live in area and provide psyhosocial support. Spiritual: Self designates as [employer]. Legal: Ethical issues impacting care: Currently capacitated to make her own health care decisions, but appears too exhausted and overwhelmed to do it. . Important Contacts * Tyler Sam (son and health care surrogate) * Vidya Astudillo (daughter) [phone] . 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 She has poor functional status and seems to have declined after her first chemotherapy treatment. Given her age and degree of debility, it is not clear if she will gain benefit from the chemo before she is overcome by the disease. It is also not clear given her age and debility to what extent she might be expected to benefit if she does respond as most of the studies have not been done on subjects like her. Without chemo, however, is likely to come within weeks. She is certainly a candidate for hospice care at such time as she would want to forego aggressive care and transition to comfort oriented care. She will likely be able to have some home time and be more comfortable with hospice care. . Code Status: Full Code Plan == Code Status: FULL CODE. Will want to address this with patient again if/ when she becomes more lucid. If patient does not become more lucid, will want to address with surrogate. Patient's living will indicates she would not want to be resuscitated if her condition is end stage. == Decision making: Patient's ability to make her own health care decisions appears to be rapidly declining. She is quite exhausted and seems to have some difficulty processing the benefits and burdens of treatment options. Should she become incapacitated we would rely on her living will and the decision of her surrogate -- her son Tyler. == Goals of medical treatment: Patient had initially indicated she would want palliative chemotherapy. However, she has also wanted to be comfortable and to be able to go home. It is becoming less likely that she will be able to do both. Family is planning on meeting on 08/07 and they are hoping patient will be better able to participate in the conversation. == Symptoms: * Pain: most of her pain appears to be in the area of her hematoma. Family tells me she is somewhat stoic . The fact that she is asking for hydrocodone and not just acetaminophen would suggest her pain is quite severe. However, some family members feel she is quite sensitive to pain medications and feel she might be overmedicated from the opiates. They are asking to back dosing down to 2.5 mg of hydrocodone per dose. Nursing pain level assessments have mostly been from 4-10 over the past several days. Will decrease dosing per family request and re-evaluate. * Dyspnea: Appears well controlled while patient is at bedrest with supplemental 02. No further recommendations at this time. * Generalized weakness/fatigue: I believe this is from the underlying disease process. She might benefit symptomatically from systemic steroids but would discourage given her need to remain on anti-coagulants and her current hematoma. Weakness/fatigue may be exacerbated by chemotherapy in which case i would expect it to continue after subsequent dosing. No further recommendations at this time. == will plan on meeting with patient and family members again on 08/07/17. == Case discussed via telephone at length with Dr. Liu. . Time Spent Total Floor Time (mins): 80 (Visited floor twice for total time of over 80 minutes. Total time included chart review, patient exam, discussion with dr. Liu, review of advance directive, above referenced patient/family conference, and documentation. ) Face to Face Time (mins): 20 >50% Counseling/Coord of Care: Yes Thank you for the opportunity to participate in the care of Ms. Sam. . Attestation To help prompt me to consider important information that might be impacting today's encounter and assessment, information from prior notes written by myself or my colleagues may have been "brought forward" into today's note. My signature on this note, however, is an attestation that I personally performed the exam, history, and/or decision-making noted today, and, unless otherwise indicated, the interactions with patient, family, and staff as well as the review of records all occurred today. I also attest that the listed assessment and stated plan reflect my best clinical judgment today based on the combination of historical information, prior notes, and today's exam/ interactions. When time spent is documented, it refers only to time spent today by the signer, or if indicated, combined time spent today by collaborating physician/nurse practitioner. . Thor Fontaine MD August 06, 2017 18:35
[2017-08-06] MEDS: SODIUM CHLORIDE 0.9% FLUSH 10 ML FLUSH IV FLUSH PRN (21:15)
[2017-08-06 23:52] LABS: ALK PHOS BONE (ISOENZYMES) 40 % (28-66); ALK PHOS INTESTINE (ISOENZYME) 0 % (1-24); ALK PHOS LIVER (ISOENZYME) 60 % (25-69); ALK PHOS PLACENTAL ISOENZYME 0 % (0)
[2017-08-07] VITALS (10 sets, daily range): BP systolic 105–120; BP diastolic 53–67; PULSE 87–109; RESP 16–20; TEMP 98.1–99.5; O2SAT 94–97
[2017-08-07] MEDS: ENOXAPARIN SODIUM 60 MG/0.6 ML SYRINGE SQ SCH ×2 (00:32→13:00)
[2017-08-07] MEDS: LEVOTHYROXINE SODIUM 25 MCG TAB PO SCH (06:06)
--- NOTE | 2017-08-07 07:41 | PD.ONC.PN ---
Subjective Subjective Remarks Patient seen and examined, vital signs, labs, medications, imaging studies and events overnight reviewed. Subjectively; the patient's major complaint is that of dryness in the mouth, she tells me her mouth is so dry and tender it is hard for her to speak, it is near impossible for her to swallow anything. She tells me she has had nothing to eat or drink other than a few sips of liquid. The patient also reports feeling "worse all over ". She denies difficulty breathing, she denies chest pain she denies palpitations she denies nausea or vomiting. Her major pain is on the left flank where she was found to have a hematoma in the soft tissues and in the mouth. The patient was seen by the palliative care service yesterday for symptom management. The patient's son and [id number] are in the room with her this morning at the time I saw her. Objective Data Date Time Temp Pulse Resp B/P (MAP) Pulse Ox O2 Delivery O2 Flow Rate FiO2 08/07/17 04:55 16 08/07/17 04:05 108 08/07/17 03:07 99.5 104 18 120/59 (79) 95 08/07/17 00:27 98.1 107 18 117/67 (84) 97 08/07/17 00:15 102 08/06/17 20:15 Nasal Cannula 1.50 Humidified 08/06/17 20:11 98.2 108 18 127/72 (90) 96 08/06/17 20:02 96 08/06/17 17:00 98.1 88 16 111/60 (77) 95 08/06/17 13:15 98.5 81 16 111/62 (78) 99 08/06/17 08:55 Nasal Cannula 2.50 Humidified 08/06/17 08:55 98.6 103 17 124/79 (94) 100 08/07/17 08/07/17 08/07/17 07:00 15:00 23:00 Intake Total 240 ml Output Total 500 ml Balance -260 ml Result Diagram: 08/06/17 0839 08/06/17 0839 Laboratory Results Laboratory Tests Test 08/06/17 08:39 08/06/17 13:35 White Blood Count 8.4 TH/MM3 Red Blood Count 3.24 MIL/MM3 Hemoglobin 10.8 GM/DL Hematocrit 31.1 % Mean Corpuscular Volume 96.0 FL Mean Corpuscular Hemoglobin 33.2 PG Mean Corpuscular Hemoglobin Concent 34.6 % Red Cell Distribution Width 20.3 % Platelet Count 87 TH/MM3 Mean Platelet Volume 11.0 FL Differential Total Cells Counted 100 Neutrophils % (Manual) 97 % Band Neutrophils % 1 % Lymphocytes % 2 % Neutrophils # (Manual) 8.2 TH/MM3 Differential Comment FINAL DIFF MANUAL Platelet Estimate LOW Platelet Morphology Comment NORMAL Blood Urea Nitrogen 28 MG/DL Creatinine 0.91 MG/DL Random Glucose 88 MG/DL Total Protein 4.8 GM/DL Albumin 1.7 GM/DL Calcium Level 7.9 MG/DL Alkaline Phosphatase 624 U/L Aspartate Amino Transf (AST/SGOT) 213 U/L Alanine Aminotransferase (ALT/SGPT) 50 U/L Total Bilirubin 6.5 MG/DL Sodium Level 134 MEQ/L Potassium Level 4.1 MEQ/L Chloride Level 97 MEQ/L Carbon Dioxide Level 30.0 MEQ/L Anion Gap 7 MEQ/L Estimat Glomerular Filtration Rate 59 ML/MIN Urine Color YELLOW Urine Turbidity CLEAR Urine pH 5.5 Urine Specific [place] 1.016 Urine Protein NEG mg/dL Urine Glucose (UA) NEG mg/dL Urine Ketones NEG mg/dL Urine Occult Blood NEG Urine Nitrite NEG Urine Bilirubin SMALL Urine Urobilinogen LESS THAN 2.0 MG/DL Urine Leukocyte Esterase NEG Urine RBC LESS THAN 1 /hpf Urine WBC 2 /hpf Urine Squamous Epithelial Cells <1 /hpf Urine Hyaline Casts 8 /lpf Microscopic Urinalysis Comment CULT NOT INDICATED Imaging Studies Last 24 hours Impressions Soft Tissue Ultrasound 08/06/17 1046 Signed Impressions: Service Date/Time: Sunday, August 06, 2017 11:16 - CONCLUSION: 1. Probable hematoma in the lateral left abdomen with measurements above. Surrounding edema. Noah Gates MD Chest X-Ray 08/06/17 1046 Signed Impressions: Service Date/Time: Sunday, August 06, 2017 14:25 - CONCLUSION: 1. Subsegmental mostly basilar airspace disease the lungs. No effusion or pneumothorax. Noah Gates MD Administered Medications Medications (Trade) Dose Ordered Sig/Braydon Route PRN Reason Start Time Stop Time Status Last Admin Dose Admin Levothyroxine Sodium (Synthroid) 75 mcg DAILY@0600 PO 07/28/17 13:00 Future hold 08/07/17 06:06 Metoprolol Tartrate (Lopressor) 25 mg DAILY PO 07/28/17 12:45 Future hold 08/06/17 09:09 Sodium Chloride (NS Flush) 2 ml UNSCH PRN IV FLUSH FLUSH AFTER USING IV ACCESS 07/28/17 13:00 08/06/17 21:15 Sodium Chloride (NS Flush) 2 ml BID IV FLUSH 07/28/17 21:00 08/06/17 21:15 Hydrocortisone Acetate (Hemorrhoidal Hc Supp) 25 mg BID RECTAL 07/31/17 09:00 08/05/17 22:31 Pantoprazole Sodium (Protonix Inj) 40 mg Q12HR IV PUSH 07/31/17 09:15 08/06/17 21:15 Hydrochlorothiazide (Microzide) 12.5 mg DAILY PO 07/31/17 11:45 08/06/17 09:10 Senna/Docusate Sodium (Denise-Colace) 2 tab BID PO 08/02/17 09:30 08/06/17 21:18 Enoxaparin Sodium (Lovenox Inj) 60 mg Q12H SQ 08/03/17 13:00 08/07/17 00:32 Potassium Chloride (KCl) 10 meq Q12HR PO 08/05/17 09:00 08/06/17 21:18 Nystatin (Mycostatin Liq) 5 ml QID SWISH-SWAL 08/06/17 09:30 08/06/17 21:17 Phenol (Chloraseptic [place]) 2 spray Q2H PRN OROPHARYNG SORE THROAT 08/06/17 09:00 08/06/17 13:16 Objective Remarks GENERAL: Elderly lady, sitting up on a bedside chair, appears to be no acute distress, has a pleasant disposition. Coughs multiple times during this interview. Her son and son-in-law are at bedside. SKIN: No rashes, ecchymoses or lesions. Cool and dry. HEAD: Atraumatic. Normocephalic. No temporal or scalp tenderness. EYES: Pupils equal round and reactive. Extraocular motions intact. No scleral icterus. No injection or drainage. ENT: Mucous membranes are dry, thrush no longer noted, no ulceration noted. Mild erythema which is in patches noted. NECK: Trachea midline. No JVD or lymphadenopathy. Supple, nontender, no meningeal signs. CARDIOVASCULAR: Irregular rhythm, S1-S2 no obvious murmurs rubs gallops. RESPIRATORY: Good air movement bilaterally no wheezes, no rhonchi. GASTROINTESTINAL: Abdomen soft, non-tender, nondistended. No hepato-splenomegaly , or palpable masses. No guarding. MUSCULOSKELETAL: Extremities without clubbing, cyanosis, or edema. No joint tenderness, effusion, or edema noted. No calf tenderness. Negative Homans sign bilaterally. NEUROLOGICAL: Awake and alert. Cranial nerves II through XII intact. Motor and sensory grossly within normal limits. Five out of 5 muscle strength in all muscle groups. Normal speech. Skin: No obvious masses noted. Breast examination: Status post bilateral mastectomy. No masses or nodules noted on the chest wall. No axial lymphadenopathy. Extremities: Edema is decreased bilaterally.. Assessment/Plan Assessment Ms. Sam is a very pleasant 81-year-old female with a history of bilateral breast carcinoma; initial diagnosis established in 1988 when she presented with a locally advanced left breast carcinoma. Treated with surgical resection followed by adjuvant chemotherapy as outlined above. In 2014 she presented with a stage I HER-2 amplified right breast carcinoma which was surgically resected with a modified radical mastectomy. She elected for observation alone , in the spring 2016 she presented with a local recurrence on the right chest wall which was surgically resected. Following surgical resection she underwent postop radiation for local control. She again declined systemic interventions with anti-HER-2 therapy. In June 2017 she developed bilateral pulmonary emboli associate with the right lower extreme deep venous thrombosis. No obvious provoking factor was identified. She at the time of presentation with the pulmonary emboli had abnormal liver function testing (before any anticoagulation was initiated). Over the course of the past 3 weeks her liver enzymes have remained elevated, in fact they have worsened and she now has hyperbilirubinemia in addition to elevated AST, ALT and alkaline phosphatase levels. She has been evaluated for possible gallbladder dysfunction or extrahepatic obstruction of the biliary tree. Upon review of her most recent CT scans I am concerned of a diffuse infiltrating pattern of metastatic disease to the liver; primarily the inferior portions of the right hepatic lobe where on independent review there appears to be an abnormal signal. Plan 1. Metastatic breast carcinoma: Status post first dose of palliative paclitaxel and Herceptin on 08/03/2017. 2. Pulmonary emboli: On therapeutic anticoagulation with Lovenox 60 mg subcu every 12 hours. She does have a hematoma involving the left flank, this initially became symptomatic while she was still on heparin. While on heparin there were times her PTT was supratherapeutic. I would recommend continuation of Lovenox at the current dose. 3. Peripheral edema: BUN is increasing, creatinine also increasing, her body weight is down. I have decreased Lovenox from 20 mg twice daily to 20 mg once a day. 4. Continue monitoring and supportive care including physical therapy, improved oral nutritional intake. 5. Dryness of the mouth: I have advised her to try to moisturize her mouth the best she can with water. I will start her on some Biotene as well to help soothe the mucositis. 6. Oropharyngeal candidiasis: Started pt on nystatin swish and swallow QID. Continue supportive care. Jacob Liu MD August 07, 2017 07:41
[2017-08-07 08:32] LABS: AUTOMATED NEUTROPHIL # 8.1 TH/MM3 (1.8-7.7); BASOPHIL % 0.4 % (0.0-2.0); EOSINOPHIL % 0.1 % (0.0-4.0); HEMATOCRIT 28.5 % (35.0-46.0); LYMPH % 5.5 % (9.0-44.0); LYMPHOCYTE # 0.5 TH/MM3 (1.0-4.8); MEAN CELL VOLUME 95.1 FL (80.0-100.0); MEAN CORPUSCULAR HEMOGLOBIN 33.4 PG (27.0-34.0); MEAN CORPUSCULAR HGB CONC 35.1 % (32.0-36.0); MEAN PLATELET VOLUME 11.8 FL (7.0-11.0); MONO % 1.6 % (0.0-8.0); MONOCYTE # 0.1 TH/MM3 (0-0.9); NEUT % 92.4 % (16.0-70.0); PLATELET COUNT 79 TH/MM3 (150-450); RED CELL DISTRIBUTION WIDTH 20.4 % (11.6-17.2); WHITE BLOOD COUNT 8.8 TH/MM3 (4.0-11.0)
[2017-08-07 08:57] LABS: ALBUMIN 1.6 GM/DL (3.4-5.0); ALT (GPT) 46 U/L (10-53); AST (GOT) 187 U/L (15-37); BICARBONATE 30.8 MEQ/L (21.0-32.0); BLOOD UREA NITROGEN 28 MG/DL (7-18); CALCIUM 8.2 MG/DL (8.5-10.1); CHLORIDE 97 MEQ/L (98-107); CREATININE 0.79 MG/DL (0.50-1.00); GLOMERULAR FILTRATION RATE 70 ML/MIN (>89); GLUCOSE,RANDOM 90 MG/DL (74-106); SODIUM (NA) 135 MEQ/L (136-145)
[2017-08-07 09:00] LABS: ALKALINE PHOSPHATASE 552 U/L (45-117); TOTAL BILIRUBIN ADULT 7.4 MG/DL (0.2-1.0); TOTAL PROTEIN 4.6 GM/DL (6.4-8.2)
[2017-08-07] MEDS: HYDROCORTISONE ACETATE 25 MG SUPP RECTAL SCH ×2 (09:00→20:48)
[2017-08-07] MEDS: SODIUM CHLORIDE 0.9% FLUSH 10 ML FLUSH IV FLUSH SCH ×2 (09:00→20:49)
[2017-08-07] MEDS: ACETAMINOPHEN/HYDROcodone 325 MG/5 MG TAB PO PRN ×2 (09:19→20:50)
[2017-08-07] MEDS: HYDROCHLOROTHIAZIDE 12.5 MG CAP PO SCH (09:20)
[2017-08-07] MEDS: METOPROLOL TARTRATE 25 MG TAB PO SCH (09:20)
[2017-08-07] MEDS: FUROSEMIDE 20 MG TAB PO SCH (09:20)
[2017-08-07] MEDS: DOCUSATE SODIUM 50 MG/SENNA 8.6 MG TAB PO SCH ×2 (09:20→20:48)
[2017-08-07] MEDS: NYSTATIN SUSP 500,000 U/5 ML CUP SWISH-SWAL SCH ×4 (09:21→20:49)
[2017-08-07] MEDS: PANTOPRAZOLE SODIUM 40 MG VIAL IV PUSH SCH ×2 (09:22→20:48)
[2017-08-07] MEDS: POTASSIUM CHLORIDE 10 MEQ CONTROLLED RELEASE TAB PO SCH ×2 (09:24→20:48)
[2017-08-07] MEDS ORDERED: SODIUM CHLORIDE 0.65% NASAL SPRAY 45 ML BTL EACH NARE PRN (10:00)
--- NOTE | 2017-08-07 10:49 | HHI.FPPN ---
Subjective Remarks Patient seen and examined this morning. No acute events overnight. Patient reports continued pain where the hematoma is. Also complains of very dry mouth and pain when drinking or swallowing. Patient states she does not want any more pain medication. Also discussed with family in the room, who, along with the patient do not want to proceed with trying to drain the hematoma at this time. (Jong Domniique MD R2) Objective Vitals Vital Signs Date Time Temp Pulse Resp B/P (MAP) Pulse Ox O2 Delivery O2 Flow Rate FiO2 08/07/17 04:55 16 08/07/17 04:05 108 08/07/17 03:07 99.5 104 18 120/59 (79) 95 08/07/17 00:27 98.1 107 18 117/67 (84) 97 08/07/17 00:15 102 08/06/17 20:15 Nasal Cannula 1.50 Humidified 08/06/17 20:11 98.2 108 18 127/72 (90) 96 08/06/17 20:02 96 08/06/17 17:00 98.1 88 16 111/60 (77) 95 08/06/17 13:15 98.5 81 16 111/62 (78) 99 I/O 08/06/17 08/06/17 08/06/17 08/07/17 08/07/17 08/07/17 07:00 15:00 23:00 07:00 15:00 23:00 Intake Total 360 ml 240 ml Output Total 1300 ml 800 ml 500 ml Balance -940 ml -800 ml -260 ml Intake Oral 360 ml 240 ml Output Urine Total 1300 ml 800 ml 500 ml # Bowel Movements 0 (Jong Dominique MD R2) Result Diagram: 08/07/17 0732 08/07/17 0732 Objective Remarks CONSTITUTIONAL/GEN: This is a elderly, lady resting in bed. Arousable but quiet. LUNGS: respiratory effort is normal. Some crackles in the lower lung tello, decreased lung sounds. CARDIOVASCULAR: RR without murmur or gallop. GI/ABD: soft without masses, without organomegaly. Hematoma present on left lower abdomen. Painful to palpation. SKIN: color normal, no rashes noted. MUSC: 1+ edema bilaterally unchanged from prior exams, improving PSYCH/MENTAL STATUS: Alert and oriented. (Jong Dominique MD R2) A/P Assessment and Plan Patient is an 81 y/o F w/hx of breast cancer admitted for severe nausea, poor PO intake, acute cholecystitis, and transaminitis. Supportive care, IV Abx, and Heparin drip was initiated in case of possible surgery/procedure. MRCP showed distended gallbladder with surrounding edema but no gallstones.. Portal edema was seen as well. General Surgery and GI consulted. HIDA scan was ordered and showed normal biliary examination with normal filling of the gallbladder. Spoke with gastroenterology today. The consensus is to avoid surgery and/or EGD due to patient being at significant pulmonary risk. Transaminitis and gallbladder studies are downtrending. It is possible that the patient may have had a transient gallstone partially occluding the common bile duct that has now passed v malignant process versus drug induced liver toxicity from Xarelto. Will discuss further with GI. MRI has shown a few enhancing lesions in the cerebellar hemispheres as well as scattered foci in the left parietal lobe; these could represent metastatic disease versus showering emboli/infarcts. CT of the chest/abdomen/pelvis were ordered to examine for possible source. CT chest with small nodule in the right upper lobe that has more inflammatory appearance and malignancy, CT abdomen/pelvis showed a cirrhotic appearing liver with small benign-appearing lesion in the dome of the right lobe, moderate ascitic fluid. Hematology was consulted and Dr. Liu, who a history with this patient for her breast carcinoma and anticoagulation, ordered an MRI of the abdomen to evaluate further. MRI showed probable liver cirrhosis with tiny cyst and no evidence of metastatic disease. Patient resumed chemotherapy with Taxol and Herceptin on 08/03. Tolerated well and will receive another treatment in 3 weeks. Patient has been cleared from oncology standpoint, but is currently weak and may require rehab. Patient noticeably weaker and less energetic on 08/06. After discussion with family and patient, palliative care was consulted. Patient noted to have ecchymosis on lateral aspect of the left abdomen. Ultrasound at that time showed a possible hematoma. Patient wishes to discuss with son prior to decision on whether or not to drain the hematoma or to watch. Discharge Planning Pending clinical improvement Discussed at length with the patient risks and benefits of SNF versus home health. She declines SNF placement at this time although recommendation would be to go there. Consulted palliative care on 08/06 (Jong Dominique MD R2) Problem List: (1) Breast cancer ICD Codes: C50.919 - Malignant neoplasm of unspecified site of unspecified female breast Status: Chronic Plan: History of breast cancer with one recent recurrence in 2017 MRI brain 08/01/17 shows a few scattered foci of bright T2 signal abnormality/ restricted diffusion in both cerebral hemispheres, greater in the left parietal lobe which can be seen with showering emboli/infarcts. A few enhancing lesions in the cerebral hemispheres appear nonspecific but could represent metastatic disease CT scan of the chest, abdomen and pelvis as well as MRI of the abdomen does not show any definite source of metastatic disease. Elevated CEA and CA 15-3 Likely breast cancer with metastatic disease Hematology consulted on 08/01 -Started Herceptin and Taxol on 08/03, will not need chemotherapy again for another 3 weeks -PET CT as outpatient -After discussion with family and patient, palliative care being consulted on 08/06 -Remains full code -Monitor pain control with. -Family meeting 08/07 to discuss options upon discharge (2) Hematoma ICD Codes: T14.8XXA - Other injury of unspecified body region, initial encounter Plan: Patient noted to have ecchymosis on the lateral aspect of the left lower abdomen. Patient has localized pain in this area for several days in the overlying erythema was noted to be increasing on 08/06 Ultrasound of the area showed probable hematoma measuring up to 3.9 x 3.4 x 3.4 cm with surrounding edema. Risks/benefits were discussed with the patient regarding her options including IR drainage or to watch it. Patient and family desires to monitor at this time without drainage. We will continue to monitor for signs of continued bleeding or infection. H&H currently stable, no leukocytosis or fever Tylenol for pain as well as half a tablet of [place] for now (3) Fatigue ICD Codes: R53.83 - Other fatigue Plan: Patient noticeably more fatigued, weak on 08/06 Concern for possible medication ashley effect UA and CXR wnl Continue to monitor (4) Oropharyngeal candidiasis ICD Codes: B37.0 - Candidal stomatitis Status: Acute Plan: On Nystatin swish and swallow Adding nasal mist to help with dry mouth as well (5) Transaminitis ICD Codes: R74.0 - Nonspecific elevation of levels of transaminase and lactic acid dehydrogenase [LDH] Status: Acute Plan: LFTs had been worsening after Xarelto resumed (07/31) Significant alk phos elevation LFTs trending down Xarelto discontinued. Currently on therapeutic Lovenox. Hematology consulted for anticoagulation recommendations Avoid NSAIDs, statins, tetracyclines/sulfa medications, and all other hepatotoxic medications (6) Lung crackles ICD Codes: R09.89 - Other specified symptoms and signs involving the circulatory and respiratory systems Plan: Currently on 2 L nasal cannula, will attempt to wean if able Possible 2/2 to atelectasis from confinement to bed CT chest on 08/02 showed small bilateral pleural effusions IS Duonebs scheduled every 6 while awake Lasix 20mg daily (7) Acute cholecystitis ICD Codes: K81.0 - Acute cholecystitis Status: Resolved Plan: Underwent MRCP on 07/28, which indicated periportal edema, distended gallbladder with edema, and possible hepatic disease HIDA scan 07/30: Normal biliary examination, normal filling of the bladder and normal uptake of the radiopharmaceutical by the liver suggesting against hepatocellular dysfunction. Normal gallbladder response to CCK administration. Completed 7 days of IV Flagyl. 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 ICD Codes: Z86.718 - Personal history of other venous thrombosis and embolism Status: Chronic Plan: Hx of breast cancer bilaterally w/ recent recurrence Takes Xarelto 50 mg twice daily On therapeutic Lovenox (11) Hypothyroidism ICD Codes: E03.9 - Hypothyroidism, unspecified Status: Chronic Plan: home levothyroxine 75 mcg daily (12) HTN (hypertension) ICD Codes: I10 - Essential (primary) hypertension Status: Chronic Plan: Takes lisinopril-HCTZ 10-12.5 mg daily, metoprolol 25 mg daily at home Continue HCTZ 12.5mg BID, metoprolol 25mg daily (13) FEN Plan: Fluids: PO Electrolytes: Replace as needed Nutrition: Regular diet DVT prophylaxis: Lovenox (Jong Dominique MD R2) Problem List: (1) Breast cancer ICD Codes: C50.919 - Malignant neoplasm of unspecified site of unspecified female breast Status: Chronic Plan: History of breast cancer with one recent recurrence in 2017 MRI brain 08/01/17 shows a few scattered foci of bright T2 signal abnormality/ restricted diffusion in both cerebral hemispheres, greater in the left parietal lobe which can be seen with showering emboli/infarcts. A few enhancing lesions in the cerebral hemispheres appear nonspecific but could represent metastatic disease CT scan of the chest, abdomen and pelvis as well as MRI of the abdomen does not show any definite source of metastatic disease. Elevated CEA and CA 15-3 Likely breast cancer with metastatic disease Hematology consulted on 08/01 -Started Herceptin and Taxol on 08/03, will not need chemotherapy again for another 3 weeks -PET CT as outpatient -After discussion with family and patient, palliative care being consulted on 08/06 -Remains full code -Monitor pain control with. -Family meeting 08/07 to discuss options upon discharge (2) Hematoma ICD Codes: T14.8XXA - Other injury of unspecified body region, initial encounter Plan: Patient noted to have ecchymosis on the lateral aspect of the left lower abdomen. Patient has localized pain in this area for several days in the overlying erythema was noted to be increasing on 08/06 Ultrasound of the area showed probable hematoma measuring up to 3.9 x 3.4 x 3.4 cm with surrounding edema. Risks/benefits were discussed with the patient regarding her options including IR drainage or to watch it. Patient and family desires to monitor at this time without drainage. We will continue to monitor for signs of continued bleeding or infection. H&H currently stable, no leukocytosis or fever Tylenol for pain as well as half a tablet of [place] for now (3) Fatigue ICD Codes: R53.83 - Other fatigue Plan: Patient noticeably more fatigued, weak on 08/06 Concern for possible medication ashley effect UA and CXR wnl Continue to monitor (4) Oropharyngeal candidiasis ICD Codes: B37.0 - Candidal stomatitis Status: Acute Plan: On Nystatin swish and swallow Adding nasal mist to help with dry mouth as well (5) Transaminitis ICD Codes: R74.0 - Nonspecific elevation of levels of transaminase and lactic acid dehydrogenase [LDH] Status: Acute Plan: LFTs had been worsening after Xarelto resumed (07/31) Significant alk phos elevation LFTs trending down Xarelto discontinued. Currently on therapeutic Lovenox. Hematology consulted for anticoagulation recommendations Avoid NSAIDs, statins, tetracyclines/sulfa medications, and all other hepatotoxic medications (6) Lung crackles ICD Codes: R09.89 - Other specified symptoms and signs involving the circulatory and respiratory systems Plan: Currently on 2 L nasal cannula, will attempt to wean if able Possible 2/2 to atelectasis from confinement to bed CT chest on 08/02 showed small bilateral pleural effusions IS Duonebs scheduled every 6 while awake Lasix 20mg daily (7) Acute cholecystitis ICD Codes: K81.0 - Acute cholecystitis Status: Resolved Plan: Underwent MRCP on 07/28, which indicated periportal edema, distended gallbladder with edema, and possible hepatic disease HIDA scan 07/30: Normal biliary examination, normal filling of the bladder and normal uptake of the radiopharmaceutical by the liver suggesting against hepatocellular dysfunction. Normal gallbladder response to CCK administration. Completed 7 days of IV Flagyl. 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 ICD Codes: Z86.718 - Personal history of other venous thrombosis and embolism Status: Chronic Plan: Hx of breast cancer bilaterally w/ recent recurrence Takes Xarelto 50 mg twice daily On therapeutic Lovenox (11) Hypothyroidism ICD Codes: E03.9 - Hypothyroidism, unspecified Status: Chronic Plan: home levothyroxine 75 mcg daily (12) HTN (hypertension) ICD Codes: I10 - Essential (primary) hypertension Status: Chronic Plan: Takes lisinopril-HCTZ 10-12.5 mg daily, metoprolol 25 mg daily at home Continue HCTZ 12.5mg BID, metoprolol 25mg daily (13) FEN Plan: Fluids: PO Electrolytes: Replace as needed Nutrition: Regular diet DVT prophylaxis: Lovenox See the residents documentation for details. I saw and evaluated the patient regarding the eagle portions of this evaluation and agree with the residents findings and plans as written. Parts of this note were created using [employer] voice recognition software program. While efforts were made to correct any mistakes made by this software, some mistakes, errors, and omissions may remain in the final note that were not caught when the note was originally created. Plan of care was discussed and agreed upon with the patient as specifically documented in the above note. An opportunity to ask questions with explanation was provided. Patient voiced understanding on all information reviewed and discussed. (Randall Castillo MD) Problem Qualifiers (1) Pulmonary embolism: Qualified Codes: I27.82 - Chronic pulmonary embolism (2) Hypothyroidism: Qualified Codes: E03.9 - Hypothyroidism, unspecified Jong Dominique MD R2 August 07, 2017 10:48 Randall Castillo MD August 07, 2017 12:21
[2017-08-07] MEDS: NYSTAT/DIPHENHY/LIDO MOUTHWASH (Adult) 120ML SWISH-SWAL SCH ×3 (13:00→20:49)
--- NOTE | 2017-08-07 15:34 | HHI.HCPN ---
Reason for visit a. To assist with evaluation and management of symptoms including: pain; generalized weakness; fatigue; dyspnea; dry mouth; thirst b. To assist medical decision maker(s) with: better understanding of current medical conditions; weighing benefits/burdens of medical treatment options; making medical treatment decisions. . Subjective/Interval History Patient's continues to complain of pain primarily at the hematoma site. She is also c/o dry mouth and pain with swallowing. At times she has said she does not want anymore pain medication; at other times she has asked for medication. Family at bedside report that the 1/2 tab of [place] 5/325 appears to be adequate for her. Patient has not complained of SOB. She has been up to the bathroom several times but remains quite weak. Family reports that she is eating / drinking only very small amounts. Patient and her family have indicated they do NOT want surgical evacuation of her hematoma. . Family/friend interactions Patient continues to have a difficult time making any decisions regarding her goals of medical treatment going forward. Patient's son (Tyler) and his are now down from [place]. I spoke with them at length regarding current clinical condition, options, and benefits/burdens of treatment options. We discussed resuscitation status and specifically how an attempted resuscitation would likely cause great trauma with very little hope of surviving the hospitalization even if resuscitation were successful. We also discussed hospice as an option. Tyler and his requested more information so they could better understand this option. I offered to arrange for an information-only consult from hospice and they agreed. Tyler wants very much to have the patient make her own decisions, but the patient again seems overwhelmed, and though technically capacitated to make her own decisions, I am not sure she will be able to do so. . Advance Directives Living Will: Copy in medical record Health Care Surrogate: Copy in medical record Durable Power of Executive Secretary Social Welfare: Never completed Advance Directive Specifics Date completed: Both the living will and designation of health care surrogate are dated 2017 . Health Care Surrogate(s): The patient has designated her son -=- Tyler Sam -- as the primary surrogate ; and her [id number] -- Berenice Sam -- as her alternate,. . Documented care wishes: The patient has completed a [place] living will. It indicates that if she should ever have an end-stage condition or be in a persistent vegetative state she would not want cardio pulmonary resuscitation, antibiotics, or artificial nutrition/hydration. She would want "maximum pain relief." . Objective Vital Signs Date Time Temp Pulse Resp B/P (MAP) Pulse Ox O2 Delivery O2 Flow Rate FiO2 08/07/17 04:55 16 08/07/17 04:05 108 08/07/17 03:07 99.5 104 18 120/59 (79) 95 08/07/17 00:27 98.1 107 18 117/67 (84) 97 08/07/17 00:15 102 08/06/17 20:15 Nasal Cannula 1.50 Humidified 08/06/17 20:11 98.2 108 18 127/72 (90) 96 08/06/17 20:02 96 08/06/17 17:00 98.1 88 16 111/60 (77) 95 Intake & Output 08/07/17 08/07/17 07:00 19:00 Intake Total 240 ml Output Total 1000 ml Balance -760 ml Intake Oral 240 ml Output Urine Total 1000 ml # Bowel Movements 0 . Physical Exam CONSTITUTIONAL/GENERAL: This is a thin, pale, frail appearing female in a medical oncology bed. She was sleeping at time of my arrival. She aroused easily to voice/exam. TUBES/LINES/DRAINS: Peripheral IV; SKIN: No jaundice, rashes. Large hematoma over left lateral abdomen/flank. Ecchymoses on upper extremities. No wounds seen anteriorly. Skin temperature appropriate. Not diaphoretic. EYES: Pupils equal and round . Extraocular motions intact. No scleral icterus. No injection or drainage. Fundi not examined. ENT: Hearing grossly normal. Nose without bleeding or purulent drainage. NECK: Trachea midline. Supple, nontender. CARDIOVASCULAR: Regular rate and rhythm without murmurs, gallops, or rubs. No JVD. RESPIRATORY/CHEST: Symmetric, unlabored respirations. Clear to auscultation. Breath sounds equal bilaterally. GASTROINTESTINAL: Abdomen soft, non-tender, nondistended. No hepato-splenomegaly , or palpable masses. No guarding. Bowel sounds present. GENITOURINARY: Without palpable bladder distension. MUSCULOSKELETAL: Extremities without clubbing, cyanosis. Trace lower extremity edema. Tenderness over hematoma. LYMPHATICS: Not examined. NEUROLOGICAL: Exhausted appearing. Moves all extremities. PSYCHIATRIC: Affect appears depressed. No apparent hallucinations or other psychotic thought process. . Diagnostic Tests Laboratory Laboratory Tests Test 08/05/17 07:06 08/05/17 10:42 08/06/17 08:39 08/06/17 13:35 White Blood Count 10.1 TH/MM3 (4.0-11.0) 8.4 TH/MM3 (4.0-11.0) Red Blood Count 3.38 MIL/MM3 (4.00-5.30) 3.24 MIL/MM3 (4.00-5.30) Hemoglobin 11.1 GM/DL (11.6-15.3) 10.8 GM/DL (11.6-15.3) Hematocrit 32.5 % (35.0-46.0) 31.1 % (35.0-46.0) Mean Corpuscular Volume 96.0 FL (80.0-100.0) 96.0 FL (80.0-100.0) Mean Corpuscular Hemoglobin 32.7 PG (27.0-34.0) 33.2 PG (27.0-34.0) Mean Corpuscular Hemoglobin Concent 34.1 % (32.0-36.0) 34.6 % (32.0-36.0) Red Cell Distribution Width 20.4 % (11.6-17.2) 20.3 % (11.6-17.2) Platelet Count 103 TH/MM3 (150-450) 87 TH/MM3 (150-450) Mean Platelet Volume 10.6 FL (7.0-11.0) 11.0 FL (7.0-11.0) Neutrophils (%) (Auto) 93.8 % (16.0-70.0) Lymphocytes (%) (Auto) 3.5 % (9.0-44.0) Monocytes (%) (Auto) 2.6 % (0.0-8.0) Eosinophils (%) (Auto) 0.0 % (0.0-4.0) Basophils (%) (Auto) 0.1 % (0.0-2.0) Neutrophils # (Auto) 9.5 TH/MM3 (1.8-7.7) Lymphocytes # (Auto) 0.4 TH/MM3 (1.0-4.8) Monocytes # (Auto) 0.3 TH/MM3 (0-0.9) Eosinophils # (Auto) 0.0 TH/MM3 (0-0.4) Basophils # (Auto) 0.0 TH/MM3 (0-0.2) CBC Comment DIFF FINAL Differential Comment FINAL DIFF MANUAL Blood Urea Nitrogen 27 MG/DL (7-18) 28 MG/DL (7-18) Creatinine 0.83 MG/DL (0.50-1.00) 0.91 MG/DL (0.50-1.00) Random Glucose 103 MG/DL (74-106) 88 MG/DL (74-106) Total Protein 4.7 GM/DL (6.4-8.2) 4.8 GM/DL (6.4-8.2) Albumin 1.7 GM/DL (3.4-5.0) 1.7 GM/DL (3.4-5.0) Calcium Level 8.5 MG/DL (8.5-10.1) 7.9 MG/DL (8.5-10.1) Alkaline Phosphatase 627 U/L (45-117) 624 U/L (45-117) Aspartate Amino Transf (AST/SGOT) 190 U/L (15-37) 213 U/L (15-37) Alanine Aminotransferase (ALT/SGPT) 42 U/L (10-53) 50 U/L (10-53) Total Bilirubin 4.5 MG/DL (0.2-1.0) 6.5 MG/DL (0.2-1.0) Sodium Level 135 MEQ/L (136-145) 134 MEQ/L (136-145) Potassium Level 4.0 MEQ/L (3.5-5.1) 4.1 MEQ/L (3.5-5.1) Chloride Level 101 MEQ/L (98-107) 97 MEQ/L (98-107) Carbon Dioxide Level 26.0 MEQ/L (21.0-32.0) 30.0 MEQ/L (21.0-32.0) Anion Gap 8 MEQ/L (5-15) 7 MEQ/L (5-15) Estimat Glomerular Filtration Rate 66 ML/MIN (>89) 59 ML/MIN (>89) Prothrombin Time 12.7 SEC (9.8-11.6) Prothromb Time International Ratio 1.3 RATIO Activated Partial Thromboplast Time 42.8 SEC (24.3-30.1) Differential Total Cells Counted 100 Neutrophils % (Manual) 97 % (16-70) Band Neutrophils % 1 % (0-6) Lymphocytes % 2 % (9-44) Neutrophils # (Manual) 8.2 TH/MM3 (1.8-7.7) Platelet Estimate LOW (NORMAL) Platelet Morphology Comment NORMAL (NORMAL) Urine Color YELLOW (YELLW/STRAW) Urine Turbidity CLEAR (CLEAR) Urine pH 5.5 (5.0-8.5) Urine Specific [place] 1.016 (1.002-1.035) Urine Protein NEG mg/dL (NEG-TRACE) Urine Glucose (UA) NEG mg/dL (NEG) Urine Ketones NEG mg/dL (NEG) Urine Occult Blood NEG (NEG) Urine Nitrite NEG (NEG) Urine Bilirubin SMALL (NEG) Urine Urobilinogen LESS THAN 2.0 MG/DL (LESS Urine Leukocyte Esterase NEG (NEG) Urine RBC LESS THAN 1 /hpf (0-3) Urine WBC 2 /hpf (0-5) Urine Squamous Epithelial Cells <1 /hpf (0-5) Urine Hyaline Casts 8 /lpf (RARE) Microscopic Urinalysis Comment CULT NOT INDICATED Test 08/07/17 07:32 White Blood Count 8.8 TH/MM3 (4.0-11.0) Red Blood Count 3.00 MIL/MM3 (4.00-5.30) Hemoglobin 10.0 GM/DL (11.6-15.3) Hematocrit 28.5 % (35.0-46.0) Mean Corpuscular Volume 95.1 FL (80.0-100.0) Mean Corpuscular Hemoglobin 33.4 PG (27.0-34.0) Mean Corpuscular Hemoglobin Concent 35.1 % (32.0-36.0) Red Cell Distribution Width 20.4 % (11.6-17.2) Platelet Count 79 TH/MM3 (150-450) Mean Platelet Volume 11.8 FL (7.0-11.0) Neutrophils (%) (Auto) 92.4 % (16.0-70.0) Lymphocytes (%) (Auto) 5.5 % (9.0-44.0) Monocytes (%) (Auto) 1.6 % (0.0-8.0) Eosinophils (%) (Auto) 0.1 % (0.0-4.0) Basophils (%) (Auto) 0.4 % (0.0-2.0) Neutrophils # (Auto) 8.1 TH/MM3 (1.8-7.7) Lymphocytes # (Auto) 0.5 TH/MM3 (1.0-4.8) Monocytes # (Auto) 0.1 TH/MM3 (0-0.9) Eosinophils # (Auto) 0.0 TH/MM3 (0-0.4) Basophils # (Auto) 0.0 TH/MM3 (0-0.2) CBC Comment AUTO DIFF Differential Comment AUTO DIFF CONFIRMED Platelet Estimate LOW (NORMAL) Platelet Morphology Comment ENLARGED (NORMAL) Blood Urea Nitrogen 28 MG/DL (7-18) Creatinine 0.79 MG/DL (0.50-1.00) Random Glucose 90 MG/DL (74-106) Total Protein 4.6 GM/DL (6.4-8.2) Albumin 1.6 GM/DL (3.4-5.0) Calcium Level 8.2 MG/DL (8.5-10.1) Alkaline Phosphatase 552 U/L (45-117) Aspartate Amino Transf (AST/SGOT) 187 U/L (15-37) Alanine Aminotransferase (ALT/SGPT) 46 U/L (10-53) Total Bilirubin 7.4 MG/DL (0.2-1.0) Sodium Level 135 MEQ/L (136-145) Potassium Level 4.4 MEQ/L (3.5-5.1) Chloride Level 97 MEQ/L (98-107) Carbon Dioxide Level 30.8 MEQ/L (21.0-32.0) Anion Gap 7 MEQ/L (5-15) Estimat Glomerular Filtration Rate 70 ML/MIN (>89) . Result Diagram: 08/07/17 0732 08/07/17 0732 Microbiology Microbiology Date/Time Source Procedure Growth Status 07/29/17 15:00 Stool Stool Stool Occult Blood (ISA) - Final HEMOCCULT POSITIVE Complete . Imaging Last Impressions Soft Tissue Ultrasound 08/06/171045 Signed Impressions: Service Date/Time: Sunday, August 06, 2017 11:16 - CONCLUSION: 1. Probable hematoma in the lateral left abdomen with measurements above. Surrounding edema. Noah Gates MD Chest X-Ray 08/06/17 1046 Signed Impressions: Service Date/Time: Sunday, August 06, 2017 14:25 - CONCLUSION: 1. Subsegmental mostly basilar airspace disease the lungs. No effusion or pneumothorax. Noah Gates MD Chest CT 08/01/17 0000 Signed Impressions: Service Date/Time: July 11:39 - CONCLUSION: 1. Today's examination again demonstrates areas of consolidation involving the right upper and right middle lobes. There is a small associated nodule in the right upper lobe measuring 0.7 x 1.0 cm. The overall appearance of these would suggest they are probably inflammatory however, continued followup to exclude malignancy will be needed. 2. Interval decrease in size of the patient's middle mediastinal lymph node. 3. Cardiomegaly. 4. Small bilateral effusions new when compared to the prior exam. Charly Garcia MD Abdomen/Pelvis CT 08/01/17 0000 Signed Impressions: Service Date/Time: July 11:39 - CONCLUSION: 1. Cirrhotic appearing liver with small benign appearing low density lesion in the dome of the right lobe. 2. Moderate amount of ascitic fluid in the abdomen and pelvis. 3. Abnormal gallbladder wall thickening versus pericholecystic fluid. No calcified gallstones. 4. Small bilateral pleural effusions. Kofi Alvarez MD Abdomen MRI 08/01/17 0000 Signed Impressions: Service Date/Time: July 19:22 - CONCLUSION: 1. 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 No definite evidence for metastatic disease. Mild ascites. Moderate anasarca. Edematous gallbladder wall. Noah Gates MD ADDENDUM: The study was reevaluated on request of Dr. Liu. There is diffusely heterogeneous decreased enhancement throughout the posterior right lobes of the liver, predominantly segments 6 and 7. No definitive decreased T1 signal abnormality although there is subtle restricted diffusion. Although somewhat atypical, the findings are concerning for infiltrative mass. Patient would benefit from you just MRI or PET/CT examination given history of breast CA. Matthias Arnett MD Brain MRI 07/31/17 0000 Signed Impressions: Service Date/Time: Monday, July 31, 2017 17:39 - CONCLUSION: 1. A few scattered foci of bright T2 signal abnormality/restricted diffusion in both cerebral hemispheres greater in the left parietal lobe which can be seen with showering emboli/infarcts. 2. A few enhancing lesions in the cerebellar hemispheres, nonspecific but could represent metastatic disease. Rc Engel MD Hepatobiliary Scan Nuclear Medicine 07/30/17 0000 Signed Impressions: Service Date/Time: Sunday, July 30, 2017 09:56 - CONCLUSION: 1. Normal biliary examination. 2. There is normal filling of the gallbladder which excludes cystic duct obstruction and there is normal uptake of the radiopharmaceutical by the liver suggesting against hepatocellular dysfunction. 3. Additionally, there is normal gallbladder response to CCK administration. Tyrone Solo MD Gall Bladder Ultrasound 07/28/17 0000 Signed Impressions: Service Date/Time: Friday, July 28, 2017 15:12 - CONCLUSION: 1. Distended gallbladder without stones. Gallbladder wall is mildly thickened at 4 mm. This is nonspecific. This could be from generalized hepatic disease versus other causes of edema. Acalculus cholecystitis cannot absolutely be excluded. 2. Right renal cyst. Tyrone Briggs MD Cholangiopancreatography MRI 07/28/17 0000 Signed Impressions: Service Date/Time: Friday, July 28, 2017 14:08 - CONCLUSION: 1. Distended gallbladder with surrounding edema but no gallstones. This can be seen with hepatic disease. Acalculus cholecystitis cannot be excluded. 2. Periportal edema. 3. Biliary dilatation is not clearly seen. Tyrone Briggs MD . Assessment and Plan Disease Oriented Problem List: (1) Breast cancer Comment: Recurrent breast cancer now appears to involve liver and possibly brain. . (2) Pulmonary embolism Comment: Hospitalized in June for bilateral PEs. . (3) Blood in stool (4) Hematoma Comment: Patient needs to reamin on anti-coagulants due to her recent pulmonary emboli. . (5) Abnormal brain MRI (6) Anemia Comment: Probably multi-factorial -- chronic disease; GI blood loss; blood loss into hematoma. . (7) Hypothyroidism Symptom Scale: (1) Pain 0-10 Scale: Unable to quantify Comment: Most of her pain appears to be at the site of her left lateral abdominal hematoma. . (2) Dyspnea 0-10 Scale: Unable to quantify Comment: Helped by supplemental 02. Improving. . (3) Generalized weakness 0-10 Scale: Unable to quantify (4) Fatigue 0-10 Scale: Unable to quantify Pertinent Non-Medical Issues Psychosocial: Had been living alone. Multiple children and grandchildren live in area and provide psychosocial support. Spiritual: Self designates as [employer]. Legal: Advance directives are in place. Ethical issues impacting care: Currently capacitated to make her own health care decisions, but appears too exhausted and overwhelmed to make those decisions. . . Important Contacts * Tyler Sam (son and health care surrogate) -- [phone] * Vidya (Carey) Baudilio (daughter) [phone] . 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 She has poor functional status and seems to have declined after her first chemotherapy treatment. Given her age and degree of debility, it is not clear if she will gain benefit from the chemo before she is overcome by the disease. It is also not clear given her age and debility to what extent she might be expected to benefit if she does respond as most of the studies have not been done on subjects like her. Without chemo, however, is likely to come within weeks. She is certainly a candidate for hospice care at such time as she would want to forego aggressive care and transition to comfort oriented care. She will likely be able to have some home time and be more comfortable with hospice care. . Code Status: Full Code Plan == Code Status: FULL CODE. Patient's living will indicates she would not want to be resuscitated if her condition is end stage. Patient reluctant to discuss these issues in person. Health care surrogate reluctant to make this decision without her input. == Decision making: Patient's ability to make her own health care decisions appears to be rapidly declining. She is quite exhausted and seems to have some difficulty processing the benefits and burdens of treatment options. Should she become incapacitated we would rely on her living will and the decision of her surrogate -- her son Tyler. == Goals of medical treatment: Patient had initially indicated she would want palliative chemotherapy. However, she has also wanted to be comfortable and to be able to go home. It is becoming less likely that she will be able to do both. Health care surrogate is hoping to observe patient in hospital for another 1-2 days. If she appears to improve they will probably push forward with additional chemo. If she declines further, they are more likely to transition to hospice. == Symptoms: * Pain: most of her pain appears to be in the area of her hematoma. Family tells me she is somewhat stoic . The fact that she is asking for hydrocodone and not just acetaminophen would suggest her pain is quite severe. However, some family members feel she is quite sensitive to pain medications and feel she might be overmedicated from the opiates. Per family request we have backed opioid dosing down to 2.5 mg of hydrocodone per dose. Nursing pain level assessments have mostly been from 4-10 over the past several days. Lower dose appears adequate at this time. No further recommendations at this time. * Dyspnea: Appears well controlled while patient is at bedrest with supplemental 02. No further recommendations at this time. * Generalized weakness/fatigue: I believe this is from the underlying disease process. She might benefit symptomatically from systemic steroids but would discourage given her need to remain on anti-coagulants and her current hematoma. Weakness/fatigue may be exacerbated by chemotherapy in which case i would expect it to continue after subsequent dosing. No further recommendations at this time. * Sore throat: Dr. Liu has ordered treatment for possible thrush. No further recommendation. == Recommend that other medical team members also encourage change to "no code " status as any resuscitation attempt is likely going to cause great trauma with very little chance of helping the patient survive the hospitalization. == Family have spoken with Dr. Liu earlier today. Dr. Liu does NOT think the patient's decline is due to opiates or the chemo. He thinks it is from the disease. Per family, if goals remain aggressive for now, Dr. Liu has recommended remaining in the hospital for another day or two. If she improves and goals remain aggressive, she would be a candidate for further chemo. if she continues to decline, Dr. Liu will probably recommend hospice. == though health care surrogate understandably wants patient to make her own decisions, I have counseled him that she may be unable to do so just from feeling so overwhelmed. He indicated he would continue to try and get the patient to make the decision. == Palliative care will continue to follow to assist with symptom management and to further clarify goal of medical treatment as the clinical course evolves. . . Time Spent Total Floor Time (mins): 50 (Visited the patient twice today. Total time for two visits included chart review; patient exam; discussion of case with hospice admissions nurse; and above referenced discussion with patient/family.) Face to Face Time (mins): 15 >50% Counseling/Coord of Care: Yes Attestation To help prompt me to consider important information that might be impacting today's encounter and assessment, information from prior notes written by myself or my colleagues may have been "brought forward" into today's note. My signature on this note, however, is an attestation that I personally performed the exam, history, and/or decision-making noted today, and, unless otherwise indicated, the interactions with patient, family, and staff as well as the review of records all occurred today. I also attest that the listed assessment and stated plan reflect my best clinical judgment today based on the combination of historical information, prior notes, and today's exam/ interactions. When time spent is documented, it refers only to time spent today by the signer, or if indicated, combined time spent today by collaborating physician/nurse practitioner. . Thor Fontaine MD August 07, 2017 15:34
[2017-08-08] VITALS: BP 106/51; PULSE 93; PULSE 95; RESP 20; TEMP 98.2; O2SAT 97
[2017-08-08] MEDS: ENOXAPARIN SODIUM 60 MG/0.6 ML SYRINGE SQ SCH ×2 (00:54→13:00)
[2017-08-08] MEDS: ACETAMINOPHEN/HYDROcodone 325 MG/5 MG TAB PO PRN ×2 (03:51→09:53)
[2017-08-08 04:00] VITALS: BP 115/59; PULSE 92; PULSE 99; RESP 18; TEMP 98; O2SAT 97
[2017-08-08] MEDS: LEVOTHYROXINE SODIUM 25 MCG TAB PO SCH (05:20)
[2017-08-08 07:47] LABS: HEMATOCRIT 26.8 % (35.0-46.0); HEMOGLOBIN 9.2 GM/DL (11.6-15.3); MEAN CELL VOLUME 95.5 FL (80.0-100.0); MEAN CORPUSCULAR HEMOGLOBIN 32.7 PG (27.0-34.0); MEAN CORPUSCULAR HGB CONC 34.2 % (32.0-36.0); MEAN PLATELET VOLUME 11.6 FL (7.0-11.0); PLATELET COUNT 66 TH/MM3 (150-450); RED BLOOD COUNT 2.81 MIL/MM3 (4.00-5.30); RED CELL DISTRIBUTION WIDTH 20.1 % (11.6-17.2); WHITE BLOOD COUNT 2.6 TH/MM3 (4.0-11.0)
[2017-08-08 08:00] VITALS: PULSE 106
[2017-08-08 08:09] LABS: ALBUMIN 1.5 GM/DL (3.4-5.0); ALT (GPT) 46 U/L (10-53); AST (GOT) 169 U/L (15-37); BICARBONATE 34.8 MEQ/L (21.0-32.0); BLOOD UREA NITROGEN 28 MG/DL (7-18); CALCIUM 7.6 MG/DL (8.5-10.1); CHLORIDE 97 MEQ/L (98-107); CREATININE 0.72 MG/DL (0.50-1.00); GLOMERULAR FILTRATION RATE 78 ML/MIN (>89); GLUCOSE,RANDOM 90 MG/DL (74-106); SODIUM (NA) 137 MEQ/L (136-145)
[2017-08-08 08:11] LABS: ALKALINE PHOSPHATASE 460 U/L (45-117); TOTAL BILIRUBIN ADULT 6.9 MG/DL (0.2-1.0); TOTAL PROTEIN 4.3 GM/DL (6.4-8.2)
--- NOTE | 2017-08-08 08:17 | PD.ONC.PN ---
Subjective Subjective Remarks Pt seen and examined, VS, labs and meds reviewed. Per the nursing staff, the pt has been unable to swallow liquids or pills. Pt reports feeling extremely weak. She barely opens her eyes today. She reports soreness and dryness in her mouth. Objective Data Date Time Temp Pulse Resp B/P (MAP) Pulse Ox O2 Delivery O2 Flow Rate FiO2 08/08/17 04:00 99 08/08/17 04:00 98.0 92 18 115/59 (77) 97 08/08/17 00:00 93 08/08/17 00:00 98.2 95 20 106/51 (69) 97 08/07/17 20:00 Nasal Cannula 2.00 08/07/17 20:00 95 08/07/17 20:00 98.8 100 20 105/53 (70) 95 08/07/17 16:34 94 Nasal Cannula 2.00 08/07/17 16:00 87 08/07/17 12:00 91 08/08/17 08/08/17 08/08/17 07:00 15:00 23:00 Output Total 250 ml Balance -250 ml Result Diagram: 08/08/17 0611 08/08/17 0611 Laboratory Results Laboratory Tests Test 08/08/17 06:11 White Blood Count 2.6 TH/MM3 Red Blood Count 2.81 MIL/MM3 Hemoglobin 9.2 GM/DL Hematocrit 26.8 % Mean Corpuscular Volume 95.5 FL Mean Corpuscular Hemoglobin 32.7 PG Mean Corpuscular Hemoglobin Concent 34.2 % Red Cell Distribution Width 20.1 % Platelet Count 66 TH/MM3 Mean Platelet Volume 11.6 FL Blood Urea Nitrogen 28 MG/DL Creatinine 0.72 MG/DL Random Glucose 90 MG/DL Total Protein 4.3 GM/DL Albumin 1.5 GM/DL Calcium Level 7.6 MG/DL Alkaline Phosphatase 460 U/L Aspartate Amino Transf (AST/SGOT) 169 U/L Alanine Aminotransferase (ALT/SGPT) 46 U/L Total Bilirubin 6.9 MG/DL Sodium Level 137 MEQ/L Potassium Level 3.7 MEQ/L Chloride Level 97 MEQ/L Carbon Dioxide Level 34.8 MEQ/L Anion Gap 5 MEQ/L Estimat Glomerular Filtration Rate 78 ML/MIN Administered Medications Medications (Trade) Dose Ordered Sig/Braydon Route PRN Reason Start Time Stop Time Status Last Admin Dose Admin Levothyroxine Sodium (Synthroid) 75 mcg DAILY@0600 PO 07/28/17 13:00 Future hold 08/08/17 05:20 Metoprolol Tartrate (Lopressor) 25 mg DAILY PO 07/28/17 12:45 Future hold 08/07/17 09:20 Sodium Chloride (NS Flush) 2 ml UNSCH PRN IV FLUSH FLUSH AFTER USING IV ACCESS 07/28/17 13:00 08/06/17 21:15 Sodium Chloride (NS Flush) 2 ml BID IV FLUSH 07/28/17 21:00 08/07/17 20:49 Hydrocortisone Acetate (Hemorrhoidal Hc Supp) 25 mg BID RECTAL 07/31/17 09:00 08/07/17 20:48 Pantoprazole Sodium (Protonix Inj) 40 mg Q12HR IV PUSH 07/31/17 09:15 08/07/17 20:48 Hydrochlorothiazide (Microzide) 12.5 mg DAILY PO 07/31/17 11:45 08/07/17 09:20 Senna/Docusate Sodium (Denise-Colace) 2 tab BID PO 08/02/17 09:30 08/07/17 20:48 Enoxaparin Sodium (Lovenox Inj) 60 mg Q12H SQ 08/03/17 13:00 08/08/17 00:54 Potassium Chloride (KCl) 10 meq Q12HR PO 08/05/17 09:00 08/07/17 20:48 Nystatin (Mycostatin Liq) 5 ml QID SWISH-SWAL 08/06/17 09:30 08/07/17 20:49 Phenol (Chloraseptic [place]) 2 spray Q2H PRN OROPHARYNG SORE THROAT 08/06/17 09:00 08/06/17 13:16 Acetaminophen/ Hydrocodone Bitart ([place] 5-325 Mg) 0.5 tab Q4H PRN PO Pain/sob #4-10 08/06/17 18:15 08/08/17 03:51 Furosemide (Lasix) 20 mg DAILY PO 08/07/17 09:00 08/07/17 09:20 Objective Remarks GENERAL: Laying in bed, pale, jaundiced and frail appearing. She keeps her eyes closed for most of this visit. SKIN: No rashes, ecchymoses or lesions. Cool and dry. HEAD: Atraumatic. Normocephalic. No temporal or scalp tenderness. EYES: Pupils equal round and reactive. Extraocular motions intact. No scleral icterus. No injection or drainage. ENT: Mucous membranes are dry, thrush no longer noted, no ulceration noted. Mild erythema which is in patches noted. NECK: Trachea midline. No JVD or lymphadenopathy. Supple, nontender, no meningeal signs. CARDIOVASCULAR: Irregular rhythm, S1-S2 no obvious murmurs rubs gallops. RESPIRATORY: Good air movement bilaterally no wheezes, no rhonchi. GASTROINTESTINAL: Abdomen soft, non-tender, nondistended. No hepato-splenomegaly , or palpable masses. No guarding. MUSCULOSKELETAL: Generalized muscle atrophy. NEUROLOGICAL: Awake and alert. Cranial nerves II through XII intact. Motor and sensory grossly within normal limits. Five out of 5 muscle strength in all muscle groups. Normal speech. Skin: No obvious masses noted. Breast examination: Status post bilateral mastectomy. No masses or nodules noted on the chest wall. No axial lymphadenopathy. Extremities: Edema is decreased bilaterally.. Assessment/Plan Assessment Ms. Sam is a very pleasant 81-year-old female with a history of bilateral breast carcinoma; initial diagnosis established in 1988 when she presented with a locally advanced left breast carcinoma. Treated with surgical resection followed by adjuvant chemotherapy as outlined above. In 2014 she presented with a stage I HER-2 amplified right breast carcinoma which was surgically resected with a modified radical mastectomy. She elected for observation alone , in the spring 2016 she presented with a local recurrence on the right chest wall which was surgically resected. Following surgical resection she underwent postop radiation for local control. She again declined systemic interventions with anti-HER-2 therapy. In June 2017 she developed bilateral pulmonary emboli associate with the right lower extreme deep venous thrombosis. No obvious provoking factor was identified. She at the time of presentation with the pulmonary emboli had abnormal liver function testing (before any anticoagulation was initiated). Over the course of the past 3 weeks her liver enzymes have remained elevated, in fact they have worsened and she now has hyperbilirubinemia in addition to elevated AST, ALT and alkaline phosphatase levels. She has been evaluated for possible gallbladder dysfunction or extrahepatic obstruction of the biliary tree. Upon review of her most recent CT scans I am concerned of a diffuse infiltrating pattern of metastatic disease to the liver; primarily the inferior portions of the right hepatic lobe where on independent review there appears to be an abnormal signal. Plan 1. Metastatic breast carcinoma: Status post first dose of palliative paclitaxel and Herceptin on 08/03/2017. Her LFTs are trending down as of today with a decrease in her bilirubin level and ALK phos level. 2. Pulmonary emboli: On therapeutic anticoagulation with Lovenox 60 mg subcu every 12 hours. She does have a hematoma involving the left flank, this initially became symptomatic while she was still on heparin. While on heparin there were times her PTT was supratherapeutic. I would recommend continuation of Lovenox at the current dose. 3. Peripheral edema: BUN is increasing, creatinine also increasing, her body weight is down. I have decreased Lovenox from 20 mg twice daily to 20 mg once a day. 4. Continue monitoring and supportive care including physical therapy, improved oral nutritional intake. 5. Dryness of the mouth: I have advised her to try to moisturize her mouth the best she can with water. I will start her on some Biotene as well to help soothe the mucositis. 6. Oropharyngeal candidiasis: Started pt on nystatin swish and swallow QID. 7. Consider starting her on TPN for temporary nutritional support. Continue supportive care. Jacob Liu MD August 08, 2017 08:17
[2017-08-08] MEDS: POTASSIUM CHLORIDE 10 MEQ CONTROLLED RELEASE TAB PO SCH (08:25)
[2017-08-08] MEDS: FUROSEMIDE 20 MG TAB PO SCH (08:26)
[2017-08-08] MEDS: DOCUSATE SODIUM 50 MG/SENNA 8.6 MG TAB PO SCH (08:26)
[2017-08-08 08:33] VITALS: BP 113/52; PULSE 97; RESP 16; TEMP 97.6; O2SAT 96
[2017-08-08] MEDS: PANTOPRAZOLE SODIUM 40 MG VIAL IV PUSH SCH (09:00)
[2017-08-08] MEDS: HYDROCHLOROTHIAZIDE 12.5 MG CAP PO SCH (09:00)
[2017-08-08] MEDS: METOPROLOL TARTRATE 25 MG TAB PO SCH (09:00)
[2017-08-08] MEDS: HYDROCORTISONE ACETATE 25 MG SUPP RECTAL SCH (09:00)
[2017-08-08] MEDS: SODIUM CHLORIDE 0.9% FLUSH 10 ML FLUSH IV FLUSH SCH (09:33)
[2017-08-08] MEDS: NYSTAT/DIPHENHY/LIDO MOUTHWASH (Adult) 120ML SWISH-SWAL SCH ×2 (09:33→12:04)
[2017-08-08] MEDS: NYSTATIN SUSP 500,000 U/5 ML CUP SWISH-SWAL SCH ×2 (09:34→12:04)
--- NOTE | 2017-08-08 11:13 | HHI.FPPN ---
Subjective Remarks Patient continues to have difficulty swallowing due to pain. Multiple discussions have been had with palliative care and family, patient is leaning more towards going on hospice. At this time she declines TPN, aggressive treatment. She does state that her abdominal pain related to the hematoma is improving. (Ran Anton MD R1) Objective Vitals Vital Signs Date Time Temp Pulse Resp B/P (MAP) Pulse Ox O2 Delivery O2 Flow Rate FiO2 08/08/17 08:33 97.6 97 16 113/52 (72) 96 08/08/17 04:00 99 08/08/17 04:00 98.0 92 18 115/59 (77) 97 08/08/17 00:00 93 08/08/17 00:00 98.2 95 20 106/51 (69) 97 08/07/17 20:00 Nasal Cannula 2.00 08/07/17 20:00 95 08/07/17 20:00 98.8 100 20 105/53 (70) 95 08/07/17 16:34 94 Nasal Cannula 2.00 08/07/17 16:00 87 08/07/17 12:00 91 I/O 08/07/17 08/07/17 08/07/17 08/08/17 08/08/17 08/08/17 06:59 14:59 22:59 06:59 14:59 22:59 Intake Total 240 ml Output Total 500 ml 250 ml Balance -260 ml -250 ml Intake Oral 240 ml Output Urine Total 500 ml 250 ml # Bowel Movements 0 (Ran Anton MD R1) Result Diagram: 08/08/17 0611 08/08/17 0611 Objective Remarks CONSTITUTIONAL/GEN: This is a elderly, lady resting in bed. Arousable but quiet. LUNGS: respiratory effort is normal. Decreased lung sounds. CARDIOVASCULAR: RR without murmur or gallop. GI/ABD: soft without masses, without organomegaly. Hematoma present on left lower abdomen -improved from prior exams. SKIN: color normal, no rashes noted. MUSC: 1+ edema bilaterally, improving PSYCH/MENTAL STATUS: Alert and oriented. (Ran Anton MD R1) A/P Assessment and Plan Patient is an 81 y/o F w/hx of breast cancer admitted for severe nausea, poor PO intake, acute cholecystitis, and transaminitis. Supportive care, IV Abx, and Heparin drip was initiated in case of possible surgery/procedure. MRCP showed distended gallbladder with surrounding edema but no gallstones.. Portal edema was seen as well. General Surgery and GI consulted. HIDA scan was ordered and showed normal biliary examination with normal filling of the gallbladder. Spoke with gastroenterology today. The consensus is to avoid surgery and/or EGD due to patient being at significant pulmonary risk. Transaminitis and gallbladder studies are downtrending. It is possible that the patient may have had a transient gallstone partially occluding the common bile duct that has now passed v malignant process versus drug induced liver toxicity from Xarelto. Will discuss further with GI. MRI has shown a few enhancing lesions in the cerebellar hemispheres as well as scattered foci in the left parietal lobe; these could represent metastatic disease versus showering emboli/infarcts. CT of the chest/abdomen/pelvis were ordered to examine for possible source. CT chest with small nodule in the right upper lobe that has more inflammatory appearance and malignancy, CT abdomen/pelvis showed a cirrhotic appearing liver with small benign-appearing lesion in the dome of the right lobe, moderate ascitic fluid. Hematology was consulted and Dr. Liu, who a history with this patient for her breast carcinoma and anticoagulation, ordered an MRI of the abdomen to evaluate further. MRI showed probable liver cirrhosis with tiny cyst and no evidence of metastatic disease. Patient resumed chemotherapy with Taxol and Herceptin on 08/03. Tolerated well and will receive another treatment in 3 weeks. Patient has been cleared from oncology standpoint, but is currently weak and may require rehab. Patient noticeably weaker and less energetic on 08/06. After discussion with family and patient, palliative care was consulted. Patient noted to have ecchymosis on lateral aspect of the left abdomen. Ultrasound at that time showed a possible hematoma. Patient elected to not have any surgical intervention and hematoma has been improving. Patient's overall clinical picture continues to decline and family strongly considering going on hospice Discharge Planning Patient and family are strongly considering going on hospice (Ran Anton MD R1) Problem List: (1) Breast cancer ICD Codes: C50.919 - Malignant neoplasm of unspecified site of unspecified female breast Status: Chronic Plan: History of breast cancer with one recent recurrence in 2017 MRI brain 08/01/17 shows a few scattered foci of bright T2 signal abnormality/ restricted diffusion in both cerebral hemispheres, greater in the left parietal lobe which can be seen with showering emboli/infarcts. A few enhancing lesions in the cerebral hemispheres appear nonspecific but could represent metastatic disease CT scan of the chest, abdomen and pelvis as well as MRI of the abdomen does not show any definite source of metastatic disease. Elevated CEA and CA 15-3 Likely breast cancer with metastatic disease Hematology consulted on 08/01 -Started Herceptin and Taxol on 08/03, will not need chemotherapy again for another 3 weeks -PET CT as outpatient -After discussion with family and patient, palliative care being consulted on 08/06. Hospice consulted on 08/07 initially just for informational purposes. Family is strongly considering going on hospice -Remains full code (2) Hematoma ICD Codes: T14.8XXA - Other injury of unspecified body region, initial encounter Plan: Patient noted to have ecchymosis on the lateral aspect of the left lower abdomen. Patient and family desires to monitor at this time without drainage. Symptomatically improving on 08/08 Tylenol for pain as well as half a tablet of Central for now (3) Fatigue ICD Codes: R53.83 - Other fatigue Plan: Patient noticeably more fatigued, weak on 08/06 Concern for possible medication ashley effect UA and CXR wnl Continue to monitor (4) Oropharyngeal candidiasis ICD Codes: B37.0 - Candidal stomatitis Status: Acute Plan: On Nystatin swish and swallow Adding nasal mist to help with dry mouth as well Adding Magic mouthwash (5) Transaminitis ICD Codes: R74.0 - Nonspecific elevation of levels of transaminase and lactic acid dehydrogenase [LDH] Status: Acute Plan: LFTs trending down. Thought to be secondary to prior Xarelto use Xarelto discontinued. Currently on therapeutic Lovenox. Hematology consulted for anticoagulation recommendations Avoid NSAIDs, statins, tetracyclines/sulfa medications, and all other hepatotoxic medications (6) Acute cholecystitis ICD Codes: K81.0 - Acute cholecystitis Status: Resolved Plan: Underwent MRCP on 07/28, which indicated periportal edema, distended gallbladder with edema, and possible hepatic disease HIDA scan 07/30: Normal biliary examination, normal filling of the bladder and normal uptake of the radiopharmaceutical by the liver suggesting against hepatocellular dysfunction. Normal gallbladder response to CCK administration. Completed 7 days of IV Flagyl. 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 ICD Codes: Z86.718 - Personal history of other venous thrombosis and embolism Status: Chronic Plan: Hx of breast cancer bilaterally w/ recent recurrence Takes Xarelto 50 mg twice daily On therapeutic Lovenox (10) Hypothyroidism ICD Codes: E03.9 - Hypothyroidism, unspecified Status: Chronic Plan: home levothyroxine 75 mcg daily (11) HTN (hypertension) ICD Codes: I10 - Essential (primary) hypertension Status: Chronic Plan: Takes lisinopril-HCTZ 10-12.5 mg daily, metoprolol 25 mg daily at home Continue HCTZ 12.5mg BID, metoprolol 25mg daily (12) FEN Plan: Fluids: PO Electrolytes: Replace as needed Nutrition: Regular diet DVT prophylaxis: Lovenox (Ran Anton MD R1) Problem List: (1) Breast cancer ICD Codes: C50.919 - Malignant neoplasm of unspecified site of unspecified female breast Status: Chronic Plan: History of breast cancer with one recent recurrence in 2017 MRI brain 08/01/17 shows a few scattered foci of bright T2 signal abnormality/ restricted diffusion in both cerebral hemispheres, greater in the left parietal lobe which can be seen with showering emboli/infarcts. A few enhancing lesions in the cerebral hemispheres appear nonspecific but could represent metastatic disease CT scan of the chest, abdomen and pelvis as well as MRI of the abdomen does not show any definite source of metastatic disease. Elevated CEA and CA 15-3 Likely breast cancer with metastatic disease Hematology consulted on 08/01 -Started Herceptin and Taxol on 08/03, will not need chemotherapy again for another 3 weeks -PET CT as outpatient -After discussion with family and patient, palliative care being consulted on 08/06. Hospice consulted on 08/07 initially just for informational purposes. Family is strongly considering going on hospice -Remains full code (2) Hematoma ICD Codes: T14.8XXA - Other injury of unspecified body region, initial encounter Plan: Patient noted to have ecchymosis on the lateral aspect of the left lower abdomen. Patient and family desires to monitor at this time without drainage. Symptomatically improving on 08/08 Tylenol for pain as well as half a tablet of Central for now (3) Fatigue ICD Codes: R53.83 - Other fatigue Plan: Patient noticeably more fatigued, weak on 08/06 Concern for possible medication ashley effect UA and CXR wnl Continue to monitor (4) Oropharyngeal candidiasis ICD Codes: B37.0 - Candidal stomatitis Status: Acute Plan: On Nystatin swish and swallow Adding nasal mist to help with dry mouth as well Adding Magic mouthwash (5) Transaminitis ICD Codes: R74.0 - Nonspecific elevation of levels of transaminase and lactic acid dehydrogenase [LDH] Status: Acute Plan: LFTs trending down. Thought to be secondary to prior Xarelto use Xarelto discontinued. Currently on therapeutic Lovenox. Hematology consulted for anticoagulation recommendations Avoid NSAIDs, statins, tetracyclines/sulfa medications, and all other hepatotoxic medications (6) Acute cholecystitis ICD Codes: K81.0 - Acute cholecystitis Status: Resolved Plan: Underwent MRCP on 07/28, which indicated periportal edema, distended gallbladder with edema, and possible hepatic disease HIDA scan 07/30: Normal biliary examination, normal filling of the bladder and normal uptake of the radiopharmaceutical by the liver suggesting against hepatocellular dysfunction. Normal gallbladder response to CCK administration. Completed 7 days of IV Flagyl. 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 ICD Codes: Z86.718 - Personal history of other venous thrombosis and embolism Status: Chronic Plan: Hx of breast cancer bilaterally w/ recent recurrence Takes Xarelto 50 mg twice daily On therapeutic Lovenox (10) Hypothyroidism ICD Codes: E03.9 - Hypothyroidism, unspecified Status: Chronic Plan: home levothyroxine 75 mcg daily (11) HTN (hypertension) ICD Codes: I10 - Essential (primary) hypertension Status: Chronic Plan: Takes lisinopril-HCTZ 10-12.5 mg daily, metoprolol 25 mg daily at home Continue HCTZ 12.5mg BID, metoprolol 25mg daily (12) FEN Plan: Fluids: PO Electrolytes: Replace as needed Nutrition: Regular diet DVT prophylaxis: Lovenox See the residents documentation for details. I saw and evaluated the patient regarding the eagle portions of this evaluation and agree with the residents findings and plans as written. Parts of this note were created using [employer] voice recognition software program. While efforts were made to correct any mistakes made by this software, some mistakes, errors, and omissions may remain in the final note that were not caught when the note was originally created. Plan of care was discussed and agreed upon with the patient as specifically documented in the above note. An opportunity to ask questions with explanation was provided. Patient voiced understanding on all information reviewed and discussed. (Randall Castillo MD) Problem Qualifiers (1) Pulmonary embolism: Qualified Codes: I27.82 - Chronic pulmonary embolism (2) Hypothyroidism: Qualified Codes: E03.9 - Hypothyroidism, unspecified Ran Anton MD R1 August 08, 2017 11:13 Randall Castillo MD August 08, 2017 14:51
[2017-08-08 12:18] VITALS: PULSE 105
--- NOTE | 2017-08-08 13:53 | HHI.DCPOC ---
Discharge Care Plan Diagnosis: (1) Breast cancer (2) Fatigue (3) Abnormal brain MRI (4) Pulmonary embolism (5) Generalized weakness Goals to Promote Your Health * To prevent worsening of your condition and complications * To maintain your health at the optimal level Directions to Meet Your Goals Take your medications as prescribed Follow your dietary instruction Follow activity as directed Keep your appointments as scheduled Take your immunizations and boosters as scheduled If your symptoms worsen call your PCP, if no PCP go to Urgent Care Center or Emergency Room Smoking is Dangerous to Your Health. Avoid second hand smoke Call the 24-hour hour crisis hotline for domestic abuse at Ran Anton MD R1 August 08, 2017 13:53
--- NOTE | 2017-08-08 13:55 | HHI.DS ---
Discharge Summary Admission Date Jul 28, 2017 at 11:45 Discharge Date: August 08, 2017 Admitting Diagnosis cholecystitis (1) Breast cancer ICD Codes: C50.919 - Malignant neoplasm of unspecified site of unspecified female breast Status: Chronic (2) Hematoma ICD Codes: T14.8XXA - Other injury of unspecified body region, initial encounter (3) Oropharyngeal candidiasis ICD Codes: B37.0 - Candidal stomatitis Status: Acute (4) Transaminitis ICD Codes: R74.0 - Nonspecific elevation of levels of transaminase and lactic acid dehydrogenase [LDH] Status: Acute (5) Acute cholecystitis ICD Codes: K81.0 - Acute cholecystitis Status: Resolved (6) Blood in stool ICD Codes: K92.1 - Melena (7) Pulmonary embolism ICD Codes: I26.99 - Other pulmonary embolism without acute cor pulmonale Status: Chronic (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 ICD Codes: Z86.718 - Personal history of other venous thrombosis and embolism Status: Chronic (9) Hypothyroidism ICD Codes: E03.9 - Hypothyroidism, unspecified Status: Chronic (10) HTN (hypertension) ICD Codes: I10 - Essential (primary) hypertension Status: Chronic Brief History Patient is an 81 y/o F w/hx of breast cancer and bilateral PE presenting w/ severe nausea. Patient has been experiencing nausea and poor appetite for the past month. Has worsened to the point where she couldn't sleep last night and "feels miserable. " Nothing has made it better. Has not vomited but feels like she could. Has had poor appetite, not sure of weight loss but says it is likely (Weight has been stable since 07/07 per hospital records). While following up with Dr. Liu ( oncology) on , imaging for gallbladder was ordered. Showed cholecystitis , so she was placed on Levaquin and Flagyl by oncology on Saturday. Has taken 2 days of antibiotics except for today. She states she had recent elevated liver function studies on outpatient labs but that her white blood count was normal. Was due to see Dr. Romano to discuss elective cholecystectomy tomorrow. No vomiting, only constant nausea. No abdominal pain but pain in the back between the shoulder blades that comes and goes. No fevers, diarrhea, chest pain , SOB. + lethargic. Yesterday, at cereal in the morning and crackers and cheese in the afternoon. Able to have tea. No problems with gall bladder in the past. Nausea has improved since being in the ED and being give Zofran IV x1. 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 However, her most recent medical problem has been a bilateral pulmonary embolus which occurred on about 07/07. Has been on Xarelto since then. Echo done during that time: the left ventricular systolic function was normal with an estimated ejection fraction in the range of 60-65%. Dr. Fischer is PCP. Sees Dr. Liu for oncology. Per [facility] imaging for her gallbladder: - Ultrasound was done 07/25/17. The findings were abnormal thickening of the gallbladder wall with pericholecystic fluid without definitive gallstones. It was concerning for acute cholecystitis. - CT scan was done on 07/24/17. It also showed thickening of the gallbladder wall and pericholecystic fluid but no stones, concerning for acute cholecystitis. LFTs trending down. Thought to be secondary to prior Xarelto use Xarelto discontinued. Currently on therapeutic Lovenox. Hematology consulted for anticoagulation recommendations Avoid NSAIDs, statins, tetracyclines/sulfa medications, and all other hepatotoxic medications CBC/BMP: 08/08/17 0611 08/08/17 0611 Significant Findings Laboratory Tests Test 08/06/17 08:39 08/06/17 13:35 08/07/17 07:32 08/08/17 06:11 Red Blood Count 3.24 MIL/MM3 (4.00-5.30) 3.00 MIL/MM3 (4.00-5.30) 2.81 MIL/MM3 (4.00-5.30) Hemoglobin 10.8 GM/DL (11.6-15.3) 10.0 GM/DL (11.6-15.3) 9.2 GM/DL (11.6-15.3) Hematocrit 31.1 % (35.0-46.0) 28.5 % (35.0-46.0) 26.8 % (35.0-46.0) Red Cell Distribution Width 20.3 % (11.6-17.2) 20.4 % (11.6-17.2) 20.1 % (11.6-17.2) Platelet Count 87 TH/MM3 (150-450) 79 TH/MM3 (150-450) 66 TH/MM3 (150-450) Neutrophils % (Manual) 97 % (16-70) Lymphocytes % 2 % (9-44) Neutrophils # (Manual) 8.2 TH/MM3 (1.8-7.7) Platelet Estimate LOW (NORMAL) LOW (NORMAL) Blood Urea Nitrogen 28 MG/DL (7-18) 28 MG/DL (7-18) 28 MG/DL (7-18) Total Protein 4.8 GM/DL (6.4-8.2) 4.6 GM/DL (6.4-8.2) 4.3 GM/DL (6.4-8.2) Albumin 1.7 GM/DL (3.4-5.0) 1.6 GM/DL (3.4-5.0) 1.5 GM/DL (3.4-5.0) Calcium Level 7.9 MG/DL (8.5-10.1) 8.2 MG/DL (8.5-10.1) 7.6 MG/DL (8.5-10.1) Alkaline Phosphatase 624 U/L (45-117) 552 U/L (45-117) 460 U/L (45-117) Aspartate Amino Transf (AST/SGOT) 213 U/L (15-37) 187 U/L (15-37) 169 U/L (15-37) Total Bilirubin 6.5 MG/DL (0.2-1.0) 7.4 MG/DL (0.2-1.0) 6.9 MG/DL (0.2-1.0) Sodium Level 134 MEQ/L (136-145) 135 MEQ/L (136-145) Chloride Level 97 MEQ/L (98-107) 97 MEQ/L (98-107) 97 MEQ/L (98-107) Estimat Glomerular Filtration Rate 59 ML/MIN (>89) 70 ML/MIN (>89) 78 ML/MIN (>89) Urine Bilirubin SMALL (NEG) Mean Platelet Volume 11.8 FL (7.0-11.0) 11.6 FL (7.0-11.0) Neutrophils (%) (Auto) 92.4 % (16.0-70.0) Lymphocytes (%) (Auto) 5.5 % (9.0-44.0) Neutrophils # (Auto) 8.1 TH/MM3 (1.8-7.7) Lymphocytes # (Auto) 0.5 TH/MM3 (1.0-4.8) Platelet Morphology Comment ENLARGED (NORMAL) White Blood Count 2.6 TH/MM3 (4.0-11.0) Carbon Dioxide Level 34.8 MEQ/L (21.0-32.0) PE at Discharge CONSTITUTIONAL/GEN: This is a elderly, lady resting in bed. Arousable but quiet. LUNGS: respiratory effort is normal. Decreased lung sounds. CARDIOVASCULAR: RR without murmur or gallop. GI/ABD: soft without masses, without organomegaly. Hematoma present on left lower abdomen -improved from prior exams. SKIN: color normal, no rashes noted. MUSC: 1+ edema bilaterally, improving PSYCH/MENTAL STATUS: Alert and oriented. Hospital Course Patient is an 81 y/o F w/hx of breast cancer admitted for severe nausea, poor PO intake, acute cholecystitis, and transaminitis. Supportive care, IV Abx, and Heparin drip was initiated in case of possible surgery/procedure. MRCP showed distended gallbladder with surrounding edema but no gallstones. Portal edema was seen as well. General Surgery and GI consulted. HIDA scan was ordered and showed normal biliary examination with normal filling of the gallbladder. The consensus was to avoid surgery and/or EGD due to patient being at significant pulmonary risk and patient was treated with 7 days of IV Flagyl and Levaquin. Transaminitis was persistent at that time and patient was switched from Xarelto to therapeutic Lovenox. Family noted that patient's mentation had changed, and due to her known diagnosis of breast cancer and PE/DVTs, an MRI brain was ordered that showed enhancing lesions in the cerebellar hemispheres as well as scattered foci in the left parietal lobe that could represent metastatic disease versus showering emboli/infarcts. CT of the chest/abdomen/pelvis were ordered to examine for possible source. CT chest with small nodule in the right upper lobe that has more inflammatory appearance and malignancy, CT abdomen/pelvis showed a cirrhotic appearing liver with small benign-appearing lesion in the dome of the right lobe, moderate ascitic fluid. Hematology was consulted and Dr. Liu, who a history with this patient for her breast carcinoma and anticoagulation, ordered an MRI of the abdomen to evaluate further. MRI showed probable liver cirrhosis with tiny cyst and no evidence of metastatic disease. Patient resumed chemotherapy with Taxol and Herceptin on 08/03. Patient noticeably weaker and less energetic on 08/06. After discussion with family and patient, palliative care was consulted. Patient was also noted to have ecchymosis on lateral aspect of the left abdomen, and ultrasound on 08/06 showed a possible hematoma. Patient elected to not have any surgical intervention and hematoma improved over the next several days. Patient continued to have fatigue and was unable to swallow due to sore mouth/throat. This along with her overall poor clinical prognosis, she ultimately decided to go on Hospice and she was transitioned to a Hospice Center. Pt Condition on Discharge: Stable Discharge Disposition: Hospice/Med Facility Discharge Instructions DIET: Follow Instructions for: As Tolerated, No Restrictions Activities you can perform: Regular-No Restrictions Continued Medications: Levothyroxine (Levothyroxine) 25 Mcg Tab 75 MCG PO DAILY for Thyroid Lisinopril-Hctz (Lisinopril-Hctz) 10-12.5 Mg Tab 1 TAB PO DAILY for Blood Pressure Management, TAB 0 Refills Metoprolol Tartrate (Metoprolol Tartrate) 25 Mg Tab 25 MG PO DAILY, #30 TAB 0 Refills Metronidazole (Metronidazole) 500 Mg Tab 500 MG PO TID for Infection, TAB 0 Refills Ondansetron Odt (Zofran Odt) 4 Mg Tab 4 MG SL Q6HR PRN for Nausea/Vomiting, TAB 0 Refills Rivaroxaban (Xarelto) 15 Mg Tab 15 MG PO BID for Pulmonary emboli for 21 Days, #42 TAB Discontinued Medications: Levofloxacin (Levofloxacin) 500 Mg Tablet 500 MG PO DAILY for Infection, TAB 0 Refills Ran Anton MD R1 August 08, 2017 13:55
[2017-08-08] MEDS ORDERED: MORPHINE SULFATE ORAL SOLN 10 MG/0.5 ML SYRINGE PO PRN ×2 (14:00)
--- NOTE | 2017-08-08 14:37 | HHI.HCPN ---
Reason for visit a. To assist with evaluation and management of symptoms including: pain; generalized weakness; fatigue; dyspnea; dry mouth; sore throat; thirst b. To assist medical decision maker(s) with: better understanding of current medical conditions; weighing benefits/burdens of medical treatment options; making medical treatment decisions. . Subjective/Interval History Patient feels terrible. She has mouth and throat pain making it difficult to swallow anything. Nutritional intake limited to a couple of bites/sips. She even has difficulty managing the "swish and swallow" meds. Pain continues at the hematoma site which she won't rate for me. She is exhausted. She is weak. She can't get comfortable . She denies dyspnea. Discussed case with bedside nurse. Nurse reports that the patient told her "I am done with all this." Liver functions studies slightly improved today. WBC and platelets are dropping. Albumin remains poor. I personally spoke with Dr. Liu on the floor. I visited the patient with her son and daughter in law in the room at the time. I telephoned Margie Sam -- the patient's granddaughter and a nurse here at the hospital. Family has discussed options again with patient. There is now agreement to forego further aggressive care, transition to "comfort measures," and enroll with hospice. . Family/friend interactions Cased discussed with son / [id number] at bedside and granddaughter via phone. . Advance Directives Living Will: Copy in medical record Health Care Surrogate: Copy in medical record Durable Power of Refining Engineer: Never completed Advance Directive Specifics Date completed: Both the living will and designation of health care surrogate are dated 2017 . Health Care Surrogate(s): The patient has designated her son -=- Tyler Sam -- as the primary surrogate ; and her [id number] -- Berenice Sam -- as her alternate,. . Documented care wishes: The patient has completed a [place] living will. It indicates that if she should ever have an end-stage condition or be in a persistent vegetative state she would not want cardio pulmonary resuscitation, antibiotics, or artificial nutrition/hydration. She would want "maximum pain relief." . Significant change in goals: Have decided to enroll with hospice and change code status to DNR . Objective Vital Signs Date Time Temp Pulse Resp B/P (MAP) Pulse Ox O2 Delivery O2 Flow Rate FiO2 5/10/18 12:18 105 08/08/17 11:10 Nasal Cannula 2.00 08/08/17 08:33 97.6 97 16 113/52 (72) 96 08/08/17 08:00 106 08/08/17 04:00 99 08/08/17 04:00 98.0 92 18 115/59 (77) 97 08/08/17 00:00 93 08/08/17 00:00 98.2 95 20 106/51 (69) 97 08/07/17 20:00 Nasal Cannula 2.00 08/07/17 20:00 95 08/07/17 20:00 98.8 100 20 105/53 (70) 95 08/07/17 16:34 94 Nasal Cannula 2.00 08/07/17 16:00 87 Intake & Output 08/08/17 08/08/17 07:00 19:00 Output Total 250 ml Balance -250 ml Output Urine Total 250 ml . Physical Exam CONSTITUTIONAL/GENERAL: This is a thin, pale, frail appearing female in a medical oncology bed. She was sleeping at time of my arrival. She aroused easily to voice/exam. Very wea and very weak voiced. TUBES/LINES/DRAINS: Peripheral IV; SKIN: Jaundice is visible today. Large hematoma over left lateral abdomen/ flank. Ecchymoses on upper extremities. No wounds seen anteriorly. Skin temperature appropriate. Not diaphoretic. EYES: Pupils equal and round . Extraocular motions intact. No scleral icterus. No injection or drainage. Fundi not examined. ENT: Hearing grossly normal. Nose without bleeding or purulent drainage. No visible thrush. There is a petechia vs hematoma on posterior right palate. NECK: Trachea midline. Supple, nontender. CARDIOVASCULAR: Regular rate and rhythm without murmurs, gallops, or rubs. No JVD. RESPIRATORY/CHEST: Symmetric, unlabored respirations. Clear to auscultation. Breath sounds equal bilaterally. GASTROINTESTINAL: Abdomen soft, non-tender, nondistended. No hepato-splenomegaly , or palpable masses. No guarding. Bowel sounds present. GENITOURINARY: Without palpable bladder distension. MUSCULOSKELETAL: Extremities without clubbing, cyanosis. No edema. Tenderness over hematoma. LYMPHATICS: Not examined. NEUROLOGICAL: Exhausted appearing. Moves all extremities. PSYCHIATRIC: Affect appears depressed. No apparent hallucinations or other psychotic thought process. . Diagnostic Tests Laboratory Laboratory Tests Test 08/06/17 08:39 08/06/17 13:35 08/07/17 07:32 08/08/17 06:11 White Blood Count 8.4 TH/MM3 (4.0-11.0) 8.8 TH/MM3 (4.0-11.0) 2.6 TH/MM3 (4.0-11.0) Red Blood Count 3.24 MIL/MM3 (4.00-5.30) 3.00 MIL/MM3 (4.00-5.30) 2.81 MIL/MM3 (4.00-5.30) Hemoglobin 10.8 GM/DL (11.6-15.3) 10.0 GM/DL (11.6-15.3) 9.2 GM/DL (11.6-15.3) Hematocrit 31.1 % (35.0-46.0) 28.5 % (35.0-46.0) 26.8 % (35.0-46.0) Mean Corpuscular Volume 96.0 FL (80.0-100.0) 95.1 FL (80.0-100.0) 95.5 FL (80.0-100.0) Mean Corpuscular Hemoglobin 33.2 PG (27.0-34.0) 33.4 PG (27.0-34.0) 32.7 PG (27.0-34.0) Mean Corpuscular Hemoglobin Concent 34.6 % (32.0-36.0) 35.1 % (32.0-36.0) 34.2 % (32.0-36.0) Red Cell Distribution Width 20.3 % (11.6-17.2) 20.4 % (11.6-17.2) 20.1 % (11.6-17.2) Platelet Count 87 TH/MM3 (150-450) 79 TH/MM3 (150-450) 66 TH/MM3 (150-450) Mean Platelet Volume 11.0 FL (7.0-11.0) 11.8 FL (7.0-11.0) 11.6 FL (7.0-11.0) Differential Total Cells Counted 100 Neutrophils % (Manual) 97 % (16-70) Band Neutrophils % 1 % (0-6) Lymphocytes % 2 % (9-44) Neutrophils # (Manual) 8.2 TH/MM3 (1.8-7.7) Differential Comment FINAL DIFF MANUAL AUTO DIFF CONFIRMED Platelet Estimate LOW (NORMAL) LOW (NORMAL) Platelet Morphology Comment NORMAL (NORMAL) ENLARGED (NORMAL) Blood Urea Nitrogen 28 MG/DL (7-18) 28 MG/DL (7-18) 28 MG/DL (7-18) Creatinine 0.91 MG/DL (0.50-1.00) 0.79 MG/DL (0.50-1.00) 0.72 MG/DL (0.50-1.00) Random Glucose 88 MG/DL (74-106) 90 MG/DL (74-106) 90 MG/DL (74-106) Total Protein 4.8 GM/DL (6.4-8.2) 4.6 GM/DL (6.4-8.2) 4.3 GM/DL (6.4-8.2) Albumin 1.7 GM/DL (3.4-5.0) 1.6 GM/DL (3.4-5.0) 1.5 GM/DL (3.4-5.0) Calcium Level 7.9 MG/DL (8.5-10.1) 8.2 MG/DL (8.5-10.1) 7.6 MG/DL (8.5-10.1) Alkaline Phosphatase 624 U/L (45-117) 552 U/L (45-117) 460 U/L (45-117) Aspartate Amino Transf (AST/SGOT) 213 U/L (15-37) 187 U/L (15-37) 169 U/L (15-37) Alanine Aminotransferase (ALT/SGPT) 50 U/L (10-53) 46 U/L (10-53) 46 U/L (10-53) Total Bilirubin 6.5 MG/DL (0.2-1.0) 7.4 MG/DL (0.2-1.0) 6.9 MG/DL (0.2-1.0) Sodium Level 134 MEQ/L (136-145) 135 MEQ/L (136-145) 137 MEQ/L (136-145) Potassium Level 4.1 MEQ/L (3.5-5.1) 4.4 MEQ/L (3.5-5.1) 3.7 MEQ/L (3.5-5.1) Chloride Level 97 MEQ/L (98-107) 97 MEQ/L (98-107) 97 MEQ/L (98-107) Carbon Dioxide Level 30.0 MEQ/L (21.0-32.0) 30.8 MEQ/L (21.0-32.0) 34.8 MEQ/L (21.0-32.0) Anion Gap 7 MEQ/L (5-15) 7 MEQ/L (5-15) 5 MEQ/L (5-15) Estimat Glomerular Filtration Rate 59 ML/MIN (>89) 70 ML/MIN (>89) 78 ML/MIN (>89) Urine Color YELLOW (YELLW/STRAW) Urine Turbidity CLEAR (CLEAR) Urine pH 5.5 (5.0-8.5) Urine Specific [place] 1.016 (1.002-1.035) Urine Protein NEG mg/dL (NEG-TRACE) Urine Glucose (UA) NEG mg/dL (NEG) Urine Ketones NEG mg/dL (NEG) Urine Occult Blood NEG (NEG) Urine Nitrite NEG (NEG) Urine Bilirubin SMALL (NEG) Urine Urobilinogen LESS THAN 2.0 MG/DL (LESS Urine Leukocyte Esterase NEG (NEG) Urine RBC LESS THAN 1 /hpf (0-3) Urine WBC 2 /hpf (0-5) Urine Squamous Epithelial Cells <1 /hpf (0-5) Urine Hyaline Casts 8 /lpf (RARE) Microscopic Urinalysis Comment CULT NOT INDICATED Neutrophils (%) (Auto) 92.4 % (16.0-70.0) Lymphocytes (%) (Auto) 5.5 % (9.0-44.0) Monocytes (%) (Auto) 1.6 % (0.0-8.0) Eosinophils (%) (Auto) 0.1 % (0.0-4.0) Basophils (%) (Auto) 0.4 % (0.0-2.0) Neutrophils # (Auto) 8.1 TH/MM3 (1.8-7.7) Lymphocytes # (Auto) 0.5 TH/MM3 (1.0-4.8) Monocytes # (Auto) 0.1 TH/MM3 (0-0.9) Eosinophils # (Auto) 0.0 TH/MM3 (0-0.4) Basophils # (Auto) 0.0 TH/MM3 (0-0.2) CBC Comment AUTO DIFF . Result Diagram: 08/08/17 0611 08/08/17610 Microbiology Microbiology Date/Time Source Procedure Growth Status 07/29/17 15:00 Stool Stool Stool Occult Blood (ISA) - Final HEMOCCULT POSITIVE Complete . Imaging Last Impressions Soft Tissue Ultrasound 08/06/171045 Signed Impressions: Service Date/Time: Sunday, August 06, 2017 11:16 - CONCLUSION: 1. Probable hematoma in the lateral left abdomen with measurements above. Surrounding edema. Noah Gates MD Chest X-Ray 08/06/171045 Signed Impressions: Service Date/Time: Sunday, August 06, 2017 14:25 - CONCLUSION: 1. Subsegmental mostly basilar airspace disease the lungs. No effusion or pneumothorax. Noah Gates MD Chest CT 08/01/17 0000 Signed Impressions: Service Date/Time: July 11:39 - CONCLUSION: 1. Today's examination again demonstrates areas of consolidation involving the right upper and right middle lobes. There is a small associated nodule in the right upper lobe measuring 0.7 x 1.0 cm. The overall appearance of these would suggest they are probably inflammatory however, continued followup to exclude malignancy will be needed. 2. Interval decrease in size of the patient's middle mediastinal lymph node. 3. Cardiomegaly. 4. Small bilateral effusions new when compared to the prior exam. Charly Garcia MD Abdomen/Pelvis CT 08/01/17 0000 Signed Impressions: Service Date/Time: July 11:39 - CONCLUSION: 1. Cirrhotic appearing liver with small benign appearing low density lesion in the dome of the right lobe. 2. Moderate amount of ascitic fluid in the abdomen and pelvis. 3. Abnormal gallbladder wall thickening versus pericholecystic fluid. No calcified gallstones. 4. Small bilateral pleural effusions. Kofi Alvarez MD Abdomen MRI 08/01/17 0000 Signed Impressions: Service Date/Time: July 19:22 - CONCLUSION: 1. 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 No definite evidence for metastatic disease. Mild ascites. Moderate anasarca. Edematous gallbladder wall. Noah Gates MD ADDENDUM: The study was reevaluated on request of Dr. Liu. There is diffusely heterogeneous decreased enhancement throughout the posterior right lobes of the liver, predominantly segments 6 and 7. No definitive decreased T1 signal abnormality although there is subtle restricted diffusion. Although somewhat atypical, the findings are concerning for infiltrative mass. Patient would benefit from you just MRI or PET/CT examination given history of breast CA. Matthias Arnett MD Brain MRI 07/31/17 0000 Signed Impressions: Service Date/Time: Monday, July 31, 2017 17:39 - CONCLUSION: 1. A few scattered foci of bright T2 signal abnormality/restricted diffusion in both cerebral hemispheres greater in the left parietal lobe which can be seen with showering emboli/infarcts. 2. A few enhancing lesions in the cerebellar hemispheres, nonspecific but could represent metastatic disease. Rc Engel MD Hepatobiliary Scan Nuclear Medicine 07/30/17 0000 Signed Impressions: Service Date/Time: Sunday, July 30, 2017 09:56 - CONCLUSION: 1. Normal biliary examination. 2. There is normal filling of the gallbladder which excludes cystic duct obstruction and there is normal uptake of the radiopharmaceutical by the liver suggesting against hepatocellular dysfunction. 3. Additionally, there is normal gallbladder response to CCK administration. Tyrone Solo MD Gall Bladder Ultrasound 07/28/17 0000 Signed Impressions: Service Date/Time: Friday, July 28, 2017 15:12 - CONCLUSION: 1. Distended gallbladder without stones. Gallbladder wall is mildly thickened at 4 mm. This is nonspecific. This could be from generalized hepatic disease versus other causes of edema. Acalculus cholecystitis cannot absolutely be excluded. 2. Right renal cyst. Tyrone Briggs MD Cholangiopancreatography MRI 07/28/17 0000 Signed Impressions: Service Date/Time: Friday, July 28, 2017 14:08 - CONCLUSION: 1. Distended gallbladder with surrounding edema but no gallstones. This can be seen with hepatic disease. Acalculus cholecystitis cannot be excluded. 2. Periportal edema. 3. Biliary dilatation is not clearly seen. Tyrone Briggs MD . Assessment and Plan Disease Oriented Problem List: (1) Breast cancer Comment: Recurrent breast cancer now appears to involve liver and possibly brain. . (2) Pulmonary embolism Comment: Hospitalized in June for bilateral PEs. . (3) Blood in stool (4) Hematoma Comment: Patient needs to reamin on anti-coagulants due to her recent pulmonary emboli. . (5) Abnormal brain MRI (6) Anemia Comment: Probably multi-factorial -- chronic disease; GI blood loss; blood loss into hematoma. . (7) Hypothyroidism Symptom Scale: (1) Pain 0-10 Scale: Unable to quantify Comment: Most of her pain appears to be at the site of her left lateral abdominal hematoma. She is also very uncomfortable in the mouth and throat. . . (2) Dyspnea 0-10 Scale: Unable to quantify Comment: Helped by supplemental 02. Improving. . (3) Generalized weakness 0-10 Scale: Unable to quantify (4) Fatigue 0-10 Scale: Unable to quantify Pertinent Non-Medical Issues Psychosocial: Had been living alone. Multiple children and grandchildren live in area and provide psychosocial support. Spiritual: Self designates as [employer]. Legal: Advance directives are in place. Ethical issues impacting care: Currently capacitated to make her own health care decisions, but appears too exhausted and overwhelmed to make those decisions. . . Important Contacts * Tyler Sam (son and health care surrogate) -- [phone] * Dasilva (Anita) Baudilio (daughter) [phone] . 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 She has poor functional status and seems to have declined after her first chemotherapy treatment. Given her age and degree of debility, it is not clear if she will gain benefit from the chemo before she is overcome by the disease. It is also not clear given her age and debility to what extent she might be expected to benefit if she does respond as most of the studies have not been done on subjects like her. Without chemo, however, is likely to come within weeks. Patient/family are opting to forego further aggressive care and enroll with hospice. . . Code Status: No Code Plan == Code Status: NO CODE. . Code status changed to DNR on 08/08/17 == Decision making: Patient's ability to make her own health care decisions appears to be rapidly declining. She is quite exhausted and seems to have some difficulty processing the benefits and burdens of treatment options. Should she become incapacitated we would rely on her living will and the decision of her surrogate -- her son Tyler. == Goals of medical treatment: As of 08/08/17, patient has opted for forego further aggressive cancer-directed treatments, focus on comfort, and enroll wit hospice. == Symptoms: * Pain: most of her pain appears to be in the area of her hematoma as well as from mouth and throat pain (stomatitis? thrush?). Family tells me she is somewhat stoic . Family has requested very low dose opioids saying she is quite sensitive and does not like to be sedated. Having difficulty swallowing tablets at this time. Will transition to morphine sulfate oral solution. Anticipate we will be uptitrating opiods under hospice care. * Dyspnea: Appears well controlled while patient is at bedrest with supplemental 02. No further recommendations at this time. * Generalized weakness/fatigue: I believe this is from the underlying disease process. She might benefit symptomatically from systemic steroids but would discourage given her need to remain on anti-coagulants and her current hematoma. Weakness/fatigue may be exacerbated by chemotherapy in which case i would expect it to continue after subsequent dosing. No further recommendations at this time. * Sore throat: Dr. Liu has ordered treatment for possible thrush. If she is not helped by oral nystatin or magic mouth wash, may want to try lidocaine oral solution. == Have spoken with hospice admissions nurse and discussed appropriate orders for hospice care. == Will plan on sending patient initially to hospice care center to appropriately titrate meds. Once more comfortable, should be able to get home. == Patient understands that if she improves, and she desires aggressive care she could conceivably dis-enroll from hopsice == Palliative care will continue to follow to assist with symptom management and to further clarify goal of medical treatment as the clinical course evolves. . . Time Spent Total Floor Time (mins): 50 (Total time on floor included: chart review; patiet exam; bedside discussion with health care surrgoate; [facility]; discussion and review od imaging with Dr. Liu; discs) Face to Face Time (mins): 20 >50% Counseling/Coord of Care: Yes Attestation To help prompt me to consider important information that might be impacting today's encounter and assessment, information from prior notes written by myself or my colleagues may have been "brought forward" into today's note. My signature on this note, however, is an attestation that I personally performed the exam, history, and/or decision-making noted today, and, unless otherwise indicated, the interactions with patient, family, and staff as well as the review of records all occurred today. I also attest that the listed assessment and stated plan reflect my best clinical judgment today based on the combination of historical information, prior notes, and today's exam/ interactions. When time spent is documented, it refers only to time spent today by the signer, or if indicated, combined time spent today by collaborating physician/nurse practitioner. . Thor Fontaine MD August 08, 2017 14:37
[2017-08-08] MEDS ORDERED: NYSTAT/DIPHENHY/LIDO MOUTHWASH (Adult) 120ML SWISH-SWAL SCH (15:00)
== END 2017-08-08 15:34 | disposition hospice, inpatient (51) | DRG 436 ==
LOC: NEPE 09:25 → NEDA 11:45 → N07B 12:51 → HCIN 08-02 22:44
PROVIDERS: ADMIT Family Medicine; ATTEND Family Medicine
DX: C78.7 Secondary malignant neoplasm of liver and intrahepatic bile duct (principal); I27.82 Chronic pulmonary embolism; N17.9 Acute kidney failure, unspecified; K81.0 Acute cholecystitis; B37.89 Other sites of candidiasis; R06.00 Dyspnea, unspecified; B37.0 Candidal stomatitis; K92.1 Melena; R13.10 Dysphagia, unspecified; I10 Essential (primary) hypertension; E03.9 Hypothyroidism, unspecified; R74.0 Nonspecific elevation of levels of transaminase and lactic acid dehydrogenase [LDH]; R53.1 Weakness; R79.82 Elevated C-reactive protein (CRP); M54.2 Cervicalgia; G89.29 Other chronic pain; S30.1XXA Contusion of abdominal wall, initial encounter; R97.0 Elevated carcinoembryonic antigen [CEA]; R68.2 Dry mouth, unspecified; K64.9 Unspecified hemorrhoids; Z51.5 Encounter for palliative care; Z66 Do not resuscitate; D50.0 Iron deficiency anemia secondary to blood loss (chronic); D63.8 Anemia in other chronic diseases classified elsewhere; R79.1 Abnormal coagulation profile; K57.30 Diverticulosis of large intestine without perforation or abscess without bleeding; R05 Cough; R60.0 Localized edema; Z92.3 Personal history of irradiation; Z85.3 Personal history of malignant neoplasm of breast; Z80.3 Family history of malignant neoplasm of breast; Z79.01 Long term (current) use of anticoagulants; Z86.718 Personal history of other venous thrombosis and embolism; Z92.21 Personal history of antineoplastic chemotherapy; Z85.828 Personal history of other malignant neoplasm of skin
CPT/HCPCS: 70553; 71046; 71260; 74177; 74181; 74183; 76377; 76705; 76999; 78227; 80048; 80053; 80074; 81001; 82248; 82272; 82378; 83520; 83690; 84080; 84484; 85007; 85025; 85027; 85610; 85730; 86140; 86300; 93005; 94150; 94640; 96361; 96374; A9537; A9579; C9113; J1100; J1170; J1644; J1650; J1956; J2405; J2805; J7030; J7050; J9267; J9355; Q0163; Q9967